=== PATIENT | male | born 1930 | race Caucasian/White ===

== ENCOUNTER 2017-03-31 10:26 | Inpatient (IN) | payer MEDICARE, BC ==
[2017-03-31] MEDS ORDERED: IPRATROPIUM-ALBUTEROL 3 ML NEB INHALATION STA (10:56)
--- NOTE | 2017-03-31 11:02 | ED ---
General Adult HPI - General Chief complaint: Shortness of Breath Stated complaint: SOB Time Seen by Provider: 03/31/17 10:30 Source: patient, EMS, RN notes reviewed Mode of arrival: EMS - History of Present Illness Initial comments: This is an 87-year-old male who presents emergency Department stating that for over 3 weeks he has cold symptoms. Patient states that over the last week he's become more more short of breath. Patient states today he felt dizzy so he took his blood pressure was 89 systolic and he believes his heart rate was between 180 and 190. Patient states he was very dizzy at that time. Patient states currently he does not feel that dizzy. Patient denies any chest pain. Patient states he is more short of breath especially with exertion over the last week. Patient denies any fever or chills. Patient denies any abdominal pain patient denies nausea vomiting diarrhea. Patient denies any swelling to the legs. Patient denies any calf tenderness. - Related Data Home Medications Medication Instructions Recorded Confirmed Allopurinol [Zyloprim] 100 mg PO DAILY 11/04/13 03/31/17 Aspirin 81 mg PO MOWEFR 11/04/13 03/31/17 Folic Acid 1 mg PO DAILY 11/04/13 03/31/17 Furosemide [Lasix] 40 mg PO QAM 11/04/13 03/31/17 Omeprazole [PriLOSEC] 20 mg PO DAILY 11/04/13 03/31/17 Pravastatin Sodium [Pravachol] 40 mg PO HS 11/04/13 03/31/17 Terazosin [Hytrin] 2 mg PO HS 11/04/13 03/31/17 predniSONE 20 mg PO DAILY 11/04/13 03/31/17 Losartan [Cozaar] 50 mg PO BID 02/27/14 03/31/17 amLODIPine [Norvasc] 10 mg PO DAILY@1200 02/27/14 03/31/17 Amiodarone [Cordarone] 100 mg PO DAILY 03/31/17 03/31/17 Hydrochlorothiazide [Hydrodiuril] 12.5 mg PO DAILY 03/31/17 03/31/17 Warfarin [Coumadin] 5 mg PO HS 03/31/17 03/31/17 Allergies Allergy/AdvReac Type Severity Reaction Status Date / Time codeine Allergy Mild Confusion Verified 03/31/17 11:01 Review of Systems ROS Statement: Those systems with pertinent positive or pertinent negative responses have been documented in the HPI. ROS Other: All systems not noted in ROS Statement are negative. Past Medical History Past Medical History: Blood Disorder, Cancer, Heart Failure, COPD, Hyperlipidemia, Hypertension, Myocardial Infarction (CO), Prostate Disorder, Sleep Apnea/CPAP/BIPAP Additional Past Medical History / Comment(s): CLL, home 02 AT 2 Liters with cpap , Guillan-Dodson syndrome, autoimmune hemolytic anemia, BPH, gout,irregular heart rate Last Myocardial Infarction Date:: 04/29 History of Any Multi-Drug Resistant Organisms: None Reported Past Surgical History: Heart Catheterization, Tonsillectomy Additional Past Surgical History / Comment(s): heavenly carotid endarct, lt knee replacement, prostate biopsy Past Anesthesia/Blood Transfusion Reactions: No Reported Reaction Additional Past Anesthesia/Blood Transfusion Reaction / Comment(s): pt states "has rare antibodies to blood has trouble finding matches" Past Psychological History: No Psychological Hx Reported Smoking Status: Former smoker - Past Family History Brother(s) Family Medical History: Cancer Additional Family Medical History / Comment(s): kidney General Exam - General Exam Comments Initial Comments: GENERAL: Patient is well-developed and well-nourished. Patient is nontoxic and well- hydrated and is in mild distress. ENT: Neck is soft and supple. No significant lymphadenopathy is noted. Oropharynx is clear. Moist mucous membranes. Neck has full range of motion without eliciting any pain. EYES: The sclera were anicteric and conjunctiva were pink and moist. Extraocular movements were intact and pupils were equal round and reactive to light. Eyelids were unremarkable. PULMONARY: Unlabored respirations. Good breath sounds bilaterally. No audible rales rhonchi or wheezing was noted. CARDIOVASCULAR: There is a regular rate and rhythm without any murmurs gallops or rubs. ABDOMEN: Soft and nontender with normal bowel sounds. No palpable organomegaly was noted. There is no palpable pulsatile mass. SKIN: Skin is clear with no lesions or rashes and otherwise unremarkable. NEUROLOGIC: Patient is alert and oriented x3. Cranial nerves II through XII are grossly intact. Motor and sensory are also intact. Normal speech, volume and content. Symmetrical smile. MUSCULOSKELETAL: Normal extremities with adequate strength and full range of motion. No lower extremity swelling or edema. No calf tenderness. LYMPHATICS: No significant lymphadenopathy is noted PSYCHIATRIC: Normal psychiatric evaluation. Normal interpersonal interactions appears functionally intact in deals appropriately with others. Course Vital Signs 03/31/17 03/31/17 03/31/17 10:29 11:23 11:24 Temperature 99.0 F Pulse Rate 102 H 91 Respiratory 20 20 Rate Blood Pressure 134/62 O2 Sat by Pulse 84 L Oximetry 03/31/17 03/31/17 11:33 12:18 Temperature Pulse Rate 91 86 Respiratory 18 Rate Blood Pressure 127/58 O2 Sat by Pulse 98 Oximetry Medical Decision Making - Medical Decision Making EKG showed atrial fibrillation at a rate of 92 bpm QRS 154 QT interval is 400 QTC is 494. Patient's EKG shows no ST segment elevation or depression or T wave abnormalities are noted. Chest x-ray shows no acute abnormality. Patient was asymptomatic while in the emergency department. - Lab Data Result diagrams: 03/31/17 10:50 03/31/17 10:50 Lab Results 03/31/17 03/31/17 03/31/17 Range/Units 10:50 10:50 10:50 WBC 8.6 (3.8-10.6) k/uL RBC 3.41 L (4.30-5.90) m/uL Hgb 10.0 L (13.0-17.5) gm/dL Hct 33.5 L (39.0-53.0) % MCV 98.3 (80.0-100.0) fL MCH 29.4 (25.0-35.0) pg MCHC 29.9 L (31.0-37.0) g/dL RDW 15.5 (11.5-15.5) % Plt Count 146 L (150-450) k/uL Neutrophils % 88 % Lymphocytes % 6 % Monocytes % 5 % Eosinophils % 0 % Basophils % 0 % Neutrophils # 7.5 (1.3-7.7) k/uL Lymphocytes # 0.5 L (1.0-4.8) k/uL Monocytes # 0.4 (0-1.0) k/uL Eosinophils # 0.0 (0-0.7) k/uL Basophils # 0.0 (0-0.2) k/uL Hypochromasia Marked Macrocytosis Slight PT (9.0-12.0) sec INR (<1.2) APTT (22.0-30.0) sec Sodium 141 (137-145) mmol/L Potassium 4.1 (3.5-5.1) mmol/L Chloride 101 (98-107) mmol/L Carbon Dioxide 30 (22-30) mmol/L Anion Gap 10 mmol/L BUN 48 H (9-20) mg/dL Creatinine 2.17 H (0.66-1.25) mg/dL Est GFR (MDRD) Af Amer 35 (>60 ml/min/1.73 sqM) Est GFR (MDRD) Non-Af 29 (>60 ml/min/1.73 sqM) Glucose 220 H (74-99) mg/dL Calcium 8.4 (8.4-10.2) mg/dL Magnesium 1.6 (1.6-2.3) mg/dL Total Bilirubin 0.4 (0.2-1.3) mg/dL AST 13 L (17-59) U/L ALT 26 (21-72) U/L Alkaline Phosphatase 52 (38-126) U/L Total Creatine Kinase 38 L (55-170) U/L CK-MB (CK-2) 1.4 (0.0-2.4) ng/mL CK-MB (CK-2) Rel Index 3.7 Troponin I 0.034 (0.000-0.034) ng/mL NT-Pro-B Natriuret Pep pg/mL Total Protein 5.1 L (6.3-8.2) g/dL Albumin 2.8 L (3.5-5.0) g/dL 03/31/17 03/31/17 Range/Units 10:50 10:50 WBC (3.8-10.6) k/uL RBC (4.30-5.90) m/uL Hgb (13.0-17.5) gm/dL Hct (39.0-53.0) % MCV (80.0-100.0) fL MCH (25.0-35.0) pg MCHC (31.0-37.0) g/dL RDW (11.5-15.5) % Plt Count (150-450) k/uL Neutrophils % % Lymphocytes % % Monocytes % % Eosinophils % % Basophils % % Neutrophils # (1.3-7.7) k/uL Lymphocytes # (1.0-4.8) k/uL Monocytes # (0-1.0) k/uL Eosinophils # (0-0.7) k/uL Basophils # (0-0.2) k/uL Hypochromasia Macrocytosis PT 31.3 H (9.0-12.0) sec INR 3.5 H (<1.2) APTT 43.1 H (22.0-30.0) sec Sodium (137-145) mmol/L Potassium (3.5-5.1) mmol/L Chloride (98-107) mmol/L Carbon Dioxide (22-30) mmol/L Anion Gap mmol/L BUN (9-20) mg/dL Creatinine (0.66-1.25) mg/dL Est GFR (MDRD) Af Amer (>60 ml/min/1.73 sqM) Est GFR (MDRD) Non-Af (>60 ml/min/1.73 sqM) Glucose (74-99) mg/dL Calcium (8.4-10.2) mg/dL Magnesium (1.6-2.3) mg/dL Total Bilirubin (0.2-1.3) mg/dL AST (17-59) U/L ALT (21-72) U/L Alkaline Phosphatase (38-126) U/L Total Creatine Kinase (55-170) U/L CK-MB (CK-2) (0.0-2.4) ng/mL CK-MB (CK-2) Rel Index Troponin I (0.000-0.034) ng/mL NT-Pro-B Natriuret Pep 1690 pg/mL Total Protein (6.3-8.2) g/dL Albumin (3.5-5.0) g/dL Disposition Clinical Impression: Near syncope, Tachycardia, Dyspnea Disposition: ADMITTED IP TO THIS HOSP Referrals: Rudolph Ceja MD [Primary Care Provider] - 1-2 days Time of Disposition: 12:53
[2017-03-31 11:07] LABS: Basophils % (A) 0 %; Eosinophils % (A) 0 %; HCT 33.5 % (39.0-53.0); Hypochromasia Marked; Lymphocytes # (A) 0.5 k/uL (1.0-4.8); Lymphocytes % (A) 6 %; MCH 29.4 pg (25.0-35.0); MCHC 29.9 g/dL (31.0-37.0); MCV 98.3 fL (80.0-100.0); Macrocytosis Slight; Monocytes # (A) 0.4 k/uL (0-1.0); Monocytes % (A) 5 %; Neutrophils # (A) 7.5 k/uL (1.3-7.7); Neutrophils % (A) 88 %; Platelet Count 146 k/uL (150-450); RBC 3.41 m/uL (4.30-5.90); RDW 15.5 % (11.5-15.5); WBC 8.6 k/uL (3.8-10.6)
[2017-03-31 11:25] LABS: Albumin 2.8 g/dL (3.5-5.0); Calcium 8.4 mg/dL (8.4-10.2); Magnesium 1.6 mg/dL (1.6-2.3); Potassium 4.1 mmol/L (3.5-5.1); Total Bilirubin 0.4 mg/dL (0.2-1.3); Total Protein 5.1 g/dL (6.3-8.2)
[2017-03-31 11:44] LABS: Creatine Kinase MB 1.4 ng/mL (0.0-2.4); Troponin I 0.034 ng/mL (0.000-0.034)
[2017-03-31 11:48] LABS: INR 3.5 (<1.2); Partial Thromboplastin Time 43.1 sec (22.0-30.0); Prothrombin Time 31.3 sec (9.0-12.0)
--- NOTE | 2017-03-31 11:50 | XR ---
EXAMINATION TYPE: XR chest 2V DATE OF EXAM: 03/31/2017 COMPARISON: November 04, 2013 HISTORY: Shortness of breath TECHNIQUE: Frontal and lateral views of the chest are obtained. FINDINGS: Scattered senescent parenchymal changes noted. Hyperinflation compatible with COPD. No evidence for infiltrate. No evidence for atelectasis. Heart size is stable. Mediastinal structures are stable and grossly unremarkable. No evidence for hilar prominence. Degenerative changes dorsal spine. IMPRESSION: 1. No evidence for acute pulmonary disease.
[2017-03-31] MEDS ORDERED: SODIUM CHLORIDE 0.9% 1,000 ML IV ONE (12:54)
[2017-03-31] MEDS: BUDESONIDE 0.5 MG/2 ML NEBU INHALATION SCH (19:17)
[2017-03-31] MEDS: IPRATROPIUM-ALBUTEROL 3 ML NEB INHALATION SCH (19:17)
[2017-03-31] MEDS: AMIODARONE 100 MG TAB PO SCH (20:11)
[2017-03-31] MEDS: PRAVASTATIN SODIUM 40 MG TAB PO SCH (20:15)
[2017-03-31] MEDS: LOSARTAN 50 MG TAB PO SCH (20:15)
[2017-03-31] MEDS: DOXAZOSIN 2 MG TAB PO SCH (20:15)
[2017-04-01] MEDS: PANTOPRAZOLE 40 MG TABLET PO SCH (06:40)
[2017-04-01] MEDS: AMIODARONE 100 MG TAB PO SCH (08:31)
[2017-04-01] MEDS: FOLIC ACID 1 MG TAB PO SCH (08:31)
[2017-04-01] MEDS: predniSONE 20 MG TAB PO SCH (08:31)
[2017-04-01] MEDS: LOSARTAN 50 MG TAB PO SCH ×2 (08:31→21:06)
[2017-04-01] MEDS: ALLOPURINOL 100 MG TAB PO SCH (08:31)
[2017-04-01] MEDS: BUDESONIDE 0.5 MG/2 ML NEBU INHALATION SCH ×2 (08:53→19:58)
[2017-04-01] MEDS: IPRATROPIUM-ALBUTEROL 3 ML NEB INHALATION SCH ×4 (08:53→19:58)
[2017-04-01] MEDS ORDERED: FUROSEMIDE 40 MG TAB PO SCH (09:00)
[2017-04-01] MEDS ORDERED: HYDROCHLOROTHIAZIDE 12.5 MG CAP PO SCH (09:00)
[2017-04-01] MEDS ORDERED: ASPIRIN 81 MG PO SCH (09:00)
--- NOTE | 2017-04-01 10:24 | P.HPIM ---
History of Present Illness H&P Date: 04/01/17 Chief Complaint: Dizzy, short of breath This is an 87-year-old gentleman who presented to the emergency department complaining of dizziness and shortness of breath. The patient states that he checked his heart rate at home and it was 180 290. The patient states he was dizzy and didn't feel well at the time. He was seen in the pulmonary office on 03/20/2017 with shortness of breath and cough. He was started on azithromycin, prednisone, Qvar. He states that his cough and breathing did get better however he is still not back to baseline. He denies fevers and chills. He states he doesn't like the Qvar because it makes him shaky. On admission his EKG showed atrial fibrillation, rate 92 bpm, right bundle branch block. He states he does follow with Dr. Lau in the cardiology office. Review of Systems All systems: negative Past Medical History Past Medical History: Atrial Fibrillation, Blood Disorder, Coronary Artery Disease (CAD), Cancer, Heart Failure, COPD, Diabetes Mellitus, Hyperlipidemia, Hypertension, Myocardial Infarction (SD), Prostate Disorder, Sleep Apnea/CPAP/ BIPAP Additional Past Medical History / Comment(s): CLL diagnosed in 2007, years later had chemo one time and it was discontinued because pt had a SD while receiving, autoimmune hemolytic anemia, rare antibiodies in his blood, AFib with RVR, NIDDM no longer on medications, LOUIE with CPAP occasionally uses O2 2L/ NC with it, 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 Last Myocardial Infarction Date:: 2013 History of Any Multi-Drug Resistant Organisms: None Reported Past Surgical History: Heart Catheterization, Joint Replacement, Tonsillectomy Additional Past Surgical History / Comment(s): heavenly carotid endarct, total lt knee replacement, prostate biopsy, bilateral cataract removals with lens implants, colonoscopies. Past Anesthesia/Blood Transfusion Reactions: No Reported Reaction Additional Past Anesthesia/Blood Transfusion Reaction / Comment(s): pt states "has rare antibodies to blood has trouble finding matches" Smoking Status: Former smoker - Past Family History Brother(s) Family Medical History: Cancer Additional Family Medical History / Comment(s): kidney Mother Family Medical History: Myocardial Infarction (SD) Additional Family Medical History / Comment(s): Mother of a SD at the age of 85yrs. Father Family Medical History: No Reported History Additional Family Medical History / Comment(s): Father was healthy and lived to be 93 yrs old. Medications and Allergies Home Medications Medication Instructions Recorded Confirmed Type Allopurinol [Zyloprim] 100 mg PO DAILY 11/04/13 03/31/17 History Aspirin 81 mg PO MOWEFR 11/04/13 03/31/17 History Folic Acid 1 mg PO DAILY 11/04/13 03/31/17 History Furosemide [Lasix] 40 mg PO QAM 11/04/13 03/31/17 History Omeprazole [PriLOSEC] 20 mg PO DAILY 11/04/13 03/31/17 History Pravastatin Sodium [Pravachol] 40 mg PO HS 11/04/13 03/31/17 History Terazosin [Hytrin] 2 mg PO HS 11/04/13 03/31/17 History predniSONE 20 mg PO DAILY 11/04/13 03/31/17 History Losartan [Cozaar] 50 mg PO BID 02/27/14 03/31/17 History amLODIPine [Norvasc] 10 mg PO DAILY@1200 02/27/14 03/31/17 History Amiodarone [Cordarone] 100 mg PO DAILY 03/31/17 03/31/17 History Hydrochlorothiazide [Hydrodiuril] 12.5 mg PO DAILY 03/31/17 03/31/17 History Warfarin [Coumadin] 5 mg PO HS 03/31/17 03/31/17 History Allergies Allergy/AdvReac Type Severity Reaction Status Date / Time codeine Allergy Mild Confusion Verified 03/31/17 11:01 Physical Exam Osteopathic Statement: *. No significant issues noted on an osteopathic structural exam other than those noted in the History and Physical/Consult. Vitals: Vital Signs Temp Pulse Pulse Resp BP BP Pulse Ox 04/01/17 08:00 98.3 F 88 18 143/64 95 04/01/17 04:00 98.9 F 89 16 133/58 95 03/31/17 23:40 93 18 03/31/17 23:39 100.3 F H 93 18 168/65 93 L 03/31/17 20:00 98.5 F 122 H 20 159/70 94 L 03/31/17 19:30 72 03/31/17 19:17 66 96 03/31/17 16:00 100.4 F H 109 H 18 149/66 96 03/31/17 14:31 98.9 F 109 H 18 167/69 95 03/31/17 13:45 109 H 18 03/31/17 13:33 99.2 F 99 19 142/59 98 03/31/17 13:13 99.2 F 99 19 142/59 98 03/31/17 12:18 86 18 127/58 98 03/31/17 11:33 91 03/31/17 11:24 20 03/31/17 11:23 91 03/31/17 10:29 99.0 F 102 H 20 134/62 84 L Intake and Output 03/31/17 04/01/17 04/01/17 22:59 06:59 14:59 Intake Total 360 375 240 Output Total 400 Balance 360 -25 240 Intake: Intake, IV Titration 375 Amount Sodium Chloride 0.9% 1, 375 000 ml @ 75 mls/hr IV . [id number] ONE Rx#:[id number] Oral 360 240 Output: Urine 400 Other: # Voids 1 Weight 93.5 kg General: Alert and oriented x3, obese, NAD CV: IRR, s1/s2 Lungs: Diffuse bilateral wheezing Abd: soft, NT/ND, +BS Ext: trace edema Results CBC & Chem 7: 03/31/17 10:50 03/31/17 10:50 Labs: Abnormal Lab Results - Last 24 Hours (Table) 03/31/17 03/31/17 03/31/17 Range/Units 10:50 10:50 10:50 RBC 3.41 L (4.30-5.90) m/uL Hgb 10.0 L (13.0-17.5) gm/dL Hct 33.5 L (39.0-53.0) % MCHC 29.9 L (31.0-37.0) g/dL Plt Count 146 L (150-450) k/uL Lymphocytes # 0.5 L (1.0-4.8) k/uL PT (9.0-12.0) sec INR (<1.2) APTT (22.0-30.0) sec BUN 48 H (9-20) mg/dL Creatinine 2.17 H (0.66-1.25) mg/dL Glucose 220 H (74-99) mg/dL AST 13 L (17-59) U/L Total Creatine Kinase 38 L (55-170) U/L Total Protein 5.1 L (6.3-8.2) g/dL Albumin 2.8 L (3.5-5.0) g/dL 03/31/17 Range/Units 10:50 RBC (4.30-5.90) m/uL Hgb (13.0-17.5) gm/dL Hct (39.0-53.0) % MCHC (31.0-37.0) g/dL Plt Count (150-450) k/uL Lymphocytes # (1.0-4.8) k/uL PT 31.3 H (9.0-12.0) sec INR 3.5 H (<1.2) APTT 43.1 H (22.0-30.0) sec BUN (9-20) mg/dL Creatinine (0.66-1.25) mg/dL Glucose (74-99) mg/dL AST (17-59) U/L Total Creatine Kinase (55-170) U/L Total Protein (6.3-8.2) g/dL Albumin (3.5-5.0) g/dL Chest x-ray: report reviewed, image reviewed Thrombosis Risk Factor Assmnt - Choose All That Apply Any of the Below Risk Factors Present?: Yes Each Factor Represents 1 point: Abnormal pulmonary function (COPD), Obesity ( BMI >25) Other Risk Factors: Yes Each Risk Factor Represents 2 Points: Malignancy Each Risk Factor Represents 3 Points: Age 75 years or older Other congenital or acquired thrombophilia - If yes, enter type in comment: No Thrombosis Risk Factor Assessment Total Risk Factor Score: 7 Thrombosis Risk Factor Assessment Level: High Risk Assessment and Plan Assessment: Acute hypoxemia Tracheobronchitis Acute exacerbation of COPD 2/4 SIRS Atrial fibrillation Right bundle branch block Hyperglycemia Anemia, normocytic AN, unknown baseline Mild thrombocytopenia Coumadin coagulopathy - supratherapeutic Moderate PCM History of CLL, chronically on Prednisone Immunocompromised state Hypertension History of SD/ASCAD O2 to maintain saturation greater than or equal to 90% IV Solu-Medrol Blood sugar control Bronchodilators next line Pulmicort Antibiotics: doxycycline Consult cardiology Check iron, B12, folate, A1C Check lactic acid Check BNP Hold Coumadin today, INR in AM Blood, sputum cultures Urine analysis with urine culture Hold Lasix, gentle IV fluid hydration GI and DVT prophylaxis: Coumadin, Protonix Incentive spirometry and pulmonary hygiene Check lipid panel in the morning
[2017-04-01] MEDS: DOXYCYCLINE 50 MG CAP PO SCH ×2 (11:23→21:06)
[2017-04-01] MEDS: methylPREDNISolone SOD SUCCI 40 MG/ML 1 ML VIAL IV SCH (11:23)
[2017-04-01] MEDS: SODIUM CHLORIDE 0.9% 1,000 ML IV SCH (11:24)
--- NOTE | 2017-04-01 11:32 | P.CRDCN ---
History of Present Illness Consult date: 04/01/17 Requesting physician: Rudolph Ceja Consult reason: atrial fibrillation Chief complaint: Dizziness and shortness of breath History of present illness: This is a pleasant 87-year-old gentleman history of paroxysmal atrial fibrillation, CLL, diabetes, hyperlipidemia, hypertension, COPD, sleep apnea, chronic renal failure who follows with Dr. Lau in the office. He has recently been being treated for an upper respiratory infection as an outpatient , he was started on Zithromax, prednisone, and Qvar. Dates that he did notice some improvement in his breathing, although not back to his normal. He continues to have a cough of clear sputum. He states that he became dizzy and felt his heart racing fast, he checked his heart rate at the time which was documented to be up in the 180's so the patient came to the emergency room for further evaluation shortly thereafter he noticed his heart rate to be up in the 180s, it came back down to the 90 range and his symptoms of dizziness resolved. Patient does take Coumadin for anticoagulation for which he has monitored in the cardiology office. EKG on admission here showed a normal sinus rhythm with PACs, rhythm strips also reflect normal sinus rhythm with frequent PACs. Urology consult was requested for atrial fibrillation. Chest x-ray does not reveal any evidence for acute pulmonary disease. At pressure 142/60 with a heart rate in the 80s, afebrile. 95% on 2 L Ventimask. White blood cell count is normal, hemoglobin 10, platelet count 146. Sodium 141, potassium 4.1, BUN 48 , creatinine 2.1. BNP level 2320. Mag level I.6, troponin 0.034. Time of my examination, patient is sitting up, appears quite comfortable in bed, continues to have mild cough. 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 Last Myocardial Infarction Date:: 2013 History of Any Multi-Drug Resistant Organisms: None Reported Past Surgical History: Heart Catheterization, Joint Replacement, Tonsillectomy Additional Past Surgical History / Comment(s): heavenly carotid endarct, total lt knee replacement, prostate biopsy, bilateral cataract removals with lens implants, colonoscopies. Past Anesthesia/Blood Transfusion Reactions: No Reported Reaction Additional Past Anesthesia/Blood Transfusion Reaction / Comment(s): pt states "has rare antibodies to blood has trouble finding matches" Smoking Status: Former smoker - Past Family History Brother(s) Family Medical History: Cancer Additional Family Medical History / Comment(s): kidney Mother Family Medical History: Myocardial Infarction ([place]) Additional Family Medical History / Comment(s): Mother of a FL at the age of 85yrs. Father Family Medical History: No Reported History Additional Family Medical History / Comment(s): Father was healthy and lived to be 93 yrs old. Medications and Allergies Home Medications Medication Instructions Recorded Confirmed Type Allopurinol [Zyloprim] 100 mg PO DAILY 11/04/13 03/31/17 History Aspirin 81 mg PO MOWEFR 11/04/13 03/31/17 History Folic Acid 1 mg PO DAILY 11/04/13 03/31/17 History Furosemide [Lasix] 40 mg PO QA 11/04/13 03/31/17 History Omeprazole [PriLOSEC] 20 mg PO DAILY 11/04/13 03/31/17 History Pravastatin Sodium [Pravachol] 40 mg PO 11/04/13 03/31/17 History Terazosin [Hytrin] 2 mg PO 11/04/13 03/31/17 History predniSONE 20 mg PO DAILY 11/04/13 03/31/17 History Losartan [Cozaar] 50 mg PO BID 02/27/14 03/31/17 History amLODIPine [Norvasc] 10 mg PO DAILY@1200 02/27/14 03/31/17 History Amiodarone [Cordarone] 100 mg PO DAILY 03/31/17 03/31/17 History Hydrochlorothiazide [Hydrodiuril] 12.5 mg PO DAILY 03/31/17 03/31/17 History Warfarin [Coumadin] 5 mg PO 03/31/17 03/31/17 History Allergies Allergy/AdvReac Type Severity Reaction Status Date / Time codeine Allergy Mild Confusion Verified 03/31/17 11:01 Physical Exam Vitals: Vital Signs Temp Pulse Pulse Resp BP BP Pulse Ox 04/01/17 08:00 98.3 F 88 18 143/64 95 04/01/17 04:00 98.9 F 89 16 133/58 95 03/31/17 23:40 93 18 03/31/17 23:39 100.3 F H 93 18 168/65 93 L 03/31/17 20:00 98.5 F 122 H 20 159/70 94 L 03/31/17 19:30 72 03/31/17 19:17 66 96 03/31/17 16:00 100.4 F H 109 H 18 149/66 96 03/31/17 14:31 98.9 F 109 H 18 167/69 95 03/31/17 13:45 109 H 18 03/31/17 13:33 99.2 F 99 19 142/59 98 03/31/17 13:13 99.2 F 99 19 142/59 98 03/31/17 12:18 86 18 127/58 98 03/31/17 11:33 91 03/31/17 11:24 20 03/31/17 11:23 91 Intake and Output 03/31/17 04/01/17 04/01/17 22:59 06:59 14:59 Intake Total 360 375 240 Output Total 400 Balance 360 -25 240 Intake: Intake, IV Titration 375 Amount Sodium Chloride 0.9% 1, 375 000 ml @ 75 mls/hr IV . [id number] ONE Rx#:[id number] Oral 360 240 Output: Urine 400 Other: # Voids 1 1 # Bowel Movements 0 Weight 93.5 kg PHYSICAL EXAMINATION: HEENT: Head is atraumatic, normocephalic. Pupils equal, round. Neck is supple. There is no elevated jugular venous pressure. HEART EXAMINATION: Heart S1, S2 normal. No murmur or gallop heard. CHEST EXAMINATION: Lungs reveal scattered wheezing throughout ABDOMEN: Soft, obese, nontender. Bowel sounds are heard. No organomegaly noted. EXTREMITIES: 2+ peripheral pulses with no evidence of peripheral edema and no calf tenderness noted. NEUROLOGIC patient is awake, alert and oriented -3. . Results 03/31/17 10:50 03/31/17 10:50 Cardiac Enzymes 03/31/17 03/31/17 Range/Units 10:50 10:50 AST 13 L (17-59) U/L CK-MB (CK-2) 1.4 (0.0-2.4) ng/mL Troponin I 0.034 (0.000-0.034) ng/mL Coagulation 03/31/17 Range/Units 10:50 PT 31.3 H (9.0-12.0) sec APTT 43.1 H (22.0-30.0) sec Comprehensive Metabolic Panel 03/31/17 Range/Units 10:50 Sodium 141 (137-145) mmol/L Potassium 4.1 (3.5-5.1) mmol/L Chloride 101 (98-107) mmol/L Carbon Dioxide 30 (22-30) mmol/L BUN 48 H (9-20) mg/dL Creatinine 2.17 H (0.66-1.25) mg/dL Glucose 220 H (74-99) mg/dL Calcium 8.4 (8.4-10.2) mg/dL AST 13 L (17-59) U/L ALT 26 (21-72) U/L Alkaline Phosphatase 52 (38-126) U/L Total Protein 5.1 L (6.3-8.2) g/dL Albumin 2.8 L (3.5-5.0) g/dL Current Medications Generic Name Dose Route Start Last Admin Trade Name Freq PRN Reason Stop Dose Admin Albuterol/Ipratropium 3 ml 03/31/17 20:00 04/01/17 08:53 Duoneb 0.5 Mg-3 Mg/3 Ml Soln INHALATION Not Given RT-QID [facility] Allopurinol 100 mg 04/01/17 09:00 04/01/17 08:31 Zyloprim PO 100 mg DAILY CHRIS Administration Amiodarone HCl 100 mg 03/31/17 18:30 04/01/17 08:31 Cordarone PO 100 mg DAILY CHRIS Administration Amlodipine Besylate 10 mg 04/01/17 12:00 Norvasc PO DAILY@1200 [facility] Aspirin 81 mg 04/01/17 09:00 04/01/17 08:31 Aspirin PO 81 mg MoWeFr@0900 [facility] Administration Budesonide 0.5 mg 03/31/17 20:00 04/01/17 08:53 Pulmicort INHALATION Not Given RT-BID [facility] Doxazosin Mesylate 2 mg 03/31/17 21:00 03/31/17 20:15 Cardura PO 2 mg HS CHRIS Administration Doxycycline Monohydrate 100 mg 04/01/17 10:30 Vibramycin PO BID CHRIS Folic Acid 1 mg 04/01/17 09:00 04/01/17 08:31 Folic Acid PO 1 mg DAILY CHRIS Administration Sodium Chloride 1,000 mls @ 50 mls/hr 04/01/17 10:30 Saline 0.9% IV .Q20H [facility] Insulin Aspart 0 unit 04/01/17 12:30 Novolog SQ ACHS [facility] Protocol Losartan Potassium 50 mg 03/31/17 21:00 04/01/17 08:31 Cozaar PO 50 mg BID CHRIS Administration Methylprednisolone Sodium Succinate 40 mg 04/01/17 10:30 Solu-Medrol IV DAILY CHRIS Pantoprazole Sodium 40 mg 04/01/17 07:30 04/01/17 06:40 Protonix PO 40 mg AC-[id number] CHRIS Administration Pravastatin Sodium 40 mg 03/31/17 21:00 03/31/17 20:15 Pravachol PO 40 mg HS CHRIS Administration Prednisone 20 mg 04/01/17 09:00 04/01/17 08:31 PO 20 mg DAILY CHRIS Administration Intake and Output 03/31/17 04/01/17 04/01/17 22:59 06:59 14:59 Intake Total 360 375 240 Output Total 400 Balance 360 -25 240 Intake: Intake, IV Titration 375 Amount Sodium Chloride 0.9% 1, 375 000 ml @ 75 mls/hr IV . [id number] ONE Rx#:[id number] Oral 360 240 Output: Urine 400 Other: # Voids 1 1 # Bowel Movements 0 Weight 93.5 kg 03/31/17 10:50 03/31/17 10:50 EKG Interpretations (text) EKG shows sinus rhythm with PACs Assessment and Plan Plan: Assessment and Plan #1 acute tracheobronchitis with exacerbation of COPD #2 history of paroxysmal atrial fibrillation, EKG shows normal sinus rhythm with PACs, patient continues to be in a normal sinus rhythm. #3 hypertension #4 hyperlipidemia #5 CLL #6 peripheral vascular disease #7 autoimmune hemolytic anemia #8 chronic renal failure Plan Will repeat an echocardiogram with Doppler study. Continue current medications. Monitor INR closely as this now on antibiotics. Further recommendations to follow. DNP note has been reviewed, I agree with a documented findings and plan of care. Patient was seen and examined.
[2017-04-01] MEDS ORDERED: amLODIPine 10 MG TAB PO SCH (12:00)
[2017-04-01 12:04] LABS: Glucose,Whole Blood 115 mg/dL (75-99)
[2017-04-01] MEDS: INSULIN ASPART 100 UNIT/ML 1 ML 10 ML VIAL SQ SCH ×3 (12:06→21:06)
--- NOTE | 2017-04-01 12:07 | ECHOF ---
Referral Reason:afib, pulmonary hypertension MEASUREMENTS -------- HEIGHT: 157.5 cm WEIGHT: 93.4 kg BP: 143/64 RVIDd: 3.5 cm (< 3.3) IVSd: 1.5 cm (0.6 - 1.1) LVIDd: 5.6 cm (3.9 - 5.3) LVPWd: 1.3 cm (0.6 - 1.1) IVSs: 1.6 cm LVIDs: 5.0 cm LVPWs: 1.2 cm LA Diam: 4.5 cm (2.7 - 3.8) LAESV Index (A-L): 33.11 ml/m Ao Diam: 3.9 cm (2.0 - 3.7) AV Cusp: 1.8 cm (1.5 - 2.6) LA Diam: 4.4 cm (2.7 - 3.8) MV EXCURSION: 16.898 mm (> 18.000) MV EF SLOPE: 56 mm/s (70 - 150) EPSS: 0.9 cm MV E Matty: 0.90 m/s MV DecT: 268 ms MV A Matty: 1.09 m/s MV E/A Ratio: 0.83 RAP: 5.00 mmHg RVSP: 38.65 mmHg FINDINGS -------- Atrial fibrillation. This was a technically good study. The left ventricular size is normal. There is moderate concentric left ventricular hypertrophy. O verall left ventricular systolic function is low-normal with, an EF between 50 - 55 %. The right ventricle is normal in size. LA is moderately dilated 34-39 ml/m2 The right atrial size is normal. There is mild aortic valve sclerosis. There is no evidence of aortic regurgitation. Mild mitral annular calcification present. Mild mitral regurgitation is present. Mild tricuspid regurgitation present. There is mild pulmonary hypertension. The right ventricular systolic pressure, as measured by Doppler, is 38.65mmHg. Trace/mild (physiologic) pulmonic regurgitation. The aortic root size is normal. Echo free space represents a pericardial fat pad. CONCLUSIONS -------- 1. The left ventricular size is normal. 2. There is moderate concentric left ventricular hypertrophy. 3. Overall left ventricular systolic function is low-normal with, an EF between 50 - 55 %. 4. LA is moderately dilated 34-39 ml/m2 5. There is mild aortic valve sclerosis. 6. Mild mitral annular calcification present. 7. Mild mitral regurgitation is present. 8. Mild tricuspid regurgitation present. 9. There is mild pulmonary hypertension. 10. The right ventricular systolic pressure, as measured by Doppler, is 38.65mmHg. 11. Trace/mild (physiologic) pulmonic regurgitation. 12. The aortic root size is normal. 13. Echo free space represents a pericardial fat pad. RECTIFYING OPERATOR: Sherri Purcell RDCS
[2017-04-01 14:35] LABS: Appearance,Urine Clear (Clear); Bilirubin,Urine Negative (Negative); Blood,Urine Trace (Negative); Color,Urine Light Yellow; Glucose,Urine (UA) Negative (Negative); Ketones,Urine Negative (Negative); Leukocyte Esterase,Urine Negative (Negative); Nitrite,Urine Negative (Negative); Protein,Urine 1+ (Negative); RBC,Urine <1 /hpf (0-5); Specific Gravity,Urine 1.011 (1.001-1.035); Urobilinogen,Urine <2.0 mg/dL (<2.0); WBC,Urine <1 /hpf (0-5)
[2017-04-01 15:53] LABS: Iron Saturation 4.68 (15.00-50.00)
[2017-04-01 17:12] LABS: Glucose,Whole Blood 166 mg/dL (75-99)
[2017-04-01 17:28] LABS: Folate, Serum >24.0 ng/mL
[2017-04-01 17:31] LABS: Hemoglobin A1C 5.5 % (4.0-6.0)
[2017-04-01 20:44] LABS: Glucose,Whole Blood 139 mg/dL (75-99)
[2017-04-01] MEDS: DOXAZOSIN 2 MG TAB PO SCH (21:06)
[2017-04-01] MEDS: PRAVASTATIN SODIUM 40 MG TAB PO SCH (21:06)
[2017-04-02] MEDS ORDERED: ADENOSINE 3 MG/ML 2 ML VIAL IVP STA ×2 (03:07→03:12)
[2017-04-02] MEDS ORDERED: AMIODARONE 200 MG TAB PO STA (05:09)
[2017-04-02] MEDS ORDERED: SODIUM CHLORIDE 0.9% 500 ML IV ONE (05:11)
[2017-04-02] MEDS ORDERED: DILTIAZEM 125 MG in SODIUM CHLORIDE 0.9% 100 ML IV SCH (05:15)
[2017-04-02 05:42] LABS: Basophils % (A) 0 %; Eosinophils # (A) 0.1 k/uL (0-0.7); Eosinophils % (A) 1 %; HCT 29.1 % (39.0-53.0); HGB 8.7 gm/dL (13.0-17.5); Hypochromasia Marked; Lymphocytes # (A) 0.9 k/uL (1.0-4.8); Lymphocytes % (A) 11 %; MCH 29.1 pg (25.0-35.0); MCHC 29.9 g/dL (31.0-37.0); MCV 97.2 fL (80.0-100.0); Mean Platelet Volume 10.1; Monocytes # (A) 0.4 k/uL (0-1.0); Monocytes % (A) 5 %; Neutrophils # (A) 6.5 k/uL (1.3-7.7); Neutrophils % (A) 82 %; Platelet Count 129 k/uL (150-450); RBC 2.99 m/uL (4.30-5.90); RDW 15.1 % (11.5-15.5); WBC 7.9 k/uL (3.8-10.6)
[2017-04-02] MEDS: SODIUM CHLORIDE 0.9% 1,000 ML IV SCH (05:45)
[2017-04-02 05:47] LABS: INR 2.2 (<1.2); Prothrombin Time 20.1 sec (9.0-12.0)
[2017-04-02 05:58] LABS: Calcium 8.6 mg/dL (8.4-10.2); Potassium 4.3 mmol/L (3.5-5.1)
[2017-04-02] MEDS: INSULIN ASPART 100 UNIT/ML 1 ML 10 ML VIAL SQ SCH ×4 (06:03→21:48)
[2017-04-02 06:12] LABS: Glucose,Whole Blood 115 mg/dL (75-99)
[2017-04-02] MEDS: PANTOPRAZOLE 40 MG TABLET PO SCH (06:28)
--- NOTE | 2017-04-02 08:11 | PN ---
PROGRESS NOTE Mr. Segura is an 87-year-old male with known history of supraventricular tachycardia who was admitted with symptoms of upper respiratory infection and tracheobronchitis. During the night, he had recurrent episode of supraventricular tachycardia, appears to be AV el reentry tachycardia. The first one was broken with the IV adenosine. Subsequently, he was started on IV Cardizem. He is in sinus mechanism at this time. He felt fatigued and short of breath with a drop in the blood pressure with the episodes. He denies any dizziness. His cough is better. He denies any nausea. He continued be on amiodarone that was increased to 200 mg twice a day. He is on IV Cardizem, losartan 50 mg twice a day, pravastatin 40 mg daily, and prednisone. PHYSICAL EXAMINATION: Blood pressure 116/70 with the heart rate in the 70s. LUNGS: With scattered end-expiratory wheezes. HEART: Regular rate and rhythm, S1, S2. No S3 with systolic murmur. No diastolic murmur. ABDOMEN: Soft, nontender. EXTREMITIES: No edema. LAB DATA: Lab data revealed hemoglobin of 8.7, BUN and creatinine 49 and 2.0. EKG is consistent with a supraventricular tachyarrhythmia. IMPRESSION: 1. Recurrent AV el reentry tachycardia. 2. Bronchitis. 3. History of hypertension. 4. Anemia. 5. Chronic kidney disease. RECOMMENDATION: I will switch him to oral Cardizem. I will continue on the amiodarone orally with a higher dose. We will follow his rhythm and his rate and depending on that, further recommendation will be made. MMODL / IJN: [id number] /
[2017-04-02] MEDS: DILTIAZEM ORAL 60 MG TAB PO SCH ×3 (08:17→21:48)
[2017-04-02] MEDS: DOXYCYCLINE 50 MG CAP PO SCH ×2 (08:17→20:25)
[2017-04-02] MEDS: FOLIC ACID 1 MG TAB PO SCH (08:17)
[2017-04-02] MEDS: LOSARTAN 50 MG TAB PO SCH ×2 (08:17→20:25)
[2017-04-02] MEDS: methylPREDNISolone SOD SUCCI 40 MG/ML 1 ML VIAL IV SCH (08:17)
[2017-04-02] MEDS: ALLOPURINOL 100 MG TAB PO SCH (08:17)
[2017-04-02] MEDS: AMIODARONE 200 MG TAB PO SCH ×2 (08:18→20:25)
[2017-04-02] MEDS: predniSONE 20 MG TAB PO SCH (08:18)
[2017-04-02] MEDS: IPRATROPIUM-ALBUTEROL 3 ML NEB INHALATION SCH ×4 (10:07→21:11)
[2017-04-02] MEDS: BUDESONIDE 0.5 MG/2 ML NEBU INHALATION SCH ×2 (10:07→21:11)
[2017-04-02 12:12] LABS: Glucose,Whole Blood 107 mg/dL (75-99)
--- NOTE | 2017-04-02 13:57 | CDI ---
Last Revision, February 2017 Documentation Clarification Form Date: 04/02/2017 1:47:00 PM From: Eri Yao RN, CCDS Admit Date: 03/31/2017 12:54:00 PM Patient Name: Presley Segura Visit Number: [id number] ATTENTION: The Clinical Documentation Specialists (CDI) and [facility] Coding Staff appreciate your assistance in clarifying documentation. Please respond to the clarification below the line at the bottom and electronically sign. The CDI & [facility] Coding staff will review the response and follow-up if needed. Please note: Queries are made part of the Legal Health Record. If you have any questions, please contact the author of this message via ITS. Dr. Kemi Daniels History/Risk Factors: AN, COPD, AF, CLL, COPD Clinical Indicators: CKD is documented by Cardiology Current BUN: 48/49 CR:2.17/2 GFR:29/32 11/04/13 Patients Baseline: BUN/CR/GFR: 42/2.14 Treatment: Patients medications include: IVF: 500 cc fluid bolus followed by 75 cc/hr In order to capture the severity of condition, please clarify if the condition signifies: CKD Stage 1 (GFR > 90) CKD Stage 2 (GFR 60-89) x CKD Stage 3 (GFR 30-59) CKD Stage 4 (GFR 15-29) CKD Stage 5 (GFR <15) ESRD Other, please specify Unable to determine Please continue to document in your progress notes and discharge summary in order to capture severity of illness and risk of mortality. Include clinical findings that support your diagnosis. MTDD
--- NOTE | 2017-04-02 14:11 | CDI ---
Last Revision, February 2017 Documentation Clarification Form Date: 04/02/2017 1:57:00 PM From: Eri Yao RN, CCDS Admit Date: 03/31/2017 12:54:00 PM Patient Name: Presley Segura Visit Number: [id number] ATTENTION: The Clinical Documentation Specialists (CDI) and [facility] Coding Staff appreciate your assistance in clarifying documentation. Please respond to the clarification below the line at the bottom and electronically sign. The CDI & [facility] Coding staff will review the response and follow-up if needed. Please note: Queries are made part of the Legal Health Record. If you have any questions, please contact the author of this message via ITS. Dr. Carlos Martino/ Yvette Elizondo DNP CHF is documented in the patient's past medical history and requires further specificity. History/Risk Factors: CHF, AF, Anemia, AN, CKD, CLL Clinical Indicators: VS/Pulse OX: temp 99, hr 102, B/P 134/62, spo2 84% ra BNP: 2320 04/01 Echocardiogram Results: 50-55% Chest X Ray:- Treatment: Lasix 40 mg PO QAM In your professional opinion, can you please clarify the acuity and type of CHF if known? Systolic Heart Failure: Chronic Acute on Chronic Diastolic Heart Failure: Chronic Acute on Chronic Systolic & Diastolic Heart Failure: Chronic Acute on Chronic Heart Failure Unable to Determine Other, please specify Please continue to document in your progress notes and discharge summary in order to capture severity of illness and risk of mortality. Include clinical findings that support your diagnosis. MTDD
--- NOTE | 2017-04-02 16:23 | P.PN ---
Subjective Progress Note Date: 04/02/17 Principal diagnosis: Shortness of breath Patient seen and examined. Patient states he "had a rough night." He apparently went into atrial tachycardia and was given adenosine overnight. He was started on Cardizem drip. The patient was hypotensive during this episode. He also complained of shortness of breath. He states he is feeling a little bit better now. He is still on Cardizem drip. Objective - Vital Signs Vital signs: Vital Signs Temp 98.0 F 04/02/17 12:00 Pulse 64 04/02/17 13:05 Resp 20 04/02/17 12:00 BP 137/48 04/02/17 12:00 Pulse Ox 95 04/02/17 12:00 Intake & Output 04/01/17 04/02/17 04/02/17 18:59 06:59 18:59 Intake Total 720 7.667 240 Output Total 1 Balance 720 7.667 239 Weight 93.4 kg Intake: Intake, IV Titration 7.667 Amount Diltiazem 125 mg In 7.667 Sodium Chloride 0.9% 100 ml @ 10 MG/HR 10 mls/hr IV .[id number] [facility] Rx#: [id number] Oral 720 240 Output: Urine 0 Stool 1 Other: # Voids 2 2 # Bowel Movements 0 - Exam General: Alert and oriented x3, obese, NAD CV: IRR, s1/s2 Lungs: Diffuse bilateral wheezing Abd: soft, NT/ND, +BS Ext: trace edema - Labs CBC & Chem 7: 04/02/17 05:33 04/02/17 05:33 Labs: Abnormal Lab Results - Last 24 Hours (Table) 04/01/17 04/01/17 04/02/17 Range/Units 16:47 20:32 05:33 RBC 2.99 L (4.30-5.90) m/uL Hgb 8.7 L (13.0-17.5) gm/dL Hct 29.1 L (39.0-53.0) % MCHC 29.9 L (31.0-37.0) g/dL Plt Count 129 L (150-450) k/uL Lymphocytes # 0.9 L (1.0-4.8) k/uL PT (9.0-12.0) sec INR (<1.2) BUN (9-20) mg/dL Creatinine (0.66-1.25) mg/dL Glucose (74-99) mg/dL POC Glucose (mg/dL) 166 H 139 H (75-99) mg/dL HDL Cholesterol (40-60) mg/dL 04/02/17 04/02/17 04/02/17 Range/Units 05:33 05:33 06:02 RBC (4.30-5.90) m/uL Hgb (13.0-17.5) gm/dL Hct (39.0-53.0) % MCHC (31.0-37.0) g/dL Plt Count (150-450) k/uL Lymphocytes # (1.0-4.8) k/uL PT 20.1 H (9.0-12.0) sec INR 2.2 H (<1.2) BUN 49 H (9-20) mg/dL Creatinine 2.00 H (0.66-1.25) mg/dL Glucose 117 H (74-99) mg/dL POC Glucose (mg/dL) 115 H (75-99) mg/dL HDL Cholesterol 38 L (40-60) mg/dL 04/02/17 Range/Units 11:36 RBC (4.30-5.90) m/uL Hgb (13.0-17.5) gm/dL Hct (39.0-53.0) % MCHC (31.0-37.0) g/dL Plt Count (150-450) k/uL Lymphocytes # (1.0-4.8) k/uL PT (9.0-12.0) sec INR (<1.2) BUN (9-20) mg/dL Creatinine (0.66-1.25) mg/dL Glucose (74-99) mg/dL POC Glucose (mg/dL) 107 H (75-99) mg/dL HDL Cholesterol (40-60) mg/dL Microbiology - Last 24 Hours (Table) 03/31/17 10:50 Blood Culture - Preliminary Blood No Growth after 48 hours 04/01/17 20:03 Gram Stain - Preliminary Sputum 04/01/17 14:00 Urine Culture - Preliminary Urine,Voided Assessment and Plan Assessment: Acute hypoxemia Tracheobronchitis Acute exacerbation of COPD 2/4 SIRS Atrial fibrillation Right bundle branch block Hyperglycemia Anemia, normocytic, iron deficiency AN, unknown baseline Mild thrombocytopenia Coumadin coagulopathy - supratherapeutic Moderate PCM History of CLL, chronically on Prednisone Immunocompromised state Hypertension History of MS/ASCAD O2 to maintain saturation greater than or equal to 90% IV Solu-Medrol Blood sugar control Bronchodilators Pulmicort Antibiotics: doxycycline Cardiology recommendations Coumadin dosing, serial INR Blood, sputum cultures Urine analysis with urine culture Hold Lasix, gentle IV fluid hydration, continue to monitor urine output and renal function GI and DVT prophylaxis: Coumadin, Protonix Incentive spirometry and pulmonary hygiene Iron replacement
[2017-04-02 16:47] LABS: Glucose,Whole Blood 163 mg/dL (75-99)
[2017-04-02] MEDS: FERROUS SULFATE 325 MG TAB PO SCH (17:26)
[2017-04-02] MEDS ORDERED: WARFARIN 2.5 MG TAB PO SCH (18:00)
[2017-04-02] MEDS: DOXAZOSIN 2 MG TAB PO SCH (20:25)
[2017-04-02] MEDS: PRAVASTATIN SODIUM 40 MG TAB PO SCH (20:25)
[2017-04-02 21:04] LABS: Glucose,Whole Blood 150 mg/dL (75-99)
[2017-04-03] MEDS: SODIUM CHLORIDE 0.9% 1,000 ML IV SCH ×2 (04:25→20:28)
[2017-04-03 05:27] LABS: Glucose,Whole Blood 111 mg/dL (75-99)
[2017-04-03] MEDS: INSULIN ASPART 100 UNIT/ML 1 ML 10 ML VIAL SQ SCH ×4 (05:30→20:40)
[2017-04-03 06:31] LABS: HCT 28.3 % (39.0-53.0); HGB 8.3 gm/dL (13.0-17.5); Hypochromasia Marked; MCH 28.8 pg (25.0-35.0); MCHC 29.5 g/dL (31.0-37.0); MCV 97.5 fL (80.0-100.0); Mean Platelet Volume 8.9; Platelet Count 138 k/uL (150-450); RDW 15.4 % (11.5-15.5); WBC 6.6 k/uL (3.8-10.6)
[2017-04-03 06:35] LABS: INR 1.6 (<1.2); Prothrombin Time 15.1 sec (9.0-12.0)
[2017-04-03 06:42] LABS: Calcium 9.1 mg/dL (8.4-10.2); Potassium 4.6 mmol/L (3.5-5.1)
[2017-04-03] MEDS: FERROUS SULFATE 325 MG TAB PO SCH ×2 (06:58→17:26)
[2017-04-03] MEDS: PANTOPRAZOLE 40 MG TABLET PO SCH (06:58)
[2017-04-03] MEDS: BUDESONIDE 0.5 MG/2 ML NEBU INHALATION SCH ×2 (08:02→20:04)
[2017-04-03] MEDS: IPRATROPIUM-ALBUTEROL 3 ML NEB INHALATION SCH ×4 (08:02→20:04)
--- NOTE | 2017-04-03 08:06 | PN ---
PROGRESS NOTE Mr. Segura is an 87-year-old male who presented with symptoms of bronchitis, had episode of recurrent SVT. He is doing well this morning. He had no further episode. He is feeling well. His breathing is stable. He is denying any chest pain. No dizziness. No palpitation. He denies any nausea. His breathing is stable. He continued to be in sinus mechanism. He continues to be at this time on amiodarone 200 mg twice a day, diltiazem 60 mg 3 times a day, losartan 50 mg twice a day, prednisone and Coumadin. PHYSICAL EXAMINATION: Blood pressure 127/60 with the heart rate in 90s. LUNGS: Clear. HEART: Regular rate and rhythm. S1, S2. No S3. No rub. ABDOMEN: Soft, nontender. EXTREMITIES: No edema. LAB DATA: Lab data revealed BUN and creatinine 52 and 2.02. Potassium 4.6. Hemoglobin of 8.3. IMPRESSION: 1. Recurrent episode of supraventricular tachycardia, continues to be in sinus mechanism. 2. Tracheobronchitis. 3. Hypertension. 4. Anemia. 5. Chronic kidney disease. RECOMMENDATION: From the cardiac standpoint, he is stable. We will continue his present medical therapy. Increase his activity. From the cardiac standpoint, he should be able to be discharged home and follow up as an outpatient with Dr. Lau. MMIRENEL / JAE: [id number] /
[2017-04-03] MEDS: ALLOPURINOL 100 MG TAB PO SCH (09:02)
[2017-04-03] MEDS: FOLIC ACID 1 MG TAB PO SCH (09:03)
[2017-04-03] MEDS: DILTIAZEM ORAL 60 MG TAB PO SCH ×3 (09:03→20:28)
[2017-04-03] MEDS: LOSARTAN 50 MG TAB PO SCH ×2 (09:03→20:28)
[2017-04-03] MEDS: predniSONE 20 MG TAB PO SCH (09:03)
[2017-04-03] MEDS: DOXYCYCLINE 50 MG CAP PO SCH ×2 (09:03→20:27)
[2017-04-03] MEDS: AMIODARONE 200 MG TAB PO SCH ×2 (09:03→20:27)
[2017-04-03] MEDS: methylPREDNISolone SOD SUCCI 40 MG/ML 1 ML VIAL IV SCH (09:33)
[2017-04-03] MEDS: methylPREDNISolone SOD SUCCI 125 MG/2 ML VIAL IV SCH ×3 (12:40→22:57)
[2017-04-03 12:42] LABS: Glucose,Whole Blood 125 mg/dL (75-99)
--- NOTE | 2017-04-03 12:48 | PN ---
PROGRESS NOTE DATE OF SERVICE: 04/03/2017 Patient is an 87-year-old male who is seen lying in bed, is awake and alert, feeling much better today, is in normal sinus rhythm. Patient is afebrile, hemodynamically stable, in no acute distress. PHYSICAL EXAM: VITAL SIGNS: Temp is 97.2, heart rate is 68, respiratory rate is 18, blood pressure is 134/64, O2 sats 92% on 2 L O2 via nasal cannula. HEENT: Head is normocephalic, atraumatic. Neck is supple. Trachea is midline. Lungs with scattered diffuse expiratory wheeze. HEART: S1, S2 are heard. Not tachycardic. Regular rhythm. ABDOMEN: Soft. Bowel sounds are heard. Extremities with no edema. NEUROLOGIC: Patient is awake and alert, LABS: White count is 6.6, hemoglobin is 8.3, hematocrit is 28.3 with 138,000 platelets. PT is 15.1, INR 1.6. Sodium is 142, potassium is 4.6, chloride is 104, CO2 is 30, anion gap is 8, BUN is 52, creatinine is 2.02, glucose is 103, calcium is 9.1. IMAGING: No new imaging to review. IMPRESSION: 1. Acute hypoxemia. 2. Tracheobronchitis. 3. Acute exacerbation of chronic obstructive pulmonary disease. 4. 2/4 SIRS. 5. Atrial fibrillation, currently in sinus rhythm. 6. Right bundle branch block. 7. Hyperglycemia. 8. Anemia, normocytic with iron deficiency. 9. AN unknown baseline. 10.Mild thrombocytopenia. 11.Moderate PCM. 12.History of CLL, 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 10 mg daily. 13.Immunocompromised state. 14.Hypertension. 15.History of HI, ASCAD. PLAN: Continue current medications which have been reviewed. Will increase Solu-Medrol to 60 mg IV q.6 hours x3 doses. Continue the bronchodilators and aerosol steroids. Continue oxygen to maintain saturations greater than 90%. Continue GI and DVT prophylaxis. Patient will receive Coumadin 5 mg p.o. today. Continue Cardiology recommendations. Continue incentive spirometry and pulmonary hygiene. Will follow patient closely making further changes as necessary. If patient remains stable, plan is for discharge home in the next 24 hours. MMODL / IJN: [id number] /
[2017-04-03] MEDS ORDERED: WARFARIN 5 MG TAB PO ONE (18:00)
[2017-04-03 18:05] LABS: Glucose,Whole Blood 234 mg/dL (75-99)
[2017-04-03] MEDS: DOXAZOSIN 2 MG TAB PO SCH (20:27)
[2017-04-03] MEDS: PRAVASTATIN SODIUM 40 MG TAB PO SCH (20:28)
[2017-04-03 20:54] LABS: Glucose,Whole Blood 148 mg/dL (75-99)
[2017-04-04 06:14] LABS: Glucose,Whole Blood 166 mg/dL (75-99)
[2017-04-04] MEDS: FERROUS SULFATE 325 MG TAB PO SCH ×2 (06:28→17:06)
[2017-04-04] MEDS: INSULIN ASPART 100 UNIT/ML 1 ML 10 ML VIAL SQ SCH ×4 (06:28→20:44)
[2017-04-04] MEDS: PANTOPRAZOLE 40 MG TABLET PO SCH (06:28)
[2017-04-04 06:33] LABS: INR 1.6 (<1.2); Prothrombin Time 15.2 sec (9.0-12.0)
[2017-04-04] MEDS: AMIODARONE 200 MG TAB PO SCH ×2 (08:36→20:26)
[2017-04-04] MEDS: DILTIAZEM ORAL 60 MG TAB PO SCH ×3 (08:36→20:26)
[2017-04-04] MEDS: DOXYCYCLINE 50 MG CAP PO SCH ×2 (08:37→20:26)
[2017-04-04] MEDS: ALLOPURINOL 100 MG TAB PO SCH (08:37)
[2017-04-04] MEDS: FOLIC ACID 1 MG TAB PO SCH (08:37)
[2017-04-04] MEDS: LOSARTAN 50 MG TAB PO SCH ×2 (08:37→20:26)
[2017-04-04] MEDS: IPRATROPIUM-ALBUTEROL 3 ML NEB INHALATION SCH ×5 (08:59→20:36)
[2017-04-04] MEDS: BUDESONIDE 0.5 MG/2 ML NEBU INHALATION SCH ×2 (08:59→20:36)
--- NOTE | 2017-04-04 08:59 | P.PN ---
Subjective Progress Note Date: 04/04/17 Principal diagnosis: SVT This is a pleasant 87-year-old gentleman history of paroxysmal atrial fibrillation, CLL, diabetes, hyperlipidemia, hypertension, COPD, sleep apnea, chronic renal failure who follows with Dr. Lau in the office. He has recently been being treated for an upper respiratory infection as an outpatient , he was started on Zithromax, prednisone, and Qvar. Dates that he did notice some improvement in his breathing, although not back to his normal. He continues to have a cough of clear sputum. He states that he became dizzy and felt his heart racing fast, he checked his heart rate at the time which was documented to be up in the 180's so the patient came to the emergency room for further evaluation shortly thereafter he noticed his heart rate to be up in the 180s, it came back down to the 90 range and his symptoms of dizziness resolved. Patient does take Coumadin for anticoagulation for which he has monitored in the cardiology office. EKG on admission here showed a normal sinus rhythm with PACs, rhythm strips also reflect normal sinus rhythm with frequent PACs. Urology consult was requested for atrial fibrillation. Chest x-ray does not reveal any evidence for acute pulmonary disease. At pressure 142/60 with a heart rate in the 80s, afebrile. 95% on 2 L Ventimask. White blood cell count is normal, hemoglobin 10, platelet count 146. Sodium 141, potassium 4.1, BUN 48 , creatinine 2.1. BNP level 2320. Mag level I.6, troponin 0.034. Time of my examination, patient is sitting up, appears quite comfortable in bed, continues to have mild cough. 04/04/2017 Should seen and examined this morning, no further episodes of SVT. Overall feels well, denies any chest discomfort, no shortness of breath. No palpitations. Continues to be in a normal sinus rhythm. Objective - Vital Signs Vital signs: Vital Signs Temp 97.1 F L 04/04/17 04:00 Pulse 70 04/04/17 04:00 Resp 16 04/04/17 04:00 BP 154/63 04/04/17 04:00 Pulse Ox 92 L 04/04/17 04:00 Intake & Output 04/03/17 04/04/17 04/04/17 18:59 06:59 18:59 Intake Total 550 800 380 Balance 550 800 380 Weight 83.5 kg Intake: IV 800 Sodium Chloride 0.9% 1, 800 000 ml @ 50 mls/hr IV . [facility] Rx#:[id number] Oral 550 380 Other: Voiding Method Toilet Toilet # Voids 2 - Exam PHYSICAL EXAMINATION: HEENT: [Head is atraumatic, normocephalic. Pupils equal, round. Neck is supple. There is no elevated jugular venous pressure.] HEART EXAMINATION: [Heart S1, S2 normal. No murmur or gallop heard.] CHEST EXAMINATION:[ Lungs are clear to auscultation and precussion. No chest wall tenderness is noted on palpation or with deep breathing.] ABDOMEN: [ Soft, nontender. Bowel sounds are heard. No organomegaly noted]. EXTREMITIES:[ 2+ peripheral pulses with no evidence of peripheral edema and no calf tenderness noted]. NEUROLOGIC [patient is awake, alert and oriented -3.] . - Labs CBC & Chem 7: 04/03/17 05:22 04/03/17 05:22 Labs: Abnormal Lab Results - Last 24 Hours (Table) 04/03/17 04/03/17 04/03/17 Range/Units 11:59 16:59 20:32 PT (9.0-12.0) sec INR (<1.2) POC Glucose (mg/dL) 125 H 234 H 148 H (75-99) mg/dL 04/04/17 04/04/17 Range/Units 05:55 06:10 PT 15.2 H (9.0-12.0) sec INR 1.6 H (<1.2) POC Glucose (mg/dL) 166 H (75-99) mg/dL Microbiology - Last 24 Hours (Table) 03/31/17 10:50 Blood Culture - Preliminary Blood No Growth after 72 hours Assessment and Plan Plan: Assessment and Plan #1 acute tracheobronchitis with exacerbation of COPD #2 history of paroxysmal atrial fibrillation, EKG shows normal sinus rhythm with PACs, patient continues to be in a normal sinus rhythm. #3 hypertension #4 hyperlipidemia #5 CLL #6 peripheral vascular disease #7 autoimmune hemolytic anemia #8 chronic renal failure #9 recurrent SVT #10 diastolic congestive heart failure acute on chronic Plan Cardiology's perspective, patient may be able to be discharged home today. We will make him a follow-up appointment to see Dr. Lau in the office post discharge. Patient will be discharged home on amiodarone 200 mg by mouth twice a day, Cardizem 60 mg 3 times a day, losartan 50 mg twice a day, pravastatin 40 mg at bedtime, Coumadin to maintain an INR in the range of 2-2.5. DNP note has been reviewed, I agree with a documented findings and plan of care. Patient was seen and examined.
[2017-04-04 12:13] LABS: Glucose,Whole Blood 225 mg/dL (75-99)
[2017-04-04 13:23] LABS: HGB 8.5 gm/dL (13.0-17.5); Hypochromasia Marked; MCH 29.3 pg (25.0-35.0); MCHC 28.4 g/dL (31.0-37.0); Macrocytosis Slight; Mean Platelet Volume 9.3; Platelet Count 143 k/uL (150-450); RBC 2.91 m/uL (4.30-5.90); RDW 14.2 % (11.5-15.5); WBC 5.1 k/uL (3.8-10.6)
[2017-04-04 13:25] LABS: MCV 103.2 fL (80.0-100.0)
[2017-04-04 14:50] LABS: HCT 28.6 % (39.0-53.0); HGB 8.4 gm/dL (13.0-17.5); MCH 29.4 pg (25.0-35.0); MCHC 29.4 g/dL (31.0-37.0); MCV 99.9 fL (80.0-100.0); Platelet Count 130 k/uL (150-450); RBC 2.86 m/uL (4.30-5.90); RDW 15.5 % (11.5-15.5); WBC 5.3 k/uL (3.8-10.6)
[2017-04-04 14:51] LABS: Hypochromasia Marked; Macrocytosis Slight; Mean Platelet Volume 9.2
[2017-04-04 17:06] LABS: Glucose,Whole Blood 164 mg/dL (75-99)
[2017-04-04] MEDS: WARFARIN 5 MG TAB PO SCH (17:07)
--- NOTE | 2017-04-04 17:13 | PN ---
PROGRESS NOTE DATE OF SERVICE: 04/04/2017. He has been hemodynamically more stable. However, he has had a drop in his hemoglobin from 10 to 8.3. He has his mild shortness of breath on physical examination, his blood pressure is 148/60, respiratory rate of 14, pulse rate of 68, temperature 98.1, O2 sat on 2 L by nasal cannula is 96%. HEENT is unremarkable. Chest with expiratory wheeze. Cardiovascular system was S1, S2. Abdomen is soft. There is trace pedal edema. White count is 5.3, hemoglobin of 8.4. PT/INR is 1.6, glucose is 225. IMPRESSION: 1. Supraventricular tachycardia secondary to atrial fibrillation with rapid ventricular response, for which the patient has been started on Cordarone by Cardiology. 2. Hemolytic anemia with a drop in his hemoglobin from 10 into the 8 area. 3. Need for anticoagulation for which the patient is subtherapeutic on his PT/INR. 4. Elevated blood sugars in part due to steroids with a history of borderline diabetes. Increases his activity level. Optimize his anticoagulant status. Follows his hemoglobin. Have Hematology further evaluate the patient. MMODL / IJN: [id number] /
[2017-04-04] MEDS: SODIUM CHLORIDE 0.9% 1,000 ML IV SCH (20:25)
[2017-04-04] MEDS: methylPREDNISolone SOD SUCCI 125 MG/2 ML VIAL IV SCH ×2 (20:25→22:16)
[2017-04-04] MEDS: PRAVASTATIN SODIUM 40 MG TAB PO SCH (20:26)
[2017-04-04] MEDS: DOXAZOSIN 2 MG TAB PO SCH (20:26)
[2017-04-04 20:41] LABS: Glucose,Whole Blood 199 mg/dL (75-99)
[2017-04-05 05:55] LABS: HCT 30.1 % (39.0-53.0); HGB 8.9 gm/dL (13.0-17.5); Hypochromasia Marked; MCH 29.4 pg (25.0-35.0); MCHC 29.6 g/dL (31.0-37.0); MCV 99.5 fL (80.0-100.0); Macrocytosis Slight; Mean Platelet Volume 8.9; Platelet Count 149 k/uL (150-450); RBC 3.03 m/uL (4.30-5.90); RDW 15.2 % (11.5-15.5); WBC 6.3 k/uL (3.8-10.6)
[2017-04-05 06:02] LABS: INR 1.9 (<1.2); Prothrombin Time 17.6 sec (9.0-12.0)
[2017-04-05 06:05] LABS: Calcium 9.5 mg/dL (8.4-10.2); Potassium 5.9 mmol/L (3.5-5.1)
[2017-04-05 06:16] LABS: Glucose,Whole Blood 202 mg/dL (75-99)
[2017-04-05] MEDS: methylPREDNISolone SOD SUCCI 125 MG/2 ML VIAL IV SCH (06:29)
[2017-04-05] MEDS: FERROUS SULFATE 325 MG TAB PO SCH ×2 (06:29→17:14)
[2017-04-05] MEDS: PANTOPRAZOLE 40 MG TABLET PO SCH (06:30)
[2017-04-05] MEDS: INSULIN ASPART 100 UNIT/ML 1 ML 10 ML VIAL SQ SCH ×4 (06:30→21:07)
[2017-04-05] MEDS: AMIODARONE 200 MG TAB PO SCH ×2 (08:21→20:55)
[2017-04-05] MEDS: FOLIC ACID 1 MG TAB PO SCH (08:21)
[2017-04-05] MEDS: DOXYCYCLINE 50 MG CAP PO SCH ×2 (08:21→20:55)
[2017-04-05] MEDS: LOSARTAN 50 MG TAB PO SCH ×2 (08:21→20:55)
[2017-04-05] MEDS: DILTIAZEM ORAL 60 MG TAB PO SCH ×3 (08:22→20:55)
[2017-04-05] MEDS: ALLOPURINOL 100 MG TAB PO SCH (08:22)
[2017-04-05] MEDS: BUDESONIDE 0.5 MG/2 ML NEBU INHALATION SCH ×2 (09:18→20:00)
[2017-04-05] MEDS: IPRATROPIUM-ALBUTEROL 3 ML NEB INHALATION SCH ×4 (09:18→20:00)
[2017-04-05 12:33] LABS: Glucose,Whole Blood 186 mg/dL (75-99)
--- NOTE | 2017-04-05 12:54 | P.PN ---
Subjective Patient is doing better. He was lying flat in bed looks comfortable heart rates are better controlled Blood pressure 04/07/2005 57 mmHg heart rate in the 60s afebrile 97.2F Breath sounds are reduced battery but no rhonchi or crackles heart sounds S1 and S2 are normal no murmurs or gallops abdomen soft nontender neck 70 warm no edema Impression atrial fibrillation with a controlled ventricular response now, known CLL, hypertension, diabetes, dyslipidemia, chronic renal failure Suggest continue current medications Objective - Vital Signs Vital signs: Vital Signs Temp 97.2 F L 04/05/17 11:23 Pulse 66 04/05/17 12:53 Resp 16 04/05/17 12:00 BP 123/57 04/05/17 11:23 Pulse Ox 87 L 04/05/17 11:23 Intake & Output 04/04/17 04/05/17 04/05/17 18:59 06:59 18:59 Intake Total 1880 800 Output Total 4 2 Balance 1876 800 -2 Weight 95.5 kg Intake: IV 800 Sodium Chloride 0.9% 1, 800 000 ml @ 50 mls/hr IV . Q20H [facility] Rx#:[id number] Oral 1880 Output: Stool 4 2 Other: Voiding Method Toilet Toilet Toilet # Voids 2 - Labs CBC & Chem 7: 04/05/17 05:39 04/05/17 05:39 Labs: Abnormal Lab Results - Last 24 Hours (Table) 04/04/17 04/04/17 04/04/17 Range/Units 05:55 14:38 16:57 RBC 2.91 L 2.86 L (4.30-5.90) m/uL Hgb 8.5 L 8.4 L (13.0-17.5) gm/dL Hct 30.0 L 28.6 L (39.0-53.0) % MCV 103.2 H D (80.0-100.0) fL MCHC 28.4 L 29.4 L (31.0-37.0) g/dL Plt Count 143 L 130 L (150-450) k/uL PT (9.0-12.0) sec INR (<1.2) Potassium (3.5-5.1) mmol/L BUN (9-20) mg/dL Creatinine (0.66-1.25) mg/dL Glucose (74-99) mg/dL POC Glucose (mg/dL) 164 H (75-99) mg/dL 04/04/17 04/05/17 04/05/17 Range/Units 20:39 05:39 05:39 RBC 3.03 L (4.30-5.90) m/uL Hgb 8.9 L (13.0-17.5) gm/dL Hct 30.1 L (39.0-53.0) % MCV (80.0-100.0) fL MCHC 29.6 L (31.0-37.0) g/dL Plt Count 149 L (150-450) k/uL PT (9.0-12.0) sec INR (<1.2) Potassium 5.9 H (3.5-5.1) mmol/L BUN 67 H (9-20) mg/dL Creatinine 1.80 H (0.66-1.25) mg/dL Glucose 190 H (74-99) mg/dL POC Glucose (mg/dL) 199 H (75-99) mg/dL 04/05/17 04/05/17 04/05/17 Range/Units 05:39 06:13 11:30 RBC (4.30-5.90) m/uL Hgb (13.0-17.5) gm/dL Hct (39.0-53.0) % MCV (80.0-100.0) fL MCHC (31.0-37.0) g/dL Plt Count (150-450) k/uL PT 17.6 H (9.0-12.0) sec INR 1.9 H (<1.2) Potassium (3.5-5.1) mmol/L BUN (9-20) mg/dL Creatinine (0.66-1.25) mg/dL Glucose (74-99) mg/dL POC Glucose (mg/dL) 202 H 186 H (75-99) mg/dL Microbiology - Last 24 Hours (Table) 03/31/17 10:50 Blood Culture - Preliminary Blood No Growth after 96 hours 04/01/17 20:03 Gram Stain - Final Sputum Sputum Culture - Final
[2017-04-05] MEDS: SODIUM CHLORIDE 0.9% 1,000 ML IV SCH (16:26)
[2017-04-05 17:15] LABS: Glucose,Whole Blood 250 mg/dL (75-99)
[2017-04-05] MEDS: WARFARIN 5 MG TAB PO SCH (17:15)
--- NOTE | 2017-04-05 17:47 | PN ---
PROGRESS NOTE DATE OF SERVICE: April 05, 2017. He continues to have shortness of breath and cough, but is feeling slightly better overall. He continues to remain quite weak. PHYSICAL EXAMINATION: His blood pressure is 134/64, respiratory rate is 16, pulse rate is 71, temperature 97.5, O2 saturation on 2 L by nasal cannula is 95%. HEENT: Unremarkable. Chest reveals wheeze only on forced expiration. Cardiovascular system reveals an S1, S2. ABDOMEN: Soft. There is trace edema. White count of 6.3, hemoglobin of 8.9. PT/INR 1.9. Sodium 140, potassium 5.9, chloride 103, bicarb 30, BUN 67, creatinine of 1.8. IMPRESSION: At this time: 1. Atrial fibrillation with a RVR, for which he is on relatively high dose of amiodarone. Would check with Cardiology to see if that dose needs to be decreased. 2. Hemolytic anemia, which his hemoglobin is starting to improve and does not require transfusion. He however had been on high-dose Solu-Medrol. 3. Asthma with chronic obstructive pulmonary disease with acute exacerbation for which he is doing better. 4. Medical debility for which we will consult Dr. Lavelle Riddle. 5. Hyperkalemia for which we will repeat electrolytes and follow his renal function. His prognosis at this time is fair. MMODL / IJN: [id number] /
[2017-04-05] MEDS: PRAVASTATIN SODIUM 40 MG TAB PO SCH (20:55)
[2017-04-05] MEDS: DOXAZOSIN 2 MG TAB PO SCH (20:55)
[2017-04-05 21:10] LABS: Glucose,Whole Blood 211 mg/dL (75-99)
[2017-04-06 04:10] VITALS: TEMP 98.1
--- NOTE | 2017-04-06 05:50 | CONS ---
CONSULTATION DATE OF SERVICE: 04/05/2017 REASON FOR CONSULTATION: CLL and autoimmune hemolytic anemia. CHIEF COMPLAINT: Short of breath. Presley is a very pleasant 87 years old gentleman. He came in to the hospital because he was feeling dizzy and lightheaded and he checked his pulse at home. It was about 180. Prior to his hospital admission, he was treated in the outpatient setting for upper respiratory tract infection with Zithromax, prednisone and Qvar. He stated that he noticed some improvement in his symptoms. However, because he was feeling dizzy and tachycardic, he ended up being admitted to the hospital and he was evaluated by Cardiology and he was found to be in sinus rhythm with multiple PACs. The patient is known to have chronic lymphocytic leukemia. He was initially diagnosed in March of 2008. He was observed by Dr. Kraft and he was observed until 2012 when he developed autoimmune hemolytic anemia secondary to it. He was treated with steroid and IVIG. Then the patient had a NSTEMI back in 2013. He was at [facility]. He received blood transfusion and treated with Solu-Medrol and IV Rituxan and was discharged home on oral steroids. He was seen by Dr. Lora once in March of 2013 after he left [facility]. Subsequently, he was readmitted to [facility] and he was seen by Dr. Aleman over there and he has been following up with him since then and the patient has been maintained on prednisone and with stabilization of his blood count and he has been receiving intermittent blood transfusion on an as-needed basis. When he came into the hospital this time his hemoglobin was 10.0 and it slightly dropped during admission and today is 8.9. The patient feels better already. His breathing is better. He denies any fever or chills. He denies any melena, hematochezia, hematuria, hemoptysis, hematemesis or epistaxis. His appetite is well and there is no recent weight loss. PAST MEDICAL HISTORY: His past medical history in addition to what is stated above in regard to his chronic lymphocytic leukemia and autoimmune hemolytic anemia related to it, he has a history of COPD, hyperlipidemia, hypertension, myocardial infarction, sleep apnea, COPD and he has a history of Guillain-Kimberly. He has a history of heart catheterization and tonsillectomy in the past and bilateral carotid endarterectomy, left knee replacement and prostate biopsy. FAMILY HISTORY: For malignancy, his brother had kidney cancer. SOCIAL HISTORY: He used to smoke. He quit in 1992. He is an occasional alcohol user. No substance abuse. REVIEW OF SYSTEMS: As stated above in the history of present illness, otherwise negative. CURRENT MEDICATIONS: His current medications include albuterol inhaler, Zyloprim 100 mg daily, Cordarone 200 mg b.i.d., Pulmicort inhaler, Cardizem 60 mg t.i.d., Cardura 2 mg at bedtime, Vibramycin 100 mg b.i.d., Feosol 325 mg b.i.d., folic acid 1 mg daily, NovoLog sliding scale, Cozaar 50 mg b.i.d., Protonix 40 mg daily, Pravastatin 40 mg daily, Coumadin 5 mg daily, prednisone 20 mg daily. PHYSICAL EXAMINATION: On physical examination, he is alert, oriented x3. He does not appear to be in distress at this time. Well developed, well nourished. VITAL SIGNS: Temperature 97.5, afebrile, pulse 71, regular at this time, respirations 16, blood pressure 134/64. HEENT: Normocephalic, atraumatic. No obvious icterus. NECK: Supple. CHEST: Coarse breath sounds bilaterally. Lungs are clear to auscultation and percussion. Heart is regular rate and rhythm. ABDOMEN: Soft. No obvious organomegaly or masses. Bowel sounds present. Extremities reveal trace edema. Skin reveals a few bruises. No ecchymosis, petechiae. LYMPHATICS: There is no peripheral cervical, supraclavicular lymph nodes and no axillary or inguinal nodes. MUSCULOSKELETAL: Moving all extremities appropriately. No percussion tenderness detected over spine or sternum. LABORATORY DATA: WBC of 6.3, hemoglobin 8.9, hematocrit 30.1, platelet 149. INR is 1.9. Serum iron was 11, total iron-binding capacity 235, iron saturation is 4.68. Total bilirubin 0.4. IMPRESSION: 1. Chronic lymphocytic leukemia with history of autoimmune hemolytic anemia. At this time, there is no convincing evidence of hemolysis. However, hemolytic workup has not obtained. Also, the patient has iron deficiency anemia based on recent iron studies. This is likely related to the chronic use of anticoagulation for his atrial fibrillation. 2. Multiple other comorbidities as stated above. RECOMMENDATION: 1. I will obtain serum LDH level, haptoglobin, and reticulocyte count. 2. May continue folic acid. 3. Monitor CBC for now. His hemoglobin has been relatively stable and I doubt there is active hemolysis. 4. May resume his previous dose of home prednisone that he was put on by his oncologist at [facility]. 5. He will follow up with Dr. Aleman his oncologist upon discharge. The above was discussed in detail with the patient. I have answered all his questions. Thank you very much for asking me to participate in the care of this nice gentleman. MMODL / IJN: [id number] /
[2017-04-06 06:16] LABS: Glucose,Whole Blood 154 mg/dL (75-99)
[2017-04-06] MEDS: PANTOPRAZOLE 40 MG TABLET PO SCH (06:31)
[2017-04-06] MEDS: INSULIN ASPART 100 UNIT/ML 1 ML 10 ML VIAL SQ SCH (06:31)
[2017-04-06] MEDS: FERROUS SULFATE 325 MG TAB PO SCH (06:31)
[2017-04-06 06:40] LABS: Basophils % (A) 0 %; Eosinophils % (A) 0 %; HCT 30.4 % (39.0-53.0); HGB 8.9 gm/dL (13.0-17.5); Hypochromasia Marked; Lymphocytes # (A) 0.3 k/uL (1.0-4.8); Lymphocytes % (A) 4 %; MCH 29.7 pg (25.0-35.0); MCHC 29.3 g/dL (31.0-37.0); MCV 101.3 fL (80.0-100.0); Macrocytosis Slight; Mean Platelet Volume 8.8; Monocytes # (A) 0.3 k/uL (0-1.0); Monocytes % (A) 4 %; Neutrophils # (A) 5.8 k/uL (1.3-7.7); Neutrophils % (A) 91 %; Platelet Count 150 k/uL (150-450); RDW 15.3 % (11.5-15.5); Reticulocyte % 1.8 % (0.5-2.0); WBC 6.4 k/uL (3.8-10.6)
[2017-04-06 06:47] LABS: INR 2.3 (<1.2); Prothrombin Time 20.6 sec (9.0-12.0)
[2017-04-06] MEDS: BUDESONIDE 0.5 MG/2 ML NEBU INHALATION SCH (06:55)
[2017-04-06] MEDS: IPRATROPIUM-ALBUTEROL 3 ML NEB INHALATION SCH (06:55)
--- NOTE | 2017-04-06 06:55 | P.CONS ---
History of Present Illness - Chief Complaint Medical debility - History of Present Illness I had the opportunity to see patient for inpatient rehab consultation regard to medical debility. He was admitted to [facility] March 31 with shortness of breath. Seen by PMD/obstetrics scrub nurse as well as cardiology. Noted to have atrial fibrillation as well. I have just added PT and OT. Chest x-ray noted a negative. Previous functional history as elicited from patient: 87-year-old right-handed white male who is lives in one floor home alone. Retired. Describes independent with own cooking, laundry, driving, standing shower and gait without device. Dr. SHERYL Ceja is regular doctor. Family history of mother of CT. Review of Systems Review of systems: ENT: Denies sneezes or discharge. Eyes: Denies discharge or photophobia. Cardiac: Denies chest pain or palpitation. Pulmonary: Denies cough or shortness of breath. Gastrointestinal: Denies nausea, emesis, constipation, diarrhea. Genitourinary: Denies discharge or frequency. Musculoskeletal: longstanding intermittent low back pain. Neurologic: Denies motor or sensory change. Endocrine: Denies shakes or sweats. Oncology: Denies cancers. Dermatologic: Denies rash, itching, pruritus. ALLERGY/immunology: Denies sneezes, rashes. 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 Last Myocardial Infarction Date:: 2013 History of Any Multi-Drug Resistant Organisms: None Reported Past Surgical History: Heart Catheterization, Joint Replacement, Tonsillectomy Additional Past Surgical History / Comment(s): heavenly carotid endarct, total lt knee replacement, prostate biopsy, bilateral cataract removals with lens implants, colonoscopies. Past Anesthesia/Blood Transfusion Reactions: No Reported Reaction Additional Past Anesthesia/Blood Transfusion Reaction / Comm: pt states "has rare antibodies to blood has trouble finding matches" Smoking Status: Former smoker - Past Family History Brother(s) Family Medical History: Cancer Additional Family Medical History / Comment(s): kidney Mother Family Medical History: Myocardial Infarction (CT) Additional Family Medical History / Comment(s): Mother of a CT at the age of 85yrs. Father Family Medical History: No Reported History Additional Family Medical History / Comment(s): Father was healthy and lived to be 93 yrs old. Medications and Allergies Home Medications Medication Instructions Recorded Confirmed Type Allopurinol [Zyloprim] 100 mg PO DAILY 11/04/13 03/31/17 History Aspirin 81 mg PO MOWEFR 11/04/13 03/31/17 History Folic Acid 1 mg PO DAILY 11/04/13 03/31/17 History Furosemide [Lasix] 40 mg PO QAM 11/04/13 03/31/17 History Omeprazole [PriLOSEC] 20 mg PO DAILY 11/04/13 03/31/17 History Pravastatin Sodium [Pravachol] 40 mg PO HS 11/04/13 03/31/17 History Terazosin [Hytrin] 2 mg PO HS 11/04/13 03/31/17 History predniSONE 20 mg PO DAILY 11/04/13 03/31/17 History Losartan [Cozaar] 50 mg PO BID 02/27/14 03/31/17 History Hydrochlorothiazide [Hydrodiuril] 12.5 mg PO DAILY 03/31/17 03/31/17 History Warfarin [Coumadin] 5 mg PO HS 03/31/17 03/31/17 History Amiodarone [Cordarone] 200 mg PO BID #60 tab 04/04/17 Rx Diltiazem Oral [Cardizem*] 60 mg PO TID #90 tab 04/04/17 Rx Allergies Allergy/AdvReac Type Severity Reaction Status Date / Time codeine Allergy Mild Confusion Verified 03/31/17 11:01 Physical Exam Vitals: Vital Signs Temp Pulse Pulse Resp BP Pulse Ox 04/06/17 04:00 98.1 F 71 18 152/76 96 04/06/17 00:00 97.4 F L 82 18 115/58 90 L 04/05/17 23:50 16 88 L 04/05/17 20:17 76 04/05/17 20:00 77 96 04/05/17 19:43 97.6 F 68 18 163/70 92 L 04/05/17 16:00 97.5 F L 71 16 134/64 95 04/05/17 13:05 60 04/05/17 12:53 66 04/05/17 12:00 60 16 04/05/17 11:23 97.2 F L 60 16 123/57 87 L 04/05/17 09:33 64 04/05/17 09:20 60 96 04/05/17 08:00 97.7 F 64 16 144/60 96 Intake and Output 04/05/17 04/05/17 04/06/17 14:59 22:59 06:59 Intake Total 1290 10 10 Output Total 2 1 Balance 1288 9 10 Intake: IV 10 10 Sodium Chloride 0.9% 1, 10 10 000 ml @ 50 mls/hr IV . Q20H [facility] Rx#:[id number] Oral 1290 Output: Stool 2 1 Other: Voiding Method Toilet Toilet Weight 96.5 kg Patient Weight 04/06/17 06:59 Weight 96.5 kg Skin: Atrophic, intact.. General: Medium build and comfortable appearance. Head: Normocephalic, atraumatic. Eyes: Symmetric. Pupils equal round. Ears: Symmetric. Hearing within normal limits. Mouth: Clear. Neck: Supple. Carotid without bruit. Cardiac: Regular rate and rhythm. Lungs: Clear anteriorly and posteriorly. Abdomen: Soft active nontender. Extremities: Normal tone. Neurological: Mental status: Alert, cooperative, pleasant. Cranial nerves: Symmetric facial tone and trapezius. Motor: Normal strength and isolation all 4 limbs. Sensation: Intact throughout. DTRs: Symmetric and equal throughout. Mobility: Reports independent in the room including toileting this a.m. Results CBC & Chem 7: 04/06/17 05:58 04/05/17 05:39 Labs: Abnormal Lab Results - Last 24 Hours (Table) 04/05/17 04/05/17 04/05/17 Range/Units 11:30 17:05 21:06 RBC (4.30-5.90) m/uL Hgb (13.0-17.5) gm/dL Hct (39.0-53.0) % MCV (80.0-100.0) fL MCHC (31.0-37.0) g/dL Lymphocytes # (1.0-4.8) k/uL PT (9.0-12.0) sec INR (<1.2) POC Glucose (mg/dL) 186 H 250 H 211 H (75-99) mg/dL 04/06/17 04/06/17 04/06/17 Range/Units 05:58 05:58 06:13 RBC 3.00 L (4.30-5.90) m/uL Hgb 8.9 L (13.0-17.5) gm/dL Hct 30.4 L (39.0-53.0) % MCV 101.3 H (80.0-100.0) fL MCHC 29.3 L (31.0-37.0) g/dL Lymphocytes # 0.3 L (1.0-4.8) k/uL PT 20.6 H (9.0-12.0) sec INR 2.3 H (<1.2) POC Glucose (mg/dL) 154 H (75-99) mg/dL Microbiology - Last 24 Hours (Table) 03/31/17 10:50 Blood Culture - Preliminary Blood No Growth after 120 hours Chest x-ray: report reviewed (Negative.) Assessment and Plan (1) CLL (chronic lymphocytic leukemia) Current Visit: No Status: Chronic Priority: Medium Code(s): C91.10 - CHRONIC LYMPHOCYTIC LEUK OF B-CELL TYPE NOT ACHIEVE REMIS SNOMED Code(s): 87650464 Plan: Pressure and: 1. Medical debility. 2. Shortness of breath. 3. CLL. 4. Coronary disease with history of CT. 5. Hypertension. 6. Dyslipidemia. 7. Diabetes. 8. COPD. 9. Atrial fibrillation. Comments and plan: At this time I will prescribe PT and OT. Anticipate patient will do well and home with support services per your discretion. We will follow closely with you though, while in hospital.
[2017-04-06] MEDS: LOSARTAN 50 MG TAB PO SCH (08:23)
[2017-04-06] MEDS: FOLIC ACID 1 MG TAB PO SCH (08:24)
[2017-04-06] MEDS: DILTIAZEM ORAL 60 MG TAB PO SCH (08:24)
[2017-04-06] MEDS: AMIODARONE 200 MG TAB PO SCH (08:24)
[2017-04-06] MEDS: DOXYCYCLINE 50 MG CAP PO SCH (08:24)
[2017-04-06] MEDS: ALLOPURINOL 100 MG TAB PO SCH (08:24)
[2017-04-06] MEDS ORDERED: predniSONE 20 MG TAB PO SCH (09:45)
--- NOTE | 2017-04-06 09:52 | P.DS ---
Providers Date of admission: 03/31/17 12:54 Expected date of discharge: 04/06/17 Attending physician: Rudolph Ceja Consults: 04/01/17 10:22 Consult Physician Routine Consulting Provider: Barrett Lau Consult Reason/Comments: afib, RBBB, known to you Do you want consulting provider notified?: Yes 04/04/17 16:19 Consult Physician Routine Consulting Provider: Ernesto Hutchins Consult Reason/Comments: hemolytic anemia Do you want consulting provider notified?: Yes 04/05/17 11:32 Consult Physician Routine Consulting Provider: Lavelle Riddle Consult Reason/Comments: rehab consult Do you want consulting provider notified?: Yes Primary care physician: Rudolph Ceja Hospital Course: Patient was admitted through the emergency department on 08/29/2017. The patient had shortness of breath and palpitations. The patient had an EKG which showed bifascicular block. He did have an episode of SVT and was given adenosine. He was seen by cardiology and his medications were adjusted. The patient was given bronchodilators, Pulmicort, Solu-Medrol for bronchospasm. He was also given doxycycline for tracheobronchitis. The patient's heart rate has been well controlled. 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 He was evaluated by hematology secondary to anemia. The patient has a history of hemolytic anemia. His hemoglobin has been stable. He is on iron replacement for iron deficiency anemia. His INR today is 2.3. Continue same dose of Coumadin. The patient has been cleared for discharge by cardiology, hematology, PM&R. PM&R states that the patient will do well with home care. Case management has been consult it to set this up prior to discharge. Pertinent Studies: Echocardiogram EKG's CXR Procedures: Cardioversion, Adenosine given Patient Condition at Discharge: Fair Plan - Discharge Summary Discharge Rx Participant: No New Discharge Prescriptions: New Amiodarone [Cordarone] 200 mg PO BID #60 tab Diltiazem Oral [Cardizem*] 60 mg PO TID #90 tab Budesonide [Pulmicort] 0.5 mg INHALATION RT-BID #60 nebu Doxazosin [Cardura] 2 mg PO HS tab Doxycycline [Vibramycin] 100 mg PO BID 4 Days #8 cap Ferrous Sulfate [Iron (65 MG Elemental)] 325 mg PO BID-W/MEALS #60 tab Ipratropium-Albuterol Nebulize [Duoneb 0.5 mg-3 mg/3 ml Soln] 3 ml INHALATION RT-QID #120 ampul.neb predniSONE 20 mg PO DAILY tab Warfarin [Coumadin] 5 mg PO DAILY@1800 tab Continue Terazosin [Hytrin] 2 mg PO HS Pravastatin Sodium [Pravachol] 40 mg PO HS Omeprazole [PriLOSEC] 20 mg PO DAILY Furosemide [Lasix] 40 mg PO QAM Folic Acid 1 mg PO DAILY Allopurinol [Zyloprim] 100 mg PO DAILY Aspirin 81 mg PO MOWEFR Losartan [Cozaar] 50 mg PO BID Hydrochlorothiazide [Hydrodiuril] 12.5 mg PO DAILY Warfarin [Coumadin] 5 mg PO HS Discontinued predniSONE 20 mg PO DAILY amLODIPine [Norvasc] 10 mg PO DAILY@1200 Amiodarone [Cordarone] 100 mg PO DAILY Discharge Medication List Allopurinol [Zyloprim] 100 mg PO DAILY 11/04/13 [History] Aspirin 81 mg PO MOWEFR 11/04/13 [History] Folic Acid 1 mg PO DAILY 11/04/13 [History] Furosemide [Lasix] 40 mg PO QAM 11/04/13 [History] Omeprazole [PriLOSEC] 20 mg PO DAILY 11/04/13 [History] Pravastatin Sodium [Pravachol] 40 mg PO HS 11/04/13 [History] Terazosin [Hytrin] 2 mg PO HS 11/04/13 [History] Losartan [Cozaar] 50 mg PO BID 02/27/14 [History] Hydrochlorothiazide [Hydrodiuril] 12.5 mg PO DAILY 03/31/17 [History] Warfarin [Coumadin] 5 mg PO HS 03/31/17 [History] Amiodarone [Cordarone] 200 mg PO BID #60 tab 04/04/17 [Rx] Diltiazem Oral [Cardizem*] 60 mg PO TID #90 tab 04/04/17 [Rx] Budesonide [Pulmicort] 0.5 mg INHALATION RT-BID #60 nebu 04/06/17 [Rx] Doxazosin [Cardura] 2 mg PO HS tab 04/06/17 [Rx] Doxycycline [Vibramycin] 100 mg PO BID 4 Days #8 cap 04/06/17 [Rx] Ferrous Sulfate [Iron (65 MG Elemental)] 325 mg PO BID-W/MEALS #60 tab 04/06/17 [Rx] Ipratropium-Albuterol Nebulize [Duoneb 0.5 mg-3 mg/3 ml Soln] 3 ml INHALATION RT -QID #120 ampul.neb 04/06/17 [Rx] Warfarin [Coumadin] 5 mg PO DAILY@1800 tab 04/06/17 [Rx] predniSONE 20 mg PO DAILY tab 04/06/17 [Rx] Follow up Appointment(s)/Referral(s): Barrett Lau MD [STAFF PHYSICIAN] - [address] [facility], [NON-STAFF] - Rudolph Ceja MD [Primary Care Provider] - 1-2 days Patient Instructions/Handouts: Supraventricular Tachycardia (DC) Discharge Disposition: HOME WITH HOME HEALTH SERVICES
[2017-04-06 10:16] VITALS: BP 138/63; PULSE 76; RESP 16
--- NOTE | 2017-04-06 22:19 | P.PN ---
Subjective Progress Note Date: 04/06/17 The pt is still SOB, and weak, but feels better Objective - Vital Signs Vital signs: Vital Signs Temp 98.1 F 04/06/17 08:00 Pulse 76 04/06/17 08:00 Resp 16 04/06/17 08:00 BP 138/63 04/06/17 08:00 Pulse Ox 94 L 04/06/17 08:00 Intake & Output 04/06/17 04/06/17 04/07/17 06:59 18:59 06:59 Intake Total 20 416 Output Total 1 Balance 20 415 Weight 96.5 kg Intake: IV 20 Sodium Chloride 0.9% 1, 20 000 ml @ 50 mls/hr IV . Q20H [facility] Rx#:[id number] Oral 416 Output: Stool 1 Other: Voiding Method Toilet Toilet - Constitutional General appearance: Present: no acute distress - EENT Eyes: Present: EOMI, PERRLA ENT: Present: hearing grossly normal, normal oropharynx - Respiratory Respiratory: bilateral: diminished - Cardiovascular Rhythm: irregularly irregular Heart sounds: normal: S1, S2 - Gastrointestinal General gastrointestinal: Present: normal bowel sounds, soft - Integumentary Integumentary: Present: normal - Neurologic Neurologic: Present: CNII-XII intact - Musculoskeletal Musculoskeletal: Present: generalized weakness, strength equal bilaterally - Psychiatric Psychiatric: Present: A&O x's 3, appropriate affect - Labs CBC & Chem 7: 04/06/17 05:58 04/05/17 05:39 Labs: Abnormal Lab Results - Last 24 Hours (Table) 04/06/17 04/06/17 04/06/17 Range/Units 05:58 05:58 05:58 RBC 3.00 L (4.30-5.90) m/uL Hgb 8.9 L (13.0-17.5) gm/dL Hct 30.4 L (39.0-53.0) % MCV 101.3 H (80.0-100.0) fL MCHC 29.3 L (31.0-37.0) g/dL Lymphocytes # 0.3 L (1.0-4.8) k/uL Haptoglobin 281.0 H (31.2-198.0) mg/dL PT 20.6 H (9.0-12.0) sec INR 2.3 H (<1.2) POC Glucose (mg/dL) (75-99) mg/dL 04/06/17 Range/Units 06:13 RBC (4.30-5.90) m/uL Hgb (13.0-17.5) gm/dL Hct (39.0-53.0) % MCV (80.0-100.0) fL MCHC (31.0-37.0) g/dL Lymphocytes # (1.0-4.8) k/uL Haptoglobin (31.2-198.0) mg/dL PT (9.0-12.0) sec INR (<1.2) POC Glucose (mg/dL) 154 H (75-99) mg/dL Microbiology - Last 24 Hours (Table) 03/31/17 10:50 Blood Culture - Final Blood No Growth after 144 hours Assessment and Plan (1) Hemolytic anemia Narrative/Plan: labs show no evidence of hemolysis. Hgb is stable. The drop in Hgb from baseline is likely due to acute illness/blood draws/dilution. There is no evidence of bleed, and Hgb is stable - Continue home dose of Prednisone, and f/u with his primary [employer] at [facility] ( has appt in early 05/03) Status: Acute Code(s): D58.9 - HEREDITARY HEMOLYTIC ANEMIA, UNSPECIFIED SNOMED Code(s): 72625148 (2) CLL (chronic lymphocytic leukemia) Narrative/Plan: No evidence of progression. F/U with Dr Aleman at [facility] Status: Chronic Priority: Medium Code(s): C91.10 - CHRONIC LYMPHOCYTIC LEUK OF B-CELL TYPE NOT ACHIEVE REMIS SNOMED Code(s): 95087652
== END 2017-04-06 11:18 | disposition home health service (06) | DRG 190 ==
LOC: EC 10:26 → 6SEL 12:54
PROVIDERS: ADMIT Internal Medicine Pulmonary Disease; ATTEND Internal Medicine Pulmonary Disease
PROC: 5A2204Z Restoration of Cardiac Rhythm, Single (ICD-10-PCS; principal; 2017-04-02)
DX: J44.0 Chronic obstructive pulmonary disease with (acute) lower respiratory infection (principal); I50.33 Acute on chronic diastolic (congestive) heart failure; N17.9 Acute kidney failure, unspecified; E44.0 Moderate protein-calorie malnutrition; C91.10 Chronic lymphocytic leukemia of B-cell type not having achieved remission; D59.1 Other autoimmune hemolytic anemias; I47.1 Supraventricular tachycardia; D69.6 Thrombocytopenia, unspecified; I48.0 Paroxysmal atrial fibrillation; J45.901 Unspecified asthma with (acute) exacerbation; R65.10 Systemic inflammatory response syndrome (SIRS) of non-infectious origin without acute organ dysfunction; I13.0 Hypertensive heart and chronic kidney disease with heart failure and stage 1 through stage 4 chronic kidney disease, or unspecified chronic kidney disease; I45.2 Bifascicular block; E11.22 Type 2 diabetes mellitus with diabetic chronic kidney disease; N18.3 Chronic kidney disease, stage 3 (moderate); I45.10 Unspecified right bundle-branch block; J20.9 Acute bronchitis, unspecified; J44.1 Chronic obstructive pulmonary disease with (acute) exacerbation; D89.9 Disorder involving the immune mechanism, unspecified; E11.51 Type 2 diabetes mellitus with diabetic peripheral angiopathy without gangrene; E11.65 Type 2 diabetes mellitus with hyperglycemia; E87.5 Hyperkalemia; R09.02 Hypoxemia; I25.10 Atherosclerotic heart disease of native coronary artery without angina pectoris; E78.5 Hyperlipidemia, unspecified; D50.9 Iron deficiency anemia, unspecified; G47.30 Sleep apnea, unspecified; N40.0 Benign prostatic hyperplasia without lower urinary tract symptoms; T38.0X5A Adverse effect of glucocorticoids and synthetic analogues, initial encounter; R79.1 Abnormal coagulation profile; T45.515A Adverse effect of anticoagulants, initial encounter; I25.2 Old myocardial infarction; M10.9 Gout, unspecified; Z79.51 Long term (current) use of inhaled steroids; Z79.82 Long term (current) use of aspirin; Z79.01 Long term (current) use of anticoagulants; Z79.52 Long term (current) use of systemic steroids; Z79.899 Other long term (current) drug therapy; Z96.652 Presence of left artificial knee joint; Z98.42 Cataract extraction status, left eye; Z98.41 Cataract extraction status, right eye; Z96.1 Presence of intraocular lens; Z87.891 Personal history of nicotine dependence; Z86.69 Personal history of other diseases of the nervous system and sense organs; Z88.5 Allergy status to narcotic agent
CPT/HCPCS: 36415; 71046; 80048; 80053; 80061; 81001; 82550; 82553; 82607; 82746; 83010; 83036; 83540; 83550; 83605; 83615; 83735; 83880; 84484; 85025; 85027; 85045; 85610; 85730; 87040; 87070; 87086; 87205; 93005; 93306; 94640; 94760; 99285

== ENCOUNTER 2017-05-13 17:52 | Emergency (ER) | payer MEDICARE, BC ==
[2017-05-13 17:59] VITALS: RESP 18
--- NOTE | 2017-05-13 18:10 | ED ---
General Adult HPI - General Chief complaint: Weakness Stated complaint: Weakness Time Seen by Provider: 05/13/17 17:56 Source: patient, EMS, RN notes reviewed, old records reviewed Mode of arrival: EMS Limitations: no limitations - History of Present Illness Initial comments: This is an 87-year-old male the ER for evaluation of not feeling well. Patient states he just does not feel right. He has history of H of fibrillation with multiple medical issues. No recent change in medications patient states he feels similar to when he had be admitted to the hospital for atrial fibrillation. This is a lot over month ago, then he did have a hospital admission for pneumonia between. Patient denies any pain or shortness of breath , patient states now here in the ER he does feel improved - Related Data Home Medications Medication Instructions Recorded Confirmed Allopurinol [Zyloprim] 100 mg PO DAILY 11/04/13 05/13/17 Aspirin 81 mg PO MOWEFR 11/04/13 05/13/17 Folic Acid 1 mg PO DAILY 11/04/13 05/13/17 Omeprazole [PriLOSEC] 20 mg PO DAILY 11/04/13 05/13/17 Pravastatin Sodium [Pravachol] 40 mg PO HS 11/04/13 05/13/17 Terazosin [Hytrin] 2 mg PO HS 11/04/13 05/13/17 Losartan [Cozaar] 50 mg PO BID 02/27/14 05/13/17 Warfarin [Coumadin] 5 mg PO Q48H 03/31/17 05/13/17 Budesonide [Pulmicort] 0.5 mg INHALATION RT-DAILY 05/13/17 05/13/17 Diltiazem HCl [Diltiazem 24Hr ER] 120 mg PO DAILY 05/13/17 05/13/17 Ergocalciferol (Vitamin D2) 50,000 unit PO WE 05/13/17 05/13/17 [Vitamin D2] Ferrous Sulfate [Iron (65 MG 325 mg PO BID 05/13/17 05/13/17 Elemental)] Metoprolol Succinate (ER) [Toprol 25 mg PO DAILY 05/13/17 05/13/17 Xl] Montelukast [Singulair] 10 mg PO HS 05/13/17 05/13/17 Triamterene-Hctz 37.5-25Mg 1 cap PO DAILY 05/13/17 05/13/17 [Dyazide 37.5-25 Capsule] Warfarin [Coumadin] 2.5 mg PO Q48H 05/13/17 05/13/17 hydrALAZINE HCL [Apresoline] 50 mg PO TID@0700,1400,2100 05/13/17 05/13/17 predniSONE 10 mg PO DAILY 05/13/17 05/13/17 Previous Rx's Medication Instructions Recorded Ipratropium-Albuterol Nebulize 3 ml INHALATION RT-QID #120 04/06/17 [Duoneb 0.5 mg-3 mg/3 ml Soln] ampul.neb Allergies Allergy/AdvReac Type Severity Reaction Status Date / Time codeine Allergy Mild Confusion Verified 05/13/17 18:30 Review of Systems ROS Statement: Those systems with pertinent positive or pertinent negative responses have been documented in the HPI. ROS Other: All systems not noted in ROS Statement are negative. Past Medical History Past Medical History: Atrial Fibrillation, Blood Disorder, Coronary Artery Disease (CAD), Cancer, Heart Failure, COPD, Diabetes Mellitus, Hyperlipidemia, Hypertension, Myocardial Infarction ([place]), Prostate Disorder, Sleep Apnea/CPAP/ BIPAP Additional Past Medical History / Comment(s): CLL diagnosed in 2007, years later had chemo one time and it was discontinued because pt had a [place] while receiving, autoimmune hemolytic anemia, rare antibiodies in his blood, AFib with RVR, NIDDM no longer on medications, LOUIE with CPAP occasionally uses O2 2L/ NC with it, [place] 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 Last Myocardial Infarction Date:: 2013 History of Any Multi-Drug Resistant Organisms: None Reported Past Surgical History: Heart Catheterization, Joint Replacement, Tonsillectomy Additional Past Surgical History / Comment(s): heavenly carotid endarct, total lt knee replacement, prostate biopsy, bilateral cataract removals with lens implants, colonoscopies. Past Anesthesia/Blood Transfusion Reactions: No Reported Reaction Additional Past Anesthesia/Blood Transfusion Reaction / Comment(s): pt states "has rare antibodies to blood has trouble finding matches" Past Psychological History: No Psychological Hx Reported Smoking Status: Former smoker Past Alcohol Use History: None Reported Past Drug Use History: None Reported - Past Family History Brother(s) Family Medical History: Cancer Additional Family Medical History / Comment(s): kidney Mother Family Medical History: Myocardial Infarction ([place]) Additional Family Medical History / Comment(s): Mother of a [place] at the age of 85yrs. Father Family Medical History: No Reported History Additional Family Medical History / Comment(s): Father was healthy and lived to be 93 yrs old. General Exam Limitations: no limitations General appearance: alert, in no apparent distress Head exam: Present: atraumatic, normocephalic, normal inspection Eye exam: Present: normal appearance, PERRL, EOMI. Absent: scleral icterus, conjunctival injection, periorbital swelling ENT exam: Present: normal exam, mucous membranes moist Neck exam: Present: normal inspection. Absent: tenderness, meningismus, lymphadenopathy Respiratory exam: Present: normal lung sounds bilaterally. Absent: respiratory distress, wheezes, rales, rhonchi, stridor Cardiovascular Exam: Present: regular rate, normal rhythm, normal heart sounds. Absent: systolic murmur, diastolic murmur, rubs, gallop, clicks GI/Abdominal exam: Present: soft, normal bowel sounds. Absent: distended, tenderness, guarding, rebound, rigid Extremities exam: Present: normal inspection, full ROM, normal capillary refill. Absent: tenderness, pedal edema, joint swelling, calf tenderness Back exam: Present: normal inspection Neurological exam: Present: alert, oriented X3, CN II-XII intact Psychiatric exam: Present: normal affect, normal mood Skin exam: Present: warm, dry, intact, normal color. Absent: rash Course Vital Signs 05/13/17 17:55 Temperature 97.6 F Pulse Rate 70 Respiratory 18 Rate Blood Pressure 133/77 O2 Sat by Pulse 100 Oximetry - Reevaluation(s) Reevaluation #1: 05/13/17 20:16 Patient is reevaluated, heart rate is remain normal, patient feels well, he had no complaints upon initial ER evaluation and throughout ER stay is remained okay EKG Findings - EKG Comments: EKG Findings:: EKG shows sinus rhythm rate of 70, ID 200, QRS 150, QTc 455 Medical Decision Making - Medical Decision Making 87 male the ER for evaluation of weakness. Not feeling well, concern for being in atrial fibrillation with RVR, patient's heart rate remained normal, patient feels well patient can be discharged home - Lab Data Result diagrams: 05/13/17 18:20 05/13/17 18:20 Lab Results 05/13/17 05/13/17 05/13/17 Range/Units 18:20 18:20 18:20 WBC 4.7 (3.8-10.6) k/uL RBC 3.11 L (4.30-5.90) m/uL Hgb 9.0 L (13.0-17.5) gm/dL Hct 30.1 L (39.0-53.0) % MCV 97.0 (80.0-100.0) fL MCH 28.8 (25.0-35.0) pg MCHC 29.7 L (31.0-37.0) g/dL RDW 15.5 (11.5-15.5) % Plt Count 104 L (150-450) k/uL Neutrophils % 81 % Lymphocytes % 8 % Monocytes % 8 % Eosinophils % 1 % Basophils % 0 % Neutrophils # 3.8 (1.3-7.7) k/uL Lymphocytes # 0.4 L (1.0-4.8) k/uL Monocytes # 0.4 (0-1.0) k/uL Eosinophils # 0.0 (0-0.7) k/uL Basophils # 0.0 (0-0.2) k/uL Hypochromasia Marked PT (9.0-12.0) sec INR (<1.2) APTT (22.0-30.0) sec Sodium 140 (137-145) mmol/L Potassium 5.1 (3.5-5.1) mmol/L Chloride 105 (98-107) mmol/L Carbon Dioxide 28 (22-30) mmol/L Anion Gap 7 mmol/L BUN 42 H (9-20) mg/dL Creatinine 1.48 H (0.66-1.25) mg/dL Est GFR (MDRD) Af Amer 55 (>60 ml/min/1.73 sqM) Est GFR (MDRD) Non-Af 45 (>60 ml/min/1.73 sqM) Glucose 91 (74-99) mg/dL Calcium 8.1 L (8.4-10.2) mg/dL Magnesium 1.5 L (1.6-2.3) mg/dL Total Bilirubin 0.3 (0.2-1.3) mg/dL AST 14 L (17-59) U/L ALT 29 (21-72) U/L Alkaline Phosphatase 52 (38-126) U/L Total Creatine Kinase 37 L (55-170) U/L CK-MB (CK-2) 2.0 (0.0-2.4) ng/mL CK-MB (CK-2) Rel Index 5.4 Troponin I 0.015 (0.000-0.034) ng/mL Total Protein 5.1 L (6.3-8.2) g/dL Albumin 3.1 L (3.5-5.0) g/dL Blood Type Blood Type Recheck Antibody Screen Spec Expiration Date 05/13/17 05/13/17 Range/Units 18:20 18:20 WBC (3.8-10.6) k/uL RBC (4.30-5.90) m/uL Hgb (13.0-17.5) gm/dL Hct (39.0-53.0) % MCV (80.0-100.0) fL MCH (25.0-35.0) pg MCHC (31.0-37.0) g/dL RDW (11.5-15.5) % Plt Count (150-450) k/uL Neutrophils % % Lymphocytes % % Monocytes % % Eosinophils % % Basophils % % Neutrophils # (1.3-7.7) k/uL Lymphocytes # (1.0-4.8) k/uL Monocytes # (0-1.0) k/uL Eosinophils # (0-0.7) k/uL Basophils # (0-0.2) k/uL Hypochromasia PT 17.3 H (9.0-12.0) sec INR 1.9 H (<1.2) APTT 29.4 (22.0-30.0) sec Sodium (137-145) mmol/L Potassium (3.5-5.1) mmol/L Chloride (98-107) mmol/L Carbon Dioxide (22-30) mmol/L Anion Gap mmol/L BUN (9-20) mg/dL Creatinine (0.66-1.25) mg/dL Est GFR (MDRD) Af Amer (>60 ml/min/1.73 sqM) Est GFR (MDRD) Non-Af (>60 ml/min/1.73 sqM) Glucose (74-99) mg/dL Calcium (8.4-10.2) mg/dL Magnesium (1.6-2.3) mg/dL Total Bilirubin (0.2-1.3) mg/dL AST (17-59) U/L ALT (21-72) U/L Alkaline Phosphatase (38-126) U/L Total Creatine Kinase (55-170) U/L CK-MB (CK-2) (0.0-2.4) ng/mL CK-MB (CK-2) Rel Index Troponin I (0.000-0.034) ng/mL Total Protein (6.3-8.2) g/dL Albumin (3.5-5.0) g/dL Blood Type A Positive Blood Type Recheck CABO Indicated Antibody Screen NEGATIVE Spec Expiration Date 05/16/2017 - 2320 Disposition Clinical Impression: Weakness Disposition: HOME SELF-CARE Condition: Good Instructions: Weakness (ED) Referrals: Rudolph Ceja MD [Primary Care Provider] - 1-2 days
[2017-05-13] MEDS ORDERED: SODIUM CHLORIDE 0.9% 500 ML IV STA (18:12)
[2017-05-13] MEDS ORDERED: SODIUM CHLORIDE 0.9% 1,000 ML IV STA (18:12)
[2017-05-13 18:47] LABS: Basophils % (A) 0 %; Eosinophils % (A) 1 %; HCT 30.1 % (39.0-53.0); Hypochromasia Marked; Lymphocytes # (A) 0.4 k/uL (1.0-4.8); Lymphocytes % (A) 8 %; MCH 28.8 pg (25.0-35.0); MCHC 29.7 g/dL (31.0-37.0); Monocytes # (A) 0.4 k/uL (0-1.0); Monocytes % (A) 8 %; Neutrophils # (A) 3.8 k/uL (1.3-7.7); Neutrophils % (A) 81 %; Platelet Count 104 k/uL (150-450); RBC 3.11 m/uL (4.30-5.90); RDW 15.5 % (11.5-15.5); WBC 4.7 k/uL (3.8-10.6)
[2017-05-13 18:48] LABS: Albumin 3.1 g/dL (3.5-5.0); Calcium 8.1 mg/dL (8.4-10.2); Potassium 5.1 mmol/L (3.5-5.1); Total Bilirubin 0.3 mg/dL (0.2-1.3); Total Protein 5.1 g/dL (6.3-8.2)
[2017-05-13 18:59] LABS: INR 1.9 (<1.2); Partial Thromboplastin Time 29.4 sec (22.0-30.0); Prothrombin Time 17.3 sec (9.0-12.0)
[2017-05-13 19:13] LABS: Troponin I 0.015 ng/mL (0.000-0.034)
[2017-05-13] MEDS ORDERED: MAGNESIUM OXIDE 400 MG TAB PO STA (20:16)
[2017-05-13 20:36] VITALS: PULSE 64
[2017-05-13 20:38] VITALS: BP 185/88; TEMP 97.3
== END 2017-05-13 20:48 | disposition home or self-care (01) ==
LOC: EC 17:52
DX: R53.1 Weakness (principal); E78.5 Hyperlipidemia, unspecified; I11.0 Hypertensive heart disease with heart failure; I50.9 Heart failure, unspecified; I25.10 Atherosclerotic heart disease of native coronary artery without angina pectoris; I48.91 Unspecified atrial fibrillation; J44.9 Chronic obstructive pulmonary disease, unspecified; D59.1 Other autoimmune hemolytic anemias; G61.0 Guillain-Barre syndrome; G47.33 Obstructive sleep apnea (adult) (pediatric); M10.9 Gout, unspecified; I73.9 Peripheral vascular disease, unspecified; N40.0 Benign prostatic hyperplasia without lower urinary tract symptoms; I25.2 Old myocardial infarction; Z87.891 Personal history of nicotine dependence; Z79.01 Long term (current) use of anticoagulants; Z79.51 Long term (current) use of inhaled steroids; Z79.52 Long term (current) use of systemic steroids; Z79.82 Long term (current) use of aspirin; Z79.899 Other long term (current) drug therapy; Z88.5 Allergy status to narcotic agent; Z85.6 Personal history of leukemia; Z92.21 Personal history of antineoplastic chemotherapy; Z87.01 Personal history of pneumonia (recurrent); Z99.81 Dependence on supplemental oxygen; Z99.89 Dependence on other enabling machines and devices
CPT/HCPCS: 36415; 80053; 82550; 82553; 83735; 84484; 85025; 85610; 85730; 86850; 86900; 86901; 93005; 96360; 96361; 99285

== ENCOUNTER 2017-05-28 07:57 | Inpatient (IN) | payer MEDICARE, BC ==
[2017-05-28] MEDS ORDERED: SODIUM CHLORIDE 0.9% 1,000 ML IV STA ×2 (08:06)
[2017-05-28] MEDS ORDERED: METOPROLOL TARTRATE 5 MG/5 ML VIAL IVP STA ×2 (08:06→09:30)
--- NOTE | 2017-05-28 08:17 | ED ---
General Adult HPI - General Chief complaint: Chest Pain Stated complaint: Cardiac issues Time Seen by Provider: 05/28/17 08:05 Source: patient, EMS, RN notes reviewed, old records reviewed Mode of arrival: EMS Limitations: no limitations - History of Present Illness Initial comments: This is a 87-year-old male to the ER for evaluation of chest pain. Severe chest pain that happened after he woke from sleep today. Patient does have history of heart disease, A. fib with RVR, on Coumadin. Patient states he felt fine last night no recent fevers cough or congestion. Patient woke with severe symptoms like he was in a passed out he states he felt like he or his time was not was near the end was near. Patient thought and highly remembers the ambulance ride and but upon arrival to emergency room is symptoms are much improved. Per EMS days of a remote maneuvers jules connected IV to try and help with his A. fib with RVR. Patient currently is without chest pain - Related Data Home Medications Medication Instructions Recorded Confirmed Allopurinol [Zyloprim] 100 mg PO DAILY 11/04/13 05/28/17 Aspirin 81 mg PO MOWEFR 11/04/13 05/28/17 Folic Acid 1 mg PO DAILY 11/04/13 05/28/17 Omeprazole [PriLOSEC] 20 mg PO DAILY 11/04/13 05/28/17 Pravastatin Sodium [Pravachol] 40 mg PO HS 11/04/13 05/28/17 Terazosin [Hytrin] 2 mg PO HS 11/04/13 05/28/17 Losartan [Cozaar] 50 mg PO BID 02/27/14 05/28/17 Warfarin [Coumadin] 5 mg PO Q48H 03/31/17 05/28/17 Budesonide [Pulmicort] 0.5 mg INHALATION RT-DAILY 05/13/17 05/28/17 Diltiazem HCl [Diltiazem 24Hr ER] 120 mg PO DAILY 05/13/17 05/28/17 Ergocalciferol (Vitamin D2) 50,000 unit PO WE 05/13/17 05/28/17 [Vitamin D2] Ferrous Sulfate [Iron (65 MG 325 mg PO BID 05/13/17 05/28/17 Elemental)] Metoprolol Succinate (ER) [Toprol 25 mg PO DAILY 05/13/17 05/28/17 Xl] Montelukast [Singulair] 10 mg PO HS 05/13/17 05/28/17 Warfarin [Coumadin] 2.5 mg PO Q48H 05/13/17 05/28/17 hydrALAZINE HCL [Apresoline] 50 mg PO TID@0700,1400,2100 05/13/17 05/28/17 predniSONE 10 mg PO DAILY 05/13/17 05/28/17 Ipratropium-Albuterol Nebulize 3 ml INHALATION RT-QID PRN 05/28/17 05/28/17 [Duoneb 0.5 mg-3 mg/3 ml Soln] Triamterene-Hctz 37.5-25Mg 1 tab PO DAILY 05/28/17 05/28/17 [Maxzide 37.5-25] Allergies Allergy/AdvReac Type Severity Reaction Status Date / Time codeine Allergy Mild Confusion Verified 05/28/17 08:24 Review of Systems ROS Statement: Those systems with pertinent positive or pertinent negative responses have been documented in the HPI. ROS Other: All systems not noted in ROS Statement are negative. 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 Last Myocardial Infarction Date:: 2013 History of Any Multi-Drug Resistant Organisms: None Reported Past Surgical History: Heart Catheterization, Joint Replacement, Tonsillectomy Additional Past Surgical History / Comment(s): heavenly carotid endarct, total lt knee replacement, prostate biopsy, bilateral cataract removals with lens implants, colonoscopies. Past Anesthesia/Blood Transfusion Reactions: No Reported Reaction Additional Past Anesthesia/Blood Transfusion Reaction / Comment(s): pt states "has rare antibodies to blood has trouble finding matches" Past Psychological History: No Psychological Hx Reported Smoking Status: Former smoker Past Alcohol Use History: None Reported Past Drug Use History: None Reported - Past Family History Brother(s) Family Medical History: Cancer Additional Family Medical History / Comment(s): kidney Mother Family Medical History: Myocardial Infarction ([place]) Additional Family Medical History / Comment(s): Mother of a [place] at the age of 85yrs. Father Family Medical History: No Reported History Additional Family Medical History / Comment(s): Father was healthy and lived to be 93 yrs old. General Exam Limitations: no limitations General appearance: alert, in no apparent distress Head exam: Present: atraumatic, normocephalic, normal inspection Eye exam: Present: normal appearance, PERRL, EOMI. Absent: scleral icterus, conjunctival injection, periorbital swelling ENT exam: Present: normal exam, mucous membranes moist Neck exam: Present: normal inspection. Absent: tenderness, meningismus, lymphadenopathy Respiratory exam: Present: normal lung sounds bilaterally. Absent: respiratory distress, wheezes, rales, rhonchi, stridor Cardiovascular Exam: Present: tachycardia, irregular rhythm, normal heart sounds. Absent: systolic murmur, diastolic murmur, rubs, gallop, clicks GI/Abdominal exam: Present: soft, normal bowel sounds. Absent: distended, tenderness, guarding, rebound, rigid Extremities exam: Present: normal inspection, full ROM, normal capillary refill. Absent: tenderness, pedal edema, joint swelling, calf tenderness Back exam: Present: normal inspection Neurological exam: Present: alert, oriented X3, CN II-XII intact Psychiatric exam: Present: normal affect, normal mood Skin exam: Present: warm, dry, intact, normal color. Absent: rash Course Vital Signs 05/28/17 05/28/17 05/28/17 08:02 08:30 09:06 Temperature 97.8 F Pulse Rate 128 H 114 H 115 H Respiratory 16 16 16 Rate Blood Pressure 100/54 125/60 119/59 O2 Sat by Pulse 93 L 94 L 97 Oximetry 05/28/17 09:34 Temperature Pulse Rate 120 H Respiratory 16 Rate Blood Pressure 105/75 O2 Sat by Pulse 99 Oximetry - Reevaluation(s) Reevaluation #1: 05/28/17 09:36 Patient initially mild improvement in heart rate with multiple doses of medication. Chest pain remains resolved EKG Findings - EKG Comments: EKG Findings:: EKG shows A. fib with RVR rate 128, QRS 140, QTC 543 Medical Decision Making - Medical Decision Making 87 male the ER for evaluation shortness of breath chest pain. Severe symptoms. Patient comes in A. fib with RVR, mild improvement at this time. Patient chest pain is resolved troponin mildly elevated and significantly anemic. Patient will admit for continued cardiopulmonary support - Lab Data Result diagrams: 05/28/17 08:20 05/28/17 08:20 Lab Results 05/28/17 05/28/17 05/28/17 Range/Units 08:20 08:20 08:20 WBC 5.5 (3.8-10.6) k/uL RBC 2.73 L (4.30-5.90) m/uL Hgb 7.9 L (13.0-17.5) gm/dL Hct 24.8 L (39.0-53.0) % MCV 90.9 D (80.0-100.0) fL MCH 28.9 (25.0-35.0) pg MCHC 31.7 (31.0-37.0) g/dL RDW 15.8 H (11.5-15.5) % Plt Count 162 D (150-450) k/uL Neutrophils % 79 % Lymphocytes % 12 % Monocytes % 7 % Eosinophils % 1 % Basophils % 0 % Neutrophils # 4.4 (1.3-7.7) k/uL Lymphocytes # 0.7 L (1.0-4.8) k/uL Monocytes # 0.4 (0-1.0) k/uL Eosinophils # 0.1 (0-0.7) k/uL Basophils # 0.0 (0-0.2) k/uL Hypochromasia Slight Poikilocytosis Slight PT (9.0-12.0) sec INR (<1.2) APTT (22.0-30.0) sec Sodium 142 (137-145) mmol/L Potassium 3.5 (3.5-5.1) mmol/L Chloride 104 (98-107) mmol/L Carbon Dioxide 28 (22-30) mmol/L Anion Gap 10 mmol/L BUN 49 H (9-20) mg/dL Creatinine 1.71 H (0.66-1.25) mg/dL Est GFR (CKD-EPI)AfAm 41 (>60 ml/min/1.73 sqM) Est GFR (CKD-EPI)NonAf 36 (>60 ml/min/1.73 sqM) Glucose 171 H (74-99) mg/dL Calcium 7.9 L (8.4-10.2) mg/dL Magnesium 1.0 L* (1.6-2.3) mg/dL Total Bilirubin 0.3 (0.2-1.3) mg/dL AST 13 L (17-59) U/L ALT 21 (21-72) U/L Alkaline Phosphatase 46 (38-126) U/L Total Creatine Kinase 41 L (55-170) U/L CK-MB (CK-2) 1.7 (0.0-2.4) ng/mL CK-MB (CK-2) Rel Index 4.1 Troponin I 0.023 (0.000-0.034) ng/mL Total Protein 5.0 L (6.3-8.2) g/dL Albumin 2.9 L (3.5-5.0) g/dL Lipase 85 (23-300) U/L 05/28/17 Range/Units 08:20 WBC (3.8-10.6) k/uL RBC (4.30-5.90) m/uL Hgb (13.0-17.5) gm/dL Hct (39.0-53.0) % MCV (80.0-100.0) fL MCH (25.0-35.0) pg MCHC (31.0-37.0) g/dL RDW (11.5-15.5) % Plt Count (150-450) k/uL Neutrophils % % Lymphocytes % % Monocytes % % Eosinophils % % Basophils % % Neutrophils # (1.3-7.7) k/uL Lymphocytes # (1.0-4.8) k/uL Monocytes # (0-1.0) k/uL Eosinophils # (0-0.7) k/uL Basophils # (0-0.2) k/uL Hypochromasia Poikilocytosis PT 15.9 H (9.0-12.0) sec INR 1.7 H (<1.2) APTT 30.0 (22.0-30.0) sec Sodium (137-145) mmol/L Potassium (3.5-5.1) mmol/L Chloride (98-107) mmol/L Carbon Dioxide (22-30) mmol/L Anion Gap mmol/L BUN (9-20) mg/dL Creatinine (0.66-1.25) mg/dL Est GFR (CKD-EPI)AfAm (>60 ml/min/1.73 sqM) Est GFR (CKD-EPI)NonAf (>60 ml/min/1.73 sqM) Glucose (74-99) mg/dL Calcium (8.4-10.2) mg/dL Magnesium (1.6-2.3) mg/dL Total Bilirubin (0.2-1.3) mg/dL AST (17-59) U/L ALT (21-72) U/L Alkaline Phosphatase (38-126) U/L Total Creatine Kinase (55-170) U/L CK-MB (CK-2) (0.0-2.4) ng/mL CK-MB (CK-2) Rel Index Troponin I (0.000-0.034) ng/mL Total Protein (6.3-8.2) g/dL Albumin (3.5-5.0) g/dL Lipase (23-300) U/L - Radiology Data Radiology results: report reviewed (Chest x-rays negative for acute disease), image reviewed Critical Care Time Critical Care Time: Yes Total Critical Care Time: 31 Disposition Clinical Impression: Unstable angina pectoris, Chest pain, Hemolytic anemia, Atrial fibrillation with RVR Disposition: ADMITTED IP TO THIS [facility] Condition: Serious Referrals: Rudolph Ceja MD [Primary Care Provider] - 1-2 days
[2017-05-28 08:42] LABS: INR 1.7 (<1.2); Prothrombin Time 15.9 sec (9.0-12.0)
[2017-05-28 08:47] LABS: Albumin 2.9 g/dL (3.5-5.0); Calcium 7.9 mg/dL (8.4-10.2); Potassium 3.5 mmol/L (3.5-5.1); Total Bilirubin 0.3 mg/dL (0.2-1.3)
--- NOTE | 2017-05-28 08:51 | XR ---
EXAMINATION TYPE: XR chest 2V DATE OF EXAM: 05/28/2017 COMPARISON: 03/31/2017 INDICATION: Chest pain TECHNIQUE: Frontal and lateral views of the chest are obtained. FINDINGS: The heart size is normal. The pulmonary vasculature is normal. The lungs are clear. There is hyperinflation flattening the diaphragms compatible COPD. IMPRESSION: 1. COPD. 2. No acute pulmonary process.
[2017-05-28] MEDS ORDERED: MAGNESIUM OXIDE 400 MG TAB PO STA (08:56)
[2017-05-28] MEDS ORDERED: POTASSIUM BICARBONATE/CIT AC 20 MEQ TABLET.EFF PO ONE (08:59)
[2017-05-28 09:00] LABS: Basophils % (A) 0 %; Eosinophils # (A) 0.1 k/uL (0-0.7); Eosinophils % (A) 1 %; HCT 24.8 % (39.0-53.0); HGB 7.9 gm/dL (13.0-17.5); Hypochromasia Slight; Lymphocytes # (A) 0.7 k/uL (1.0-4.8); Lymphocytes % (A) 12 %; MCH 28.9 pg (25.0-35.0); MCHC 31.7 g/dL (31.0-37.0); Monocytes # (A) 0.4 k/uL (0-1.0); Monocytes % (A) 7 %; Neutrophils # (A) 4.4 k/uL (1.3-7.7); Neutrophils % (A) 79 %; Poikilocytosis Slight; RBC 2.73 m/uL (4.30-5.90); RDW 15.8 % (11.5-15.5); WBC 5.5 k/uL (3.8-10.6)
[2017-05-28 09:06] LABS: MCV 90.9 fL (80.0-100.0); Platelet Count 162 k/uL (150-450)
[2017-05-28 09:09] LABS: Creatine Kinase MB 1.7 ng/mL (0.0-2.4); Troponin I 0.023 ng/mL (0.000-0.034)
[2017-05-28] MEDS: MAGNESIUM SULFATE-D5W PMX 1 GM in DEXTROSE/WATER 1 100ML.BAG IVPB SCH ×4 (09:15→15:29)
[2017-05-28] MEDS ORDERED: NITROGLYCERIN SL TABS 0.4 MG TAB SUBLINGUAL PRN (09:34)
[2017-05-28] MEDS ORDERED: MORPHINE SULFATE 4 MG/ML SYRINGE IV PRN (09:34)
[2017-05-28] MEDS ORDERED: ASPIRIN 81 MG PO STA (09:34)
--- NOTE | 2017-05-28 12:34 | P.CRDCN ---
History of Present Illness History of present illness: Impression Atrial fibrillation with RVR symptomatic Underlying right bundle branch block Amiodarone-induced lung disease Amiodarone discontinued Hemoglobin 7.9 Magnesium 1.0 Troponin 0.0 to Low calcium BUN 49 and creatinine 1.7 potassium 3.5 Plan Recheck magnesium and if it is low then replace Increase diltiazem 120 mg CD to be taken twice a day Continue metoprolol 50 g twice daily No amiodarone Past Medical History Past Medical History: Atrial Fibrillation, Blood Disorder, Coronary Artery Disease (CAD), Cancer, Heart Failure, COPD, Diabetes Mellitus, Hyperlipidemia, Hypertension, Myocardial Infarction ([place]), Prostate Disorder, Sleep Apnea/CPAP/ BIPAP Additional Past Medical History / Comment(s): CLL diagnosed in 2007, years later had chemo one time and it was discontinued because pt had a [place] while receiving, autoimmune hemolytic anemia, rare antibiodies in his blood, AFib with RVR, NIDDM no longer on medications, LOUIE with CPAP occasionally uses O2 2L/ NC with it, 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 Last Myocardial Infarction Date:: 2013 History of Any Multi-Drug Resistant Organisms: None Reported Past Surgical History: Heart Catheterization, Joint Replacement, Tonsillectomy Additional Past Surgical History / Comment(s): heavenly carotid endarct, total lt knee replacement, prostate biopsy, bilateral cataract removals with lens implants, colonoscopies. Past Anesthesia/Blood Transfusion Reactions: No Reported Reaction Additional Past Anesthesia/Blood Transfusion Reaction / Comment(s): pt states "has rare antibodies to blood has trouble finding matches" Past Psychological History: No Psychological Hx Reported Smoking Status: Former smoker Past Alcohol Use History: None Reported Past Drug Use History: None Reported - Past Family History Brother(s) Family Medical History: Cancer Additional Family Medical History / Comment(s): kidney Mother Family Medical History: Myocardial Infarction ([place]) Additional Family Medical History / Comment(s): Mother of a [place] at the age of 85yrs. Father Family Medical History: No Reported History Additional Family Medical History / Comment(s): Father was healthy and lived to be 93 yrs old. Medications and Allergies Home Medications Medication Instructions Recorded Confirmed Type Allopurinol [Zyloprim] 100 mg PO DAILY 11/04/13 05/28/17 History Aspirin 81 mg PO MOWEFR 11/04/13 05/28/17 History Folic Acid 1 mg PO DAILY 11/04/13 05/28/17 History Omeprazole [PriLOSEC] 20 mg PO DAILY 11/04/13 05/28/17 History Pravastatin Sodium [Pravachol] 40 mg PO HS 11/04/13 05/28/17 History Terazosin [Hytrin] 2 mg PO HS 11/04/13 05/28/17 History Losartan [Cozaar] 50 mg PO BID 02/27/14 05/28/17 History Warfarin [Coumadin] 5 mg PO Q48H 03/31/17 05/28/17 History Budesonide [Pulmicort] 0.5 mg INHALATION RT-DAILY 05/13/17 05/28/17 History Diltiazem HCl [Diltiazem 24Hr ER] 120 mg PO DAILY 05/13/17 05/28/17 History Ergocalciferol (Vitamin D2) 50,000 unit PO WE 05/13/17 05/28/17 History [Vitamin D2] Ferrous Sulfate [Iron (65 MG 325 mg PO BID 05/13/17 05/28/17 History Elemental)] Metoprolol Succinate (ER) [Toprol 25 mg PO DAILY 05/13/17 05/28/17 History Xl] Montelukast [Singulair] 10 mg PO HS 05/13/17 05/28/17 History Warfarin [Coumadin] 2.5 mg PO Q48H 05/13/17 05/28/17 History hydrALAZINE HCL [Apresoline] 50 mg PO TID@0700,1400,2100 05/13/17 05/28/17 History predniSONE 10 mg PO DAILY 05/13/17 05/28/17 History Ipratropium-Albuterol Nebulize 3 ml INHALATION RT-QID PRN 05/28/17 05/28/17 History [Duoneb 0.5 mg-3 mg/3 ml Soln] Triamterene-Hctz 37.5-25Mg 1 tab PO DAILY 05/28/17 05/28/17 History [Maxzide 37.5-25] Allergies Allergy/AdvReac Type Severity Reaction Status Date / Time codeine Allergy Mild Confusion Verified 05/28/17 08:24 Physical Exam Vitals: Vital Signs Temp Pulse Pulse Resp BP BP Pulse Ox 05/28/17 12:00 97 F L 124 H 18 93/57 95 05/28/17 11:00 106 H 16 105/81 100 05/28/17 10:00 95 16 120/62 97 05/28/17 09:49 109 H 18 93/62 100 05/28/17 09:34 120 H 16 105/75 99 05/28/17 09:06 115 H 16 119/59 97 05/28/17 08:30 114 H 16 125/60 94 L 05/28/17 08:02 97.8 F 128 H 16 100/54 93 L Intake and Output 05/27/17 05/28/17 05/28/17 22:59 06:59 14:59 Other: Weight 95.7 kg Results 05/28/17 08:20 05/28/17 08:20 Cardiac Enzymes 05/28/17 05/28/17 Range/Units 08:20 08:20 AST 13 L (17-59) U/L CK-MB (CK-2) 1.7 (0.0-2.4) ng/mL Troponin I 0.023 (0.000-0.034) ng/mL Coagulation 05/28/17 Range/Units 08:20 PT 15.9 H (9.0-12.0) sec APTT 30.0 (22.0-30.0) sec CBC 05/28/17 Range/Units 08:20 WBC 5.5 (3.8-10.6) k/uL RBC 2.73 L (4.30-5.90) m/uL Hgb 7.9 L (13.0-17.5) gm/dL Hct 24.8 L (39.0-53.0) % Plt Count 162 D (150-450) k/uL Comprehensive Metabolic Panel 05/28/17 Range/Units 08:20 Sodium 142 (137-145) mmol/L Potassium 3.5 (3.5-5.1) mmol/L Chloride 104 (98-107) mmol/L Carbon Dioxide 28 (22-30) mmol/L BUN 49 H (9-20) mg/dL Creatinine 1.71 H (0.66-1.25) mg/dL Glucose 171 H (74-99) mg/dL Calcium 7.9 L (8.4-10.2) mg/dL AST 13 L (17-59) U/L ALT 21 (21-72) U/L Alkaline Phosphatase 46 (38-126) U/L Total Protein 5.0 L (6.3-8.2) g/dL Albumin 2.9 L (3.5-5.0) g/dL Current Medications Generic Name Dose Route Start Last Admin Trade Name Freq PRN Reason Stop Dose Admin Aspirin 81 mg 05/29/17 09:00 Aspirin PO DAILY [facility] Diltiazem HCl 120 mg 05/28/17 12:45 Cardizem Cd PO BID CHRIS Magnesium Sulfate/Dextrose 1 100 mls @ 100 mls/hr 05/28/17 09:00 05/28/17 09: 15 gm/ IV Solution IVPB 05/28/17 12:59 100 mls/hr Q1H CHRIS Administration Metoprolol Tartrate 50 mg 05/28/17 21:00 Lopressor PO BID CHRIS Morphine Sulfate 4 mg 05/28/17 09:34 Morphine Sulfate (Inj) IV Q5M PRN Chest Pain Nitroglycerin 0.4 mg 05/28/17 09:34 Nitrostat SUBLINGUAL Q5M PRN Chest Pain Intake and Output 05/27/17 05/28/17 05/28/17 22:59 06:59 14:59 Other: Weight 95.7 kg Patient Weight 05/29/17 06:59 Weight 95.7 kg 05/28/17 08:20 05/28/17 08:20
[2017-05-28] MEDS ORDERED: IPRATROPIUM-ALBUTEROL 3 ML NEB INHALATION PRN (12:56)
[2017-05-28] MEDS: DILTIAZEM CD 120 MG CAP.ER.24H PO SCH ×2 (13:14→20:46)
[2017-05-28 13:50] LABS: T4, Free (Free Thyroxine) 1.5 ng/dL (0.78-2.19)
[2017-05-28] MEDS ORDERED: MORPHINE ORAL SOLN 10 MG/5 ML CUP PO PRN (14:35)
--- NOTE | 2017-05-28 14:54 | P.CNPUL ---
History of Present Illness Consult date: 05/28/17 Reason for consult: chest pain Chief complaint: Shortness of breath and palpitations History of present illness: This is an 87-year-old gentleman who is well-known to [facility]. The patient presented emergency department complaining of shortness of breath and palpitations. He states that his heart rate was elevated and he became very short of breath. He denies cough, fevers, chills. He states his breathing is never good and that he is always short of breath. He does follow with Dr. BEBA Ceja in the office. He was seen in the pulmonary office on 05/26/2017. He department the patient was found to be in atrial fibrillation with rapid ventricular response. He does follow with Dr. Lau for cardiology. He was also found to be anemic which is chronic. And his magnesium was 1.0. Patient takes 10 mg daily of prednisone. He is also taking Pulmicort once a day and was instructed to increase it to twice a day. He was also no longer taking his Lasix and states one of his doctors stopped it. Patient is currently on Coumadin and his INR is 1.7. The patient wears 2 L of oxygen around the clock. Review of Systems All systems: negative Past Medical History Past Medical History: Atrial Fibrillation, Blood Disorder, Coronary Artery Disease (CAD), Cancer, Heart Failure, COPD, Diabetes Mellitus, Hyperlipidemia, Hypertension, Myocardial Infarction ([place]), Prostate Disorder, Sleep Apnea/CPAP/ BIPAP Additional Past Medical History / Comment(s): Pt states he was recently admitted to [facility] for pneumonia and Afib. Other hx: CLL diagnosed in 2007, years later had chemo one time and it was discontinued because pt had a [place] while receiving, autoimmune hemolytic anemia, rare antibiodies in his blood, AFib with RVR, recent SVT with bronchitis, NIDDM no longer on medications, LOUIE with CPAP occasionally uses O2 2L/NC with it, Guillan -[place] syndrome-no residual, BPH, gout bilateral ankles mostly, PAD. Last Myocardial Infarction Date:: 2013 History of Any Multi-Drug Resistant Organisms: None Reported Past Surgical History: Heart Catheterization, Joint Replacement, Tonsillectomy Additional Past Surgical History / Comment(s): heavenly carotid endarct, total lt knee replacement, prostate biopsy, bilateral cataract removals with lens implants, colonoscopies. Past Anesthesia/Blood Transfusion Reactions: No Reported Reaction Additional Past Anesthesia/Blood Transfusion Reaction / Comment(s): pt states "has rare antibodies to blood has trouble finding matches" Smoking Status: Former smoker - Past Family History Brother(s) Family Medical History: Cancer Additional Family Medical History / Comment(s): kidney Mother Family Medical History: Myocardial Infarction ([place]) Additional Family Medical History / Comment(s): Mother of a [place] at the age of 85yrs. Father Family Medical History: No Reported History Additional Family Medical History / Comment(s): Father was healthy and lived to be 93 yrs old. Medications and Allergies Home Medications Medication Instructions Recorded Confirmed Type Allopurinol [Zyloprim] 100 mg PO DAILY 11/04/13 05/28/17 History Aspirin 81 mg PO MOWEFR 11/04/13 05/28/17 History Folic Acid 1 mg PO DAILY 11/04/13 05/28/17 History Omeprazole [PriLOSEC] 20 mg PO DAILY 11/04/13 05/28/17 History Pravastatin Sodium [Pravachol] 40 mg PO HS 11/04/13 05/28/17 History Terazosin [Hytrin] 2 mg PO HS 11/04/13 05/28/17 History Losartan [Cozaar] 50 mg PO BID 02/27/14 05/28/17 History Warfarin [Coumadin] 5 mg PO Q48H 03/31/17 05/28/17 History Budesonide [Pulmicort] 0.5 mg INHALATION RT-DAILY 05/13/17 05/28/17 History Diltiazem HCl [Diltiazem 24Hr ER] 120 mg PO DAILY 05/13/17 05/28/17 History Ergocalciferol (Vitamin D2) 50,000 unit PO WE 05/13/17 05/28/17 History [Vitamin D2] Ferrous Sulfate [Iron (65 MG 325 mg PO BID 05/13/17 05/28/17 History Elemental)] Metoprolol Succinate (ER) [Toprol 25 mg PO DAILY 05/13/17 05/28/17 History Xl] Montelukast [Singulair] 10 mg PO HS 05/13/17 05/28/17 History Warfarin [Coumadin] 2.5 mg PO Q48H 05/13/17 05/28/17 History hydrALAZINE HCL [Apresoline] 50 mg PO TID@0700,1400,2100 05/13/17 05/28/17 History predniSONE 10 mg PO DAILY 05/13/17 05/28/17 History Ipratropium-Albuterol Nebulize 3 ml INHALATION RT-QID PRN 05/28/17 05/28/17 History [Duoneb 0.5 mg-3 mg/3 ml Soln] Triamterene-Hctz 37.5-25Mg 1 tab PO DAILY 05/28/17 05/28/17 History [Maxzide 37.5-25] Allergies Allergy/AdvReac Type Severity Reaction Status Date / Time codeine Allergy Mild Confusion Verified 05/28/17 08:24 Physical Exam Osteopathic Statement: *. No significant issues noted on an osteopathic structural exam other than those noted in the History and Physical/Consult. Vitals: Vital Signs Temp Pulse Pulse Resp BP BP Pulse Ox 05/28/17 12:00 97 F L 124 H 18 93/57 95 05/28/17 11:00 106 H 16 105/81 100 05/28/17 10:00 95 16 120/62 97 05/28/17 09:49 109 H 18 93/62 100 05/28/17 09:34 120 H 16 105/75 99 05/28/17 09:06 115 H 16 119/59 97 05/28/17 08:30 114 H 16 125/60 94 L 05/28/17 08:02 97.8 F 128 H 16 100/54 93 L Intake and Output 05/27/17 05/28/17 05/28/17 22:59 06:59 14:59 Other: Weight 95.7 kg Gen.: Patient is alert and oriented 3, no acute distress Cardiovascular: Irregular rate and rhythm, tachycardia, S1/S2 Lungs: Diminished breath sounds bilaterally with bibasilar crackles Abdomen: Soft nontender nondistended positive bowel sounds Extremities: No edema Results - Laboratory Findings CBC and BMP: 05/28/17 08:20 05/28/17 08:20 PT/INR, D-dimer PT 15.9 sec (9.0-12.0) H 05/28/17 08:20 INR 1.7 (<1.2) H 05/28/17 08:20 Abnormal lab findings: Abnormal Labs 05/28/17 05/28/17 05/28/17 08:20 08:20 08:20 RBC 2.73 L Hgb 7.9 L Hct 24.8 L RDW 15.8 H Lymphocytes # 0.7 L PT INR BUN 49 H Creatinine 1.71 H Glucose 171 H Calcium 7.9 L Magnesium 1.0 L* AST 13 L Total Creatine Kinase 41 L Total Protein 5.0 L Albumin 2.9 L TSH 05/28/17 05/28/17 08:20 08:20 RBC Hgb Hct RDW Lymphocytes # PT 15.9 H INR 1.7 H BUN Creatinine Glucose Calcium Magnesium AST Total Creatine Kinase Total Protein Albumin TSH 4.700 H - Diagnostic Findings Chest x-ray: report reviewed, image reviewed Assessment and Plan Assessment: Acute on chronic hypoxic respiratory failure No evidence of pneumonia on chest x-ray, no clinical signs of pneumonia Atrial fibrillation with rapid ventricular response COPD not acutely exacerbated Idiopathic pulmonary fibrosis Anemia, normocytic, chronic Coumadin coagulopathy subtherapeutic History of CLL, 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 Immunocompromise state Hypertension CK D3 Hypomagnesemia Moderate protein calorie malnutrition Atherosclerotic coronary artery disease Diabetes mellitus type 2 Dyslipidemia Obstructive sleep apnea on CPAP History of Chiari syndrome Autoimmune hemolytic anemia BPH Obesity O2 to maintain saturation greater than or equal to 90% Pulmicort twice a day Duo nebs 3 times a day and as needed Singulair Steroid taper Rate control per cardiology Blood sugar control No need for antibiotics from pulmonary standpoint Coumadin dosing per pharmacy for goal INR 2-3 GI and DVT prophylaxis Incentive spirometry and pulmonary hygiene Thank you for this consultation we'll continue to follow along
--- NOTE | 2017-05-28 15:17 | P.CRDCN ---
History of Present Illness Consult date: 05/28/17 Requesting physician: Kemi Daniels Consult reason: atrial fibrillation Chief complaint: Chest palpitations History of present illness: 87-year-old gentleman history of paroxysmal atrial fibrillation, CLL, diabetes, hyperlipidemia, hypertension, COPD, sleep apnea, chronic renal failure , follows with Dr. Simon in the office. 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 He presented to the hospital with symptoms of chest discomfort, he states that he had a reasonably good night, woke up with severe symptoms in the morning. EKG on arrival here showed atrial fibrillation with a rapid ventricular response, right bundle branch block pattern and left anterior fascicular block. Chest x-ray showed COPD. No acute pulmonary process. Blood pressure 105/70, heart rate fluctuating from the 1 teens up into the 130s. White blood cell count 5.5, hemoglobin 7.9, platelet count 162. Sodium 142, potassium 3.5, chloride 104, CO2 28, BUN 49, creatinine 1.7. Knees and 1.0. Troponin 0.023, BNP level 2090. TSH 4.7 and free T4 1 0.5. Patient's home medications include prednisone, Apresoline 50 3 times a day, Coumadin, Maxzide, Hytrin, Pravachol, Prilosec, Singulair, Toprol-XL 25 mg daily, Cozaar 50 mg twice a day, folate acid 1 mg daily, iron supplementation, Cardizem 120 daily, aspirin 81 mg daily, and Zyloprim. Past Medical History Past Medical History: Atrial Fibrillation, Blood Disorder, Coronary Artery Disease (CAD), Cancer, Heart Failure, COPD, Diabetes Mellitus, Hyperlipidemia, Hypertension, Myocardial Infarction (GA), Prostate Disorder, Sleep Apnea/CPAP/ BIPAP Additional Past Medical History / Comment(s): Pt states he was recently admitted to [facility] for pneumonia and Afib. 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 Last Myocardial Infarction Date:: 2013 History of Any Multi-Drug Resistant Organisms: None Reported Past Surgical History: Heart Catheterization, Joint Replacement, Tonsillectomy Additional Past Surgical History / Comment(s): heavenly carotid endarct, total lt knee replacement, prostate biopsy, bilateral cataract removals with lens implants, colonoscopies. Past Anesthesia/Blood Transfusion Reactions: No Reported Reaction Additional Past Anesthesia/Blood Transfusion Reaction / Comment(s): pt states "has rare antibodies to blood has trouble finding matches" Smoking Status: Former smoker - Past Family History Brother(s) Family Medical History: Cancer Additional Family Medical History / Comment(s): kidney Mother Family Medical History: Myocardial Infarction (GA) Additional Family Medical History / Comment(s): Mother of a GA at the age of 85yrs. Father Family Medical History: No Reported History Additional Family Medical History / Comment(s): Father was healthy and lived to be 93 yrs old. Medications and Allergies Home Medications Medication Instructions Recorded Confirmed Type Allopurinol [Zyloprim] 100 mg PO DAILY 11/04/13 05/28/17 History Aspirin 81 mg PO MOWEFR 11/04/13 05/28/17 History Folic Acid 1 mg PO DAILY 11/04/13 05/28/17 History Omeprazole [PriLOSEC] 20 mg PO DAILY 11/04/13 05/28/17 History Pravastatin Sodium [Pravachol] 40 mg PO HS 11/04/13 05/28/17 History Terazosin [Hytrin] 2 mg PO HS 11/04/13 05/28/17 History Losartan [Cozaar] 50 mg PO BID 02/27/14 05/28/17 History Warfarin [Coumadin] 5 mg PO Q48H 03/31/17 05/28/17 History Budesonide [Pulmicort] 0.5 mg INHALATION RT-DAILY 05/13/17 05/28/17 History Diltiazem HCl [Diltiazem 24Hr ER] 120 mg PO DAILY 05/13/17 05/28/17 History Ergocalciferol (Vitamin D2) 50,000 unit PO WE 05/13/17 05/28/17 History [Vitamin D2] Ferrous Sulfate [Iron (65 MG 325 mg PO BID 05/13/17 05/28/17 History Elemental)] Metoprolol Succinate (ER) [Toprol 25 mg PO DAILY 05/13/17 05/28/17 History Xl] Montelukast [Singulair] 10 mg PO HS 05/13/17 05/28/17 History Warfarin [Coumadin] 2.5 mg PO Q48H 05/13/17 05/28/17 History hydrALAZINE HCL [Apresoline] 50 mg PO TID@0700,1400,2100 05/13/17 05/28/17 History predniSONE 10 mg PO DAILY 05/13/17 05/28/17 History Ipratropium-Albuterol Nebulize 3 ml INHALATION RT-QID PRN 05/28/17 05/28/17 History [Duoneb 0.5 mg-3 mg/3 ml Soln] Triamterene-Hctz 37.5-25Mg 1 tab PO DAILY 05/28/17 05/28/17 History [Maxzide 37.5-25] Allergies Allergy/AdvReac Type Severity Reaction Status Date / Time codeine Allergy Mild Confusion Verified 05/28/17 08:24 Physical Exam Vitals: Vital Signs Temp Pulse Pulse Resp BP BP Pulse Ox 05/28/17 12:00 97 F L 124 H 18 93/57 95 05/28/17 11:00 106 H 16 105/81 100 05/28/17 10:00 95 16 120/62 97 05/28/17 09:49 109 H 18 93/62 100 05/28/17 09:34 120 H 16 105/75 99 05/28/17 09:06 115 H 16 119/59 97 05/28/17 08:30 114 H 16 125/60 94 L 05/28/17 08:02 97.8 F 128 H 16 100/54 93 L Intake and Output 05/27/17 05/28/17 05/28/17 22:59 06:59 14:59 Other: Weight 95.7 kg PHYSICAL EXAMINATION: HEENT: Head is atraumatic, normocephalic. Pupils equal, round. Neck is supple. There is no elevated jugular venous pressure. HEART EXAMINATION: Heart S1 and S2 irregularly irregular CHEST EXAMINATION: Lungs reveal crackles to the bases ABDOMEN: Soft, nontender. Bowel sounds are heard. No organomegaly noted. EXTREMITIES: 2+ peripheral pulses with no evidence of peripheral edema and no calf tenderness noted. NEUROLOGIC patient is awake, alert and oriented -3. . Results 05/28/17 08:20 05/28/17 08:20 Cardiac Enzymes 05/28/17 05/28/17 Range/Units 08:20 08:20 AST 13 L (17-59) U/L CK-MB (CK-2) 1.7 (0.0-2.4) ng/mL Troponin I 0.023 (0.000-0.034) ng/mL Coagulation 05/28/17 Range/Units 08:20 PT 15.9 H (9.0-12.0) sec APTT 30.0 (22.0-30.0) sec CBC 05/28/17 Range/Units 08:20 WBC 5.5 (3.8-10.6) k/uL RBC 2.73 L (4.30-5.90) m/uL Hgb 7.9 L (13.0-17.5) gm/dL Hct 24.8 L (39.0-53.0) % Plt Count 162 D (150-450) k/uL Comprehensive Metabolic Panel 05/28/17 Range/Units 08:20 Sodium 142 (137-145) mmol/L Potassium 3.5 (3.5-5.1) mmol/L Chloride 104 (98-107) mmol/L Carbon Dioxide 28 (22-30) mmol/L BUN 49 H (9-20) mg/dL Creatinine 1.71 H (0.66-1.25) mg/dL Glucose 171 H (74-99) mg/dL Calcium 7.9 L (8.4-10.2) mg/dL AST 13 L (17-59) U/L ALT 21 (21-72) U/L Alkaline Phosphatase 46 (38-126) U/L Total Protein 5.0 L (6.3-8.2) g/dL Albumin 2.9 L (3.5-5.0) g/dL Current Medications Generic Name Dose Route Start Last Admin Trade Name Freq PRN Reason Stop Dose Admin Albuterol/Ipratropium 3 ml 05/28/17 12:56 Duoneb 0.5 Mg-3 Mg/3 Ml Soln INHALATION RT-QID PRN Shortness Of Breath Allopurinol 100 mg 05/29/17 09:00 Zyloprim PO DAILY CHRIS Aspirin 81 mg 03/16/18 09:00 Aspirin PO DAILY [facility] Budesonide 0.5 mg 05/29/17 08:00 Pulmicort INHALATION RT-DAILY [facility] Diltiazem HCl 120 mg 05/28/17 12:45 05/28/17 13:14 Cardizem Cd PO 120 mg BID [facility] Administration Doxazosin Mesylate 2 mg 05/28/17 21:00 Cardura PO HS [facility] Hydralazine HCl 50 mg 05/28/17 14:00 Apresoline PO TID@0700,1400,2100 [facility] Losartan Potassium 50 mg 05/28/17 21:00 Cozaar PO BID [facility] Metoprolol Tartrate 50 mg 05/28/17 21:00 Lopressor PO BID [facility] Montelukast Sodium 10 mg 05/28/17 21:00 Singulair PO HS [facility] Morphine Sulfate 12 mg 05/28/17 14:35 Morphine Oral Alma 2mg/Ml PO Q5M PRN Chest Pain Nitroglycerin 0.4 mg 05/28/17 09:34 Nitrostat SUBLINGUAL Q5M PRN Chest Pain Pantoprazole Sodium 40 mg 05/29/17 07:30 Protonix PO AC-BRKFST [facility] Pravastatin Sodium 40 mg 05/28/17 21:00 Pravachol PO HS [facility] Triamterene/HCTZ 1 each 05/29/17 09:00 Maxzide-25 PO DAILY [facility] Warfarin Sodium 2.5 mg 05/29/17 18:00 Coumadin PO Q48H [facility] Warfarin Sodium 5 mg 05/28/17 18:00 Coumadin PO Q48H [facility] Intake and Output 05/27/17 05/28/17 05/28/17 22:59 06:59 14:59 Other: Weight 95.7 kg Patient Weight 05/29/17 06:59 Weight 95.7 kg 05/28/17 08:20 05/28/17 08:20 EKG Interpretations (text) EKG shows atrial fibrillation with right bundle branch block pattern left anterior fascicular block Assessment and Plan Plan: Assessment and plan #1 atrial fibrillation with rapid ventricular response, paroxysmal. We will increase the Cardizem CD to 120 mg daily. Continue beta giacomo 50 mg twice a day. No amiodarone. #2 COPD #3 hypertension #4 hyperlipidemia #5 CLL #6 peripheral vascular disease #7 autoimmune hemolytic anemia #8 chronic renal failure #9 sleep apnea, uses CPAP at home #10 history of paroxysmal atrial fibrillation, on Coumadin for anticoagulation. INR 1.7. #11 hypomagnesemia, 1.0 #11 hypokalemia Plan Patient had a recent echocardiogram with Doppler study performed in March of this year which revealed an ejection fraction of 50-55%. We'll not repeat an echo on this admission. We will check a free T4 and TSH level. Cardizem has been increased to 120 daily, and the additional dose has been given. In spite of this heart rate remaining in the 1 teens to 120 range. We will repeat the magnesium level, if remains low we will replace magnesium, we will also replace potassium. We'll give one additional dose of beta giacomo, continue to monitor heart rate along with blood pressure. Further recommendations to follow. DNP note has been reviewed, I agree with a documented findings and plan of care. Patient was seen and examined.
[2017-05-28] MEDS ORDERED: METOPROLOL SUCCINATE (ER) 50 MG TAB.ER.24H PO STA (15:20)
[2017-05-28 15:30] LABS: Creatine Kinase MB 3.5 ng/mL (0.0-2.4); Troponin I 0.788 ng/mL (0.000-0.034)
[2017-05-28] MEDS: hydrALAZINE HCL 50 MG TAB PO SCH ×2 (17:17→20:46)
[2017-05-28] MEDS: predniSONE 10 MG TAB PO SCH (17:19)
--- NOTE | 2017-05-28 17:22 | P.HPIM ---
History of Present Illness H&P Date: 05/28/17 Chief Complaint: Chest pain, palpitation shortness of breath This is an 87 year old male patient of Dr BEBA millard, patient has underlying history of CLLdiagnosed in 2008, follows with Dr. Sweet oncology COPd with O2 dependence, Atrial fibrillatio on Coumadin anticoagulation, PAD, CAD and recurrent anemia requring specialized blood for transfusion. 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 Patient has had shortness of breath off and on for several years, worse with exertion, worse with a pending as the patient coughs whenever she eats, family is not concerned about this, and declined any imaging studies for aspiration pneumonia , patient had no fever no chills, no sick contacts, he drinks about 4 cups of coffee per day, nonsmoker no alcohol intake in the emergency room, patient had severe chest pain that occurred after breakfast, patient's pain lasted for approximately 45 minutes, there is no nausea no vomiting, there is no dysphagia to solid foods or liquid foods, however he coughs every time he eats, especially when he has a hard time breathing. Patient denies any edema, and he passed out apparently secondary to this. Per EMS, he had A. fib with RVR, troponins were mildly elevated, and patient was significantly anemic hemoglobin 7.9 creatinine is 1.7 on admission low at 1 albumin low at 2.9 patient has CPAP, and 2 L of O2 with CPAP. Patient denies any assistive device for ambulation, for long distances he requires a walker Review of Systems Constitutional: Reports as per HPI, Denies anorexia, Denies chills, Denies chronic headaches, Denies chronic pain, Denies daytime sleepiness, Denies fatigue, Denies fever, Denies lethargy, Denies malaise, Denies night sweats, Denies poor appetite, Denies sweats, Denies weakness, Denies weight gain, Denies weight loss Ears, nose, mouth and throat: Reports as per HPI, Denies ant. neck pain, Denies bleeding gums, Denies dental pain, Denies dysphagia, Denies epistaxis, Denies headache, Denies hoarseness, Denies mouth pain, Denies nasal congestion, Denies nasal discharge, Denies neck fullness/pressure, Denies neck lump, Denies nose pain, Denies odynophagia, Denies post-nasal drip, Denies sinus pain, Denies sinus pressure, Denies swelling in mouth, Denies swelling in throat, Denies sore throat, Denies vertigo, Denies voice changes Cardiovascular: Reports as per HPI, Reports chest pain, Reports irregular heart beat, Reports paroxysmal nocturnal dyspnea, Reports rapid heart beat, Reports shortness of breath, Denies claudication, Denies decreased exercise tolerance, Denies dyspnea on exertion, Denies edema, Denies high blood pressure, Denies leg edema, Denies lightheadedness, Denies orthopnea, Denies palpitations, Denies phlebitis, Denies syncope Respiratory: Reports as per HPI, Reports cough, Reports cough with sputum, Reports wheezing, Denies congestion, Denies dyspnea, Denies excessive sputum, Denies hemoptysis, Denies home oxygen, Denies pain, Denies pain on inspiration, Denies pleurisy, Denies respiratory infections, Denies sleep apnea, Denies snoring Gastrointestinal: Reports as per HPI, Denies abdominal pain, Denies belching, Denies bloating, Denies BRBPR, Denies change in bowel habits, Denies coffee ground emesis, Denies constipation, Denies diarrhea, Denies dyspepsia, Denies early satiety, Denies excessive gas, Denies heartburn, Denies hematemesis, Denies hematochezia, Denies indigestion, Denies jaundice, Denies lactose intolerance, Denies loss of appetite, Denies melena, Denies nausea, Denies vomiting Genitourinary: Reports as per HPI, Denies decreased libido, Denies difficulties fathering child, Denies discharge, Denies dysuria, Denies erectile dysfunction, Denies flank pain, Denies genital pain, Denies genital sores, Denies hematuria, Denies impotence, Denies incontinence, Denies kidney stones, Denies nocturia, Denies polyuria, Denies testicular lump, Denies testicular pain, Denies urinary frequency, Denies urinary hesitancy, Denies urinary retention Musculoskeletal: Reports as per HPI, Denies arm numbness/tingling, Denies atrophy, Denies fractures, Denies frequent falls, Denies gait dysfunction, Denies hot joints, Denies leg numbness/tingling, Denies limitation of motion, Denies loss of height, Denies low back pain, Denies morning stiffness, Denies muscle cramps, Denies muscle weakness, Denies myalgias, Denies neck pain, Denies neck stiffness, Denies prior amputations, Denies redness of joints, Denies shooting arm pain, Denies shooting leg pain Integumentary: Reports as per HPI, Denies acne, Denies boils, Denies brittle nails, Denies change in hair/nails, Denies color changes, Denies darkening of skin, Denies depigmentation, Denies dryness, Denies foot/leg ulcers, Denies growths, Denies hirsutism, Denies lesions, Denies onychomycosis, Denies pruritus , Denies rash, Denies sores, Denies striae, Denies unusual bruising, Denies wounds Neurological: Reports as per HPI, Denies aphasia, Denies ataxia, Denies balance difficulties, Denies burning pain, Denies change in mentation, Denies change in smell/taste, Denies change in speech, Denies confusion, Denies convulsions, Denies double vision, Denies gait dysfunction, Denies head injury, Denies headaches, Denies hearing difficulties, Denies lack of coordination, Denies loss of vision, Denies memory loss, Denies migraines, Denies motor disturbance, Denies numbness, Denies paralysis, Denies paresthesias, Denies seizures, Denies sensory deficit, Denies spasticity, Denies syncope, Denies tic, Denies tingling , Denies transient paralysis, Denies tremors, Denies vertigo, Denies weakness, Denies visual changes Psychiatric: Reports as per HPI Endocrine: Reports as per HPI, Denies cold intolerance, Denies deepening of the voice, Denies excessive sweating, Denies excessive thirst, Denies fatigue, Denies flushing, Denies heat intolerance, Denies high blood sugars, Denies increase in ring/shoe/hat size, Denies low blood sugars, Denies nocturia, Denies palpitations, Denies polydipsia, Denies polyphagia, Denies polyuria, Denies proptosis, Denies recent glucocorticoid use, Denies thyroid mass, Denies weight change Hematologic/Lymphatic: Reports as per HPI, Denies easy bleeding, Denies easy bruising, Denies lymphadenopathy, Denies lymphedema, Denies thrombophilia Allergic/Immunologic: Reports as per HPI, Denies allergic rhinitis, Denies anaphylaxis, Denies angioedema, Denies gluten intolerance, Denies persistent infections, Denies seasonal allergies, Denies urticaria, Denies wheezing Past Medical History Past Medical History: Atrial Fibrillation, Blood Disorder, Coronary Artery Disease (CAD), Cancer, Heart Failure, COPD, Diabetes Mellitus, Hyperlipidemia, Hypertension, Myocardial Infarction (MT), Prostate Disorder, Sleep Apnea/CPAP/ BIPAP Additional Past Medical History / Comment(s): CLL diagnosed in 2007, years later had chemo one time and it was discontinued because pt had a MT while receiving, autoimmune hemolytic anemia, rare antibiodies in his blood, AFib with RVR, NIDDM no longer on medications, LOUIE with CPAP occasionally uses O2 2L/ NC with it, 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 Last Myocardial Infarction Date:: 2013 History of Any Multi-Drug Resistant Organisms: None Reported Past Surgical History: Heart Catheterization, Joint Replacement, Tonsillectomy Additional Past Surgical History / Comment(s): heavenly carotid endarct, total lt knee replacement, prostate biopsy, bilateral cataract removals with lens implants, colonoscopies. Past Anesthesia/Blood Transfusion Reactions: No Reported Reaction Additional Past Anesthesia/Blood Transfusion Reaction / Comment(s): pt states "has rare antibodies to blood has trouble finding matches" Past Psychological History: No Psychological Hx Reported Smoking Status: Former smoker Past Alcohol Use History: None Reported Past Drug Use History: None Reported - Past Family History Brother(s) Family Medical History: Cancer Additional Family Medical History / Comment(s): kidney Mother Family Medical History: Myocardial Infarction (MT) Additional Family Medical History / Comment(s): Mother of a MT at the age of 85yrs. Father Family Medical History: No Reported History Additional Family Medical History / Comment(s): Father was healthy and lived to be 93 yrs old. Medications and Allergies Home Medications Medication Instructions Recorded Confirmed Type Allopurinol [Zyloprim] 100 mg PO DAILY 11/04/13 05/28/17 History Aspirin 81 mg PO MOWEFR 11/04/13 05/28/17 History Folic Acid 1 mg PO DAILY 11/04/13 05/28/17 History Omeprazole [PriLOSEC] 20 mg PO DAILY 11/04/13 05/28/17 History Pravastatin Sodium [Pravachol] 40 mg PO HS 11/04/13 05/28/17 History Terazosin [Hytrin] 2 mg PO HS 11/04/13 05/28/17 History Losartan [Cozaar] 50 mg PO BID 02/27/14 05/28/17 History Warfarin [Coumadin] 5 mg PO Q48H 03/31/17 05/28/17 History Budesonide [Pulmicort] 0.5 mg INHALATION RT-DAILY 05/13/17 05/28/17 History Diltiazem HCl [Diltiazem 24Hr ER] 120 mg PO DAILY 05/13/17 05/28/17 History Ergocalciferol (Vitamin D2) 50,000 unit PO WE 05/13/17 05/28/17 History [Vitamin D2] Ferrous Sulfate [Iron (65 MG 325 mg PO BID 05/13/17 05/28/17 History Elemental)] Metoprolol Succinate (ER) [Toprol 25 mg PO DAILY 05/13/17 05/28/17 History Xl] Montelukast [Singulair] 10 mg PO HS 05/13/17 05/28/17 History Warfarin [Coumadin] 2.5 mg PO Q48H 05/13/17 05/28/17 History hydrALAZINE HCL [Apresoline] 50 mg PO TID@0700,1400,2100 05/13/17 05/28/17 History predniSONE 10 mg PO DAILY 05/13/17 05/28/17 History Ipratropium-Albuterol Nebulize 3 ml INHALATION RT-QID PRN 05/28/17 05/28/17 History [Duoneb 0.5 mg-3 mg/3 ml Soln] Triamterene-Hctz 37.5-25Mg 1 tab PO DAILY 05/28/17 05/28/17 History [Maxzide 37.5-25] Allergies Allergy/AdvReac Type Severity Reaction Status Date / Time codeine Allergy Mild Confusion Verified 05/28/17 08:24 Physical Exam Vitals: Vital Signs Temp Pulse Pulse Resp BP BP Pulse Ox 05/28/17 12:00 97 F L 124 H 18 93/57 95 05/28/17 11:00 106 H 16 105/81 100 05/28/17 10:00 95 16 120/62 97 05/28/17 09:49 109 H 18 93/62 100 05/28/17 09:34 120 H 16 105/75 99 05/28/17 09:06 115 H 16 119/59 97 05/28/17 08:30 114 H 16 125/60 94 L 05/28/17 08:02 97.8 F 128 H 16 100/54 93 L Intake and Output 05/27/17 05/28/17 05/28/17 22:59 06:59 14:59 Other: Weight 95.7 kg - Constitutional General appearance: cooperative, mild distress, obese, thin - EENT Eyes: EOMI, PERRLA, dentition normal, normal appearance ENT: NA/AT, normal oropharynx - Neck Neck: no lymphadenopathy, normal ROM, no other, no rigidity, no stridor, no thyromegaly - Respiratory Respiratory: bilateral: CTA, diminished, negative: rales, rhonchi, wheezing, prolonged expiration, prolonged inspiration - Cardiovascular Rhythm: irregularly irregular Heart sounds: normal: S1, S2 Abnormal Heart Sounds: systolic murmur, no diastolic murmur, no rub, no S3 Gallop, no S4 Gallop, no click, no other - Gastrointestinal General gastrointestinal: normal bowel sounds, soft - Integumentary Integumentary: decreased turgor, normal - Neurologic Neurologic: CNII-XII intact - Musculoskeletal Musculoskeletal: generalized weakness, strength equal bilaterally - Psychiatric Psychiatric: A&O x's 3, appropriate affect, intact judgment & insight Results CBC & Chem 7: 05/28/17 08:20 05/28/17 08:20 Labs: Abnormal Lab Results - Last 24 Hours (Table) 05/28/17 05/28/17 05/28/17 Range/Units 08:20 08:20 08:20 RBC 2.73 L (4.30-5.90) m/uL Hgb 7.9 L (13.0-17.5) gm/dL Hct 24.8 L (39.0-53.0) % RDW 15.8 H (11.5-15.5) % Lymphocytes # 0.7 L (1.0-4.8) k/uL PT (9.0-12.0) sec INR (<1.2) BUN 49 H (9-20) mg/dL Creatinine 1.71 H (0.66-1.25) mg/dL Glucose 171 H (74-99) mg/dL Calcium 7.9 L (8.4-10.2) mg/dL Magnesium 1.0 L* (1.6-2.3) mg/dL AST 13 L (17-59) U/L Total Creatine Kinase 41 L (55-170) U/L Total Protein 5.0 L (6.3-8.2) g/dL Albumin 2.9 L (3.5-5.0) g/dL 05/28/17 Range/Units 08:20 RBC (4.30-5.90) m/uL Hgb (13.0-17.5) gm/dL Hct (39.0-53.0) % RDW (11.5-15.5) % Lymphocytes # (1.0-4.8) k/uL PT 15.9 H (9.0-12.0) sec INR 1.7 H (<1.2) BUN (9-20) mg/dL Creatinine (0.66-1.25) mg/dL Glucose (74-99) mg/dL Calcium (8.4-10.2) mg/dL Magnesium (1.6-2.3) mg/dL AST (17-59) U/L Total Creatine Kinase (55-170) U/L Total Protein (6.3-8.2) g/dL Albumin (3.5-5.0) g/dL Laboratory Results WBC 5.5 k/uL (3.8-10.6) 05/28/17 08:20 RBC 2.73 m/uL (4.30-5.90) L 05/28/17 08:20 Hgb 7.9 gm/dL (13.0-17.5) L 05/28/17 08:20 Hct 24.8 % (39.0-53.0) L 05/28/17 08:20 MCV 90.9 fL (80.0-100.0) D 05/28/17 08:20 MCH 28.9 pg (25.0-35.0) 05/28/17 08:20 MCHC 31.7 g/dL (31.0-37.0) 05/28/17 08:20 RDW 15.8 % (11.5-15.5) H 05/28/17 08:20 Plt Count 162 k/uL (150-450) D 05/28/17 08:20 Neutrophils % 79 % 05/28/17 08:20 Lymphocytes % 12 % 05/28/17 08:20 Monocytes % 7 % 05/28/17 08:20 Eosinophils % 1 % 05/28/17 08:20 Basophils % 0 % 05/28/17 08:20 Neutrophils # 4.4 k/uL (1.3-7.7) 05/28/17 08:20 Lymphocytes # 0.7 k/uL (1.0-4.8) L 05/28/17 08:20 Monocytes # 0.4 k/uL (0-1.0) 05/28/17 08:20 Eosinophils # 0.1 k/uL (0-0.7) 05/28/17 08:20 Basophils # 0.0 k/uL (0-0.2) 05/28/17 08:20 Hypochromasia Slight 05/28/17 08:20 Poikilocytosis Slight 05/28/17 08:20 PT 15.9 sec (9.0-12.0) H 05/28/17 08:20 INR 1.7 (<1.2) H 05/28/17 08:20 APTT 30.0 sec (22.0-30.0) 05/28/17 08:20 Sodium 142 mmol/L (137-145) 05/28/17 08:20 Potassium 3.5 mmol/L (3.5-5.1) 05/28/17 08:20 Chloride 104 mmol/L (98-107) 05/28/17 08:20 Carbon Dioxide 28 mmol/L (22-30) 05/28/17 08:20 Anion Gap 10 mmol/L 05/28/17 08:20 BUN 49 mg/dL (9-20) H 05/28/17 08:20 Creatinine 1.71 mg/dL (0.66-1.25) H 05/28/17 08:20 Est GFR (CKD-EPI)AfAm 41 (>60 ml/min/1.73 sqM) 05/28/17 08:20 Est GFR (CKD-EPI)NonAf 36 (>60 ml/min/1.73 sqM) 05/28/17 08:20 Glucose 171 mg/dL (74-99) H 05/28/17 08:20 Calcium 7.9 mg/dL (8.4-10.2) L 05/28/17 08:20 Magnesium 1.0 mg/dL (1.6-2.3) L* 05/28/17 08:20 Total Bilirubin 0.3 mg/dL (0.2-1.3) 05/28/17 08:20 AST 13 U/L (17-59) L 05/28/17 08:20 ALT 21 U/L (21-72) 05/28/17 08:20 Alkaline Phosphatase 46 U/L (38-126) 05/28/17 08:20 Total Creatine Kinase 56 U/L (55-170) 05/28/17 14:27 CK-MB (CK-2) 3.5 ng/mL (0.0-2.4) H* 05/28/17 14:27 CK-MB (CK-2) Rel Index 6.3 05/28/17 14:27 Troponin I 0.788 ng/mL (0.000-0.034) H* 05/28/17 14:27 NT-Pro-B Natriuret Pep 2090 pg/mL 05/28/17 08:20 Total Protein 5.0 g/dL (6.3-8.2) L 05/28/17 08:20 Albumin 2.9 g/dL (3.5-5.0) L 05/28/17 08:20 Lipase 85 U/L (23-300) 05/28/17 08:20 TSH 4.700 mIU/L (0.465-4.680) H 05/28/17 08:20 Free T4 1.50 ng/dL (0.78-2.19) 05/28/17 08:20 Thrombosis Risk Factor Assmnt - DVT/VTE Prophylaxis DVT/VTE Prophylaxis: Pharmacologic Prophylaxis ordered Assessment and Plan Plan: 1 Unstable Angina suspected an nonSTEMI demand ischemia ,episode of syncope highly suspicious for cardiac arrhythmia, atrial fibrillation with rapid ventricular rate currently in selective unit. Oral cardizem and is being followed by cardiology in consultation. echocardiogram is obtained, thyroid function test and cardiac enzymes to be monitored. he is to recieve iv heparin and cardizem, along with metoprolol and sublingual nitroglycerin chemo imduced cardiomyopathy induced to be entertained, oncology is consulted. 2 chronic atrial fibrillation with rapid ventricular rate, intermittent, on anticoagulation with Coumadin, has been discontinued off the amiodarone secondary to amiodarone induced pulmonary disease, Cardizem 120 twice a day, caffeine is counseled to be decreased, 3. severe anemia in past requiring recurrent blood transfusion. no episodes of cross gi bleeding noted. Ma hemoglobin A1c, iron studies haptoglobin 4. Hypoxemia with COPD. currentLy on O2 chronically with prn albuterol and atrovent. no current exacerbation of bronchospasm noted. he follows with dr BEBA mcdonald and is consulted Singulair 10 mg daily, 5. Elevated troponin, acute onset most likely secondary to an NSTEMI, ischemic cardiomyopathy, from the demand ischemia, patient is on metoprolol 50 mg twice a day, losartan,, when necessary sublingual nitroglycerin and Nitropaste 1/2 inch every 8 hours 6 Anemia of chronic disease, and underlying iron deficiency, blood loss is noted to be evaluated, Hemoccult stools patient's on anticoagulation, iron studies to be obtained, we we will further evaluate for need of blood transfusion symptomatic anemia once with controlled cardiopulmonary status 7 . CLL history follows with Dr. Hutchins outpatient 8 hypertension, with the addition of the Cardizem 120 twice a day, we'll going to decrease losartan 100 g daily to 25 mg daily with parameters, continue metoprolol secondary to uncontrolled heart rate 9Slightly elevated TSH at 4.7, continue to monitor, no supplementation at this time, repeat TSH free T4 T3 in 4 weeks 10 . CK D stage III, baseline creatinine 1.4-2.0 for toxins and hypotension would be avoided, and T8 to monitor 11 . hyperlipidemia and pravastatin 40 daily 12. guillaine barre syndrome, inactive 13. BPH without lower urinary tract symtoms 14. Moderate protein calorie nutrition Prednisone use currently at 10 mg daily, unknown whether this long-term or not this would be clarified gi prophylaxis and dvt prophlaxis is provide. Tonics 40 mg daily Code Status: full.
[2017-05-28] MEDS ORDERED: WARFARIN 5 MG TAB PO SCH (18:00)
[2017-05-28] MEDS: IPRATROPIUM-ALBUTEROL 3 ML NEB INHALATION SCH (20:13)
[2017-05-28] MEDS: BUDESONIDE 0.5 MG/2 ML NEBU INHALATION SCH (20:13)
[2017-05-28] MEDS: NITROGLYCERIN OINT 1 INCH/GM PACKET TOPICAL SCH ×2 (20:41→20:48)
[2017-05-28] MEDS: METOPROLOL TARTRATE 50 MG TAB PO SCH (20:46)
[2017-05-28] MEDS: MONTELUKAST 10 MG TAB PO SCH (20:46)
[2017-05-28] MEDS: DOXAZOSIN 4 MG TAB PO SCH (20:47)
[2017-05-28] MEDS: PRAVASTATIN SODIUM 40 MG TAB PO SCH (20:47)
[2017-05-28] MEDS ORDERED: LOSARTAN 50 MG TAB PO SCH (21:00)
[2017-05-28 21:10] LABS: Creatine Kinase MB 3.9 ng/mL (0.0-2.4); Troponin I 0.87 ng/mL (0.000-0.034)
[2017-05-29 06:30] LABS: Basophils % (A) 0 %; Eosinophils % (A) 0 %; HGB 7.3 gm/dL (13.0-17.5); Hypochromasia Marked; Lymphocytes # (A) 0.6 k/uL (1.0-4.8); Lymphocytes % (A) 8 %; MCH 28.4 pg (25.0-35.0); MCHC 30.4 g/dL (31.0-37.0); MCV 93.5 fL (80.0-100.0); Mean Platelet Volume 8.1; Monocytes # (A) 0.4 k/uL (0-1.0); Monocytes % (A) 5 %; Neutrophils # (A) 6.2 k/uL (1.3-7.7); Neutrophils % (A) 84 %; Platelet Count 171 k/uL (150-450); RBC 2.57 m/uL (4.30-5.90); RDW 15.6 % (11.5-15.5); WBC 7.3 k/uL (3.8-10.6)
[2017-05-29 06:40] LABS: INR 1.8 (<1.2); Prothrombin Time 16.1 sec (9.0-12.0)
[2017-05-29 06:43] LABS: Albumin 2.7 g/dL (3.5-5.0); Bilirubin, Delta 0.2 mg/dL (0.0-0.2); Calcium 7.8 mg/dL (8.4-10.2); Magnesium 2.2 mg/dL (1.6-2.3); Potassium 4.9 mmol/L (3.5-5.1); Total Bilirubin 0.2 mg/dL (0.2-1.3); Total Protein 4.8 g/dL (6.3-8.2)
[2017-05-29] MEDS ORDERED: BUDESONIDE 0.5 MG/2 ML NEBU INHALATION SCH (08:00)
[2017-05-29] MEDS: BUDESONIDE 0.5 MG/2 ML NEBU INHALATION SCH ×2 (08:31→20:15)
[2017-05-29] MEDS: IPRATROPIUM-ALBUTEROL 3 ML NEB INHALATION SCH ×3 (08:31→20:15)
[2017-05-29] MEDS ORDERED: DILTIAZEM CD 120 MG CAP.ER.24H PO SCH (09:00)
[2017-05-29] MEDS ORDERED: TRIAMTERENE-HCTZ 37.5-25MG 1 EACH TAB PO SCH (09:00)
[2017-05-29] MEDS ORDERED: ASPIRIN 325 MG TAB PO SCH (09:00)
[2017-05-29] MEDS: hydrALAZINE HCL 50 MG TAB PO SCH (09:07)
[2017-05-29] MEDS: predniSONE 10 MG TAB PO SCH (09:10)
[2017-05-29] MEDS: ASPIRIN 81 MG PO SCH (09:10)
[2017-05-29] MEDS: LOSARTAN 25 MG TAB PO SCH (09:10)
[2017-05-29] MEDS: ALLOPURINOL 100 MG TAB PO SCH (09:10)
[2017-05-29] MEDS: DILTIAZEM CD 120 MG CAP.ER.24H PO SCH ×2 (09:10→20:49)
[2017-05-29] MEDS: METOPROLOL TARTRATE 50 MG TAB PO SCH ×2 (09:10→20:49)
[2017-05-29] MEDS: NITROGLYCERIN OINT 1 INCH/GM PACKET TOPICAL SCH ×3 (09:12→23:06)
[2017-05-29] MEDS: PANTOPRAZOLE 40 MG TABLET PO SCH (09:15)
--- NOTE | 2017-05-29 10:52 | P.PN ---
Progress Note - Text Patient interviewed and examined. Please see full dictation by nurse practitioner. The plan is rate controlled with diltiazem and metoprolol Avoid amiodarone. Amiodarone toxicity in the past Patient is not a candidate for anticoagulation with history of bleeding and anemia
--- NOTE | 2017-05-29 11:25 | P.PN ---
Subjective Progress Note Date: 05/29/17 This is an 87-year-old gentleman history of paroxysmal atrial fibrillation, CLL, diabetes, hyperlipidemia, hypertension, COPD, sleep apnea, chronic renal failure, follows with Dr. Simon in the office. 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 He presented to the hospital with symptoms of chest discomfort, he states that he had a reasonably good night, woke up with severe symptoms in the morning. EKG on arrival here showed atrial fibrillation with a rapid ventricular response, right bundle branch block pattern and left anterior fascicular block. Chest x-ray showed COPD. No acute pulmonary process. Blood pressure 105/70, heart rate fluctuating from the 1 teens up into the 130s. White blood cell count 5.5, hemoglobin 7.9, platelet count 162. Sodium 142, potassium 3.5, chloride 104, CO2 28, BUN 49, creatinine 1.7. Knees and 1.0. Troponin 0.023, BNP level 2090. TSH 4.7 and free T4 1 0.5. Patient's home medications include prednisone, Apresoline 50 3 times a day, Coumadin, Maxzide, Hytrin, Pravachol, Prilosec, Singulair, Toprol-XL 25 mg daily , Cozaar 50 mg twice a day, folate acid 1 mg daily, iron supplementation, Cardizem 120 daily, aspirin 81 mg daily, and Zyloprim. 05/29/2017 Patient continues to be in atrial fibrillation this morning. Blood pressure 103 /60, heart rate in the 90s. White blood cell count 7.3, hemoglobin 7.3, INR 1.8. Potassium 4.9, BUN 55, creatinine 2.1. Magnesium 2.2. Troponins 0.0-3, 0.788, 0.870. BNP 2090. TSH level I.8. Stool for occult blood has been requested. Objective - Vital Signs Vital signs: Vital Signs Temp 97 F L 05/29/17 08:00 Pulse 66 05/29/17 08:34 Resp 18 05/29/17 08:00 BP 103/67 05/29/17 08:00 Pulse Ox 99 05/29/17 08:34 Intake & Output 05/28/17 05/29/17 05/29/17 18:59 06:59 18:59 Intake Total 980 240 240 Balance 980 240 240 Weight 95.7 kg 96.5 kg Intake: Intake, IV Titration 500 Amount Magnesium Sulfate-D5w Pmx 300 1 gm In Dextrose/Water 1 100ml.bag @ 100 mls/hr IVPB Q1H CHRIS Rx#: [id number] Sodium Chloride 0.9% 1, 200 000 ml @ 100 mls/hr IV . Q10H STA Rx#:[id number] Oral 480 240 240 Other: Voiding Method Urinal # Voids 1 - Exam PHYSICAL EXAMINATION: HEENT: Head is atraumatic, normocephalic. Pupils equal, round. Neck is supple. There is no elevated jugular venous pressure. HEART EXAMINATION: Heart S1 and S2 irregularly irregular CHEST EXAMINATION: Lungs reveal crackles to the bases ABDOMEN: Soft, nontender. Bowel sounds are heard. No organomegaly noted. EXTREMITIES: 2+ peripheral pulses with no evidence of peripheral edema and no calf tenderness noted. NEUROLOGIC patient is awake, alert and oriented -3. - Labs CBC & Chem 7: 05/29/17 05:57 05/29/17 05:57 Labs: Abnormal Lab Results - Last 24 Hours (Table) 05/28/17 05/28/17 05/28/17 Range/Units 08:20 14:27 20:27 RBC (4.30-5.90) m/uL Hgb (13.0-17.5) gm/dL Hct (39.0-53.0) % MCHC (31.0-37.0) g/dL RDW (11.5-15.5) % Lymphocytes # (1.0-4.8) k/uL PT (9.0-12.0) sec INR (<1.2) BUN (9-20) mg/dL Creatinine (0.66-1.25) mg/dL Glucose (74-99) mg/dL Calcium (8.4-10.2) mg/dL Ferritin (22.0-322.0) ng/mL AST (17-59) U/L ALT (21-72) U/L CK-MB (CK-2) 3.5 H* 3.9 H* (0.0-2.4) ng/mL Troponin I 0.788 H* 0.870 H* (0.000-0.034) ng/mL Total Protein (6.3-8.2) g/dL Albumin (3.5-5.0) g/dL Triglycerides (<150) mg/dL HDL Cholesterol (40-60) mg/dL TSH 4.700 H (0.465-4.680) mIU/L 05/28/17 05/29/17 05/29/17 Range/Units 20:27 05:57 05:57 RBC 2.57 L (4.30-5.90) m/uL Hgb 7.3 L (13.0-17.5) gm/dL Hct 24.0 L (39.0-53.0) % MCHC 30.4 L (31.0-37.0) g/dL RDW 15.6 H (11.5-15.5) % Lymphocytes # 0.6 L (1.0-4.8) k/uL PT (9.0-12.0) sec INR (<1.2) BUN 55 H (9-20) mg/dL Creatinine 2.11 H (0.66-1.25) mg/dL Glucose 114 H (74-99) mg/dL Calcium 7.8 L (8.4-10.2) mg/dL Ferritin 574.8 H (22.0-322.0) ng/mL AST 12 L (17-59) U/L ALT 20 L (21-72) U/L CK-MB (CK-2) (0.0-2.4) ng/mL Troponin I (0.000-0.034) ng/mL Total Protein 4.8 L (6.3-8.2) g/dL Albumin 2.7 L (3.5-5.0) g/dL Triglycerides 175 H (<150) mg/dL HDL Cholesterol 36 L (40-60) mg/dL TSH (0.465-4.680) mIU/L 05/29/17 Range/Units 05:57 RBC (4.30-5.90) m/uL Hgb (13.0-17.5) gm/dL Hct (39.0-53.0) % MCHC (31.0-37.0) g/dL RDW (11.5-15.5) % Lymphocytes # (1.0-4.8) k/uL PT 16.1 H (9.0-12.0) sec INR 1.8 H (<1.2) BUN (9-20) mg/dL Creatinine (0.66-1.25) mg/dL Glucose (74-99) mg/dL Calcium (8.4-10.2) mg/dL Ferritin (22.0-322.0) ng/mL AST (17-59) U/L ALT (21-72) U/L CK-MB (CK-2) (0.0-2.4) ng/mL Troponin I (0.000-0.034) ng/mL Total Protein (6.3-8.2) g/dL Albumin (3.5-5.0) g/dL Triglycerides (<150) mg/dL HDL Cholesterol (40-60) mg/dL TSH (0.465-4.680) mIU/L Assessment and Plan Plan: Assessment and plan #1 atrial fibrillation with rapid ventricular response, paroxysmal. We will increase the Cardizem CD to 120 mg daily. Continue beta giacomo 50 mg twice a day. No amiodarone. #2 COPD #3 hypertension #4 hyperlipidemia #5 CLL #6 peripheral vascular disease #7 autoimmune hemolytic anemia #8 chronic renal failure #9 sleep apnea, uses CPAP at home #10 history of paroxysmal atrial fibrillation, on Coumadin for anticoagulation. INR 1.8. #11 hypomagnesemia, #11 hypokalemia #12 abnormal troponins, could be secondary to abnormal renal function and atrial fibrillation with rapid ventricular response, supply and demand mismatch. Plan Patient had a recent echocardiogram with Doppler study performed in March of this year which revealed an ejection fraction of 50-55%. Heart rate under much better control today. We will continue current medications, continue Coumadin to maintain an INR in the range of 2-2.5. DNP note has been reviewed, I agree with a documented findings and plan of care. Patient was seen and examined.
--- NOTE | 2017-05-29 12:00 | P.PN ---
Subjective Progress Note Date: 05/29/17 HPI: This is an 87-year-old gentleman who is well-known to [facility]. The patient presented emergency department complaining of shortness of breath and palpitations. He states that his heart rate was elevated and he became very short of breath. He denies cough, fevers, chills. He states his breathing is never good and that he is always short of breath. He does follow with Dr. BEBA Ceja in the office. He was seen in the pulmonary office on 05/26/2017. He department the patient was found to be in atrial fibrillation with rapid ventricular response. He does follow with Dr. Lau for cardiology. He was also found to be anemic which is chronic. And his magnesium was 1.0. Patient takes 10 mg daily of prednisone. He is also taking Pulmicort once a day and was instructed to increase it to twice a day. He was also no longer taking his Lasix and states one of his doctors stopped it. Patient is currently on Coumadin and his INR is 1.7. The patient wears 2 L of oxygen around the clock. 05/29/17- patient is being seen examined and evaluated today on rounds. He is resting up in bed on 2 L of supplemental oxygen, is what he wears at home as well. He is being followed closely by cardiology. He did have trending troponins that are being followed as well. Patient continues in atrial fibrillation with heart rate in the 90s. Hemoglobin is 7.3 today. Stool for occult is being obtained. He is afebrile no further complaints. All labs and reports have been reviewed. Son is at bedside and updated on plan of care all questions have been answered. Objective - Vital Signs Vital signs: Vital Signs Temp 97 F L 05/29/17 08:00 Pulse 66 05/29/17 08:34 Resp 18 05/29/17 08:00 BP 103/67 05/29/17 08:00 Pulse Ox 99 05/29/17 08:34 Intake & Output 05/28/17 05/29/17 05/29/17 18:59 06:59 18:59 Intake Total 980 240 240 Balance 980 240 240 Weight 95.7 kg 96.5 kg Intake: Intake, IV Titration 500 Amount Magnesium Sulfate-D5w Pmx 300 1 gm In Dextrose/Water 1 100ml.bag @ 100 mls/hr IVPB Q1H [facility] Rx#: [id number] Sodium Chloride 0.9% 1, 200 000 ml @ 100 mls/hr IV . Q10H STA Rx#:[id number] Oral 480 240 240 Other: Voiding Method Urinal # Voids 1 - Exam Gen.: Patient is alert and oriented 3, no acute distress Cardiovascular: Irregular rate and rhythm, tachycardia, S1/S2 Lungs: Diminished breath sounds bilaterally with bibasilar crackles Abdomen: Soft nontender nondistended positive bowel sounds Extremities: No edema - Labs CBC & Chem 7: 05/29/17 05:57 05/29/17 05:57 Labs: Abnormal Lab Results - Last 24 Hours (Table) 05/28/17 05/28/17 05/28/17 Range/Units 08:20 14:27 20:27 RBC (4.30-5.90) m/uL Hgb (13.0-17.5) gm/dL Hct (39.0-53.0) % MCHC (31.0-37.0) g/dL RDW (11.5-15.5) % Lymphocytes # (1.0-4.8) k/uL PT (9.0-12.0) sec INR (<1.2) BUN (9-20) mg/dL Creatinine (0.66-1.25) mg/dL Glucose (74-99) mg/dL Calcium (8.4-10.2) mg/dL Ferritin (22.0-322.0) ng/mL AST (17-59) U/L ALT (21-72) U/L CK-MB (CK-2) 3.5 H* 3.9 H* (0.0-2.4) ng/mL Troponin I 0.788 H* 0.870 H* (0.000-0.034) ng/mL Total Protein (6.3-8.2) g/dL Albumin (3.5-5.0) g/dL Triglycerides (<150) mg/dL HDL Cholesterol (40-60) mg/dL TSH 4.700 H (0.465-4.680) mIU/L 05/28/17 05/29/17 05/29/17 Range/Units 20:27 05:57 05:57 RBC 2.57 L (4.30-5.90) m/uL Hgb 7.3 L (13.0-17.5) gm/dL Hct 24.0 L (39.0-53.0) % MCHC 30.4 L (31.0-37.0) g/dL RDW 15.6 H (11.5-15.5) % Lymphocytes # 0.6 L (1.0-4.8) k/uL PT (9.0-12.0) sec INR (<1.2) BUN 55 H (9-20) mg/dL Creatinine 2.11 H (0.66-1.25) mg/dL Glucose 114 H (74-99) mg/dL Calcium 7.8 L (8.4-10.2) mg/dL Ferritin 574.8 H (22.0-322.0) ng/mL AST 12 L (17-59) U/L ALT 20 L (21-72) U/L CK-MB (CK-2) (0.0-2.4) ng/mL Troponin I (0.000-0.034) ng/mL Total Protein 4.8 L (6.3-8.2) g/dL Albumin 2.7 L (3.5-5.0) g/dL Triglycerides 175 H (<150) mg/dL HDL Cholesterol 36 L (40-60) mg/dL TSH (0.465-4.680) mIU/L 05/29/17 Range/Units 05:57 RBC (4.30-5.90) m/uL Hgb (13.0-17.5) gm/dL Hct (39.0-53.0) % MCHC (31.0-37.0) g/dL RDW (11.5-15.5) % Lymphocytes # (1.0-4.8) k/uL PT 16.1 H (9.0-12.0) sec INR 1.8 H (<1.2) BUN (9-20) mg/dL Creatinine (0.66-1.25) mg/dL Glucose (74-99) mg/dL Calcium (8.4-10.2) mg/dL Ferritin (22.0-322.0) ng/mL AST (17-59) U/L ALT (21-72) U/L CK-MB (CK-2) (0.0-2.4) ng/mL Troponin I (0.000-0.034) ng/mL Total Protein (6.3-8.2) g/dL Albumin (3.5-5.0) g/dL Triglycerides (<150) mg/dL HDL Cholesterol (40-60) mg/dL TSH (0.465-4.680) mIU/L Assessment and Plan Assessment: Assessment Acute on chronic hypoxic respiratory failure No evidence of pneumonia on chest x-ray, no clinical signs of pneumonia Atrial fibrillation with rapid ventricular response COPD not acutely exacerbated Idiopathic pulmonary fibrosis Anemia, normocytic, chronic Coumadin coagulopathy subtherapeutic History of CLL, 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 Immunocompromise state Hypertension CK D3 Hypomagnesemia Moderate protein calorie malnutrition Atherosclerotic coronary artery disease Diabetes mellitus type 2 Dyslipidemia Obstructive sleep apnea on CPAP History of Chiari syndrome Autoimmune hemolytic anemia BPH Obesity Plan O2 to maintain saturation greater than or equal to 90% Pulmicort twice a day Duo nebs 3 times a day and as needed Singulair Steroid taper Rate control per cardiology Blood sugar control No need for antibiotics from pulmonary standpoint Coumadin dosing per pharmacy for goal INR 2-3 GI and DVT prophylaxis Incentive spirometry and pulmonary hygiene Thank you for this consultation we'll continue to follow along I performed an examination of the patient and discussed their management with the nurse practitioner. I have reviewed the nurse practitioner's note and agree with the documented findings and plan of care.
[2017-05-29] MEDS: TRIAMTERENE-HCTZ 37.5-25MG 1 EACH TAB PO SCH (12:26)
[2017-05-29] MEDS ORDERED: ASPIRIN 81 MG PO SCH (12:56)
--- NOTE | 2017-05-29 14:09 | P.PN ---
Subjective Progress Note Date: 05/29/17 This is an 87 year old male patient of Dr BEBA millard, patient has underlying history of CLLdiagnosed in 2008, follows with Dr. Sweet oncology COPd with O2 dependence, Atrial fibrillatio on Coumadin anticoagulation, PAD, CAD and recurrent anemia requring specialized blood for transfusion. 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 Patient has had shortness of breath off and on for several years, worse with exertion, worse with a pending as the patient coughs whenever she eats, family is not concerned about this, and declined any imaging studies for aspiration pneumonia , patient had no fever no chills, no sick contacts, he drinks about 4 cups of coffee per day, nonsmoker no alcohol intake in the emergency room, patient had severe chest pain that occurred after breakfast, patient's pain lasted for approximately 45 minutes, there is no nausea no vomiting, there is no dysphagia to solid foods or liquid foods, however he coughs every time he eats, especially when he has a hard time breathing. Patient denies any edema, and he passed out apparently secondary to this. Per EMS, he had A. fib with RVR, troponins were mildly elevated, and patient was significantly anemic hemoglobin 7.9 creatinine is 1.7 on admission low at 1 albumin low at 2.9 patient has CPAP, and 2 L of O2 with CPAP. Patient denies any assistive device for ambulation, for long distances he requires a walker 05/29: Patient has been seen by cardiology and was given extra dose of Toprol XL 50 mg. cardiology has recommended no anticoagulation due to GI bleed. Patient has been started on Coumadin and we will check Hemoccult stool. Patient has not had any signs of GI bleeding in his stools have not been dark. If Hemoccult is negative, Coumadin will be discontinued. Repeat troponins were 0.788 and 0.870. Nitropaste was ordered last evening. Heart rate ran in the 120s during the night and is currently down to 66. Triglycerides 175, cholesterol 133, LDL 62 and HDL 36. TSH has been done twice initially 4.7 and repeat 1.870. Vitamin B12 3 and 65 and ferritin 574. Hemoglobin of 7.3, INR 1.8, creatinine 2.11 and BUN 55. Patient will be transfused 1 unit of packed RBCs for hemoglobin of 7.3. Patient's blood pressure has been on the low side and he did not receive hydralazine or Nitropaste. We will decrease Maxzide to half a pill at noon time. PT is evaluated the patient and recommended home with homecare. Objective - Vital Signs Vital signs: Vital Signs Temp 97 F L 05/29/17 08:00 Pulse 66 05/29/17 08:34 Resp 18 05/29/17 08:00 BP 103/67 05/29/17 08:00 Pulse Ox 99 05/29/17 08:34 Intake & Output 05/28/17 05/29/17 05/29/17 18:59 06:59 18:59 Intake Total 980 240 Balance 980 240 Weight 95.7 kg 96.5 kg Intake: Intake, IV Titration 500 Amount Magnesium Sulfate-D5w Pmx 300 1 gm In Dextrose/Water 1 100ml.bag @ 100 mls/hr IVPB Q1H [facility] Rx#: [id number] Sodium Chloride 0.9% 1, 200 000 ml @ 100 mls/hr IV . Q10H STA Rx#:[id number] Oral 480 240 Other: Voiding Method Urinal # Voids 1 - Exam General appearance: cooperative, mild distress, obese, thin - EENT Eyes: EOMI, PERRLA, dentition normal, normal appearance ENT: NA/AT, normal oropharynx - Neck Neck: no lymphadenopathy, normal ROM, no other, no rigidity, no stridor, no thyromegaly - Respiratory Respiratory: bilateral: CTA, diminished, negative: rales, rhonchi, wheezing, prolonged expiration, prolonged inspiration - Cardiovascular Rhythm: irregularly irregular Heart sounds: normal: S1, S2 Abnormal Heart Sounds: systolic murmur, no diastolic murmur, no rub, no S3 Gallop, no S4 Gallop, no click, no other - Gastrointestinal General gastrointestinal: normal bowel sounds, soft - Integumentary Integumentary: decreased turgor, normal - Neurologic Neurologic: CNII-XII intact - Musculoskeletal Musculoskeletal: generalized weakness, strength equal bilaterally - Psychiatric Psychiatric: A&O x's 3, appropriate affect, intact judgment & insight - Labs CBC & Chem 7: 05/29/17 05:57 05/29/17 05:57 Labs: Abnormal Lab Results - Last 24 Hours (Table) 05/28/17 05/28/17 05/28/17 Range/Units 08:20 14:27 20:27 RBC (4.30-5.90) m/uL Hgb (13.0-17.5) gm/dL Hct (39.0-53.0) % MCHC (31.0-37.0) g/dL RDW (11.5-15.5) % Lymphocytes # (1.0-4.8) k/uL PT (9.0-12.0) sec INR (<1.2) BUN (9-20) mg/dL Creatinine (0.66-1.25) mg/dL Glucose (74-99) mg/dL Calcium (8.4-10.2) mg/dL Ferritin (22.0-322.0) ng/mL AST (17-59) U/L ALT (21-72) U/L CK-MB (CK-2) 3.5 H* 3.9 H* (0.0-2.4) ng/mL Troponin I 0.788 H* 0.870 H* (0.000-0.034) ng/mL Total Protein (6.3-8.2) g/dL Albumin (3.5-5.0) g/dL Triglycerides (<150) mg/dL HDL Cholesterol (40-60) mg/dL TSH 4.700 H (0.465-4.680) mIU/L 05/28/17 05/29/17 05/29/17 Range/Units 20:27 05:57 05:57 RBC 2.57 L (4.30-5.90) m/uL Hgb 7.3 L (13.0-17.5) gm/dL Hct 24.0 L (39.0-53.0) % MCHC 30.4 L (31.0-37.0) g/dL RDW 15.6 H (11.5-15.5) % Lymphocytes # 0.6 L (1.0-4.8) k/uL PT (9.0-12.0) sec INR (<1.2) BUN 55 H (9-20) mg/dL Creatinine 2.11 H (0.66-1.25) mg/dL Glucose 114 H (74-99) mg/dL Calcium 7.8 L (8.4-10.2) mg/dL Ferritin 574.8 H (22.0-322.0) ng/mL AST 12 L (17-59) U/L ALT 20 L (21-72) U/L CK-MB (CK-2) (0.0-2.4) ng/mL Troponin I (0.000-0.034) ng/mL Total Protein 4.8 L (6.3-8.2) g/dL Albumin 2.7 L (3.5-5.0) g/dL Triglycerides 175 H (<150) mg/dL HDL Cholesterol 36 L (40-60) mg/dL TSH (0.465-4.680) mIU/L 05/29/17 Range/Units 05:57 RBC (4.30-5.90) m/uL Hgb (13.0-17.5) gm/dL Hct (39.0-53.0) % MCHC (31.0-37.0) g/dL RDW (11.5-15.5) % Lymphocytes # (1.0-4.8) k/uL PT 16.1 H (9.0-12.0) sec INR 1.8 H (<1.2) BUN (9-20) mg/dL Creatinine (0.66-1.25) mg/dL Glucose (74-99) mg/dL Calcium (8.4-10.2) mg/dL Ferritin (22.0-322.0) ng/mL AST (17-59) U/L ALT (21-72) U/L CK-MB (CK-2) (0.0-2.4) ng/mL Troponin I (0.000-0.034) ng/mL Total Protein (6.3-8.2) g/dL Albumin (3.5-5.0) g/dL Triglycerides (<150) mg/dL HDL Cholesterol (40-60) mg/dL TSH (0.465-4.680) mIU/L Assessment and Plan Plan: 1 Unstable Angina suspected nonSTEMI demand ischemia ,episode of syncope highly suspicious for cardiac arrhythmia, atrial fibrillation with rapid ventricular rate currently in selective unit. Followed by cardiology in consultation. echocardiogram is obtained, Pulmonology is consulted. 2 chronic atrial fibrillation with rapid ventricular rate, intermittent, on anticoagulation with Coumadin, has been discontinued off the amiodarone secondary to amiodarone induced pulmonary disease, Cardizem 120 twice a day, caffeine is counseled to be decreased, 3. severe anemia in past requiring recurrent blood transfusion. no episodes of gi bleeding noted. Iron studies haptoglobin. Check stool for Hemoccult. 4. Chronic hypoxic respiratory failure with COPD. currentLy on O2 chronically with prn albuterol and atrovent. no current exacerbation of bronchospasm noted. he follows with dr BEBA mcdonald and is consulted Singulair 10 mg daily, 5. Elevated troponin, acute onset most likely secondary to an NSTEMI, ischemic cardiomyopathy, from the demand ischemia, patient is on metoprolol 50 mg twice a day, losartan,, when necessary sublingual nitroglycerin and Nitropaste 1/2 inch every 8 hours 6. Anemia of chronic disease, and underlying iron deficiency, blood loss is noted to be evaluated, Hemoccult stools patient's on anticoagulation, iron studies to be obtained, we we will further evaluate for need of blood transfusion symptomatic anemia once with controlled cardiopulmonary status 7. CLL history follows with Dr. Hutchins outpatient 8. Hypertension, with the addition of the Cardizem 120 twice a day, we'll going to decrease losartan 100 g daily to 25 mg daily with parameters, continue metoprolol secondary to uncontrolled heart rate 9. Slightly elevated TSH at 4.7, continue to monitor, no supplementation at this time, repeat TSH free T4 T3 in 4 weeks 10. CKD stage III, baseline creatinine 1.4-2.0. Avoid toxins and hypotension would be avoided 11. 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 BPH without lower urinary tract symtoms 14. Moderate protein calorie nutrition 15. Idiopathic pulmonary fibrosis. Continue prednisone 10 mg daily. Patient is followed by pulmonary medicine. 16. gi prophylaxis and dvt prophlaxis is provide. Code Status: full. Discharge plan: Most likely return home. Impression and plan of care have been directed as dictated by the signing physician. Silvia Mathew nurse practitioner acting as scribe for signing physician.
[2017-05-29 16:38] LABS: Iron Saturation 11.25 (15.00-50.00)
[2017-05-29] MEDS ORDERED: WARFARIN 2.5 MG TAB PO SCH (18:00)
[2017-05-29] MEDS ORDERED: WARFARIN 5 MG TAB PO ONE (18:00)
[2017-05-29] MEDS: DOXAZOSIN 4 MG TAB PO SCH (20:49)
[2017-05-29] MEDS: MONTELUKAST 10 MG TAB PO SCH (20:49)
[2017-05-29] MEDS: PRAVASTATIN SODIUM 40 MG TAB PO SCH (20:50)
[2017-05-30] MEDS: PANTOPRAZOLE 40 MG TABLET PO SCH (06:14)
[2017-05-30 06:36] LABS: Anisocytosis Slight; HCT 26.4 % (39.0-53.0); HGB 8.3 gm/dL (13.0-17.5); Hypochromasia Marked; MCH 29.7 pg (25.0-35.0); MCHC 31.4 g/dL (31.0-37.0); MCV 94.6 fL (80.0-100.0); Mean Platelet Volume 9.1; Platelet Count 177 k/uL (150-450); Poikilocytosis Slight; RBC 2.79 m/uL (4.30-5.90); RDW 16.1 % (11.5-15.5); WBC 8.9 k/uL (3.8-10.6)
[2017-05-30 06:39] LABS: Prothrombin Time 17.9 sec (9.0-12.0)
[2017-05-30 06:50] LABS: Calcium 8.1 mg/dL (8.4-10.2); Potassium 4.7 mmol/L (3.5-5.1)
[2017-05-30] MEDS: BUDESONIDE 0.5 MG/2 ML NEBU INHALATION SCH ×2 (08:24→19:02)
[2017-05-30] MEDS: IPRATROPIUM-ALBUTEROL 3 ML NEB INHALATION SCH ×3 (08:24→19:02)
[2017-05-30] MEDS: ASPIRIN 81 MG PO SCH (08:42)
[2017-05-30] MEDS: ALLOPURINOL 100 MG TAB PO SCH (08:42)
[2017-05-30] MEDS: predniSONE 10 MG TAB PO SCH (08:43)
[2017-05-30] MEDS: NITROGLYCERIN OINT 1 INCH/GM PACKET TOPICAL SCH ×3 (08:43→22:50)
[2017-05-30] MEDS: METOPROLOL TARTRATE 50 MG TAB PO SCH ×2 (08:43→19:28)
[2017-05-30] MEDS: DILTIAZEM CD 120 MG CAP.ER.24H PO SCH ×2 (08:43→19:28)
[2017-05-30] MEDS: LOSARTAN 25 MG TAB PO SCH (08:43)
--- NOTE | 2017-05-30 10:49 | P.PN ---
Subjective Progress Note Date: 05/30/17 Principal diagnosis: NSTEMI HPI: This is an 87-year-old gentleman who is well-known to [facility]. The patient presented emergency department complaining of shortness of breath and palpitations. He states that his heart rate was elevated and he became very short of breath. He denies cough, fevers, chills. He states his breathing is never good and that he is always short of breath. He does follow with Dr. BEBA Ceja in the office. He was seen in the pulmonary office on 05/26/2017. He department the patient was found to be in atrial fibrillation with rapid ventricular response. He does follow with Dr. Lau for cardiology. He was also found to be anemic which is chronic. And his magnesium was 1.0. Patient takes 10 mg daily of prednisone. He is also taking Pulmicort once a day and was instructed to increase it to twice a day. He was also no longer taking his Lasix and states one of his doctors stopped it. Patient is currently on Coumadin and his INR is 1.7. The patient wears 2 L of oxygen around the clock. 05/29/17- patient is being seen examined and evaluated today on rounds. He is resting up in bed on 2 L of supplemental oxygen, is what he wears at home as well. He is being followed closely by cardiology. He did have trending troponins that are being followed as well. Patient continues in atrial fibrillation with heart rate in the 90s. Hemoglobin is 7.3 today. Stool for occult is being obtained. He is afebrile no further complaints. All labs and reports have been reviewed. Son is at bedside and updated on plan of care all questions have been answered. 05/30/2017: Patient seen and examined. His son is at bedside. The patient did receive a blood transfusion overnight. He is currently on 2 L nasal cannula. He states he is feeling very weak and he gets very short of breath with exertion. The patient states that he would like to maybe go to rehab. He has also been working with physical therapy. He states he is very frustrated. He states he was supposed to give a stool sample but someone flushed the toilet. Objective - Vital Signs Vital signs: Vital Signs Temp 96.1 F L 05/30/17 04:00 Pulse 66 05/30/17 08:40 Resp 16 05/30/17 04:00 BP 127/60 05/30/17 04:00 Pulse Ox 93 L 05/30/17 04:00 Intake & Output 05/29/17 05/30/17 05/30/17 18:59 06:59 18:59 Intake Total 1132 20 Output Total 1 Balance 1132 19 Weight 97.5 kg Intake: IV 20 0.9 20 Oral 822 Blood Product 310 Rc As-3 Unit 310 [id number] Output: Urine 1 Other: # Voids 3 - Exam Gen.: Patient is alert and oriented 3, no acute distress Cardiovascular: Irregular rate and rhythm, tachycardia, S1/S2 Lungs: Diminished breath sounds bilaterally with bibasilar crackles Abdomen: Soft nontender nondistended positive bowel sounds Extremities: No edema - Labs CBC & Chem 7: 05/30/17 06:06 05/30/17 06:06 Labs: Abnormal Lab Results - Last 24 Hours (Table) 05/28/17 05/29/17 05/29/17 Range/Units 20:27 05:57 11:49 RBC (4.30-5.90) m/uL Hgb (13.0-17.5) gm/dL Hct (39.0-53.0) % RDW (11.5-15.5) % Haptoglobin 263.0 H (31.2-198.0) mg/dL PT (9.0-12.0) sec INR (<1.2) BUN (9-20) mg/dL Creatinine (0.66-1.25) mg/dL Calcium (8.4-10.2) mg/dL Iron 27 L (65-175) ug/dL Iron Saturation 11.25 L (15.00-50.00) Crossmatch See Detail 05/30/17 05/30/17 05/30/17 Range/Units 06:06 06:06 06:06 RBC 2.79 L (4.30-5.90) m/uL Hgb 8.3 L (13.0-17.5) gm/dL Hct 26.4 L (39.0-53.0) % RDW 16.1 H (11.5-15.5) % Haptoglobin (31.2-198.0) mg/dL PT 17.9 H (9.0-12.0) sec INR 2.0 H (<1.2) BUN 59 H (9-20) mg/dL Creatinine 1.80 H (0.66-1.25) mg/dL Calcium 8.1 L (8.4-10.2) mg/dL Iron (65-175) ug/dL Iron Saturation (15.00-50.00) Crossmatch Assessment and Plan Assessment: Chronic hypoxic respiratory failure No evidence of pneumonia on chest x-ray, no clinical signs of pneumonia Atrial fibrillation with rapid ventricular response COPD not acutely exacerbated, respiratory status is at baseline Idiopathic pulmonary fibrosis Anemia, normocytic, chronic, s/p 1 unit PRBC NSTEMI Coumadin coagulopathy History of CLL, 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 Immunocompromised state Hypertension CK D3 Hypomagnesemia Moderate protein calorie malnutrition Atherosclerotic coronary artery disease Diabetes mellitus type 2 Dyslipidemia Obstructive sleep apnea on CPAP History of Chiari syndrome Autoimmune hemolytic anemia BPH Obesity Plan O2 to maintain saturation greater than or equal to 90% Pulmicort twice a day Duo nebs 3 times a day and as needed Singulair Steroid dose at baseline Rate control per cardiology Blood sugar control No need for antibiotics from pulmonary standpoint Coumadin dosing per pharmacy for goal INR 2-3 GI and DVT prophylaxis Incentive spirometry and pulmonary hygiene Consult case management for possible rehab placement PT and OT
--- NOTE | 2017-05-30 11:15 | P.PN ---
Subjective Progress Note Date: 05/30/17 Principal diagnosis: Atrial fibrillation with rapid ventricular response Patient continued to be hemodynamically stable his heart rate jumps very high when he moves out of bed patient was able to get up to the bathroom with little assistance patient is denying chest pain, shortness breath, nausea, vomiting, abdominal pain, dizziness or lightheadedness. No major events reported by nursing staff. Objective - Vital Signs Vital signs: Vital Signs Temp 96.1 F L 05/30/17 04:00 Pulse 66 05/30/17 08:40 Resp 16 05/30/17 04:00 BP 127/60 05/30/17 04:00 Pulse Ox 93 L 05/30/17 04:00 Intake & Output 05/29/17 05/30/17 05/30/17 18:59 06:59 18:59 Intake Total 1132 20 Output Total 1 Balance 1132 19 Weight 97.5 kg Intake: IV 20 0.9 20 Oral 822 Blood Product 310 Rc As-3 Unit 310 [id number] Output: Urine 1 Other: # Voids 3 - Exam Gen.: in stated age, no acute distress Heart: Normal S1-S2 Lungs: Diminished bilaterally Abdomen: Soft, no tenderness, positive bowel sounds in all 4 quadrant no guarding or rebound Skin: No new rash Psych: Alert and oriented 3 Neuro: No focal deficit - Labs CBC & Chem 7: 05/30/17 06:06 05/30/17 06:06 Labs: Abnormal Lab Results - Last 24 Hours (Table) 05/28/17 05/29/17 05/29/17 Range/Units 20:27 05:57 11:49 RBC (4.30-5.90) m/uL Hgb (13.0-17.5) gm/dL Hct (39.0-53.0) % RDW (11.5-15.5) % Haptoglobin 263.0 H (31.2-198.0) mg/dL PT (9.0-12.0) sec INR (<1.2) BUN (9-20) mg/dL Creatinine (0.66-1.25) mg/dL Calcium (8.4-10.2) mg/dL Iron 27 L (65-175) ug/dL Iron Saturation 11.25 L (15.00-50.00) Crossmatch See Detail 05/30/17 05/30/17 05/30/17 Range/Units 06:06 06:06 06:06 RBC 2.79 L (4.30-5.90) m/uL Hgb 8.3 L (13.0-17.5) gm/dL Hct 26.4 L (39.0-53.0) % RDW 16.1 H (11.5-15.5) % Haptoglobin (31.2-198.0) mg/dL PT 17.9 H (9.0-12.0) sec INR 2.0 H (<1.2) BUN 59 H (9-20) mg/dL Creatinine 1.80 H (0.66-1.25) mg/dL Calcium 8.1 L (8.4-10.2) mg/dL Iron (65-175) ug/dL Iron Saturation (15.00-50.00) Crossmatch Assessment and Plan Assessment: 1. Atrial fibrillation with rapid ventricular response. 2. Chronic respiratory failure with hypoxia. 3. COPD. 4. Hypertension. 5. CLL. 6. Anemia with history of recurrent infusion. 7. Slight elevation in troponin likely representing demand ischemia 8. Chronic kidney disease stage III. 9. Benign prostatic hypertrophy. We will continue with heart rate controlling agents, and thick regulation per cardiology recommendation, have PT OT evaluated the patient's and consider discharging patient's based on the recommendation. Patient requested another day in the hospital as he is not sure that he can make it if he leaves today and we will continue supportive care continue oxygen for moderate hygiene and breathing treatment with monitor his kidney function closely avoid nephrotoxic medication and continue his cardioprotective medication.
--- NOTE | 2017-05-30 11:45 | P.PN ---
Subjective Progress Note Date: 05/30/17 This is an 87-year-old gentleman history of paroxysmal atrial fibrillation, CLL, diabetes, hyperlipidemia, hypertension, COPD, sleep apnea, chronic renal failure, follows with Dr. Simon in the office. 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 He presented to the hospital with symptoms of chest discomfort, he states that he had a reasonably good night, woke up with severe symptoms in the morning. EKG on arrival here showed atrial fibrillation with a rapid ventricular response, right bundle branch block pattern and left anterior fascicular block. Chest x-ray showed COPD. No acute pulmonary process. Blood pressure 105/70, heart rate fluctuating from the 1 teens up into the 130s. White blood cell count 5.5, hemoglobin 7.9, platelet count 162. Sodium 142, potassium 3.5, chloride 104, CO2 28, BUN 49, creatinine 1.7. Knees and 1.0. Troponin 0.023, BNP level 2090. TSH 4.7 and free T4 1 0.5. Patient's home medications include prednisone, Apresoline 50 3 times a day, Coumadin, Maxzide, Hytrin, Pravachol, Prilosec, Singulair, Toprol-XL 25 mg daily , Cozaar 50 mg twice a day, folate acid 1 mg daily, iron supplementation, Cardizem 120 daily, aspirin 81 mg daily, and Zyloprim. 05/29/2017 Patient continues to be in atrial fibrillation this morning. Blood pressure 103 /60, heart rate in the 90s. White blood cell count 7.3, hemoglobin 7.3, INR 1.8. Potassium 4.9, BUN 55, creatinine 2.1. Magnesium 2.2. Troponins 0.0-3, 0.788, 0.870. BNP 2090. TSH level I.8. Stool for occult blood has been requested. 05/30/2017 Patient was seen and examined this morning, currently in normal sinus rhythm. Was started on anticoagulation by pulmonary. INR today 2.0. Creatinine down to 1.8. Overall he feels well he just states he feeling tired today. Objective - Vital Signs Vital signs: Vital Signs Temp 96.1 F L 05/30/17 04:00 Pulse 66 05/30/17 08:40 Resp 20 05/30/17 08:00 BP 152/66 05/30/17 08:00 Pulse Ox 99 05/30/17 08:00 Intake & Output 05/29/17 05/30/17 05/30/17 18:59 06:59 18:59 Intake Total 1132 20 Output Total 1 Balance 1132 19 Weight 97.5 kg Intake: IV 20 0.9 20 Oral 822 Blood Product 310 Rc As-3 Unit 310 [id number] Output: Urine 1 Other: Voiding Method Urinal # Voids 3 - Exam PHYSICAL EXAMINATION: HEENT: Head is atraumatic, normocephalic. Pupils equal, round. Neck is supple. There is no elevated jugular venous pressure. HEART EXAMINATION: Heart S1 and S2 irregularly irregular CHEST EXAMINATION: Lungs reveal crackles to the bases ABDOMEN: Soft, nontender. Bowel sounds are heard. No organomegaly noted. EXTREMITIES: 2+ peripheral pulses with no evidence of peripheral edema and no calf tenderness noted. NEUROLOGIC patient is awake, alert and oriented -3. - Labs CBC & Chem 7: 05/30/17 06:06 05/30/17 06:06 Labs: Abnormal Lab Results - Last 24 Hours (Table) 05/28/17 05/29/17 05/29/17 Range/Units 20:27 05:57 11:49 RBC (4.30-5.90) m/uL Hgb (13.0-17.5) gm/dL Hct (39.0-53.0) % RDW (11.5-15.5) % Haptoglobin 263.0 H (31.2-198.0) mg/dL PT (9.0-12.0) sec INR (<1.2) BUN (9-20) mg/dL Creatinine (0.66-1.25) mg/dL Calcium (8.4-10.2) mg/dL Iron 27 L (65-175) ug/dL Iron Saturation 11.25 L (15.00-50.00) Crossmatch See Detail 05/30/17 05/30/17 05/30/17 Range/Units 06:06 06:06 06:06 RBC 2.79 L (4.30-5.90) m/uL Hgb 8.3 L (13.0-17.5) gm/dL Hct 26.4 L (39.0-53.0) % RDW 16.1 H (11.5-15.5) % Haptoglobin (31.2-198.0) mg/dL PT 17.9 H (9.0-12.0) sec INR 2.0 H (<1.2) BUN 59 H (9-20) mg/dL Creatinine 1.80 H (0.66-1.25) mg/dL Calcium 8.1 L (8.4-10.2) mg/dL Iron (65-175) ug/dL Iron Saturation (15.00-50.00) Crossmatch Assessment and Plan Plan: Assessment and plan #1 atrial fibrillation with rapid ventricular response, paroxysmal. We will increase the Cardizem CD to 120 mg daily. Continue beta giacomo 50 mg twice a day. No amiodarone. #2 COPD #3 hypertension #4 hyperlipidemia #5 CLL #6 peripheral vascular disease #7 autoimmune hemolytic anemia #8 chronic renal failure #9 sleep apnea, uses CPAP at home #10 history of paroxysmal atrial fibrillation, on Coumadin for anticoagulation. INR 1.8. #11 hypomagnesemia, #11 hypokalemia #12 abnormal troponins, could be secondary to abnormal renal function and atrial fibrillation with rapid ventricular response, supply and demand mismatch. Plan Patient had a recent echocardiogram with Doppler study performed in March of this year which revealed an ejection fraction of 50-55%. Currently in normal sinus rhythm. We'll continue current medications. He may be able to be discharged once cleared by the primary. Follow-up appointment will be made in the office post discharge. DNP note has been reviewed, I agree with a documented findings and plan of care. Patient was seen and examined.
[2017-05-30] MEDS: TRIAMTERENE-HCTZ 37.5-25MG 1 EACH TAB PO SCH (13:02)
[2017-05-30] MEDS ORDERED: WARFARIN 5 MG TAB PO ONE (18:00)
[2017-05-30] MEDS: DOXAZOSIN 4 MG TAB PO SCH (19:28)
[2017-05-30] MEDS: MONTELUKAST 10 MG TAB PO SCH (19:28)
[2017-05-30] MEDS: PRAVASTATIN SODIUM 40 MG TAB PO SCH (19:29)
[2017-05-30 20:40] LABS: Glucose,Whole Blood 124 mg/dL (75-99)
[2017-05-31] MEDS: PANTOPRAZOLE 40 MG TABLET PO SCH (06:13)
[2017-05-31 06:24] LABS: Glucose,Whole Blood 113 mg/dL (75-99)
[2017-05-31 06:26] LABS: Anisocytosis Slight; Basophils % (A) 0 %; Eosinophils # (A) 0.1 k/uL (0-0.7); Eosinophils % (A) 1 %; HCT 24.7 % (39.0-53.0); HGB 7.2 gm/dL (13.0-17.5); Hypochromasia Marked; Lymphocytes # (A) 0.5 k/uL (1.0-4.8); Lymphocytes % (A) 7 %; MCH 27.6 pg (25.0-35.0); MCHC 29.2 g/dL (31.0-37.0); MCV 94.8 fL (80.0-100.0); Mean Platelet Volume 8.3; Monocytes # (A) 0.5 k/uL (0-1.0); Monocytes % (A) 7 %; Neutrophils # (A) 6.6 k/uL (1.3-7.7); Neutrophils % (A) 84 %; Platelet Count 132 k/uL (150-450); RBC 2.61 m/uL (4.30-5.90); WBC 7.8 k/uL (3.8-10.6)
[2017-05-31 06:40] LABS: Calcium 8.4 mg/dL (8.4-10.2); Potassium 5.1 mmol/L (3.5-5.1)
[2017-05-31 06:42] LABS: INR 2.3 (<1.2); Prothrombin Time 20.4 sec (9.0-12.0)
[2017-05-31] MEDS: BUDESONIDE 0.5 MG/2 ML NEBU INHALATION SCH ×2 (08:51→20:38)
[2017-05-31] MEDS: IPRATROPIUM-ALBUTEROL 3 ML NEB INHALATION SCH ×3 (08:51→20:38)
--- NOTE | 2017-05-31 11:47 | P.PN ---
Subjective Progress Note Date: 05/31/17 Principal diagnosis: Atrial fibrillation with rapid ventricular response Patient continued to be hemodynamically stable his heart rate jumps very high when he moves out of bed patient was able to get up to the bathroom with little assistance patient is denying chest pain, shortness breath, nausea, vomiting, abdominal pain, dizziness or lightheadedness. No major events reported by nursing staff. Objective - Vital Signs Vital signs: Vital Signs Temp 97.5 F L 05/31/17 08:33 Pulse 64 05/31/17 08:33 Resp 18 05/31/17 08:33 BP 142/67 05/31/17 08:33 Pulse Ox 98 05/31/17 08:33 Intake & Output 05/30/17 05/31/17 05/31/17 18:59 06:59 18:59 Intake Total 1080 30 360 Balance 1080 30 360 Weight 97.5 kg 88.5 kg Intake: IV 30 0.9 20 Invasive Line 2 10 Oral 1080 360 Other: Voiding Method Urinal Urinal Urinal # Bowel Movements 1 - Exam Gen.: in stated age, no acute distress Heart: Normal S1-S2 Lungs: Diminished bilaterally Abdomen: Soft, no tenderness, positive bowel sounds in all 4 quadrant no guarding or rebound Skin: No new rash Psych: Alert and oriented 3 Neuro: No focal deficit - Labs CBC & Chem 7: 05/31/17 05:59 05/31/17 05:59 Labs: Abnormal Lab Results - Last 24 Hours (Table) 05/30/17 05/31/17 05/31/17 Range/Units 20:39 05:59 05:59 RBC 2.61 L (4.30-5.90) m/uL Hgb 7.2 L (13.0-17.5) gm/dL Hct 24.7 L (39.0-53.0) % MCHC 29.2 L (31.0-37.0) g/dL RDW 16.0 H (11.5-15.5) % Plt Count 132 L (150-450) k/uL Lymphocytes # 0.5 L (1.0-4.8) k/uL PT 20.4 H (9.0-12.0) sec INR 2.3 H (<1.2) Sodium (137-145) mmol/L BUN (9-20) mg/dL Creatinine (0.66-1.25) mg/dL Glucose (74-99) mg/dL POC Glucose (mg/dL) 124 H (75-99) mg/dL 05/31/17 05/31/17 Range/Units 05:59 06:12 RBC (4.30-5.90) m/uL Hgb (13.0-17.5) gm/dL Hct (39.0-53.0) % MCHC (31.0-37.0) g/dL RDW (11.5-15.5) % Plt Count (150-450) k/uL Lymphocytes # (1.0-4.8) k/uL PT (9.0-12.0) sec INR (<1.2) Sodium 136 L (137-145) mmol/L BUN 55 H (9-20) mg/dL Creatinine 1.70 H (0.66-1.25) mg/dL Glucose 105 H (74-99) mg/dL POC Glucose (mg/dL) 113 H (75-99) mg/dL Assessment and Plan Assessment: 1. Atrial fibrillation with rapid ventricular response. 2. Chronic respiratory failure with hypoxia. 3. COPD. 4. Hypertension. 5. CLL. 6. Anemia with history of recurrent infusion. 7. Slight elevation in troponin likely representing demand ischemia 8. Chronic kidney disease stage III. 9. Benign prostatic hypertrophy. Heart rate under better control I would like to continue anticoagulation as better collected by cardiology patient seems to be more energetic today and I would like to evaluate in the morning prior to discharge with physical therapy and consider the [facility]ler the recommendation. We'll continue cardioprotective medication and evaluated for home oxygen prior to discharge
--- NOTE | 2017-05-31 11:49 | P.PN ---
Subjective Progress Note Date: 05/31/17 NSTEMI HPI: This is an 87-year-old gentleman who is well-known to [facility]. The patient presented emergency department complaining of shortness of breath and palpitations. He states that his heart rate was elevated and he became very short of breath. He denies cough, fevers, chills. He states his breathing is never good and that he is always short of breath. He does follow with Dr. BEBA Ceja in the office. He was seen in the pulmonary office on 05/26/2017. He department the patient was found to be in atrial fibrillation with rapid ventricular response. He does follow with Dr. Lau for cardiology. He was also found to be anemic which is chronic. And his magnesium was 1.0. Patient takes 10 mg daily of prednisone. He is also taking Pulmicort once a day and was instructed to increase it to twice a day. He was also no longer taking his Lasix and states one of his doctors stopped it. Patient is currently on Coumadin and his INR is 1.7. The patient wears 2 L of oxygen around the clock. 05/29/17- patient is being seen examined and evaluated today on rounds. He is resting up in bed on 2 L of supplemental oxygen, is what he wears at home as well. He is being followed closely by cardiology. He did have trending troponins that are being followed as well. Patient continues in atrial fibrillation with heart rate in the 90s. Hemoglobin is 7.3 today. Stool for occult is being obtained. He is afebrile no further complaints. All labs and reports have been reviewed. Son is at bedside and updated on plan of care all questions have been answered. 05/30/2017: Patient seen and examined. His son is at bedside. The patient did receive a blood transfusion overnight. He is currently on 2 L nasal cannula. He states he is feeling very weak and he gets very short of breath with exertion. The patient states that he would like to maybe go to rehab. He has also been working with physical therapy. He states he is very frustrated. He states he was supposed to give a stool sample but someone flushed the toilet. 05/31/2017: Patient seen and examined with his daughter at bedside. The patient did have a drop in his hemoglobin to 7.3 today. The patient states he is still feeling tired and weak. He is on 2 L nasal cannula. He has been unable to give another stool sample but states he will try today. Objective - Vital Signs Vital signs: Vital Signs Temp 97.5 F L 05/31/17 08:33 Pulse 64 05/31/17 08:33 Resp 18 05/31/17 08:33 BP 142/67 05/31/17 08:33 Pulse Ox 98 05/31/17 08:33 Intake & Output 05/30/17 05/31/17 05/31/17 18:59 06:59 18:59 Intake Total 1080 30 360 Balance 1080 30 360 Weight 97.5 kg 88.5 kg Intake: IV 30 0.9 20 Invasive Line 2 10 Oral 1080 360 Other: Voiding Method Urinal Urinal Urinal # Bowel Movements 1 - Exam Gen.: Patient is alert and oriented 3, no acute distress Cardiovascular: Irregular rate and rhythm, tachycardia, S1/S2 Lungs: Diminished breath sounds bilaterally with bibasilar crackles Abdomen: Soft nontender nondistended positive bowel sounds Extremities: No edema - Labs CBC & Chem 7: 05/31/17 05:59 05/31/17 05:59 Labs: Abnormal Lab Results - Last 24 Hours (Table) 05/30/17 05/31/17 05/31/17 Range/Units 20:39 05:59 05:59 RBC 2.61 L (4.30-5.90) m/uL Hgb 7.2 L (13.0-17.5) gm/dL Hct 24.7 L (39.0-53.0) % MCHC 29.2 L (31.0-37.0) g/dL RDW 16.0 H (11.5-15.5) % Plt Count 132 L (150-450) k/uL Lymphocytes # 0.5 L (1.0-4.8) k/uL PT 20.4 H (9.0-12.0) sec INR 2.3 H (<1.2) Sodium (137-145) mmol/L BUN (9-20) mg/dL Creatinine (0.66-1.25) mg/dL Glucose (74-99) mg/dL POC Glucose (mg/dL) 124 H (75-99) mg/dL 03/18/18 03/18/18 Range/Units 05:59 06:12 RBC (4.30-5.90) m/uL Hgb (13.0-17.5) gm/dL Hct (39.0-53.0) % MCHC (31.0-37.0) g/dL RDW (11.5-15.5) % Plt Count (150-450) k/uL Lymphocytes # (1.0-4.8) k/uL PT (9.0-12.0) sec INR (<1.2) Sodium 136 L (137-145) mmol/L BUN 55 H (9-20) mg/dL Creatinine 1.70 H (0.66-1.25) mg/dL Glucose 105 H (74-99) mg/dL POC Glucose (mg/dL) 113 H (75-99) mg/dL Assessment and Plan Assessment: Chronic hypoxic respiratory failure and respiratory status is at baseline No evidence of pneumonia on chest x-ray, no clinical signs of pneumonia Atrial fibrillation with rapid ventricular response COPD not acutely exacerbated, respiratory status is at baseline Idiopathic pulmonary fibrosis Anemia, normocytic, chronic, s/p 1 unit PRBC NSTEMI Coumadin coagulopathy History of CLL, 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 Immunocompromised state Hypertension CK D3 Hypomagnesemia Moderate protein calorie malnutrition Atherosclerotic coronary artery disease Diabetes mellitus type 2 Dyslipidemia Obstructive sleep apnea on CPAP History of Chiari syndrome Autoimmune hemolytic anemia BPH Obesity Plan O2 to maintain saturation greater than or equal to 90% Pulmicort twice a day Duo nebs 3 times a day and as needed Singulair Steroid dose at baseline Rate control per cardiology Blood sugar control No need for antibiotics from pulmonary standpoint Coumadin dosing per pharmacy for goal INR 2-3 GI and DVT prophylaxis Incentive spirometry and pulmonary hygiene Consult case management for possible rehab placement PT and OT Check LDH, haptoglobin, bilis, peripheral smear Monitor H/H Stool for FOB
[2017-05-31 12:29] LABS: Bilirubin, Delta 0.3 mg/dL (0.0-0.2); Total Bilirubin 0.3 mg/dL (0.2-1.3)
[2017-05-31 12:37] LABS: Poikilocytosis (M) Present
[2017-05-31] MEDS: NITROGLYCERIN OINT 1 INCH/GM PACKET TOPICAL SCH ×3 (13:07→23:16)
[2017-05-31] MEDS: ALLOPURINOL 100 MG TAB PO SCH (13:08)
[2017-05-31] MEDS: DILTIAZEM CD 120 MG CAP.ER.24H PO SCH ×2 (13:09→20:25)
[2017-05-31] MEDS: METOPROLOL TARTRATE 50 MG TAB PO SCH ×2 (13:09→20:24)
[2017-05-31] MEDS: ASPIRIN 81 MG PO SCH (13:10)
[2017-05-31] MEDS: predniSONE 10 MG TAB PO SCH (13:10)
[2017-05-31] MEDS: LOSARTAN 25 MG TAB PO SCH (13:12)
[2017-05-31] MEDS: TRIAMTERENE-HCTZ 37.5-25MG 1 EACH TAB PO SCH (13:13)
--- NOTE | 2017-05-31 13:56 | P.PN ---
Subjective Progress Note Date: 05/31/17 Mr. Segura is seen and examined with family at the bedside. He complains this morning of feeling increasingly tired and weak. He received a blood transfusion 05/29 and was possibly going to be discharged last night. However, his is now 7.2. He denie symptoms of chest pain, shortness of breath, dizziness, palpitations, diaphoresis, nausea or vomiting. Stool sample still pending. He has been maintaining sinus mechanism. Blood pressure 127/67 heart rate 71 afebrile maintaining oxygen saturation on nasal cannula. Objective - Vital Signs Vital signs: Vital Signs Temp 97.5 F L 05/31/17 08:33 Pulse 64 05/31/17 12:18 Resp 17 05/31/17 12:00 BP 127/67 05/31/17 12:00 Pulse Ox 95 05/31/17 12:00 Intake & Output 05/30/17 05/31/17 05/31/17 18:59 06:59 18:59 Intake Total 1080 30 360 Balance 1080 30 360 Weight 97.5 kg 88.5 kg Intake: IV 30 0.9 20 Invasive Line 2 10 Oral 1080 360 Other: Voiding Method Urinal Urinal Urinal # Bowel Movements 1 - Exam GENERAL: Well-appearing, well-nourished and in no acute distress. Multiple bruises noted on his arms and different stages of healing. NECK: Supple without JVD or thyromegaly. LUNGS: Breath sounds clear to auscultation bilaterally. Respiration equal and unlabored. No wheezes, rales or rhonchi. Diminished bilaterally. HEART: Regular rate and rhythm without murmurs, rubs or gallops. S1 and S2 heard. EXTREMITIES: Normal range of motion, no edema. No clubbing or cyanosis. Peripheral pulses intact. - Labs CBC & Chem 7: 05/31/17 05:59 05/31/17 05:59 Labs: Abnormal Lab Results - Last 24 Hours (Table) 05/30/17 05/31/17 05/31/17 Range/Units 20:39 05:59 05:59 RBC 2.61 L (4.30-5.90) m/uL Hgb 7.2 L (13.0-17.5) gm/dL Hct 24.7 L (39.0-53.0) % MCHC 29.2 L (31.0-37.0) g/dL RDW 16.0 H (11.5-15.5) % Plt Count 132 L (150-450) k/uL Lymphocytes # 0.5 L (1.0-4.8) k/uL PT 20.4 H (9.0-12.0) sec INR 2.3 H (<1.2) Sodium (137-145) mmol/L BUN (9-20) mg/dL Creatinine (0.66-1.25) mg/dL Glucose (74-99) mg/dL POC Glucose (mg/dL) 124 H (75-99) mg/dL Delta Bilirubin (0.0-0.2) mg/dL AST (17-59) U/L 05/31/17 05/31/17 05/31/17 Range/Units 05:59 05:59 06:12 RBC (4.30-5.90) m/uL Hgb (13.0-17.5) gm/dL Hct (39.0-53.0) % MCHC (31.0-37.0) g/dL RDW (11.5-15.5) % Plt Count (150-450) k/uL Lymphocytes # (1.0-4.8) k/uL PT (9.0-12.0) sec INR (<1.2) Sodium 136 L (137-145) mmol/L BUN 55 H (9-20) mg/dL Creatinine 1.70 H (0.66-1.25) mg/dL Glucose 105 H (74-99) mg/dL POC Glucose (mg/dL) 113 H (75-99) mg/dL Delta Bilirubin 0.3 H (0.0-0.2) mg/dL AST 15 L (17-59) U/L Assessment and Plan Assessment: ASSESSMENT 1. Atrial fibrillation with rapid ventricular response, paroxysmal. Currently maintaining sinus mechanism. 2. COPD 3. Hypertension 4. Dyslipidemia 5. CLL 6. Peripheral vascular disease 7. Autoimmune hemolytic anemia 8. Chronic renal failure 9. Sleep apnea, uses CPAP at home. 10. Hypomagnesemia, replaced 11. Hypokalemia, replaced 12. Abnormal troponins, could be secondary to abnormal renal function initially fibrillation with rapid ventricular response, supply demand mismatch. PLAN Continue with anticoagulation for prevention of stroke secondary to atrial fibrillation. If it is determined that his anemia is secondary to an acute GI bleeding situation the Coumadin may be stopped however it is of note that his risk of stroke will greatly increase. Nurse Practitioner note has been reviewed, I agree with a documented findings and plan of care. Patient was seen and examined.
[2017-05-31 16:29] LABS: Anisocytosis Slight; Basophils % (A) 0 %; Eosinophils # (A) 0.1 k/uL (0-0.7); Eosinophils % (A) 1 %; HCT 25.5 % (39.0-53.0); HGB 7.8 gm/dL (13.0-17.5); Hypochromasia Marked; Lymphocytes # (A) 0.3 k/uL (1.0-4.8); Lymphocytes % (A) 4 %; MCH 28.5 pg (25.0-35.0); MCHC 30.6 g/dL (31.0-37.0); Mean Platelet Volume 8.3; Monocytes # (A) 0.6 k/uL (0-1.0); Monocytes % (A) 7 %; Neutrophils # (A) 7.3 k/uL (1.3-7.7); Neutrophils % (A) 88 %; Platelet Count 146 k/uL (150-450); RBC 2.74 m/uL (4.30-5.90); RDW 16.1 % (11.5-15.5); WBC 8.4 k/uL (3.8-10.6)
[2017-05-31] MEDS ORDERED: WARFARIN 5 MG TAB PO ONE (18:00)
[2017-05-31] MEDS: MONTELUKAST 10 MG TAB PO SCH (20:24)
[2017-05-31] MEDS: DOXAZOSIN 4 MG TAB PO SCH (20:24)
[2017-05-31] MEDS: PRAVASTATIN SODIUM 40 MG TAB PO SCH (20:25)
--- NOTE | 2017-05-31 20:40 | P.PN ---
Subjective Progress Note Date: 05/31/17 Principal diagnosis: Atrial fibrillation with rapid ventricular response Patient continued to be hemodynamically stable his heart rate jumps very high when he moves out of bed patient was able to get up to the bathroom with little assistance patient is denying chest pain, shortness breath, nausea, vomiting, abdominal pain, dizziness or lightheadedness. No major events reported by nursing staff. Objective - Vital Signs Vital signs: Vital Signs Temp 97.5 F L 05/31/17 08:33 Pulse 80 05/31/17 16:30 Resp 17 05/31/17 16:30 BP 140/63 05/31/17 16:00 Pulse Ox 94 L 05/31/17 16:00 Intake & Output 05/31/17 05/31/17 06/01/17 06:59 18:59 06:59 Intake Total 30 720 Balance 30 720 Weight 88.5 kg Intake: IV 30 0.9 20 Invasive Line 2 10 Oral 720 Other: Voiding Method Urinal Toilet Urinal # Voids 2 # Bowel Movements 1 - Exam Gen.: in stated age, no acute distress Heart: Normal S1-S2 Lungs: Diminished bilaterally Abdomen: Soft, no tenderness, positive bowel sounds in all 4 quadrant no guarding or rebound Skin: No new rash Psych: Alert and oriented 3 Neuro: No focal deficit - Labs CBC & Chem 7: 05/31/17 16:14 05/31/17 05:59 Labs: Abnormal Lab Results - Last 24 Hours (Table) 05/30/17 05/31/17 05/31/17 Range/Units 20:39 05:59 05:59 RBC 2.61 L (4.30-5.90) m/uL Hgb 7.2 L (13.0-17.5) gm/dL Hct 24.7 L (39.0-53.0) % MCHC 29.2 L (31.0-37.0) g/dL RDW 16.0 H (11.5-15.5) % Plt Count 132 L (150-450) k/uL Lymphocytes # 0.5 L (1.0-4.8) k/uL PT 20.4 H (9.0-12.0) sec INR 2.3 H (<1.2) Sodium (137-145) mmol/L BUN (9-20) mg/dL Creatinine (0.66-1.25) mg/dL Glucose (74-99) mg/dL POC Glucose (mg/dL) 124 H (75-99) mg/dL Delta Bilirubin (0.0-0.2) mg/dL AST (17-59) U/L 18 05/31/17 05/31/17 Range/Units 05:59 05:59 06:12 RBC (4.30-5.90) m/uL Hgb (13.0-17.5) gm/dL Hct (39.0-53.0) % MCHC (31.0-37.0) g/dL RDW (11.5-15.5) % Plt Count (150-450) k/uL Lymphocytes # (1.0-4.8) k/uL PT (9.0-12.0) sec INR (<1.2) Sodium 136 L (137-145) mmol/L BUN 55 H (9-20) mg/dL Creatinine 1.70 H (0.66-1.25) mg/dL Glucose 105 H (74-99) mg/dL POC Glucose (mg/dL) 113 H (75-99) mg/dL Delta Bilirubin 0.3 H (0.0-0.2) mg/dL AST 15 L (17-59) U/L 05/31/17 Range/Units 16:14 RBC 2.74 L (4.30-5.90) m/uL Hgb 7.8 L (13.0-17.5) gm/dL Hct 25.5 L (39.0-53.0) % MCHC 30.6 L (31.0-37.0) g/dL RDW 16.1 H (11.5-15.5) % Plt Count 146 L (150-450) k/uL Lymphocytes # 0.3 L (1.0-4.8) k/uL PT (9.0-12.0) sec INR (<1.2) Sodium (137-145) mmol/L BUN (9-20) mg/dL Creatinine (0.66-1.25) mg/dL Glucose (74-99) mg/dL POC Glucose (mg/dL) (75-99) mg/dL Delta Bilirubin (0.0-0.2) mg/dL AST (17-59) U/L Assessment and Plan Assessment: 1. Atrial fibrillation with rapid ventricular response. 2. Chronic respiratory failure with hypoxia. 3. COPD. 4. Hypertension. 5. CLL. 6. Anemia with history of recurrent infusion. 7. Slight elevation in troponin likely representing demand ischemia 8. Chronic kidney disease stage III. 9. Benign prostatic hypertrophy. Heart rate under better control I would like to continue anticoagulation. patient seems to be conerned regarding his Hg. We'll continue cardioprotective medication and evaluated for home oxygen prior to discharge. will re check his Hg later this evening and consider repeat in am prior to discharge. Cr has improved.
[2017-06-01] MEDS: PANTOPRAZOLE 40 MG TABLET PO SCH (06:02)
[2017-06-01 06:12] LABS: HCT 23.4 % (39.0-53.0); HGB 7.2 gm/dL (13.0-17.5); Hypochromasia Moderate; INR 1.6 (<1.2); MCH 28.4 pg (25.0-35.0); MCHC 30.7 g/dL (31.0-37.0); MCV 92.4 fL (80.0-100.0); Mean Platelet Volume 8.2; Platelet Count 142 k/uL (150-450); RBC 2.53 m/uL (4.30-5.90); RDW 15.7 % (11.5-15.5); WBC 6.8 k/uL (3.8-10.6)
[2017-06-01 06:17] LABS: Calcium 8.3 mg/dL (8.4-10.2); Potassium 5.3 mmol/L (3.5-5.1)
[2017-06-01] MEDS: BUDESONIDE 0.5 MG/2 ML NEBU INHALATION SCH ×2 (08:34→20:45)
[2017-06-01] MEDS: IPRATROPIUM-ALBUTEROL 3 ML NEB INHALATION SCH ×3 (08:34→20:46)
[2017-06-01 08:47] LABS: Eosinophils # (M) 0.14 k/uL (0-0.7); Lymphocytes # (M) 0.54 k/uL (1.0-4.8); Metamyelocytes # (M) 0.07 k/uL (0); Metamyelocytes % 1 %; Monocytes # (M) 0.61 k/uL (0-1.0); Neutrophils # (M) 5.58 k/uL (1.3-7.7); Neutrophils % (M) 82 %; Nucleated Red Blood Cells 0 /100 WBC (0-0); Total Cells Counted 200
[2017-06-01 08:49] LABS: Toxic Granulation Present
[2017-06-01] MEDS: NITROGLYCERIN OINT 1 INCH/GM PACKET TOPICAL SCH ×3 (08:53→23:03)
[2017-06-01] MEDS: ALLOPURINOL 100 MG TAB PO SCH (08:54)
[2017-06-01] MEDS: METOPROLOL TARTRATE 50 MG TAB PO SCH ×2 (08:54→21:04)
[2017-06-01] MEDS: predniSONE 10 MG TAB PO SCH (08:54)
[2017-06-01] MEDS: DILTIAZEM CD 120 MG CAP.ER.24H PO SCH ×2 (08:54→22:29)
[2017-06-01] MEDS: LOSARTAN 25 MG TAB PO SCH (08:54)
[2017-06-01] MEDS: ASPIRIN 81 MG PO SCH (08:54)
--- NOTE | 2017-06-01 09:53 | P.PN ---
Subjective Progress Note Date: 06/01/17 HPI: This is an 87-year-old gentleman who is well-known to [facility]. The patient presented emergency department complaining of shortness of breath and palpitations. He states that his heart rate was elevated and he became very short of breath. He denies cough, fevers, chills. He states his breathing is never good and that he is always short of breath. He does follow with Dr. BEBA Ceja in the office. He was seen in the pulmonary office on 05/26/2017. He department the patient was found to be in atrial fibrillation with rapid ventricular response. He does follow with Dr. Lau for cardiology. He was also found to be anemic which is chronic. And his magnesium was 1.0. Patient takes 10 mg daily of prednisone. He is also taking Pulmicort once a day and was instructed to increase it to twice a day. He was also no longer taking his Lasix and states one of his doctors stopped it. Patient is currently on Coumadin and his INR is 1.7. The patient wears 2 L of oxygen around the clock. 05/29/17- patient is being seen examined and evaluated today on rounds. He is resting up in bed on 2 L of supplemental oxygen, is what he wears at home as well. He is being followed closely by cardiology. He did have trending troponins that are being followed as well. Patient continues in atrial fibrillation with heart rate in the 90s. Hemoglobin is 7.3 today. Stool for occult is being obtained. He is afebrile no further complaints. All labs and reports have been reviewed. Son is at bedside and updated on plan of care all questions have been answered. 05/30/2017: Patient seen and examined. His son is at bedside. The patient did receive a blood transfusion overnight. He is currently on 2 L nasal cannula. He states he is feeling very weak and he gets very short of breath with exertion. The patient states that he would like to maybe go to rehab. He has also been working with physical therapy. He states he is very frustrated. He states he was supposed to give a stool sample but someone flushed the toilet. 05/31/2017: Patient seen and examined with his daughter at bedside. The patient did have a drop in his hemoglobin to 7.3 today. The patient states he is still feeling tired and weak. He is on 2 L nasal cannula. He has been unable to give another stool sample but states he will try today. 06/01/17- patient being seen examined and evaluated on rounds. The patient's hemoglobin is 7.2 today. His stool for occult blood was negative. Patient is known to be a chronic anemic. He is resting up in bed on 2-3 L of supplemental oxygen via nasal cannula. Patient continues to feel weak. Objective - Vital Signs Vital signs: Vital Signs Temp 96.9 F L 06/01/17 04:00 Pulse 68 06/01/17 09:05 Resp 18 06/01/17 04:00 BP 129/60 06/01/17 04:00 Pulse Ox 96 06/01/17 04:00 Intake & Output 05/31/17 06/01/17 06/01/17 18:59 06:59 18:59 Intake Total 720 240 Output Total 300 0 Balance 720 -300 240 Weight 96 kg Intake: Oral 720 240 Output: Urine 300 0 Other: Voiding Method Toilet Toilet Urinal Urinal # Voids 2 # Bowel Movements 1 - Exam Gen.: Patient is alert and oriented 3, no acute distress Cardiovascular: Irregular rate and rhythm, tachycardia, S1/S2 Lungs: Diminished breath sounds bilaterally with bibasilar crackles Abdomen: Soft nontender nondistended positive bowel sounds Extremities: No edema - Labs CBC & Chem 7: 06/01/17 05:38 06/01/17 05:38 Labs: Abnormal Lab Results - Last 24 Hours (Table) 05/31/17 05/31/17 05/31/17 Range/Units 05:59 05:59 16:14 RBC 2.61 L 2.74 L (4.30-5.90) m/uL Hgb 7.2 L 7.8 L (13.0-17.5) gm/dL Hct 24.7 L 25.5 L (39.0-53.0) % MCHC 29.2 L 30.6 L (31.0-37.0) g/dL RDW 16.0 H 16.1 H (11.5-15.5) % Plt Count 132 L 146 L (150-450) k/uL Lymphocytes # 0.5 L 0.3 L (1.0-4.8) k/uL Lymphocytes # (Manual) (1.0-4.8) k/uL Metamyelocytes # (Man) (0) k/uL PT (9.0-12.0) sec INR (<1.2) Potassium (3.5-5.1) mmol/L Carbon Dioxide (22-30) mmol/L BUN (9-20) mg/dL Creatinine (0.66-1.25) mg/dL Calcium (8.4-10.2) mg/dL Delta Bilirubin 0.3 H (0.0-0.2) mg/dL AST 15 L (17-59) U/L 06/01/17 06/01/17 06/01/17 Range/Units 05:38 05:38 05:38 RBC 2.53 L (4.30-5.90) m/uL Hgb 7.2 L (13.0-17.5) gm/dL Hct 23.4 L (39.0-53.0) % MCHC 30.7 L (31.0-37.0) g/dL RDW 15.7 H (11.5-15.5) % Plt Count 142 L (150-450) k/uL Lymphocytes # (1.0-4.8) k/uL Lymphocytes # (Manual) 0.54 L (1.0-4.8) k/uL Metamyelocytes # (Man) 0.07 H (0) k/uL PT 15.0 H (9.0-12.0) sec INR 1.6 H (<1.2) Potassium 5.3 H (3.5-5.1) mmol/L Carbon Dioxide 31 H (22-30) mmol/L BUN 51 H (9-20) mg/dL Creatinine 1.76 H (0.66-1.25) mg/dL Calcium 8.3 L (8.4-10.2) mg/dL Delta Bilirubin (0.0-0.2) mg/dL AST (17-59) U/L Assessment and Plan Assessment: Assessment Chronic hypoxic respiratory failure and respiratory status is at baseline No evidence of pneumonia on chest x-ray, no clinical signs of pneumonia Atrial fibrillation with rapid ventricular response COPD not acutely exacerbated, respiratory status is at baseline Idiopathic pulmonary fibrosis Anemia, normocytic, chronic, s/p 1 unit PRBC NSTEMI Coumadin coagulopathy History of CLL, 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 Immunocompromised state Hypertension CK D3 Hypomagnesemia Moderate protein calorie malnutrition Atherosclerotic coronary artery disease Diabetes mellitus type 2 Dyslipidemia Obstructive sleep apnea on CPAP History of Chiari syndrome Autoimmune hemolytic anemia BPH Obesity Plan O2 to maintain saturation greater than or equal to 90% Pulmicort twice a day Duo nebs 3 times a day and as needed Singulair Steroid dose at baseline Rate control per cardiology Blood sugar control No need for antibiotics from pulmonary standpoint Coumadin dosing per pharmacy for goal INR 2-3 GI and DVT prophylaxis Incentive spirometry and pulmonary hygiene Consult case management for possible rehab placement PT and OT Check LDH, haptoglobin, bilis, peripheral smear Monitor H/H Stool for FOB, negative I performed an examination of the patient and discussed their management with the nurse practitioner. I have reviewed the nurse practitioner's note and agree with the documented findings and plan of care.
[2017-06-01] MEDS ORDERED: WARFARIN 7.5 MG TAB PO ONE (11:30)
--- NOTE | 2017-06-01 11:41 | P.PN ---
Subjective Progress Note Date: 06/01/17 This is an 87-year-old gentleman history of paroxysmal atrial fibrillation, CLL, diabetes, hyperlipidemia, hypertension, COPD, sleep apnea, chronic renal failure, follows with Dr. Simon in the office. 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 He presented to the hospital with symptoms of chest discomfort, he states that he had a reasonably good night, woke up with severe symptoms in the morning. EKG on arrival here showed atrial fibrillation with a rapid ventricular response, right bundle branch block pattern and left anterior fascicular block. Chest x-ray showed COPD. No acute pulmonary process. Blood pressure 105/70, heart rate fluctuating from the 1 teens up into the 130s. White blood cell count 5.5, hemoglobin 7.9, platelet count 162. Sodium 142, potassium 3.5, chloride 104, CO2 28, BUN 49, creatinine 1.7. Knees and 1.0. Troponin 0.023, BNP level 2090. TSH 4.7 and free T4 1 0.5. Patient's home medications include prednisone, Apresoline 50 3 times a day, Coumadin, Maxzide, Hytrin, Pravachol, Prilosec, Singulair, Toprol-XL 25 mg daily , Cozaar 50 mg twice a day, folate acid 1 mg daily, iron supplementation, Cardizem 120 daily, aspirin 81 mg daily, and Zyloprim. 05/29/2017 Patient continues to be in atrial fibrillation this morning. Blood pressure 103 /60, heart rate in the 90s. White blood cell count 7.3, hemoglobin 7.3, INR 1.8. Potassium 4.9, BUN 55, creatinine 2.1. Magnesium 2.2. Troponins 0.0-3, 0.788, 0.870. BNP 2090. TSH level I.8. Stool for occult blood has been requested. 05/30/2017 Patient was seen and examined this morning, currently in normal sinus rhythm. Was started on anticoagulation by pulmonary. INR today 2.0. Creatinine down to 1.8. Overall he feels well he just states he feeling tired today. 06/01/2017 Patient seen and examined this morning, complaints of feeling weak and tired. Continues to be in a normal sinus rhythm, heart rate in the 50s. Hemoglobin today 7.2. Patient's son was quite concerned about the low hemoglobin, upon review of the patient's hemoglobin, there has not been a significant change overall. At this time we will continue anticoagulation with Coumadin, the INR is 2.0. Blood pressure 130/68. Objective - Vital Signs Vital signs: Vital Signs Temp 97.2 F L 06/01/17 08:00 Pulse 68 06/01/17 09:05 Resp 18 06/01/17 08:00 BP 130/68 06/01/17 08:00 Pulse Ox 95 06/01/17 08:00 Intake & Output 05/31/17 06/01/17 06/01/17 18:59 06:59 18:59 Intake Total 720 240 Output Total 300 0 Balance 720 -300 240 Weight 96 kg Intake: Oral 720 240 Output: Urine 300 0 Other: Voiding Method Toilet Toilet Urinal Urinal # Voids 2 # Bowel Movements 1 - Exam PHYSICAL EXAMINATION: HEENT: Head is atraumatic, normocephalic. Pupils equal, round. Neck is supple. There is no elevated jugular venous pressure. HEART EXAMINATION: Heart S1 and S2 normal CHEST EXAMINATION: Lungs reveal crackles to the bases ABDOMEN: Soft, nontender. Bowel sounds are heard. No organomegaly noted. EXTREMITIES: 2+ peripheral pulses with no evidence of peripheral edema and no calf tenderness noted. NEUROLOGIC patient is awake, alert and oriented -3. - Labs CBC & Chem 7: 06/01/17 05:38 06/01/17 05:38 Labs: Abnormal Lab Results - Last 24 Hours (Table) 05/31/17 05/31/17 05/31/17 Range/Units 05:59 05:59 05:59 RBC 2.61 L (4.30-5.90) m/uL Hgb 7.2 L (13.0-17.5) gm/dL Hct 24.7 L (39.0-53.0) % MCHC 29.2 L (31.0-37.0) g/dL RDW 16.0 H (11.5-15.5) % Plt Count 132 L (150-450) k/uL Lymphocytes # 0.5 L (1.0-4.8) k/uL Lymphocytes # (Manual) (1.0-4.8) k/uL Metamyelocytes # (Man) (0) k/uL Haptoglobin 299.0 H (31.2-198.0) mg/dL PT (9.0-12.0) sec INR (<1.2) Potassium (3.5-5.1) mmol/L Carbon Dioxide (22-30) mmol/L BUN (9-20) mg/dL Creatinine (0.66-1.25) mg/dL Calcium (8.4-10.2) mg/dL Delta Bilirubin 0.3 H (0.0-0.2) mg/dL AST 15 L (17-59) U/L 05/31/17 06/01/17 06/01/17 Range/Units 16:14 05:38 05:38 RBC 2.74 L 2.53 L (4.30-5.90) m/uL Hgb 7.8 L 7.2 L (13.0-17.5) gm/dL Hct 25.5 L 23.4 L (39.0-53.0) % MCHC 30.6 L 30.7 L (31.0-37.0) g/dL RDW 16.1 H 15.7 H (11.5-15.5) % Plt Count 146 L 142 L (150-450) k/uL Lymphocytes # 0.3 L (1.0-4.8) k/uL Lymphocytes # (Manual) 0.54 L (1.0-4.8) k/uL Metamyelocytes # (Man) 0.07 H (0) k/uL Haptoglobin (31.2-198.0) mg/dL PT 15.0 H (9.0-12.0) sec INR 1.6 H (<1.2) Potassium (3.5-5.1) mmol/L Carbon Dioxide (22-30) mmol/L BUN (9-20) mg/dL Creatinine (0.66-1.25) mg/dL Calcium (8.4-10.2) mg/dL Delta Bilirubin (0.0-0.2) mg/dL AST (17-59) U/L 06/01/17 Range/Units 05:38 RBC (4.30-5.90) m/uL Hgb (13.0-17.5) gm/dL Hct (39.0-53.0) % MCHC (31.0-37.0) g/dL RDW (11.5-15.5) % Plt Count (150-450) k/uL Lymphocytes # (1.0-4.8) k/uL Lymphocytes # (Manual) (1.0-4.8) k/uL Metamyelocytes # (Man) (0) k/uL Haptoglobin (31.2-198.0) mg/dL PT (9.0-12.0) sec INR (<1.2) Potassium 5.3 H (3.5-5.1) mmol/L Carbon Dioxide 31 H (22-30) mmol/L BUN 51 H (9-20) mg/dL Creatinine 1.76 H (0.66-1.25) mg/dL Calcium 8.3 L (8.4-10.2) mg/dL Delta Bilirubin (0.0-0.2) mg/dL AST (17-59) U/L Assessment and Plan Plan: Assessment and plan #1 atrial fibrillation with rapid ventricular response, paroxysmal. Currently in normal sinus rhythm. #2 COPD #3 hypertension #4 hyperlipidemia #5 CLL #6 peripheral vascular disease #7 autoimmune hemolytic anemia #8 chronic renal failure #9 sleep apnea, uses CPAP at home #10 history of paroxysmal atrial fibrillation, on Coumadin for anticoagulation. INR 2.0. #11 hypomagnesemia, #11 hypokalemia #12 abnormal troponins, could be secondary to abnormal renal function and atrial fibrillation with rapid ventricular response, supply and demand mismatch. Plan Patient had a recent echocardiogram with Doppler study performed in March of this year which revealed an ejection fraction of 50-55%. Currently in normal sinus rhythm. We'll continue current medications. He may be able to be discharged once cleared by the primary. Follow-up appointment will be made in the office post discharge. DNP note has been reviewed, I agree with a documented findings and plan of care. Patient was seen and examined.
[2017-06-01] MEDS: TRIAMTERENE-HCTZ 37.5-25MG 1 EACH TAB PO SCH (12:13)
--- NOTE | 2017-06-01 14:35 | XR ---
EXAMINATION TYPE: XR chest 2V DATE OF EXAM: 06/01/2017 COMPARISON: 05/28/2017 HISTORY: Myocardial infarct. Chest pain. Pleural effusion. TECHNIQUE: Frontal and lateral views of the chest are obtained. FINDINGS: There is marked cardiomegaly is seen on the prior exam of 05/28/2017. New left midlung subs egmental platelike atelectasis is noted. Trace right pleural effusion is seen with haziness in the co stophrenic angle. Right apical calcific pleural plaquing is incidentally identified. Compression defo rmity of a lower thoracic vertebrae is unchanged from the prior. IMPRESSION: New platelike subsegmental left midlung atelectasis and trace right pleural effusion.
--- NOTE | 2017-06-01 17:05 | P.PN ---
Subjective Progress Note Date: 06/01/17 This is an 87 year old male patient of Dr BEBA millard, patient has underlying history of CLLdiagnosed in 2008, follows with Dr. Sweet oncology COPd with O2 dependence, Atrial fibrillatio on Coumadin anticoagulation, PAD, CAD and recurrent anemia requring specialized blood for transfusion. 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 Patient has had shortness of breath off and on for several years, worse with exertion, worse with a pending as the patient coughs whenever she eats, family is not concerned about this, and declined any imaging studies for aspiration pneumonia , patient had no fever no chills, no sick contacts, he drinks about 4 cups of coffee per day, nonsmoker no alcohol intake in the emergency room, patient had severe chest pain that occurred after breakfast, patient's pain lasted for approximately 45 minutes, there is no nausea no vomiting, there is no dysphagia to solid foods or liquid foods, however he coughs every time he eats, especially when he has a hard time breathing. Patient denies any edema, and he passed out apparently secondary to this. Per EMS, he had A. fib with RVR, troponins were mildly elevated, and patient was significantly anemic hemoglobin 7.9 creatinine is 1.7 on admission low at 1 albumin low at 2.9 patient has CPAP, and 2 L of O2 with CPAP. Patient denies any assistive device for ambulation, for long distances he requires a walker 05/29: Patient has been seen by cardiology and was given extra dose of Toprol XL 50 mg. cardiology has recommended no anticoagulation due to GI bleed. Patient has been started on Coumadin and we will check Hemoccult stool. Patient has not had any signs of GI bleeding in his stools have not been dark. If Hemoccult is negative, Coumadin will be discontinued. Repeat troponins were 0.788 and 0.870. Nitropaste was ordered last evening. Heart rate ran in the 120s during the night and is currently down to 66. Triglycerides 175, cholesterol 133, LDL 62 and HDL 36. TSH has been done twice initially 4.7 and repeat 1.870. Vitamin B12 3 and 65 and ferritin 574. Hemoglobin of 7.3, INR 1.8, creatinine 2.11 and BUN 55. Patient will be transfused 1 unit of packed RBCs for hemoglobin of 7.3. Patient's blood pressure has been on the low side and he did not receive hydralazine or Nitropaste. We will decrease Maxzide to half a pill at noon time. PT is evaluated the patient and recommended home with homecare. Patient remains in the selective care unit. He states he feels tired. He is using CPAP at bedtime. Currently he is on 5 L nasal cannula and to be weaned down to 2 L today. Stool for occult blood was negative. Patient did receive Coumadin last night and INR is at 1.6. Patient states that his best hemoglobin is 10. Consult with Dr. Cuong rapp as well as Dr. Kaur for possible scope to rule out GI bleed. The patient states that his stool yesterday was dark and loose. Patient did receive 1 unit packed RBCs on the . Cardiology has cleared the patient for discharge. Objective - Vital Signs Vital signs: Vital Signs Temp 96.9 F L 06/01/17 04:00 Pulse 68 06/01/17 08:34 Resp 18 06/01/17 04:00 BP 129/60 06/01/17 04:00 Pulse Ox 96 06/01/17 04:00 Intake & Output 05/31/17 06/01/17 06/01/17 18:59 06:59 18:59 Intake Total 720 240 Output Total 300 0 Balance 720 -300 240 Weight 96 kg Intake: Oral 720 240 Output: Urine 300 0 Other: Voiding Method Toilet Toilet Urinal Urinal # Voids 2 # Bowel Movements 1 - Exam General appearance: cooperative, mild distress, obese, thin - EENT Eyes: EOMI, PERRLA, dentition normal, normal appearance ENT: NA/AT, normal oropharynx - Neck Neck: no lymphadenopathy, normal ROM, no other, no rigidity, no stridor, no thyromegaly - Respiratory Respiratory: bilateral: CTA, diminished, negative: rales, rhonchi, wheezing, prolonged expiration, prolonged inspiration - Cardiovascular Rhythm: irregularly irregular Heart sounds: normal: S1, S2 Abnormal Heart Sounds: systolic murmur, no diastolic murmur, no rub, no S3 Gallop, no S4 Gallop, no click, no other - Gastrointestinal General gastrointestinal: normal bowel sounds, soft - Integumentary Integumentary: decreased turgor, normal - Neurologic Neurologic: CNII-XII intact - Musculoskeletal Musculoskeletal: generalized weakness, strength equal bilaterally - Psychiatric Psychiatric: A&O x's 3, appropriate affect, intact judgment & insight - Labs CBC & Chem 7: 06/01/17 05:38 06/01/17 05:38 Labs: Abnormal Lab Results - Last 24 Hours (Table) 05/31/17 05/31/17 05/31/17 Range/Units 05:59 05:59 16:14 RBC 2.61 L 2.74 L (4.30-5.90) m/uL Hgb 7.2 L 7.8 L (13.0-17.5) gm/dL Hct 24.7 L 25.5 L (39.0-53.0) % MCHC 29.2 L 30.6 L (31.0-37.0) g/dL RDW 16.0 H 16.1 H (11.5-15.5) % Plt Count 132 L 146 L (150-450) k/uL Lymphocytes # 0.5 L 0.3 L (1.0-4.8) k/uL Lymphocytes # (Manual) (1.0-4.8) k/uL Metamyelocytes # (Man) (0) k/uL PT (9.0-12.0) sec INR (<1.2) Potassium (3.5-5.1) mmol/L Carbon Dioxide (22-30) mmol/L BUN (9-20) mg/dL Creatinine (0.66-1.25) mg/dL Calcium (8.4-10.2) mg/dL Delta Bilirubin 0.3 H (0.0-0.2) mg/dL AST 15 L (17-59) U/L 06/01/17 06/01/17 06/01/17 Range/Units 05:38 05:38 05:38 RBC 2.53 L (4.30-5.90) m/uL Hgb 7.2 L (13.0-17.5) gm/dL Hct 23.4 L (39.0-53.0) % MCHC 30.7 L (31.0-37.0) g/dL RDW 15.7 H (11.5-15.5) % Plt Count 142 L (150-450) k/uL Lymphocytes # (1.0-4.8) k/uL Lymphocytes # (Manual) 0.54 L (1.0-4.8) k/uL Metamyelocytes # (Man) 0.07 H (0) k/uL PT 15.0 H (9.0-12.0) sec INR 1.6 H (<1.2) Potassium 5.3 H (3.5-5.1) mmol/L Carbon Dioxide 31 H (22-30) mmol/L BUN 51 H (9-20) mg/dL Creatinine 1.76 H (0.66-1.25) mg/dL Calcium 8.3 L (8.4-10.2) mg/dL Delta Bilirubin (0.0-0.2) mg/dL AST (17-59) U/L Assessment and Plan Plan: 1 Unstable Angina suspected nonSTEMI ruled out by cardiology Followed by cardiology in consultation. Pulmonology is consulted. 2 paroxysmal atrial fibrillation with rapid ventricular rate, intermittent, on anticoagulation with Coumadin, has been discontinued off the amiodarone secondary to amiodarone induced pulmonary disease, continue Cardizem 120 twice a day 3. Anemia of chronic disease with severe anemia in past requiring recurrent blood transfusion. Consult with GI for possible upper and lower scopes. Consult with Dr. Hutchins. 4. Chronic hypoxic respiratory failure with COPD. currentLy on O2 chronically with prn albuterol and atrovent. no current exacerbation of bronchospasm noted. he follows with dr BEBA mcdonald and is consulted Singulair 10 mg daily, 5. CLL history follows with Dr. Hutchins outpatient 8. Hypertension, continue Cardizem 120 twice a day, decrease losartan to 50mg daily, continue metoprolol 50mg bid 9. Slightly elevated TSH at 4.7, continue to monitor, no supplementation at this time, repeat TSH free T4 T3 in 4 weeks 10. CKD stage III, baseline creatinine 1.4-2.0. Avoid toxins and hypotension would be avoided 11. 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 BPH without lower urinary tract symtoms 14. Moderate protein calorie nutrition 15. Idiopathic pulmonary fibrosis. Continue prednisone 10 mg daily. Patient is followed by pulmonary medicine. Continue DuoNeb treatments, Pulmicort, Singulair 16. gi prophylaxis and dvt prophlaxis is provide. Code Status: full. Discharge plan: Most likely return home. Impression and plan of care have been directed as dictated by the signing physician. Silvia Mathew nurse practitioner acting as scribe for signing physician.
[2017-06-01] MEDS: DOXAZOSIN 4 MG TAB PO SCH (21:00)
[2017-06-01] MEDS: MONTELUKAST 10 MG TAB PO SCH (21:01)
[2017-06-01] MEDS: PRAVASTATIN SODIUM 40 MG TAB PO SCH (21:01)
[2017-06-02 06:24] LABS: Basophils % (A) 0 %; Eosinophils # (A) 0.1 k/uL (0-0.7); Eosinophils % (A) 1 %; HCT 23.7 % (39.0-53.0); HGB 7.3 gm/dL (13.0-17.5); Hypochromasia Moderate; Lymphocytes # (A) 0.7 k/uL (1.0-4.8); Lymphocytes % (A) 9 %; MCH 28.4 pg (25.0-35.0); MCHC 30.9 g/dL (31.0-37.0); MCV 91.7 fL (80.0-100.0); Monocytes # (A) 0.4 k/uL (0-1.0); Monocytes % (A) 5 %; Neutrophils # (A) 6.2 k/uL (1.3-7.7); Neutrophils % (A) 84 %; Platelet Count 158 k/uL (150-450); RBC 2.59 m/uL (4.30-5.90); RDW 15.5 % (11.5-15.5); WBC 7.4 k/uL (3.8-10.6)
[2017-06-02] MEDS: PANTOPRAZOLE 40 MG TABLET PO SCH (06:27)
[2017-06-02 06:30] LABS: INR 1.7 (<1.2)
[2017-06-02] MEDS: NITROGLYCERIN OINT 1 INCH/GM PACKET TOPICAL SCH ×2 (08:09→15:39)
[2017-06-02] MEDS: IPRATROPIUM-ALBUTEROL 3 ML NEB INHALATION SCH ×3 (09:12→20:48)
[2017-06-02] MEDS: BUDESONIDE 0.5 MG/2 ML NEBU INHALATION SCH ×2 (09:20→20:48)
--- NOTE | 2017-06-02 09:44 | P.PN ---
Subjective Progress Note Date: 06/02/17 HPI: This is an 87-year-old gentleman who is well-known to [facility]. The patient presented emergency department complaining of shortness of breath and palpitations. He states that his heart rate was elevated and he became very short of breath. He denies cough, fevers, chills. He states his breathing is never good and that he is always short of breath. He does follow with Dr. BEBA Ceja in the office. He was seen in the pulmonary office on 05/26/2017. He department the patient was found to be in atrial fibrillation with rapid ventricular response. He does follow with Dr. Lau for cardiology. He was also found to be anemic which is chronic. And his magnesium was 1.0. Patient takes 10 mg daily of prednisone. He is also taking Pulmicort once a day and was instructed to increase it to twice a day. He was also no longer taking his Lasix and states one of his doctors stopped it. Patient is currently on Coumadin and his INR is 1.7. The patient wears 2 L of oxygen around the clock. 05/29/17- patient is being seen examined and evaluated today on rounds. He is resting up in bed on 2 L of supplemental oxygen, is what he wears at home as well. He is being followed closely by cardiology. He did have trending troponins that are being followed as well. Patient continues in atrial fibrillation with heart rate in the 90s. Hemoglobin is 7.3 today. Stool for occult is being obtained. He is afebrile no further complaints. All labs and reports have been reviewed. Son is at bedside and updated on plan of care all questions have been answered. 05/30/2017: Patient seen and examined. His son is at bedside. The patient did receive a blood transfusion overnight. He is currently on 2 L nasal cannula. He states he is feeling very weak and he gets very short of breath with exertion. The patient states that he would like to maybe go to rehab. He has also been working with physical therapy. He states he is very frustrated. He states he was supposed to give a stool sample but someone flushed the toilet. 05/31/2017: Patient seen and examined with his daughter at bedside. The patient did have a drop in his hemoglobin to 7.3 today. The patient states he is still feeling tired and weak. He is on 2 L nasal cannula. He has been unable to give another stool sample but states he will try today. 06/01/17- patient being seen examined and evaluated on rounds. The patient's hemoglobin is 7.2 today. His stool for occult blood was negative. Patient is known to be a chronic anemic. He is resting up in bed on 2-3 L of supplemental oxygen via nasal cannula. Patient continues to feel weak. 06/02/17-patient is being seen examined and evaluated today on rounds. Patient' s hemoglobin today is 7.3. INR is 1.7. He is being followed by hematology. He is resting up in bed on 2 L of supplemental oxygen via nasal cannula. Continues to have his chronic cough, nonproductive. He is afebrile denies any further complaints. Objective - Vital Signs Vital signs: Vital Signs Temp 98.0 F 06/02/17 07:55 Pulse 64 06/02/17 09:28 Resp 18 06/02/17 07:55 BP 150/69 06/02/17 07:55 Pulse Ox 95 06/02/17 07:55 Intake & Output 06/01/17 06/02/17 06/02/17 18:59 06:59 18:59 Intake Total 660 120 Output Total 0 1325 Balance 660 -1325 120 Weight 95.4 kg Intake: Oral 660 120 Output: Urine 0 1325 Other: Voiding Method Urinal # Voids 2 - Exam Gen.: Patient is alert and oriented 3, no acute distress Cardiovascular: Irregular rate and rhythm, intermittent tachycardia, S1/S2 Lungs: Diminished breath sounds bilaterally Abdomen: Soft nontender nondistended positive bowel sounds Extremities: No edema - Labs CBC & Chem 7: 06/02/17 05:56 06/01/17 05:38 Labs: Abnormal Lab Results - Last 24 Hours (Table) 05/31/17 05/31/17 06/02/17 Range/Units 05:59 11:49 05:56 RBC (4.30-5.90) m/uL Hgb (13.0-17.5) gm/dL Hct (39.0-53.0) % MCHC (31.0-37.0) g/dL Lymphocytes # (1.0-4.8) k/uL Pathologist Review See comment A Haptoglobin 299.0 H (31.2-198.0) mg/dL PT 16.0 H (9.0-12.0) sec INR 1.7 H (<1.2) 06/02/17 Range/Units 05:56 RBC 2.59 L (4.30-5.90) m/uL Hgb 7.3 L (13.0-17.5) gm/dL Hct 23.7 L (39.0-53.0) % MCHC 30.9 L (31.0-37.0) g/dL Lymphocytes # 0.7 L (1.0-4.8) k/uL Pathologist Review Haptoglobin (31.2-198.0) mg/dL PT (9.0-12.0) sec INR (<1.2) Assessment and Plan Assessment: Assessment Chronic hypoxic respiratory failure and respiratory status is at baseline No evidence of pneumonia on chest x-ray, no clinical signs of pneumonia Atrial fibrillation with rapid ventricular response COPD not acutely exacerbated, respiratory status is at baseline Idiopathic pulmonary fibrosis Anemia, normocytic, chronic, s/p 1 unit PRBC NSTEMI Coumadin coagulopathy History of CLL, 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 Immunocompromised state Hypertension CK D3 Hypomagnesemia Moderate protein calorie malnutrition Atherosclerotic coronary artery disease Diabetes mellitus type 2 Dyslipidemia Obstructive sleep apnea on CPAP History of Chiari syndrome Autoimmune hemolytic anemia BPH Obesity Plan O2 to maintain saturation greater than or equal to 90% Pulmicort twice a day Duo nebs 3 times a day and as needed Singulair Steroid dose at baseline Rate control per cardiology Blood sugar control No need for antibiotics from pulmonary standpoint Coumadin dosing per pharmacy for goal INR 2-3 GI and DVT prophylaxis Incentive spirometry and pulmonary hygiene Consult case management for possible rehab placement PT and OT LDH, haptoglobin, bilis, peripheral smear, reviewed Monitor H/H Stool for FOB, negative I performed an examination of the patient and discussed their management with the nurse practitioner. I have reviewed the nurse practitioner's note and agree with the documented findings and plan of care.
[2017-06-02 09:52] LABS: Reticulocyte % 2.1 % (0.5-2.0)
[2017-06-02] MEDS: METOPROLOL TARTRATE 50 MG TAB PO SCH ×2 (10:15→20:12)
[2017-06-02] MEDS: ALLOPURINOL 100 MG TAB PO SCH (10:15)
[2017-06-02] MEDS: DILTIAZEM CD 120 MG CAP.ER.24H PO SCH ×2 (10:16→20:13)
[2017-06-02] MEDS: LOSARTAN 25 MG TAB PO SCH (10:17)
[2017-06-02] MEDS: ASPIRIN 81 MG PO SCH (10:17)
--- NOTE | 2017-06-02 11:06 | P.CONS ---
History of Present Illness - Reason for Consult Consult date: 06/02/17 Anemia Requesting physician: Laura Caro - History of Present Illness 87-year-old gentleman with a history of chronic lymphocytic leukemia 2008, autoimmune hemolytic anemia 2012 secondary to CLL received steroids, Rituxan, and IVIG in the past, CAD, atrial fibrillation maintained on warfarin, NC, CK D , and chronic anemia. Admitted with shortness of breath and palpitations. Consultation requested for anemia. Hemoccult stool negative. Patient denies overt bleeding such as hematemesis hematochezia melena. Last colonoscopy about 12 years ago to his memory was normal. No recent EGD. Hemoglobin since admission ranging between 7.2-8.3. Average hemoglobin between 8-10 over the last year. MCV 91. Platelet 158. INR 1.7. Iron indices; March iron was 11 presently 27. Iron saturation 4.6-11.2%. TIBC 235-to 40. Ferritin 574. Denies weight loss or abdominal pain. No recent blood or iron transfusions prior to admission. Received 1 unit of blood on 05/29/2017. Review of Systems Constitutional: Denies fever, chills, sweats, weight gain, or loss. HEENT: Negative for migraines, blurred vision or loss, earaches, drainage, tinnitus, oral mucosal lesions, dysphagia, or odynophagia. Cardiac: Atrial fibrillation. PAD. NC. CAD. Negative for chest pain, arrhythmias, or palpitation. Respiratory: Negative for shortness of breath, hemoptysis, cough, or sputum production. Gastrointestinal: See HPI for pertinent findings. Genitourinary: Negative for hematuria, urgency, frequency, polyuria, dysuria, or penile discharge. Musculoskeletal: Negative for muscle aches, swelling, arthritis, and arthralgias. Neurologic: Negative for stroke or TIA. Nephrology: Chronic kidney disease. Hematologic: Chronic lymphocytic leukemia. Autoimmune hemolytic anemia. Endocrine: Negative for thyroid problems. Skin: Negative for rash or itching. Psychiatric: Negative history for depression and anxiety Past Medical History Past Medical History: Atrial Fibrillation, Blood Disorder, Coronary Artery Disease (CAD), Cancer, Heart Failure, COPD, Diabetes Mellitus, Hyperlipidemia, Hypertension, Myocardial Infarction (NC), Prostate Disorder, Sleep Apnea/CPAP/ BIPAP Additional Past Medical History / Comment(s): CLL diagnosed in 2007, years later had chemo one time and it was discontinued because pt had a NC while receiving, autoimmune hemolytic anemia, rare antibiodies in his blood, AFib with RVR, NIDDM no longer on medications, LOUIE with CPAP occasionally uses O2 2L/ NC with it, 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 Last Myocardial Infarction Date:: 2013 History of Any Multi-Drug Resistant Organisms: None Reported Past Surgical History: Heart Catheterization, Joint Replacement, Tonsillectomy Additional Past Surgical History / Comment(s): heavenly carotid endarct, total lt knee replacement, prostate biopsy, bilateral cataract removals with lens implants, colonoscopies. Past Anesthesia/Blood Transfusion Reactions: No Reported Reaction Additional Past Anesthesia/Blood Transfusion Reaction / Comm: pt states "has rare antibodies to blood has trouble finding matches" Past Psychological History: No Psychological Hx Reported Smoking Status: Former smoker Past Alcohol Use History: None Reported Past Drug Use History: None Reported - Past Family History Brother(s) Family Medical History: Cancer Additional Family Medical History / Comment(s): kidney Mother Family Medical History: Myocardial Infarction (NC) Additional Family Medical History / Comment(s): Mother of a NC at the age of 85yrs. Father Family Medical History: No Reported History Additional Family Medical History / Comment(s): Father was healthy and lived to be 93 yrs old. Medications and Allergies Home Medications Medication Instructions Recorded Confirmed Type Allopurinol [Zyloprim] 100 mg PO DAILY 11/04/13 05/28/17 History Aspirin 81 mg PO MOWEFR 11/04/13 05/28/17 History Folic Acid 1 mg PO DAILY 11/04/13 05/28/17 History Omeprazole [PriLOSEC] 20 mg PO DAILY 11/04/13 05/28/17 History Pravastatin Sodium [Pravachol] 40 mg PO HS 11/04/13 05/28/17 History Terazosin [Hytrin] 2 mg PO HS 11/04/13 05/28/17 History Losartan [Cozaar] 50 mg PO BID 02/27/14 05/28/17 History Warfarin [Coumadin] 5 mg PO Q48H 03/31/17 05/28/17 History Budesonide [Pulmicort] 0.5 mg INHALATION RT-DAILY 05/13/17 05/28/17 History Diltiazem HCl [Diltiazem 24Hr ER] 120 mg PO DAILY 05/13/17 05/28/17 History Ergocalciferol (Vitamin D2) 50,000 unit PO WE 05/13/17 05/28/17 History [Vitamin D2] Ferrous Sulfate [Iron (65 MG 325 mg PO BID 05/13/17 05/28/17 History Elemental)] Metoprolol Succinate (ER) [Toprol 25 mg PO DAILY 05/13/17 05/28/17 History Xl] Montelukast [Singulair] 10 mg PO HS 05/13/17 05/28/17 History Warfarin [Coumadin] 2.5 mg PO Q48H 05/13/17 05/28/17 History hydrALAZINE HCL [Apresoline] 50 mg PO TID@0700,1400,2100 05/13/17 05/28/17 History predniSONE 10 mg PO DAILY 05/13/17 05/28/17 History Ipratropium-Albuterol Nebulize 3 ml INHALATION RT-QID PRN 05/28/17 05/28/17 History [Duoneb 0.5 mg-3 mg/3 ml Soln] Triamterene-Hctz 37.5-25Mg 1 tab PO DAILY 05/28/17 05/28/17 History [Maxzide 37.5-25] Allergies Allergy/AdvReac Type Severity Reaction Status Date / Time codeine Allergy Mild Confusion Verified 05/28/17 08:24 Physical Exam Vitals: Vital Signs Temp Pulse Pulse Resp BP BP Pulse Ox 06/02/17 09:28 64 06/02/17 09:12 64 06/02/17 07:55 98.0 F 66 18 150/69 95 06/02/17 04:00 97.3 F L 58 L 18 123/62 95 06/02/17 00:00 97.5 F L 63 18 135/63 96 06/01/17 20:59 60 06/01/17 20:48 55 L 97 06/01/17 20:00 98.8 F 67 18 142/70 96 06/01/17 16:00 97.0 F L 62 18 158/67 95 06/01/17 12:32 66 06/01/17 12:25 64 06/01/17 12:00 97.3 F L 57 L 18 134/66 96 Intake and Output 06/01/17 06/02/17 06/02/17 22:59 06:59 14:59 Intake Total 420 120 Output Total 500 825 Balance -80 -825 120 Intake: Oral 420 120 Output: Urine 500 825 Other: Voiding Method Urinal Urinal # Voids 2 Weight 95.4 kg General appearance: The patient is alert, oriented, in no acute distress. HET: Head is normocephalic and atraumatic. Pupils are equal and reactive. Oropharynx is clear without lesions. Neck: Supple without lymphadenopathy. Trachea midline. Heart: S1 S2. Lungs: No crackles or wheezes are heard. Abdomen: Soft, nontender, nondistended with bowel sounds. No peritoneal signs. No palpable organomegaly or masses. Extremities: Normal skin color and turgor. No cyanosis, rash, ulceration, clubbing, or edema. Radial and pedal pulses are 2/4 bilaterally. Neurological: No focal deficits. Strength and sensation are grossly intact. Results CBC & Chem 7: 06/02/17 05:56 06/01/17 05:38 Labs: Abnormal Lab Results - Last 24 Hours (Table) 05/31/17 06/02/17 06/02/17 Range/Units 11:49 05:56 05:56 RBC 2.59 L (4.30-5.90) m/uL Hgb 7.3 L (13.0-17.5) gm/dL Hct 23.7 L (39.0-53.0) % MCHC 30.9 L (31.0-37.0) g/dL Lymphocytes # 0.7 L (1.0-4.8) k/uL Pathologist Review See comment A Retic Count (0.5-2.0) % PT 16.0 H (9.0-12.0) sec INR 1.7 H (<1.2) 06/02/17 Range/Units 05:56 RBC (4.30-5.90) m/uL Hgb (13.0-17.5) gm/dL Hct (39.0-53.0) % MCHC (31.0-37.0) g/dL Lymphocytes # (1.0-4.8) k/uL Pathologist Review Retic Count 2.1 H (0.5-2.0) % PT (9.0-12.0) sec INR (<1.2) Assessment and Plan (1) Anemia Narrative/Plan: 87-year-old male admitted with unstable angina suspected non-STEMI with an underlying history of multiple medical comorbidities including chronic lymphocytic leukemia, hemolytic anemia, anemia of chronic disease, chronic kidney disease without overt gastrointestinal bleeding with recent iron indices showing stability some improvement consistent with a chronic iron deficiency anemia. Current Visit: Yes Status: Acute Priority: High Code(s): D64.9 - ANEMIA, UNSPECIFIED SNOMED Code(s): 888067061 (2) CLL (chronic lymphocytic leukemia) Current Visit: No Status: Chronic Priority: Medium Code(s): C91.10 - CHRONIC LYMPHOCYTIC LEUK OF B-CELL TYPE NOT ACHIEVE REMIS SNOMED Code(s): 47392452 (3) Warfarin-induced coagulopathy Current Visit: Yes Status: Acute Code(s): D68.32 - HEMORRHAGIC DISORD D/T EXTRINSIC CIRCULATING ANTICOAGULANTS; T45.515A - ADVERSE EFFECT OF ANTICOAGULANTS, INITIAL ENCOUNTER SNOMED Code(s): 91372319 Plan: 1. Recommend to continue with supportive measures and medical management of anemia. EGD colonoscopy is not planned at this time considering iron indices are stable and patient is without overt GI bleeding. Case was discussed with hematology and medicine. Continue with warfarin management. Will follow with you. Thank you for this kind referral and the opportunity to participate in the care of your patient. This consultation was discussed with Dr. Bliss. The impression and plan of care have been directed as dictated.
[2017-06-02] MEDS: predniSONE 10 MG TAB PO SCH (11:24)
[2017-06-02] MEDS: TRIAMTERENE-HCTZ 37.5-25MG 1 EACH TAB PO SCH (11:24)
--- NOTE | 2017-06-02 12:32 | P.PN ---
Subjective Progress Note Date: 06/02/17 This is an 87-year-old gentleman history of paroxysmal atrial fibrillation, CLL, diabetes, hyperlipidemia, hypertension, COPD, sleep apnea, chronic renal failure, follows with Dr. Simon in the office. 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 He presented to the hospital with symptoms of chest discomfort, he states that he had a reasonably good night, woke up with severe symptoms in the morning. EKG on arrival here showed atrial fibrillation with a rapid ventricular response, right bundle branch block pattern and left anterior fascicular block. Chest x-ray showed COPD. No acute pulmonary process. Blood pressure 105/70, heart rate fluctuating from the 1 teens up into the 130s. White blood cell count 5.5, hemoglobin 7.9, platelet count 162. Sodium 142, potassium 3.5, chloride 104, CO2 28, BUN 49, creatinine 1.7. Knees and 1.0. Troponin 0.023, BNP level 2090. TSH 4.7 and free T4 1 0.5. Patient's home medications include prednisone, Apresoline 50 3 times a day, Coumadin, Maxzide, Hytrin, Pravachol, Prilosec, Singulair, Toprol-XL 25 mg daily , Cozaar 50 mg twice a day, folate acid 1 mg daily, iron supplementation, Cardizem 120 daily, aspirin 81 mg daily, and Zyloprim. 05/29/2017 Patient continues to be in atrial fibrillation this morning. Blood pressure 103 /60, heart rate in the 90s. White blood cell count 7.3, hemoglobin 7.3, INR 1.8. Potassium 4.9, BUN 55, creatinine 2.1. Magnesium 2.2. Troponins 0.0-3, 0.788, 0.870. BNP 2090. TSH level I.8. Stool for occult blood has been requested. 05/30/2017 Patient was seen and examined this morning, currently in normal sinus rhythm. Was started on anticoagulation by pulmonary. INR today 2.0. Creatinine down to 1.8. Overall he feels well he just states he feeling tired today. 06/01/2017 Patient seen and examined this morning, complaints of feeling weak and tired. Continues to be in a normal sinus rhythm, heart rate in the 50s. Hemoglobin today 7.2. Patient's son was quite concerned about the low hemoglobin, upon review of the patient's hemoglobin, there has not been a significant change overall. At this time we will continue anticoagulation with Coumadin, the INR is 2.0. Blood pressure 130/68. 06/02/2017 Patient seen and examined this morning, hemoglobin today 7.3. Patient has been seen in consultation by hematology. He was also seen by GI service. Continue current therapy. Blood pressure this morning 150/68, heart rate in the 60s, 95 % on 2 L of oxygen. INR today 1.7. Decision was made to continue the patient' s Coumadin therapy, continue to monitor daily. Objective - Vital Signs Vital signs: Vital Signs Temp 98.0 F 06/02/17 07:55 Pulse 64 06/02/17 09:28 Resp 18 06/02/17 07:55 BP 150/69 06/02/17 07:55 Pulse Ox 95 06/02/17 07:55 Intake & Output 06/01/17 06/02/17 06/02/17 18:59 06:59 18:59 Intake Total 660 120 Output Total 0 1325 Balance 660 -1325 120 Weight 95.4 kg Intake: Oral 660 120 Output: Urine 0 1325 Other: Voiding Method Urinal # Voids 2 300 - Exam PHYSICAL EXAMINATION: HEENT: Head is atraumatic, normocephalic. Pupils equal, round. Neck is supple. There is no elevated jugular venous pressure. HEART EXAMINATION: Heart S1 and S2 normal CHEST EXAMINATION: Lungs reveal crackles to the bases ABDOMEN: Soft, nontender. Bowel sounds are heard. No organomegaly noted. EXTREMITIES: 2+ peripheral pulses with no evidence of peripheral edema and no calf tenderness noted. NEUROLOGIC patient is awake, alert and oriented -3. - Labs CBC & Chem 7: 06/02/17 05:56 06/01/17 05:38 Labs: Abnormal Lab Results - Last 24 Hours (Table) 05/31/17 06/02/17 06/02/17 Range/Units 11:49 05:56 05:56 RBC 2.59 L (4.30-5.90) m/uL Hgb 7.3 L (13.0-17.5) gm/dL Hct 23.7 L (39.0-53.0) % MCHC 30.9 L (31.0-37.0) g/dL Lymphocytes # 0.7 L (1.0-4.8) k/uL Pathologist Review See comment A Retic Count (0.5-2.0) % PT 16.0 H (9.0-12.0) sec INR 1.7 H (<1.2) 06/02/17 Range/Units 05:56 RBC (4.30-5.90) m/uL Hgb (13.0-17.5) gm/dL Hct (39.0-53.0) % MCHC (31.0-37.0) g/dL Lymphocytes # (1.0-4.8) k/uL Pathologist Review Retic Count 2.1 H (0.5-2.0) % PT (9.0-12.0) sec INR (<1.2) Assessment and Plan Plan: Assessment and plan #1 atrial fibrillation with rapid ventricular response, paroxysmal. Currently in normal sinus rhythm. #2 COPD #3 hypertension #4 hyperlipidemia #5 CLL #6 peripheral vascular disease #7 autoimmune hemolytic anemia #8 chronic renal failure #9 sleep apnea, uses CPAP at home #10 history of paroxysmal atrial fibrillation, on Coumadin for anticoagulation. INR 1.7. #11 hypomagnesemia, #11 hypokalemia #12 abnormal troponins, could be secondary to abnormal renal function and atrial fibrillation with rapid ventricular response, supply and demand mismatch. Plan Patient had a recent echocardiogram with Doppler study performed in March of this year which revealed an ejection fraction of 50-55%. Currently in normal sinus rhythm. We'll continue current medications. He may be able to be discharged once cleared by the primary. Follow-up appointment will be made in the office post discharge. DNP note has been reviewed, I agree with a documented findings and plan of care. Patient was seen and examined.
--- NOTE | 2017-06-02 13:34 | P.PN ---
Subjective Progress Note Date: 06/02/17 This is an 87 year old male patient of Dr BEBA millard, patient has underlying history of CLLdiagnosed in 2008, follows with Dr. Sweet oncology COPd with O2 dependence, Atrial fibrillatio on Coumadin anticoagulation, PAD, CAD and recurrent anemia requring specialized blood for transfusion. 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 Patient has had shortness of breath off and on for several years, worse with exertion, worse with a pending as the patient coughs whenever she eats, family is not concerned about this, and declined any imaging studies for aspiration pneumonia , patient had no fever no chills, no sick contacts, he drinks about 4 cups of coffee per day, nonsmoker no alcohol intake in the emergency room, patient had severe chest pain that occurred after breakfast, patient's pain lasted for approximately 45 minutes, there is no nausea no vomiting, there is no dysphagia to solid foods or liquid foods, however he coughs every time he eats, especially when he has a hard time breathing. Patient denies any edema, and he passed out apparently secondary to this. Per EMS, he had A. fib with RVR, troponins were mildly elevated, and patient was significantly anemic hemoglobin 7.9 creatinine is 1.7 on admission low at 1 albumin low at 2.9 patient has CPAP, and 2 L of O2 with CPAP. Patient denies any assistive device for ambulation, for long distances he requires a walker 05/29: Patient has been seen by cardiology and was given extra dose of Toprol XL 50 mg. cardiology has recommended no anticoagulation due to GI bleed. Patient has been started on Coumadin and we will check Hemoccult stool. Patient has not had any signs of GI bleeding in his stools have not been dark. If Hemoccult is negative, Coumadin will be discontinued. Repeat troponins were 0.788 and 0.870. Nitropaste was ordered last evening. Heart rate ran in the 120s during the night and is currently down to 66. Triglycerides 175, cholesterol 133, LDL 62 and HDL 36. TSH has been done twice initially 4.7 and repeat 1.870. Vitamin B12 3 and 65 and ferritin 574. Hemoglobin of 7.3, INR 1.8, creatinine 2.11 and BUN 55. Patient will be transfused 1 unit of packed RBCs for hemoglobin of 7.3. Patient's blood pressure has been on the low side and he did not receive hydralazine or Nitropaste. We will decrease Maxzide to half a pill at noon time. PT is evaluated the patient and recommended home with homecare. Patient remains in the selective care unit. He states he feels tired. He is using CPAP at bedtime. Currently he is on 5 L nasal cannula and to be weaned down to 2 L today. Stool for occult blood was negative. Patient did receive Coumadin last night and INR is at 1.6. Patient states that his best hemoglobin is 10. Consult with Dr. Hutchins added as well as Dr. Kaur for possible scope to rule out GI bleed. The patient states that his stool yesterday was dark and loose. Patient did receive 1 unit packed RBCs on the . Cardiology has cleared the patient for discharge. 06/02: Patient denies any new complaints. Per his nurse, he has not had any blood in the stools. 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 GI has evaluated the patient with no plan for EGD or colonoscopy. Patient will be continued on Coumadin which is scheduled 7.5 mg tonight. INR today is 1.7 and hemoglobin 7.3. O2 is down to 2 L which is his home dose. Patient is to be started on Procrit or equivalent. Anticipate possible discharge in the next 24 hours. Objective - Vital Signs Vital signs: Vital Signs Temp 98.0 F 06/02/17 07:55 Pulse 64 06/02/17 09:12 Resp 18 06/02/17 07:55 BP 150/69 06/02/17 07:55 Pulse Ox 95 06/02/17 07:55 Intake & Output 06/01/17 06/02/17 06/02/17 18:59 06:59 18:59 Intake Total 660 120 Output Total 0 1325 Balance 660 -1325 120 Weight 95.4 kg Intake: Oral 660 120 Output: Urine 0 1325 Other: Voiding Method Urinal # Voids 2 - Exam General appearance: cooperative, mild distress, obese, thin - EENT Eyes: EOMI, PERRLA, dentition normal, normal appearance ENT: NA/AT, normal oropharynx - Neck Neck: no lymphadenopathy, normal ROM, no other, no rigidity, no stridor, no thyromegaly - Respiratory Respiratory: bilateral: CTA, diminished, negative: rales, rhonchi, wheezing, prolonged expiration, prolonged inspiration - Cardiovascular Rhythm: irregularly irregular Heart sounds: normal: S1, S2 Abnormal Heart Sounds: systolic murmur, no diastolic murmur, no rub, no S3 Gallop, no S4 Gallop, no click, no other - Gastrointestinal General gastrointestinal: normal bowel sounds, soft - Integumentary Integumentary: decreased turgor, normal - Neurologic Neurologic: CNII-XII intact - Musculoskeletal Musculoskeletal: generalized weakness, strength equal bilaterally - Psychiatric Psychiatric: A&O x's 3, appropriate affect, intact judgment & insight - Labs CBC & Chem 7: 06/02/17 05:56 06/01/17 05:38 Labs: Abnormal Lab Results - Last 24 Hours (Table) 05/31/17 05/31/17 06/02/17 Range/Units 05:59 11:49 05:56 RBC (4.30-5.90) m/uL Hgb (13.0-17.5) gm/dL Hct (39.0-53.0) % MCHC (31.0-37.0) g/dL Lymphocytes # (1.0-4.8) k/uL Pathologist Review See comment A Haptoglobin 299.0 H (31.2-198.0) mg/dL PT 16.0 H (9.0-12.0) sec INR 1.7 H (<1.2) 06/02/17 Range/Units 05:56 RBC 2.59 L (4.30-5.90) m/uL Hgb 7.3 L (13.0-17.5) gm/dL Hct 23.7 L (39.0-53.0) % MCHC 30.9 L (31.0-37.0) g/dL Lymphocytes # 0.7 L (1.0-4.8) k/uL Pathologist Review Haptoglobin (31.2-198.0) mg/dL PT (9.0-12.0) sec INR (<1.2) Assessment and Plan Plan: 1 Unstable Angina suspected nonSTEMI ruled out by cardiology Followed by cardiology in consultation. Pulmonology is consulted. 2 paroxysmal atrial fibrillation with rapid ventricular rate, intermittent, on anticoagulation with Coumadin, has been discontinued off the amiodarone secondary to amiodarone induced pulmonary disease, continue Cardizem 120 twice a day 3. Anemia of chronic disease with severe anemia in past requiring recurrent blood transfusion. Consult with GI for possible upper and lower scopes. Consult with Dr. Hutchins. 4. Chronic hypoxic respiratory failure with COPD. currentLy on O2 chronically with prn albuterol and atrovent. no current exacerbation of bronchospasm noted. he follows with dr BEBA mcdonald and is consulted Singulair 10 mg daily, 5. CLL history follows with Dr. Hutchins outpatient 8. Hypertension, continue Cardizem 120 twice a day, decrease losartan to 50mg daily, continue metoprolol 50mg bid 9. Slightly elevated TSH at 4.7, continue to monitor, no supplementation at this time, repeat TSH free T4 T3 in 4 weeks 10. CKD stage III, baseline creatinine 1.4-2.0. Avoid toxins and hypotension would be avoided 11. 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 BPH without lower urinary tract symtoms 14. Moderate protein calorie nutrition 15. Idiopathic pulmonary fibrosis. Continue prednisone 10 mg daily. Patient is followed by pulmonary medicine. Continue DuoNeb treatments, Pulmicort, Singulair 16. gi prophylaxis and dvt prophlaxis is provide. Code Status: full. Discharge plan: Subacute rehab at [facility] Impression and plan of care have been directed as dictated by the signing physician. Silvia Mathew nurse practitioner acting as scribe for signing physician.
[2017-06-02 16:33] LABS: Iron Saturation 10.9 (15.00-50.00)
--- NOTE | 2017-06-02 16:56 | P.CONS ---
History of Present Illness - Reason for Consult Consult date: 06/02/17 acute on chronic anemia Requesting physician: Laura Caro - Chief Complaint chest pain - History of Present Illness Mr. Segura is a very pleasant male pt of [employer] Dr. Aleman out of [facility]. He has a history of hemolytic anemia requiring IVIG, steroids and has has monoclonal ab therapy with Rituxan. He also has a history of CLL diagnosed in 2008 with no treatment. Pt states he was having progressive SOB and chest pains so he came to the hospital on 05/28 for evaluation. Since admission his Hgb has been about 1 gram below his baseline, 1 unit of PRBCs was given and within 48 hours his Hgb was in the 7 range again. Pt is currently on prednisone and he states his Junior Brand Manager adjusts it based on his Hgb. Pt has significant bruising but, denies uncontrolled bleeding, no blood in the urine or stool. Pt presenting c/ o have resolved. 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 Last Myocardial Infarction Date:: 2013 History of Any Multi-Drug Resistant Organisms: None Reported Past Surgical History: Heart Catheterization, Joint Replacement, Tonsillectomy Additional Past Surgical History / Comment(s): heavenly carotid endarct, total lt knee replacement, prostate biopsy, bilateral cataract removals with lens implants, colonoscopies. Past Anesthesia/Blood Transfusion Reactions: No Reported Reaction Additional Past Anesthesia/Blood Transfusion Reaction / Comm: pt states "has rare antibodies to blood has trouble finding matches" Past Psychological History: No Psychological Hx Reported Smoking Status: Former smoker Past Alcohol Use History: None Reported Past Drug Use History: None Reported - Past Family History Brother(s) Family Medical History: Cancer Additional Family Medical History / Comment(s): kidney Mother Family Medical History: Myocardial Infarction (ND) Additional Family Medical History / Comment(s): Mother of a ND at the age of 85yrs. Father Family Medical History: No Reported History Additional Family Medical History / Comment(s): Father was healthy and lived to be 93 yrs old. Medications and Allergies Home Medications Medication Instructions Recorded Confirmed Type Allopurinol [Zyloprim] 100 mg PO DAILY 11/04/13 05/28/17 History Aspirin 81 mg PO MOWEFR 11/04/13 05/28/17 History Folic Acid 1 mg PO DAILY 11/04/13 05/28/17 History Omeprazole [PriLOSEC] 20 mg PO DAILY 11/04/13 05/28/17 History Pravastatin Sodium [Pravachol] 40 mg PO HS 11/04/13 05/28/17 History Terazosin [Hytrin] 2 mg PO HS 11/04/13 05/28/17 History Losartan [Cozaar] 50 mg PO BID 02/27/14 05/28/17 History Warfarin [Coumadin] 5 mg PO Q48H 03/31/17 05/28/17 History Budesonide [Pulmicort] 0.5 mg INHALATION RT-DAILY 05/13/17 05/28/17 History Diltiazem HCl [Diltiazem 24Hr ER] 120 mg PO DAILY 05/13/17 05/28/17 History Ergocalciferol (Vitamin D2) 50,000 unit PO WE 05/13/17 05/28/17 History [Vitamin D2] Ferrous Sulfate [Iron (65 MG 325 mg PO BID 05/13/17 05/28/17 History Elemental)] Metoprolol Succinate (ER) [Toprol 25 mg PO DAILY 05/13/17 05/28/17 History Xl] Montelukast [Singulair] 10 mg PO HS 05/13/17 05/28/17 History Warfarin [Coumadin] 2.5 mg PO Q48H 05/13/17 05/28/17 History hydrALAZINE HCL [Apresoline] 50 mg PO TID@0700,1400,2100 05/13/17 05/28/17 History predniSONE 10 mg PO DAILY 05/13/17 05/28/17 History Ipratropium-Albuterol Nebulize 3 ml INHALATION RT-QID PRN 05/28/17 05/28/17 History [Duoneb 0.5 mg-3 mg/3 ml Soln] Triamterene-Hctz 37.5-25Mg 1 tab PO DAILY 05/28/17 05/28/17 History [Maxzide 37.5-25] Allergies Allergy/AdvReac Type Severity Reaction Status Date / Time codeine Allergy Mild Confusion Verified 05/28/17 08:24 Physical Exam Vitals: Vital Signs Temp Pulse Pulse Resp BP BP Pulse Ox 06/02/17 12:00 98.4 F 59 L 18 145/63 95 06/02/17 09:28 64 06/02/17 09:12 64 06/02/17 07:55 98.0 F 66 18 150/69 95 06/02/17 04:00 97.3 F L 58 L 18 123/62 95 06/02/17 00:00 97.5 F L 63 18 135/63 96 06/01/17 20:59 60 06/01/17 20:48 55 L 97 06/01/17 20:00 98.8 F 67 18 142/70 96 06/01/17 16:00 97.0 F L 62 18 158/67 95 Intake and Output 06/02/17 06/02/17 06/02/17 06:59 14:59 22:59 Intake Total 560 Output Total 825 200 Balance -825 360 Intake: Oral 560 Output: Urine 825 200 Other: Voiding Method Urinal # Voids 300 1 # Bowel Movements 1 Weight 95.4 kg - Constitutional General appearance: average body habitus, cooperative, no acute distress - EENT Eyes: anicteric sclerae, normal appearance ENT: hearing grossly normal - Neck Neck: no lymphadenopathy - Respiratory Respiratory: bilateral: CTA - Cardiovascular Heart sounds: normal: S1, S2 leg Peripheral Edema: bilateral: None - Gastrointestinal General gastrointestinal: no absent bowel sounds, no decreased bowel sounds, no distended, no hepatomegaly, no hyperactive bowel sounds, normal bowel sounds, no organomegaly, no rigid, no scaphoid, soft, no splenomegaly, no tenderness, no umbilical hernia, no ventral hernia - Integumentary severe bruising of upper extremities, LUE skin tear - Neurologic Neurologic: CNII-XII intact - Musculoskeletal Musculoskeletal: generalized weakness, strength equal bilaterally - Psychiatric Psychiatric: A&O x's 3, appropriate affect, intact judgment & insight Results CBC & Chem 7: 06/02/17 05:56 06/01/17 05:38 Labs: Abnormal Lab Results - Last 24 Hours (Table) 06/02/17 06/02/17 06/02/17 Range/Units 05:56 05:56 05:56 RBC 2.59 L (4.30-5.90) m/uL Hgb 7.3 L (13.0-17.5) gm/dL Hct 23.7 L (39.0-53.0) % MCHC 30.9 L (31.0-37.0) g/dL Lymphocytes # 0.7 L (1.0-4.8) k/uL Retic Count 2.1 H (0.5-2.0) % PT 16.0 H (9.0-12.0) sec INR 1.7 H (<1.2) Assessment and Plan (1) Anemia Narrative/Plan: Acute on chronic. Pt has chronic renal disease, CLL as well as being on anticoagluation for cardiac arrhythmia that are contributing to chronic anemia with acute cardiac conditions likely exacerbating his anemia, baseline Hgb 9- 10. Hemolysis work up ordered stat, no evidence at this time to suggest hemolysis. Recommend pt follow up with his Junior Brand Manager soon after discharge Anemia work up ordered, ferritin was drawn day before his transfusion on the and was elevated which is suggestive of anemia of inflammation vs acute bleeding. Do not suspect acute bleeding at this time, cont daily CBC while inpatient. No acute transfusion needed Current Visit: Yes Status: Acute Priority: High Code(s): D64.9 - ANEMIA, UNSPECIFIED SNOMED Code(s): 572976233 (2) Hemolytic anemia Narrative/Plan: History of, Hemolysis labs ordered. Current Visit: Yes Status: Suspected Priority: High Code(s): D58.9 - HEREDITARY HEMOLYTIC ANEMIA, UNSPECIFIED SNOMED Code(s): 93347381 (3) CLL (chronic lymphocytic leukemia) Narrative/Plan: Currently no evidence of disease. Pt will continue to follow with his primary Oncologist at [facility] Current Visit: No Status: Chronic Priority: Medium Code(s): C91.10 - CHRONIC LYMPHOCYTIC LEUK OF B-CELL TYPE NOT ACHIEVE REMIS SNOMED Code(s): 02845513 Plan: Doctor attests:I have performed a history and physical exam of this pt, discussed with dictator. I agree with dictated note, documented as a scribe.
[2017-06-02] MEDS ORDERED: WARFARIN 7.5 MG TAB PO ONE (18:00)
[2017-06-02] MEDS: DOXAZOSIN 4 MG TAB PO SCH (20:13)
[2017-06-02] MEDS: MONTELUKAST 10 MG TAB PO SCH (20:13)
[2017-06-02] MEDS: PRAVASTATIN SODIUM 40 MG TAB PO SCH (20:13)
[2017-06-03] MEDS: NITROGLYCERIN OINT 1 INCH/GM PACKET TOPICAL SCH ×2 (00:10→08:17)
[2017-06-03 04:58] VITALS: RESP 16
[2017-06-03] MEDS: PANTOPRAZOLE 40 MG TABLET PO SCH (07:08)
[2017-06-03] MEDS: METOPROLOL TARTRATE 50 MG TAB PO SCH (08:18)
[2017-06-03] MEDS: LOSARTAN 25 MG TAB PO SCH (08:18)
[2017-06-03] MEDS: predniSONE 10 MG TAB PO SCH (08:18)
[2017-06-03] MEDS: DILTIAZEM CD 120 MG CAP.ER.24H PO SCH (08:18)
[2017-06-03] MEDS: ALLOPURINOL 100 MG TAB PO SCH (08:18)
[2017-06-03] MEDS: ASPIRIN 81 MG PO SCH (08:18)
[2017-06-03] MEDS: IPRATROPIUM-ALBUTEROL 3 ML NEB INHALATION SCH ×2 (08:18→13:25)
[2017-06-03] MEDS: BUDESONIDE 0.5 MG/2 ML NEBU INHALATION SCH (08:18)
--- NOTE | 2017-06-03 08:52 | P.PN ---
Subjective Progress Note Date: 06/03/17 Principal diagnosis: Anemia No bleeding. Feels well. No CBC to review this morning. Denies abdominal pain. Afebrile. Objective - Vital Signs Vital signs: Vital Signs Temp 97.7 F 06/03/17 04:00 Pulse 57 L 06/03/17 08:40 Resp 16 06/03/17 04:00 BP 145/80 06/03/17 04:00 Pulse Ox 97 06/03/17 00:00 Intake & Output 06/02/17 06/03/17 06/03/17 18:59 06:59 18:59 Intake Total 800 300 240 Output Total 200 Balance 600 300 240 Weight 95.8 kg Intake: Oral 800 300 240 Output: Urine 200 Other: Voiding Method Urinal # Voids 1 2 # Bowel Movements 1 - Exam General appearance: The patient is alert, oriented, in no acute distress. HET: Head is normocephalic and atraumatic. Pupils are equal and reactive. Oropharynx is clear without lesions. Neck: Supple without lymphadenopathy. Trachea midline. Heart: S1 S2. Lungs: No crackles or wheezes are heard. Abdomen: Soft, nontender, nondistended with bowel sounds. No peritoneal signs. No palpable organomegaly or masses. Extremities: Normal skin color and turgor. No cyanosis, rash, ulceration, clubbing, or edema. Radial and pedal pulses are 2/4 bilaterally. Neurological: No focal deficits. Strength and sensation are grossly intact. - Labs CBC & Chem 7: 06/02/17 05:56 06/01/17 05:38 Labs: Abnormal Lab Results - Last 24 Hours (Table) 06/02/17 06/02/17 Range/Units 05:56 05:56 Retic Count 2.1 H (0.5-2.0) % Iron 23 L (65-175) ug/dL TIBC 211 L (228-460) ug/dL Iron Saturation 10.90 L (15.00-50.00) Ferritin 840.6 H (22.0-322.0) ng/mL Assessment and Plan (1) Anemia Narrative/Plan: 87-year-old male admitted with unstable angina suspected non-STEMI with an underlying history of multiple medical comorbidities including chronic lymphocytic leukemia, hemolytic anemia, anemia of chronic disease, chronic kidney disease without overt gastrointestinal bleeding with recent iron indices showing stability some improvement consistent with a chronic iron deficiency anemia. Current Visit: Yes Status: Acute Priority: High Code(s): D64.9 - ANEMIA, UNSPECIFIED SNOMED Code(s): 510623693 (2) CLL (chronic lymphocytic leukemia) Current Visit: No Status: Chronic Priority: Medium Code(s): C91.10 - CHRONIC LYMPHOCYTIC LEUK OF B-CELL TYPE NOT ACHIEVE REMIS SNOMED Code(s): 63757862 (3) Warfarin-induced coagulopathy Current Visit: Yes Status: Acute Code(s): D68.32 - HEMORRHAGIC DISORD D/T EXTRINSIC CIRCULATING ANTICOAGULANTS; T45.515A - ADVERSE EFFECT OF ANTICOAGULANTS, INITIAL ENCOUNTER SNOMED Code(s): 65064929 Plan: 1. Inpatient endoscopic exams not planned at this time; hemoglobin stable no evidence of active GI bleeding Hemoccult stool negative. Continue supportive measures. Discharge per medicine. Follow-up with hematology as directed. Return to GI office in 3-4 weeks for reevaluation. Assessment and plan a care discussed with Dr. Reyes
[2017-06-03 09:28] LABS: Basophils % (A) 0 %; Eosinophils # (A) 0.1 k/uL (0-0.7); Eosinophils % (A) 2 %; HGB 7.4 gm/dL (13.0-17.5); Hypochromasia Moderate; Lymphocytes # (A) 0.7 k/uL (1.0-4.8); Lymphocytes % (A) 10 %; MCH 28.8 pg (25.0-35.0); MCV 93.2 fL (80.0-100.0); Mean Platelet Volume 8.4; Monocytes # (A) 0.4 k/uL (0-1.0); Monocytes % (A) 5 %; Neutrophils # (A) 5.6 k/uL (1.3-7.7); Neutrophils % (A) 82 %; Platelet Count 165 k/uL (150-450); RBC 2.57 m/uL (4.30-5.90); RDW 15.5 % (11.5-15.5); WBC 6.8 k/uL (3.8-10.6)
--- NOTE | 2017-06-03 10:16 | P.PN ---
Subjective Progress Note Date: 06/03/17 HPI: This is an 87-year-old gentleman who is well-known to [facility]. The patient presented emergency department complaining of shortness of breath and palpitations. He states that his heart rate was elevated and he became very short of breath. He denies cough, fevers, chills. He states his breathing is never good and that he is always short of breath. He does follow with Dr. BEBA Ceja in the office. He was seen in the pulmonary office on 05/26/2017. He department the patient was found to be in atrial fibrillation with rapid ventricular response. He does follow with Dr. Lau for cardiology. He was also found to be anemic which is chronic. And his magnesium was 1.0. Patient takes 10 mg daily of prednisone. He is also taking Pulmicort once a day and was instructed to increase it to twice a day. He was also no longer taking his Lasix and states one of his doctors stopped it. Patient is currently on Coumadin and his INR is 1.7. The patient wears 2 L of oxygen around the clock. 05/29/17- patient is being seen examined and evaluated today on rounds. He is resting up in bed on 2 L of supplemental oxygen, is what he wears at home as well. He is being followed closely by cardiology. He did have trending troponins that are being followed as well. Patient continues in atrial fibrillation with heart rate in the 90s. Hemoglobin is 7.3 today. Stool for occult is being obtained. He is afebrile no further complaints. All labs and reports have been reviewed. Son is at bedside and updated on plan of care all questions have been answered. 05/30/2017: Patient seen and examined. His son is at bedside. The patient did receive a blood transfusion overnight. He is currently on 2 L nasal cannula. He states he is feeling very weak and he gets very short of breath with exertion. The patient states that he would like to maybe go to rehab. He has also been working with physical therapy. He states he is very frustrated. He states he was supposed to give a stool sample but someone flushed the toilet. 05/31/2017: Patient seen and examined with his daughter at bedside. The patient did have a drop in his hemoglobin to 7.3 today. The patient states he is still feeling tired and weak. He is on 2 L nasal cannula. He has been unable to give another stool sample but states he will try today. 06/01/17- patient being seen examined and evaluated on rounds. The patient's hemoglobin is 7.2 today. His stool for occult blood was negative. Patient is known to be a chronic anemic. He is resting up in bed on 2-3 L of supplemental oxygen via nasal cannula. Patient continues to feel weak. 06/02/17-patient is being seen examined and evaluated today on rounds. Patient' s hemoglobin today is 7.3. INR is 1.7. He is being followed by hematology. He is resting up in bed on 2 L of supplemental oxygen via nasal cannula. Continues to have his chronic cough, nonproductive. He is afebrile denies any further complaints. 06/03/17- patient is being seen examined and evaluated today on rounds. The patient's hemoglobin today is 7.4 yesterday and no further overt signs of bleeding. Hemoglobin has remained relatively with same throughout stay. Spoke with GI nurse practitioner and there is no plans for a scope at this time. He continues using his CPAP every night. Resting up in bedside chair on 2 L of supplemental oxygen via nasal cannula. Discharge planning taking place for medical [place]. Objective - Vital Signs Vital signs: Vital Signs Temp 97.7 F 06/03/17 04:00 Pulse 57 L 06/03/17 08:40 Resp 16 06/03/17 04:00 BP 145/80 06/03/17 04:00 Pulse Ox 97 06/03/17 00:00 Intake & Output 06/02/17 06/03/17 06/03/17 18:59 06:59 18:59 Intake Total 800 300 240 Output Total 200 Balance 600 300 240 Weight 95.8 kg Intake: Oral 800 300 240 Output: Urine 200 Other: Voiding Method Urinal # Voids 1 2 # Bowel Movements 1 - Exam Gen.: Patient is alert and oriented 3, no acute distress Cardiovascular: Irregular rate and rhythm, intermittent tachycardia, S1/S2 Lungs: Diminished breath sounds bilaterally Abdomen: Soft nontender nondistended positive bowel sounds Extremities: No edema - Labs CBC & Chem 7: 06/03/17 08:51 06/01/17 05:38 Labs: Abnormal Lab Results - Last 24 Hours (Table) 06/02/17 06/03/17 Range/Units 05:56 08:51 RBC 2.57 L (4.30-5.90) m/uL Hgb 7.4 L (13.0-17.5) gm/dL Hct 24.0 L (39.0-53.0) % Lymphocytes # 0.7 L (1.0-4.8) k/uL Iron 23 L (65-175) ug/dL TIBC 211 L (228-460) ug/dL Iron Saturation 10.90 L (15.00-50.00) Ferritin 840.6 H (22.0-322.0) ng/mL Assessment and Plan Assessment: Assessment Chronic hypoxic respiratory failure and respiratory status is at baseline No evidence of pneumonia on chest x-ray, no clinical signs of pneumonia Atrial fibrillation with rapid ventricular response COPD not acutely exacerbated, respiratory status is at baseline Idiopathic pulmonary fibrosis Anemia, normocytic, chronic, s/p 1 unit PRBC NSTEMI Coumadin coagulopathy History of CLL, 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 Immunocompromised state Hypertension CK D3 Hypomagnesemia Moderate protein calorie malnutrition Atherosclerotic coronary artery disease Diabetes mellitus type 2 Dyslipidemia Obstructive sleep apnea on CPAP History of Chiari syndrome Autoimmune hemolytic anemia BPH Obesity Plan Discharge planning to ECF, cleared from a pulmonary standpoint O2 to maintain saturation greater than or equal to 90% Pulmicort twice a day Duo nebs 3 times a day and as needed Singulair Steroid dose at baseline Rate control per cardiology Blood sugar control No need for antibiotics from pulmonary standpoint Coumadin dosing per pharmacy for goal INR 2-3 GI and DVT prophylaxis Incentive spirometry and pulmonary hygiene Consult case management for possible rehab placement PT and OT LDH, haptoglobin, bilis, peripheral smear, reviewed Monitor H/H Stool for FOB, negative I performed an examination of the patient and discussed their management with the nurse practitioner. I have reviewed the nurse practitioner's note and agree with the documented findings and plan of care.
--- NOTE | 2017-06-03 10:22 | P.PN ---
Subjective Progress Note Date: 06/03/17 This is an 87-year-old gentleman history of paroxysmal atrial fibrillation, CLL, diabetes, hyperlipidemia, hypertension, COPD, sleep apnea, chronic renal failure, follows with Dr. Simon in the office. 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 He presented to the hospital with symptoms of chest discomfort, he states that he had a reasonably good night, woke up with severe symptoms in the morning. EKG on arrival here showed atrial fibrillation with a rapid ventricular response, right bundle branch block pattern and left anterior fascicular block. Chest x-ray showed COPD. No acute pulmonary process. Blood pressure 105/70, heart rate fluctuating from the 1 teens up into the 130s. White blood cell count 5.5, hemoglobin 7.9, platelet count 162. Sodium 142, potassium 3.5, chloride 104, CO2 28, BUN 49, creatinine 1.7. Knees and 1.0. Troponin 0.023, BNP level 2090. TSH 4.7 and free T4 1 0.5. Patient's home medications include prednisone, Apresoline 50 3 times a day, Coumadin, Maxzide, Hytrin, Pravachol, Prilosec, Singulair, Toprol-XL 25 mg daily , Cozaar 50 mg twice a day, folate acid 1 mg daily, iron supplementation, Cardizem 120 daily, aspirin 81 mg daily, and Zyloprim. 05/29/2017 Patient continues to be in atrial fibrillation this morning. Blood pressure 103 /60, heart rate in the 90s. White blood cell count 7.3, hemoglobin 7.3, INR 1.8. Potassium 4.9, BUN 55, creatinine 2.1. Magnesium 2.2. Troponins 0.0-3, 0.788, 0.870. BNP 2090. TSH level I.8. Stool for occult blood has been requested. 05/30/2017 Patient was seen and examined this morning, currently in normal sinus rhythm. Was started on anticoagulation by pulmonary. INR today 2.0. Creatinine down to 1.8. Overall he feels well he just states he feeling tired today. 06/01/2017 Patient seen and examined this morning, complaints of feeling weak and tired. Continues to be in a normal sinus rhythm, heart rate in the 50s. Hemoglobin today 7.2. Patient's son was quite concerned about the low hemoglobin, upon review of the patient's hemoglobin, there has not been a significant change overall. At this time we will continue anticoagulation with Coumadin, the INR is 2.0. Blood pressure 130/68. 06/02/2017 Patient seen and examined this morning, hemoglobin today 7.3. Patient has been seen in consultation by hematology. He was also seen by GI service. Continue current therapy. Blood pressure this morning 150/68, heart rate in the 60s, 95 % on 2 L of oxygen. INR today 1.7. Decision was made to continue the patient' s Coumadin therapy, continue to monitor daily. 06/03/2017 Patient seen and examined this morning, hemoglobin 7.4 today. Arrangements are being made for possible discharge home today. Iron was 23 TIBC to 11 iron saturation 10.9 and ferritin 840. Objective - Vital Signs Vital signs: Vital Signs Temp 97.7 F 06/03/17 04:00 Pulse 57 L 06/03/17 08:40 Resp 16 06/03/17 04:00 BP 145/80 06/03/17 04:00 Pulse Ox 97 06/03/17 00:00 Intake & Output 06/02/17 06/03/17 06/03/17 18:59 06:59 18:59 Intake Total 800 300 240 Output Total 200 Balance 600 300 240 Weight 95.8 kg Intake: Oral 800 300 240 Output: Urine 200 Other: Voiding Method Urinal # Voids 1 2 # Bowel Movements 1 - Exam PHYSICAL EXAMINATION: HEENT: Head is atraumatic, normocephalic. Pupils equal, round. Neck is supple. There is no elevated jugular venous pressure. HEART EXAMINATION: Heart S1 and S2 normal CHEST EXAMINATION: Lungs reveal crackles to the bases ABDOMEN: Soft, nontender. Bowel sounds are heard. No organomegaly noted. EXTREMITIES: 2+ peripheral pulses with no evidence of peripheral edema and no calf tenderness noted. NEUROLOGIC patient is awake, alert and oriented -3. - Labs CBC & Chem 7: 06/03/17 08:51 06/01/17 05:38 Labs: Abnormal Lab Results - Last 24 Hours (Table) 06/02/17 06/03/17 Range/Units 05:56 08:51 RBC 2.57 L (4.30-5.90) m/uL Hgb 7.4 L (13.0-17.5) gm/dL Hct 24.0 L (39.0-53.0) % Lymphocytes # 0.7 L (1.0-4.8) k/uL Iron 23 L (65-175) ug/dL TIBC 211 L (228-460) ug/dL Iron Saturation 10.90 L (15.00-50.00) Ferritin 840.6 H (22.0-322.0) ng/mL Assessment and Plan Plan: Assessment and plan #1 atrial fibrillation with rapid ventricular response, paroxysmal. Currently in normal sinus rhythm. #2 COPD #3 hypertension #4 hyperlipidemia #5 CLL #6 peripheral vascular disease #7 autoimmune hemolytic anemia #8 chronic renal failure #9 sleep apnea, uses CPAP at home #10 history of paroxysmal atrial fibrillation, on Coumadin for anticoagulation. INR 1.7. #11 hypomagnesemia, #11 hypokalemia #12 abnormal troponins, could be secondary to abnormal renal function and atrial fibrillation with rapid ventricular response, supply and demand mismatch. Plan Patient had a recent echocardiogram with Doppler study performed in March of this year which revealed an ejection fraction of 50-55%. Currently in normal sinus rhythm. We'll continue current medications. He may be able to be discharged once cleared by the primary. Follow-up appointment will be made in the office post discharge. We will follow this patient with you on an as- needed basis only now please don't hesitate to call with any questions. DNP note has been reviewed, I agree with a documented findings and plan of care. Patient was seen and examined.
[2017-06-03 11:20] LABS: Prothrombin Time 18.3 sec (9.0-12.0)
[2017-06-03 11:39] VITALS: BMI 30.3
[2017-06-03 12:08] VITALS: BP 150/68; PULSE 68; TEMP 96.9
--- NOTE | 2017-06-03 12:55 | P.DS ---
Providers Date of admission: 05/28/17 09:35 Expected date of discharge: 06/03/17 Attending physician: Alva Mckay Consults: 05/28/17 09:34 Consult Physician Urgent Consulting Provider: Carlos Martino Consult Reason/Comments: cp,afib Do you want consulting provider notified?: Yes 05/28/17 13:01 Consult Physician Urgent Consulting Provider: Rudolph Ceja Consult Reason/Comments: COPD, Recent- Pneumonia Do you want consulting provider notified?: Yes 06/01/17 07:37 Consult Physician Routine Consulting Provider: Suzanna Sawyer Consult Reason/Comments: droppinh hemoglobin, negative fecal occult Do you want consulting provider notified?: Yes 06/01/17 08:45 Consult Physician Routine Consulting Provider: Ernesto Hutchins Consult Reason/Comments: acute on chronic anemia Do you want consulting provider notified?: Yes Primary care physician: Rudolph Ceja [facility] Course: This is an 87 year old male patient of Dr BEBA millard, patient has underlying history of CLLdiagnosed in 2008, follows with Dr. Sweet oncology COPd with O2 dependence, Atrial fibrillatio on Coumadin anticoagulation, PAD, CAD and recurrent anemia requring specialized blood for transfusion. 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 Patient has had shortness of breath off and on for several years, worse with exertion, worse with a pending as the patient coughs whenever she eats, family is not concerned about this, and declined any imaging studies for aspiration pneumonia , patient had no fever no chills, no sick contacts, he drinks about 4 cups of coffee per day, nonsmoker no alcohol intake in the emergency room, patient had severe chest pain that occurred after breakfast, patient's pain lasted for approximately 45 minutes, there is no nausea no vomiting, there is no dysphagia to solid foods or liquid foods, however he coughs every time he eats, especially when he has a hard time breathing. Patient denies any edema, and he passed out apparently secondary to this. Per EMS, he had A. fib with RVR, troponins were mildly elevated, and patient was significantly anemic hemoglobin 7.9 creatinine is 1.7 on admission low at 1 albumin low at 2.9 patient has CPAP, and 2 L of O2 with CPAP. Patient denies any assistive device for ambulation, for long distances he requires a walker 05/29: Patient has been seen by cardiology and was given extra dose of Toprol XL 50 mg. cardiology has recommended no anticoagulation due to GI bleed. Patient has been started on Coumadin and we will check Hemoccult stool. Patient has not had any signs of GI bleeding in his stools have not been dark. If Hemoccult is negative, Coumadin will be discontinued. Repeat troponins were 0.788 and 0.870. Nitropaste was ordered last evening. Heart rate ran in the 120s during the night and is currently down to 66. Triglycerides 175, cholesterol 133, LDL 62 and HDL 36. TSH has been done twice initially 4.7 and repeat 1.870. Vitamin B12 3 and 65 and ferritin 574. Hemoglobin of 7.3, INR 1.8, creatinine 2.11 and BUN 55. Patient will be transfused 1 unit of packed RBCs for hemoglobin of 7.3. Patient's blood pressure has been on the low side and he did not receive hydralazine or Nitropaste. We will decrease Maxzide to half a pill at noon time. PT is evaluated the patient and recommended home with homecare. Patient remains in the selective care unit. He states he feels tired. He is using CPAP at bedtime. Currently he is on 5 L nasal cannula and to be weaned down to 2 L today. Stool for occult blood was negative. Patient did receive Coumadin last night and INR is at 1.6. Patient states that his best hemoglobin is 10. Consult with Dr. Hutchins added as well as Dr. Kaur for possible scope to rule out GI bleed. The patient states that his stool yesterday was dark and loose. Patient did receive 1 unit packed RBCs on the . Cardiology has cleared the patient for discharge. 06/02: Patient denies any new complaints. Per his nurse, he has not had any blood in the stools. 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 GI has evaluated the patient with no plan for EGD or colonoscopy. Patient will be continued on Coumadin which is scheduled 7.5 mg tonight. INR today is 1.7 and hemoglobin 7.3. O2 is down to 2 L which is his home dose. Patient is to be started on Procrit or equivalent. Anticipate possible discharge in the next 24 hours. 06/03: Patient will be discharged to [facility] today. Hemoglobin is 7.4. INR is 2.0. Patient will be resumed on his home dose of Coumadin. Oncology has recommended patient follow-up with his oncologist at [facility] with anemia suggestive of inflammatory and versus acute bleeding. No change in his prednisone dose. Discharge diagnoses: 1 Unstable Angina suspected nonSTEMI ruled out by cardiology. Pain most likely related to Afib w RVR 2 paroxysmal atrial fibrillation with rapid ventricular rate, intermittent 3. Anemia of chronic disease with severe anemia in past requiring recurrent blood transfusion. 4. Chronic hypoxic respiratory failure with COPD. currentLy on O2 chronically 5. CLL history 8. Hypertension 9. Slightly elevated TSH at 4.7, continue to monitor 10. CKD stage III, baseline creatinine 1.4-2.0. 11. 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 BPH without lower urinary tract symtoms 14. Moderate protein calorie nutrition 15. Idiopathic pulmonary fibrosis. Discharge plan: Subacute rehab at [facility] Impression and plan of care have been directed as dictated by the signing physician. Silvia Mathew nurse practitioner acting as scribe for signing physician. Patient Condition at Discharge: Good Plan - Discharge Summary Discharge Rx Participant: Yes New Discharge Prescriptions: New Losartan [Cozaar] 25 mg PO DAILY tab Metoprolol Tartrate [Lopressor] 50 mg PO BID tab Continue Terazosin [Hytrin] 2 mg PO HS Pravastatin Sodium [Pravachol] 40 mg PO HS Omeprazole [PriLOSEC] 20 mg PO DAILY Folic Acid 1 mg PO DAILY Allopurinol [Zyloprim] 100 mg PO DAILY Aspirin 81 mg PO MOWEFR Warfarin [Coumadin] 5 mg PO Q48H Budesonide [Pulmicort] 0.5 mg INHALATION RT-DAILY Diltiazem HCl [Diltiazem 24Hr ER] 120 mg PO DAILY Ergocalciferol (Vitamin D2) [Vitamin D2] 50,000 unit PO WE Ferrous Sulfate [Iron (65 MG Elemental)] 325 mg PO BID hydrALAZINE HCL [Apresoline] 50 mg PO TID@0700,1400,2100 Montelukast [Singulair] 10 mg PO HS predniSONE 10 mg PO DAILY Warfarin [Coumadin] 2.5 mg PO Q48H Ipratropium-Albuterol Nebulize [Duoneb 0.5 mg-3 mg/3 ml Soln] 3 ml INHALATION RT-QID PRN PRN Reason: Shortness Of Breath Triamterene-Hctz 37.5-25Mg [Maxzide 37.5-25] 1 tab PO DAILY Discontinued Losartan [Cozaar] 50 mg PO BID Metoprolol Succinate (ER) [Toprol Xl] 25 mg PO DAILY Discharge Medication List Allopurinol [Zyloprim] 100 mg PO DAILY 11/04/13 [History] Aspirin 81 mg PO MOWEFR 11/04/13 [History] Folic Acid 1 mg PO DAILY 11/04/13 [History] Omeprazole [PriLOSEC] 20 mg PO DAILY 11/04/13 [History] Pravastatin Sodium [Pravachol] 40 mg PO HS 11/04/13 [History] Terazosin [Hytrin] 2 mg PO HS 11/04/13 [History] Warfarin [Coumadin] 5 mg PO Q48H 03/31/17 [History] Budesonide [Pulmicort] 0.5 mg INHALATION RT-DAILY 05/13/17 [History] Diltiazem HCl [Diltiazem 24Hr ER] 120 mg PO DAILY 05/13/17 [History] Ergocalciferol (Vitamin D2) [Vitamin D2] 50,000 unit PO WE 05/13/17 [History] Ferrous Sulfate [Iron (65 MG Elemental)] 325 mg PO BID 05/13/17 [History] Montelukast [Singulair] 10 mg PO HS 05/13/17 [History] Warfarin [Coumadin] 2.5 mg PO Q48H 05/13/17 [History] hydrALAZINE HCL [Apresoline] 50 mg PO TID@0700,1400,2100 05/13/17 [History] predniSONE 10 mg PO DAILY 05/13/17 [History] Ipratropium-Albuterol Nebulize [Duoneb 0.5 mg-3 mg/3 ml Soln] 3 ml INHALATION RT -QID PRN 05/28/17 [History] Triamterene-Hctz 37.5-25Mg [Maxzide 37.5-25] 1 tab PO DAILY 05/28/17 [History] Losartan [Cozaar] 25 mg PO DAILY tab 06/03/17 [Rx] Metoprolol Tartrate [Lopressor] 50 mg PO BID tab 06/03/17 [Rx] Follow up Appointment(s)/Referral(s): Barrett Millard MD [STAFF PHYSICIAN] - 1 Week Rudolph Ceja MD [Primary Care Provider] - 1 Week Activity/Diet/Wound Care/Special Instructions: Oncologist in next few days. Discharge Disposition: TRANSFER TO SNF/ECF
[2017-06-03] MEDS ORDERED: WARFARIN 5 MG TAB PO ONE (18:00)
== END 2017-06-03 15:48 | DRG 308 ==
LOC: EC 07:57 → 6SEL 09:35
PROVIDERS: ADMIT Family Medicine; ATTEND Family Medicine
PROC: 5A09357 Assistance with Respiratory Ventilation, Less than 24 Consecutive Hours, Continuous Positive Airway Pressure (ICD-10-PCS; 2017-05-28)
PROC: 30230N1 Transfusion of Nonautologous Red Blood Cells into Peripheral Vein, Open Approach (ICD-10-PCS; principal; 2017-05-29)
DX: I48.0 Paroxysmal atrial fibrillation (principal); J96.21 Acute and chronic respiratory failure with hypoxia; E44.0 Moderate protein-calorie malnutrition; G61.0 Guillain-Barre syndrome; C91.10 Chronic lymphocytic leukemia of B-cell type not having achieved remission; D59.1 Other autoimmune hemolytic anemias; I13.0 Hypertensive heart and chronic kidney disease with heart failure and stage 1 through stage 4 chronic kidney disease, or unspecified chronic kidney disease; I25.110 Atherosclerotic heart disease of native coronary artery with unstable angina pectoris; I24.8 Other forms of acute ischemic heart disease; D89.9 Disorder involving the immune mechanism, unspecified; E11.22 Type 2 diabetes mellitus with diabetic chronic kidney disease; I48.2 Chronic atrial fibrillation; D63.1 Anemia in chronic kidney disease; E11.51 Type 2 diabetes mellitus with diabetic peripheral angiopathy without gangrene; E66.9 Obesity, unspecified; E78.5 Hyperlipidemia, unspecified; E83.42 Hypomagnesemia; E87.6 Hypokalemia; G47.33 Obstructive sleep apnea (adult) (pediatric); I25.2 Old myocardial infarction; I25.5 Ischemic cardiomyopathy; I45.10 Unspecified right bundle-branch block; I50.9 Heart failure, unspecified; J44.9 Chronic obstructive pulmonary disease, unspecified; J84.112 Idiopathic pulmonary fibrosis; N18.3 Chronic kidney disease, stage 3 (moderate); N40.0 Benign prostatic hyperplasia without lower urinary tract symptoms; T46.2X5A Adverse effect of other antidysrhythmic drugs, initial encounter; M10.9 Gout, unspecified; R74.8 Abnormal levels of other serum enzymes; Z68.30 Body mass index [BMI] 30.0-30.9, adult; Z79.01 Long term (current) use of anticoagulants; Z79.52 Long term (current) use of systemic steroids; Z79.82 Long term (current) use of aspirin; Z79.899 Other long term (current) drug therapy; Z88.5 Allergy status to narcotic agent; Z96.652 Presence of left artificial knee joint; Z99.81 Dependence on supplemental oxygen; Z87.891 Personal history of nicotine dependence; Z96.1 Presence of intraocular lens; Z86.718 Personal history of other venous thrombosis and embolism; Z82.49 Family history of ischemic heart disease and other diseases of the circulatory system
CPT/HCPCS: 36415; 71046; 80048; 80053; 80061; 82248; 82272; 82550; 82553; 82607; 82728; 83010; 83540; 83550; 83615; 83690; 83735; 83880; 84439; 84443; 84450; 84460; 84484; 85025; 85027; 85045; 85610; 85730; 86850; 86900; 86901; 86920; 93005; 94640; 94760; 96361; 96365; 96366; 96375; 96376; 99291

== ENCOUNTER 2017-07-30 06:06 | Day surgery (SDC) | payer MEDICARE, BC ==
[2017-07-28 08:26] VITALS: BMI 28.5
[2017-07-30 06:30] VITALS: TEMP 97.8
[2017-07-30] MEDS ORDERED: SODIUM CHLORIDE 0.9% 500 ML IV ONE (06:35)
[2017-07-30 06:42] LABS: Anisocytosis Slight; Basophils % (A) 0 %; Eosinophils # (A) 0.1 k/uL (0-0.7); Eosinophils % (A) 1 %; HCT 31.1 % (39.0-53.0); Hypochromasia Slight; Lymphocytes # (A) 0.8 k/uL (1.0-4.8); Lymphocytes % (A) 11 %; MCH 28.2 pg (25.0-35.0); MCHC 30.4 g/dL (31.0-37.0); MCV 92.6 fL (80.0-100.0); Mean Platelet Volume 9.3; Monocytes # (A) 0.5 k/uL (0-1.0); Monocytes % (A) 6 %; Neutrophils # (A) 6.1 k/uL (1.3-7.7); Neutrophils % (A) 81 %; Platelet Count 124 k/uL (150-450); RBC 3.36 m/uL (4.30-5.90); RDW 17.1 % (11.5-15.5); WBC 7.6 k/uL (3.8-10.6)
[2017-07-30 06:48] LABS: HGB 9.5 gm/dL (13.0-17.5)
[2017-07-30 06:57] LABS: Prothrombin Time 27.3 sec (9.0-12.0)
[2017-07-30 06:59] LABS: Calcium 8.7 mg/dL (8.4-10.2); Potassium 4.5 mmol/L (3.5-5.1)
[2017-07-30] MEDS ORDERED: LIDOCAINE 2% INJ 20 MG/ML (20 ML MDV) ONE (07:29)
[2017-07-30] MEDS ORDERED: MIDAZOLAM 2 MG/2 ML VIAL ONE (07:35)
[2017-07-30] MEDS ORDERED: MIDAZOLAM 2 MG/2 ML VIAL IV ONE (07:37)
[2017-07-30] MEDS ORDERED: LIDOCAINE 2% INJ 20 MG/ML SQ ONE (07:38)
[2017-07-30 08:10] LABS: O2 Sat Blood Gas 56.3 %
[2017-07-30 08:14] LABS: O2 Sat Blood Gas 76.7 %
[2017-07-30 08:26] LABS: O2 Sat Blood Gas 90.7 %
[2017-07-30 08:28] LABS: O2 Sat Blood Gas 66.4 %
[2017-07-30 08:30] LABS: O2 Sat Blood Gas 60.9 %
--- NOTE | 2017-07-30 08:31 | P.PCN ---
Preoperative Diagnosis: Patient underwent EP procedure under conscious sedation/moderate sedation, monitoring of the level of consciousness and physiologic parameters including but not limited to vital signs and oxygenation. Patient tolerated the procedure well without any acute complications. Right heart cath performed under moderate sedation Start time: 736 Stop time: 816
--- NOTE | 2017-07-30 08:45 | P.PCN ---
Preoperative Diagnosis: Right heart cath performed for evaluation of pulmonary hypertension 8-[place] venous sheath in the right femoral vein Femoral artery access for sampling [place]-Antonino catheter placed in the right heart Pulmonary artery pressures = 39/5/16 Oxygen saturation 76.7 Pulmonary capillary wedge pressure= 7/0/2 Oxygen saturation 56.3% Right ventricular = 45/6/70 Oxygen saturation 57.0 Right atrial= 10/10/6 Oxygen saturation 63.0% SVC= 8/9/6 Oxygen saturation 60.9 IVC Oxygen saturation 66.4% Femoral artery Oxygen saturation 90.7 Cardiac output Average 8.87 L/min, thermodilution, Cardiac index = 4.16, thermodilution Cardiac output by Tex method Cardiac output 5.48 L/m Cardiac index = 2.57 Average hemoglobin 8.8 g/dl Impression Normal wedge pressures Mild to moderate elevation in pulmonary artery pressures Near normal cardiac outputs Increase peripheral extraction Disposition: same day
[2017-07-30 09:07] VITALS: RESP 18
[2017-07-30 11:46] VITALS: BP 172/74; PULSE 56
== END 2017-07-30 13:45 | disposition home or self-care (01) ==
LOC: CATHEP 06:06
PROVIDERS: ATTEND Internal Medicine Clinical Cardiac Electrophysiology
DX: I27.20 Pulmonary hypertension, unspecified (principal); J84.10 Pulmonary fibrosis, unspecified; J44.9 Chronic obstructive pulmonary disease, unspecified; I25.10 Atherosclerotic heart disease of native coronary artery without angina pectoris; I10 Essential (primary) hypertension; E78.5 Hyperlipidemia, unspecified; I73.9 Peripheral vascular disease, unspecified; I51.7 Cardiomegaly; C91.10 Chronic lymphocytic leukemia of B-cell type not having achieved remission; D59.1 Other autoimmune hemolytic anemias; G47.33 Obstructive sleep apnea (adult) (pediatric); M10.9 Gout, unspecified; G61.0 Guillain-Barre syndrome; I48.0 Paroxysmal atrial fibrillation; I25.2 Old myocardial infarction; Z82.49 Family history of ischemic heart disease and other diseases of the circulatory system; Z99.89 Dependence on other enabling machines and devices; Z79.01 Long term (current) use of anticoagulants; Z79.82 Long term (current) use of aspirin; Z79.52 Long term (current) use of systemic steroids; Z79.899 Other long term (current) drug therapy; Z88.5 Allergy status to narcotic agent; Z87.891 Personal history of nicotine dependence
CPT/HCPCS: 93451; 80048; 85018; 82810; 85025; 85610; C1769 ×3; C1894; J2001; J2250

== ENCOUNTER 2017-08-04 09:07 | Inpatient (IN) | payer MEDICARE, BC ==
[2017-08-04] MEDS ORDERED: SODIUM CHLORIDE 0.9% 1,000 ML IV STA (09:28)
--- NOTE | 2017-08-04 09:33 | ED ---
Arrhythmia/Palpitations HPI - General Chief Complaint: Arrhythmia/Palpitations Stated Complaint: Cardiac Issues Time Seen by Provider: 08/04/17 09:22 Source: patient, EMS Mode of arrival: EMS Limitations: no limitations - History of Present Illness Initial Comments: April 89 years old male was in the hospital last week had a cardiac cath done , presents with the tachyarrhythmia with a heart rate of 160-170 and also had a chest pain which started about 7:15 this morning when we were trying to establish the IV in the ER he converted back to sinus rhythm heart rate dropped to 79 he said his chest pain has resolved but he still quite short winded and he does feel some discomfort when he takes a deep breath no abdominal pain no frequency urgency dysuria no symptoms of TIA or CVA at this point - Related Data Home Medications Medication Instructions Recorded Confirmed Allopurinol [Zyloprim] 100 mg PO DAILY 11/04/13 08/04/17 Aspirin 81 mg PO MOWEFR 11/04/13 08/04/17 Folic Acid 1 mg PO DAILY 11/04/13 08/04/17 Omeprazole [PriLOSEC] 20 mg PO DAILY 11/04/13 08/04/17 Pravastatin Sodium [Pravachol] 40 mg PO HS 11/04/13 08/04/17 Terazosin [Hytrin] 2 mg PO HS 11/04/13 08/04/17 Warfarin [Coumadin] 5 mg PO DAILY 03/31/17 08/04/17 Budesonide [Pulmicort] 0.5 mg INHALATION RT-DAILY 05/13/17 08/04/17 Diltiazem HCl [Diltiazem 24Hr ER] 120 mg PO DAILY 05/13/17 08/04/17 Ergocalciferol (Vitamin D2) 50,000 unit PO WE 05/13/17 08/04/17 [Vitamin D2] Ferrous Sulfate [Iron (65 MG 325 mg PO BID 05/13/17 08/04/17 Elemental)] Montelukast [Singulair] 10 mg PO HS 05/13/17 08/04/17 hydrALAZINE HCL [Apresoline] 50 mg PO TID@0700,1400,2100 05/13/17 08/04/17 predniSONE 10 mg PO DAILY 05/13/17 08/04/17 Triamterene-Hctz 37.5-25Mg 1 tab PO DAILY 05/28/17 08/04/17 [Maxzide 37.5-25] Albuterol Nebulized [Ventolin 2.5 mg INHALATION RT-TID PRN 08/04/17 08/04/17 Nebulized] Previous Rx's Medication Instructions Recorded Losartan [Cozaar] 25 mg PO DAILY tab 06/03/17 Metoprolol Tartrate [Lopressor] 50 mg PO BID tab 06/03/17 Allergies Allergy/AdvReac Type Severity Reaction Status Date / Time codeine Allergy Mild Confusion Verified 08/04/17 09:31 amiodarone Allergy Unknown Verified 08/04/17 09:31 Review of Systems ROS Statement: Those systems with pertinent positive or pertinent negative responses have been documented in the HPI. ROS Other: All systems not noted in ROS Statement are negative. Past Medical History Past Medical History: Atrial Fibrillation, Blood Disorder, Cancer, COPD, Diabetes Mellitus, Hyperlipidemia, Myocardial Infarction ([place]), Pneumonia, Prostate Disorder, Sleep Apnea/CPAP/BIPAP Additional Past Medical History / Comment(s): CLL diagnosed in 2007, [place] x 3, autoimmune hemolytic anemia, rare antibiodies in his blood, AFib with RVR, NIDDM no longer on medications, occ. 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 Past Anesthesia/Blood Transfusion Reactions: No Reported Reaction Additional Past Anesthesia/Blood Transfusion Reaction / Comment(s): pt states "has rare antibodies to blood has trouble finding matches" Past Psychological History: Anxiety Smoking Status: Former smoker - Past Family History Brother(s) Family Medical History: Cancer Additional Family Medical History / Comment(s): kidney Mother Family Medical History: Myocardial Infarction (OR) Additional Family Medical History / Comment(s): Mother of a OR at the age of 85yrs. Father Family Medical History: No Reported History Additional Family Medical History / Comment(s): Father was healthy and lived to be 93 yrs old. Son(s) Family Medical History: Cancer General Exam - General Exam Comments Initial Comments: General: The patient is awake and alert, in no distress, and does not appear acutely ill. Skin: Skin is warm and dry and no rashes or lesions are noted. Eye: Pupils are equal, round and reactive to light, extra-ocular movements are intact; there is normal conjunctiva bilaterally. Ears, nose, mouth and throat: There are moist mucous membranes and no oral lesions. Neck: The neck is supple, there is no tenderness or JVD. Cardiovascular: There is a regular rate and rhythm. No murmur, rub or gallop is appreciated. Respiratory: To auscultation bilateral, no wheezing no rhonchi no distress respiratory heath noticed Gastrointestinal: Soft, non-distended, non-tender abdomen without masses or organomegaly noted. There is no rebound or guarding present. Bowel sounds are unremarkable. Back: There is no tenderness to palpation in the midline. There is no obvious deformity. Musculoskeletal: Normal ROM, no tenderness, There is no pedal edema. There is no calf tenderness or swelling. No cords were appreciated. Neurological: CN II-XII intact, Cranial nerves III through XII are intact. There are no obvious motor or sensory deficits. Coordination appears grossly intact. Speech is normal. Psychiatric: Cooperative, appropriate mood & affect, normal judgment. Limitations: no limitations Course Vital Signs 08/04/17 08/04/17 08/04/17 09:16 11:26 13:07 Temperature 98.5 F Pulse Rate 95 57 L 52 L Pulse Rate [ Chief Gauger ] Respiratory 20 16 18 Rate Blood Pressure 155/66 133/57 151/68 O2 Sat by Pulse 100 99 98 Oximetry 08/04/17 13:09 Temperature Pulse Rate Pulse Rate [ 53 L Chief Gauger ] Respiratory Rate Blood Pressure O2 Sat by Pulse Oximetry EKG Findings - EKG Comments: EKG Findings:: Him EKG is sinus rhythm ventricular rate is 79 SD interval is 204 QRS duration is 146 QT/QTc is 4/472 and we have this EKG does not reveal any ST elevation or ST depression noticed IN waves and now V4 V5 and V6 Medical Decision Making - Lab Data Result diagrams: 08/04/17 09:46 08/04/17 09:46 Lab Results 08/04/17 08/04/1718 Range/Units 09:46 09:46 09:46 WBC 5.5 (3.8-10.6) k/uL RBC 3.08 L (4.30-5.90) m/uL Hgb 9.0 L (13.0-17.5) gm/dL Hct 29.3 L (39.0-53.0) % MCV 95.0 (80.0-100.0) fL MCH 29.2 (25.0-35.0) pg MCHC 30.8 L (31.0-37.0) g/dL RDW 16.9 H (11.5-15.5) % Plt Count 108 L (150-450) k/uL Neutrophils % 82 % Lymphocytes % 10 % Monocytes % 6 % Eosinophils % 1 % Basophils % 0 % Neutrophils # 4.5 (1.3-7.7) k/uL Lymphocytes # 0.6 L (1.0-4.8) k/uL Monocytes # 0.3 (0-1.0) k/uL Eosinophils # 0.0 (0-0.7) k/uL Basophils # 0.0 (0-0.2) k/uL Hypochromasia Marked Anisocytosis Slight PT (9.0-12.0) sec INR (<1.2) APTT (22.0-30.0) sec D-Dimer (<0.60) mg/L FEU Sodium 148 H (137-145) mmol/L Potassium 4.4 (3.5-5.1) mmol/L Chloride 108 H (98-107) mmol/L Carbon Dioxide 30 (22-30) mmol/L Anion Gap 10 mmol/L BUN 45 H (9-20) mg/dL Creatinine 1.60 H (0.66-1.25) mg/dL Est GFR (CKD-EPI)AfAm 45 (>60 ml/min/1.73 sqM) Est GFR (CKD-EPI)NonAf 39 (>60 ml/min/1.73 sqM) Glucose 116 H (74-99) mg/dL Calcium 8.5 (8.4-10.2) mg/dL Magnesium 1.4 L (1.6-2.3) mg/dL Total Bilirubin 0.2 (0.2-1.3) mg/dL AST 12 L (17-59) U/L ALT 23 (21-72) U/L Alkaline Phosphatase 40 (38-126) U/L Total Creatine Kinase 22 L (55-170) U/L CK-MB (CK-2) 1.2 (0.0-2.4) ng/mL CK-MB (CK-2) Rel Index 5.5 Troponin I 0.028 (0.000-0.034) ng/mL Total Protein 4.7 L (6.3-8.2) g/dL Albumin 2.8 L (3.5-5.0) g/dL TSH 2.630 (0.465-4.680) mIU/L 08/04/17 Range/Units 09:46 WBC (3.8-10.6) k/uL RBC (4.30-5.90) m/uL Hgb (13.0-17.5) gm/dL Hct (39.0-53.0) % MCV (80.0-100.0) fL MCH (25.0-35.0) pg MCHC (31.0-37.0) g/dL RDW (11.5-15.5) % Plt Count (150-450) k/uL Neutrophils % % Lymphocytes % % Monocytes % % Eosinophils % % Basophils % % Neutrophils # (1.3-7.7) k/uL Lymphocytes # (1.0-4.8) k/uL Monocytes # (0-1.0) k/uL Eosinophils # (0-0.7) k/uL Basophils # (0-0.2) k/uL Hypochromasia Anisocytosis PT 19.9 H (9.0-12.0) sec INR 2.2 H (<1.2) APTT 29.8 (22.0-30.0) sec D-Dimer 0.31 (<0.60) mg/L FEU Sodium (137-145) mmol/L Potassium (3.5-5.1) mmol/L Chloride (98-107) mmol/L Carbon Dioxide (22-30) mmol/L Anion Gap mmol/L BUN (9-20) mg/dL Creatinine (0.66-1.25) mg/dL Est GFR (CKD-EPI)AfAm (>60 ml/min/1.73 sqM) Est GFR (CKD-EPI)NonAf (>60 ml/min/1.73 sqM) Glucose (74-99) mg/dL Calcium (8.4-10.2) mg/dL Magnesium (1.6-2.3) mg/dL Total Bilirubin (0.2-1.3) mg/dL AST (17-59) U/L ALT (21-72) U/L Alkaline Phosphatase (38-126) U/L Total Creatine Kinase (55-170) U/L CK-MB (CK-2) (0.0-2.4) ng/mL CK-MB (CK-2) Rel Index Troponin I (0.000-0.034) ng/mL Total Protein (6.3-8.2) g/dL Albumin (3.5-5.0) g/dL TSH (0.465-4.680) mIU/L Critical Care Time Total Critical Care Time: 30 Critical Care Time: She came in with a superventricular tachycardia heart rate was very high was 1.180 but he has setting up an IV then it converted him then it heart rate dropped down to 80 and gradually it dropped down to mid 50s CBC was unremarkable and d-dimer is unremarkable INR is 2.2 creatinine is 1.6 TSH is normal troponin is normal chest x-ray showed COPD and now mild cardiomegaly and concerned about his heart rate to go from 180s beats per minute 211/50, he is on now to medications in a metoprolol and is in a Cardizem and he had a cardiac cath not too long ago considering this a great deal of heart rate varying from so fast to sotalol 1) the hospital consult cardiology to make sure he is not a candidate for any pacemaker at this point he be admitted to Dr. Maxwell service cardiology be consulted and we need to keep an eye on his creatinine which is 1.6 Disposition Clinical Impression: Tachyarrhythmia, Bradycardia, Renal insufficiency Disposition: ADMITTED IP TO THIS HOSP Condition: Good Referrals: Rudolph Ceja MD [Primary Care Provider] - 1-2 days
[2017-08-04 10:06] LABS: Anisocytosis Slight; Basophils % (A) 0 %; Eosinophils % (A) 1 %; HCT 29.3 % (39.0-53.0); Hypochromasia Marked; Lymphocytes # (A) 0.6 k/uL (1.0-4.8); Lymphocytes % (A) 10 %; MCH 29.2 pg (25.0-35.0); MCHC 30.8 g/dL (31.0-37.0); Mean Platelet Volume 8.7; Monocytes # (A) 0.3 k/uL (0-1.0); Monocytes % (A) 6 %; Neutrophils # (A) 4.5 k/uL (1.3-7.7); Neutrophils % (A) 82 %; Platelet Count 108 k/uL (150-450); RBC 3.08 m/uL (4.30-5.90); RDW 16.9 % (11.5-15.5); WBC 5.5 k/uL (3.8-10.6)
[2017-08-04 10:16] LABS: D-Dimer 0.31 mg/L FEU (<0.60); INR 2.2 (<1.2); Partial Thromboplastin Time 29.8 sec (22.0-30.0); Prothrombin Time 19.9 sec (9.0-12.0)
[2017-08-04 10:18] LABS: Albumin 2.8 g/dL (3.5-5.0); Calcium 8.5 mg/dL (8.4-10.2); Magnesium 1.4 mg/dL (1.6-2.3); Potassium 4.4 mmol/L (3.5-5.1); Total Bilirubin 0.2 mg/dL (0.2-1.3); Total Protein 4.7 g/dL (6.3-8.2)
--- NOTE | 2017-08-04 10:37 | XR ---
EXAMINATION TYPE: XR chest 2V DATE OF EXAM: 08/04/2017 COMPARISON: 06/01/2017 INDICATION: A. Fib, dysrhythmias TECHNIQUE: Frontal and lateral views of the chest are obtained. FINDINGS: The heart size is upper limits of normal. Electronic device overlies the epigastric region. The pulmonary vasculature is normal. The lungs are clear. There is hyperinflation and flattening the diaphragms. Correlate for COPD. IMPRESSION: 1. Borderline cardiomegaly. 2. COPD
[2017-08-04 10:46] LABS: Creatine Kinase MB 1.2 ng/mL (0.0-2.4); Troponin I 0.028 ng/mL (0.000-0.034)
[2017-08-04] MEDS ORDERED: NITROGLYCERIN SL TABS 0.4 MG TAB SUBLINGUAL PRN (13:34)
--- NOTE | 2017-08-04 16:05 | P.HPIM ---
History of Present Illness H&P Date: 08/04/17 Chief Complaint: chest pain with palpitation This is an 87 year old male patient of Dr BEBA millard, patient has underlying history of CLL diagnosed in 2008, follows with Dr. Hilton at [facility] oncology COPD with O2 dependencea sneeded, wears CPAP at night, Atrial fibrillation on Coumadin anticoagulation, PAD, CAD and recurrent anemia requring specialized blood for transfusion. Patient had multiple admissions prior to this fall intermittent SVT and atrial fibrillation with RVR. He was also on amiodarone for atrial fibrillation which was taken off due to concern for amiodarone related lung disease. Patient has been short of breath off and on for several years worse with exertion and stop H was recently admitted from our facility as well as the other facility 2 weeks prior to admission secondary to atrial fibrillation and intermittent SVT, he was taken off amiodarone secondary amiodarone-induced lung disease, . Patient has had shortness of breath off and on for several years, worse with exertion Patient comes to the ER due to increased shortness of breath associated with chest pain and increased palpitation. He was just discharged on 06/03 after treatment for unstable angina, paroxysmal A. fib with RVR, anemia of chronic disease with severe anemia requiring blood transfusions. Hemoccult was checked the last admission which was negative. Gastroenterology was consulted as patient was on Coumadin, no plan for endoscopy or colonoscopy patient's anemia is likely related to CLL, chronic kidney disease and being on anticoagulation. He does have history of hemolytic anemia and is on 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 10 mg daily. In the ER patient heart rate went up to 160-170 on admission with converted back to sinus bradycardia with sinus arrhythmia with a heart rate ranging from 50- 60. Patient was recently initiated on Cardizem drip before converting to sinus rhythm. Blood pressure 155/66 currently requiring 2 L of oxygen. Chest x-ray suggests of COPD and borderline cardiomyopathy. Labs suggest a sodium of 148, chloride 108, creatinine 1.6 which is patient's baseline, INR 2.20 therapeutic, troponin is normal 0.0-8. We'll repeat a set of troponin, BNP, cardiology consult for possible sick sinus syndrome. Recent echo in generally suggest EF 50 to55 %. Patient is sent right heart cardiac cath was suggest mild to moderate pulmonary hypertension. 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 neck pain, Denies dental pain, Denies epistaxis, Denies headache, Denies hoarseness, Denies odynophagia, Denies post- nasal drip Cardiovascular: Reports chest pain, Reports decreased exercise tolerance, Reports dyspnea on exertion, Reports irregular heart beat, Reports palpitations , Reports rapid heart beat, Reports shortness of breath, Denies edema, Denies high blood pressure, Denies lightheadedness, Denies orthopnea, Denies syncope Respiratory: Reports home oxygen, Denies congestion, Denies cough with sputum, Denies excessive sputum, Denies wheezing Gastrointestinal: Denies belching, Denies bloating, Denies BRBPR, Denies change in bowel habits, Denies excessive gas, Denies heartburn, Denies loss of appetite , Denies nausea, Denies vomiting Genitourinary: Denies urinary frequency, Denies urinary hesitancy Musculoskeletal: Reports low back pain, Denies arm numbness/tingling, Denies leg numbness/tingling, Denies limitation of motion, Denies neck stiffness Musculoskeletal: absent: foot stiffness, knee swelling Integumentary: Denies brittle nails, Denies change in hair/nails, Denies lesions , Denies rash, Denies striae Neurological: Denies aphasia, Denies change in mentation, Denies change in smell /taste, Denies headaches, Denies motor disturbance, Denies sensory deficit, Denies transient paralysis Endocrine: Denies cold intolerance, Denies deepening of the voice, Denies high blood sugars, Denies palpitations Allergic/Immunologic: Denies allergic rhinitis Past Medical History Past Medical History: Atrial Fibrillation, Blood Disorder, Cancer, COPD, Diabetes Mellitus, Hyperlipidemia, Myocardial Infarction ([place]), Pneumonia, Prostate Disorder, Sleep Apnea/CPAP/BIPAP Additional Past Medical History / Comment(s): CLL diagnosed in 2007, [place] x 3, autoimmune hemolytic anemia, rare antibiodies in his blood, AFib with RVR, NIDDM no longer on medications, occ. O2 2L/NC PRN, Guillan-[place] syndrome-no residual, autoimmune hemolytic anemia, gout , "too much blood going to his lungs from bad valve"- gets SOB, hx ulcers, Last Myocardial Infarction Date:: 2013 History of Any Multi-Drug Resistant Organisms: None Reported Past Surgical History: Heart Catheterization, Joint Replacement, Prostate Surgery, Tonsillectomy Additional Past Surgical History / Comment(s): heavenly carotid endarterectomy, total lt knee replacement, prostate biopsy, bilateral cataract removals with lens implants, colonoscopies. Past Anesthesia/Blood Transfusion Reactions: No Reported Reaction Additional Past Anesthesia/Blood Transfusion Reaction / Comment(s): pt states "has rare antibodies to blood has trouble finding matches" Past Psychological History: Anxiety Smoking Status: Former smoker - Past Family History Brother(s) Family Medical History: Cancer Additional Family Medical History / Comment(s): kidney Mother Family Medical History: Myocardial Infarction ([place]) Additional Family Medical History / Comment(s): Mother of a CA at the age of 85yrs. Father Family Medical History: No Reported History Additional Family Medical History / Comment(s): Father was healthy and lived to be 93 yrs old. Son(s) Family Medical History: Cancer Medications and Allergies Home Medications Medication Instructions Recorded Confirmed Type Allopurinol [Zyloprim] 100 mg PO DAILY 11/04/13 08/04/17 History Aspirin 81 mg PO MOWEFR 11/04/13 08/04/17 History Folic Acid 1 mg PO DAILY 11/04/13 08/04/17 History Omeprazole [PriLOSEC] 20 mg PO DAILY 11/04/13 08/04/17 History Pravastatin Sodium [Pravachol] 40 mg PO HS 11/04/13 08/04/17 History Terazosin [Hytrin] 2 mg PO HS 11/04/13 08/04/17 History Warfarin [Coumadin] 5 mg PO DAILY 03/31/17 08/04/17 History Budesonide [Pulmicort] 0.5 mg INHALATION RT-DAILY 05/13/17 08/04/17 History Diltiazem HCl [Diltiazem 24Hr ER] 120 mg PO DAILY 05/13/17 08/04/17 History Ergocalciferol (Vitamin D2) 50,000 unit PO WE 05/13/17 08/04/17 History [Vitamin D2] Ferrous Sulfate [Iron (65 MG 325 mg PO BID 05/13/17 08/04/17 History Elemental)] Montelukast [Singulair] 10 mg PO HS 05/13/17 08/04/17 History hydrALAZINE HCL [Apresoline] 50 mg PO TID@0700,1400,2100 05/13/17 08/04/17 History predniSONE 10 mg PO DAILY 05/13/17 08/04/17 History Triamterene-Hctz 37.5-25Mg 1 tab PO DAILY 05/28/17 08/04/17 History [Maxzide 37.5-25] Losartan [Cozaar] 25 mg PO DAILY tab 06/03/17 08/04/17 Rx Metoprolol Tartrate [Lopressor] 50 mg PO BID tab 06/03/17 08/04/17 Rx Albuterol Nebulized [Ventolin 2.5 mg INHALATION RT-TID PRN 08/04/17 08/04/17 History Nebulized] Allergies Allergy/AdvReac Type Severity Reaction Status Date / Time codeine Allergy Mild Confusion Verified 08/04/17 09:31 amiodarone Allergy Unknown Verified 08/04/17 09:31 Physical Exam Vitals: Vital Signs Temp Pulse Pulse Resp BP Pulse Ox 08/04/17 13:09 53 L 08/04/17 13:07 98.5 F 52 L 18 151/68 98 08/04/17 11:26 57 L 16 133/57 99 08/04/17 09:16 95 20 155/66 100 Intake and Output 08/04/17 08/04/17 08/04/17 06:59 14:59 22:59 Other: Weight 96.615 kg - Constitutional General appearance: average body habitus, mild distress - EENT Eyes: no abnormal pupil, anicteric sclerae, no disc margins sharp, EOMI, PERRLA , no ptosis ENT: hearing grossly normal Ears: bilateral: normal - Neck Neck: no lymphadenopathy, normal ROM, no rigidity Carotids: bilateral: upstroke normal Thyroid: bilateral: normal size - Respiratory Respiratory: right: rhonchi, bilateral: diminished, dullness, negative: wheezing , prolonged expiration, prolonged inspiration - Cardiovascular Rhythm: regular Heart sounds: normal: S1, S2 Abnormal Heart Sounds: systolic murmur, no rub, no click diastolic murmur Grade: III/ ankle Peripheral Edema: bilateral: None - Gastrointestinal General gastrointestinal: no distended, normal bowel sounds, soft, no tenderness - Integumentary Integumentary: no calor, no cyanotic, no jaundiced, no rash - Neurologic Neurologic: CNII-XII intact - Musculoskeletal Musculoskeletal: gait normal, generalized weakness - Psychiatric Psychiatric: A&O x's 3, appropriate affect, intact judgment & insight Results CBC & Chem 7: 08/04/17 09:46 08/04/17 09:46 Labs: Abnormal Lab Results - Last 24 Hours (Table) 08/04/17 08/04/17 08/04/17 Range/Units 09:46 09:46 09:46 RBC 3.08 L (4.30-5.90) m/uL Hgb 9.0 L (13.0-17.5) gm/dL Hct 29.3 L (39.0-53.0) % MCHC 30.8 L (31.0-37.0) g/dL RDW 16.9 H (11.5-15.5) % Plt Count 108 L (150-450) k/uL Lymphocytes # 0.6 L (1.0-4.8) k/uL PT (9.0-12.0) sec INR (<1.2) Sodium 148 H (137-145) mmol/L Chloride 108 H (98-107) mmol/L BUN 45 H (9-20) mg/dL Creatinine 1.60 H (0.66-1.25) mg/dL Glucose 116 H (74-99) mg/dL Magnesium 1.4 L (1.6-2.3) mg/dL AST 12 L (17-59) U/L Total Creatine Kinase 22 L (55-170) U/L Total Protein 4.7 L (6.3-8.2) g/dL Albumin 2.8 L (3.5-5.0) g/dL 08/04/17 Range/Units 09:46 RBC (4.30-5.90) m/uL Hgb (13.0-17.5) gm/dL Hct (39.0-53.0) % MCHC (31.0-37.0) g/dL RDW (11.5-15.5) % Plt Count (150-450) k/uL Lymphocytes # (1.0-4.8) k/uL PT 19.9 H (9.0-12.0) sec INR 2.2 H (<1.2) Sodium (137-145) mmol/L Chloride (98-107) mmol/L BUN (9-20) mg/dL Creatinine (0.66-1.25) mg/dL Glucose (74-99) mg/dL Magnesium (1.6-2.3) mg/dL AST (17-59) U/L Total Creatine Kinase (55-170) U/L Total Protein (6.3-8.2) g/dL Albumin (3.5-5.0) g/dL Thrombosis Risk Factor Assmnt - DVT/VTE Prophylaxis DVT/VTE Prophylaxis: Pharmacologic Prophylaxis ordered Assessment and Plan Plan: 1 chest pain likely secondary to tachyarrhythmia ( no EKG that documents the type of rhythm patient came in ) that appears like a CT. Patient does have under branch block with intermittent sinus bradycardia concerning for sick sinus syndrome. Cardiology consult. Troponin 2. BNP ordered. Recent echo from generally suggest EF 50-55% we will hold on repeating echocardiogram until seen by cardiology. We will increase metoprolol to 75 mg twice a day with Cardizem. EKG ordered for tomorrow morning 2 paroxysmal atrial fibrillation with rapid ventricular rate, intermittent, on anticoagulation with Coumadin, has been discontinued off the amiodarone secondary to amiodarone induced pulmonary disease, continue Cardizem 120 twice a day . Metoprolol increased to 75 mg twice a day 3. Anemia of chronic disease with severe anemia in past requiring recurrent blood transfusion. History of hemolytic anemia in the past currently hemoglobin is above patient's baseline. 4. Acute on Chronic hypoxic respiratory failure with COPD. currentLy on 2 L O2 , uses oxygen as needed at home. Continue DuoNeb as needed for shortness of breath. Patient does not appear to be in acute exacerbation but does have significant shortness of breath. Consult pulmonary Dr. Ceja 5. CLL history follows with oncologist at [facility] 8. Hypertension, continue Cardizem 120 twice a day, decrease losartan to 50mg daily, continue metoprolol 50mg bid 9. LOUIE on CPAP at night 10. CKD stage III, baseline creatinine 1.4-2.0. Avoid toxins and hypotension would be avoided 11. 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 BPH without lower urinary tract symtoms 14. Moderate protein calorie nutrition 15. 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 Continue prednisone 10 mg daily. Patient is followed by pulmonary medicine. Continue DuoNeb treatments, Pulmicort, Singulair 16. gi prophylaxis and dvt prophlaxis on pepcid 20 mg po BID and caumadin for atrial fib Code Status: full. Patient needs to be in the hospital for 1-2 inpatient midnight
[2017-08-04] MEDS ORDERED: ONDANSETRON 4 MG/2 ML VIAL IVP PRN (16:07)
[2017-08-04] MEDS ORDERED: ACETAMINOPHEN TAB 325 MG TAB PO PRN (16:07)
[2017-08-04] MEDS ORDERED: MORPHINE SULFATE 4 MG/ML SYRINGE IVP PRN (16:07)
[2017-08-04] MEDS: hydrALAZINE HCL 50 MG TAB PO SCH ×2 (16:23→20:32)
[2017-08-04 16:54] LABS: Creatine Kinase MB 1.6 ng/mL (0.0-2.4)
[2017-08-04 16:57] LABS: Troponin I 0.152 ng/mL (0.000-0.034)
[2017-08-04] MEDS: FERROUS SULFATE 325 MG TAB PO SCH (18:55)
[2017-08-04] MEDS: WARFARIN 5 MG TAB PO SCH (18:56)
[2017-08-04] MEDS: ALBUTEROL NEBULIZED 2.5 MG/3 ML INHALATION PRN (19:13)
[2017-08-04] MEDS: guaiFENesin 600 MG TABLET.ER PO SCH (20:32)
[2017-08-04] MEDS: METOPROLOL TARTRATE 50 MG TAB PO SCH (20:32)
[2017-08-04] MEDS: PRAVASTATIN SODIUM 40 MG TAB PO SCH (20:32)
[2017-08-04] MEDS: MONTELUKAST 10 MG TAB PO SCH (20:32)
[2017-08-04] MEDS: DOXAZOSIN 2 MG TAB PO SCH (20:32)
[2017-08-04] MEDS ORDERED: Magnesium Replacement Protocol 1 EACH MISC MISCELLANE PRN (21:01)
[2017-08-04] MEDS: MAGNESIUM SULFATE-D5W PMX 1 GM in DEXTROSE/WATER 1 100ML.BAG IVPB SCH ×2 (21:53→23:10)
[2017-08-04 22:21] LABS: Creatine Kinase MB 1.3 ng/mL (0.0-2.4); Troponin I 0.155 ng/mL (0.000-0.034)
[2017-08-05 06:09] LABS: Anisocytosis Slight; Basophils % (A) 0 %; Eosinophils # (A) 0.1 k/uL (0-0.7); Eosinophils % (A) 1 %; HGB 8.5 gm/dL (13.0-17.5); Hypochromasia Marked; Lymphocytes # (A) 0.9 k/uL (1.0-4.8); Lymphocytes % (A) 17 %; MCH 29.1 pg (25.0-35.0); MCHC 30.5 g/dL (31.0-37.0); MCV 95.6 fL (80.0-100.0); Monocytes # (A) 0.3 k/uL (0-1.0); Monocytes % (A) 6 %; Neutrophils # (A) 3.9 k/uL (1.3-7.7); Neutrophils % (A) 75 %; Platelet Count 101 k/uL (150-450); RBC 2.93 m/uL (4.30-5.90); RDW 16.5 % (11.5-15.5); WBC 5.2 k/uL (3.8-10.6)
[2017-08-05] MEDS: PANTOPRAZOLE 40 MG TABLET PO SCH (06:12)
[2017-08-05] MEDS: hydrALAZINE HCL 50 MG TAB PO SCH ×3 (06:12→23:22)
[2017-08-05 06:23] LABS: Albumin 2.8 g/dL (3.5-5.0); Calcium 8.7 mg/dL (8.4-10.2); Magnesium 1.9 mg/dL (1.6-2.3); Potassium 4.9 mmol/L (3.5-5.1); Total Bilirubin 0.3 mg/dL (0.2-1.3); Total Protein 4.7 g/dL (6.3-8.2)
[2017-08-05] MEDS: BUDESONIDE 0.5 MG/2 ML NEBU INHALATION SCH (07:06)
[2017-08-05] MEDS: ALBUTEROL NEBULIZED 2.5 MG/3 ML INHALATION PRN ×2 (07:06→13:25)
[2017-08-05] MEDS: LOSARTAN 25 MG TAB PO SCH (07:46)
[2017-08-05] MEDS: ALLOPURINOL 100 MG TAB PO SCH (07:46)
[2017-08-05] MEDS: METOPROLOL TARTRATE 50 MG TAB PO SCH ×2 (07:46→20:11)
[2017-08-05] MEDS: guaiFENesin 600 MG TABLET.ER PO SCH ×2 (07:46→21:58)
[2017-08-05] MEDS: predniSONE 10 MG TAB PO SCH (07:47)
[2017-08-05] MEDS ORDERED: DILTIAZEM CD 120 MG CAP.ER.24H PO SCH (09:00)
[2017-08-05] MEDS ORDERED: TRIAMTERENE-HCTZ 37.5-25MG 1 EACH TAB PO SCH (09:00)
[2017-08-05] MEDS ORDERED: ASPIRIN 325 MG TAB PO SCH (09:00)
[2017-08-05 09:11] LABS: INR 1.8 (<1.2); Prothrombin Time 16.4 sec (9.0-12.0)
--- NOTE | 2017-08-05 09:17 | P.CRDCN ---
History of Present Illness Consult date: 08/05/17 Requesting physician: Bogdan Taylor Consult reason: chest pain, atrial fibrillation Chief complaint: Chest tightness, shortness of breath, A. fib History of present illness: This is a pleasant 87-year-old gentleman who follows regularly with Dr. Simon in the office. He has a known history of CLL, paroxysmal atrial fibrillation, anemia, diabetes, hyperlipidemia, hypertension, COPD, sleep apnea , chronic renal failure. Patient also has history of amiodarone-induced lung disease for which amiodarone was been discontinued in the past. Patient most recently was in the hospital in June at which time he underwent a right heart catheterization for evaluation of pulmonary hypertension. Testing revealed normal wedge pressures, mild to moderate elevation in pulmonary artery pressures , nearly normal cardiac outputs. 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 because of his persistent shortness of breath. He presents to the hospital on this occasion with symptoms of chest tightness associated shortness of breath. According to the patient, even with very minimal exertion he becomes quite short of breath, he states however that the chest tightness occurs with or without exertion. EKG that was performed by EMS showed atrial fibrillation with a rapid ventricular response, initial EKG on arrival here showed a normal sinus rhythm with a right bundle branch block and left anterior fascicular block. Chest x-ray shows borderline cardiomegaly. Subsequent EKG performed shows a sinus bradycardia with a heart rate in the 50s. At pressure 138/60 with a heart rate in the 60s, temperature 97.9. White blood cell count 5.2, hemoglobin 8.5, platelet count 101. D-dimer 0.3. Magnesium level on admission 1.4, 1.9 this morning. INR 2.2. Troponins 0.028, 0.15, 0.15. TSH is normal. At the time of my examination this morning, patient is lying comfortably in bed, denies any shortness of breath, denies any chest discomfort. Past Medical History Past Medical History: Atrial Fibrillation, Blood Disorder, Cancer, COPD, Hyperlipidemia, Myocardial Infarction ([place]), Pneumonia, Prostate Disorder, Sleep Apnea/CPAP/BIPAP Additional Past Medical History / Comment(s): CLL diagnosed in 2007, [place] x 3, autoimmune hemolytic anemia, rare antibiodies in his blood, AFib with RVR, NIDDM no longer on medications, occ. 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 Last Myocardial Infarction Date:: 2013 History of Any Multi-Drug Resistant Organisms: None Reported Past Surgical History: Heart Catheterization, Joint Replacement, Prostate Surgery, Tonsillectomy Additional Past Surgical History / Comment(s): heavenly carotid endarterectomy, total lt knee replacement, prostate biopsy, bilateral cataract removals with lens implants, colonoscopies. Past Anesthesia/Blood Transfusion Reactions: No Reported Reaction Additional Past Anesthesia/Blood Transfusion Reaction / Comment(s): pt states "has rare antibodies to blood has trouble finding matches" Past Psychological History: Anxiety Additional Psychological History / Comment(s): . Smoking Status: Former smoker Past Alcohol Use History: Occasional Additional Past Alcohol Use History / Comment(s): Pt started smoking in 1947 and quit 02/22/93.smoked 1 ppd Past Drug Use History: None Reported - Past Family History Brother(s) Family Medical History: Cancer Additional Family Medical History / Comment(s): kidney Mother Family Medical History: Myocardial Infarction ([place]) Additional Family Medical History / Comment(s): Mother of a [place] at the age of 85yrs. Father Family Medical History: No Reported History Additional Family Medical History / Comment(s): Father was healthy and lived to be 93 yrs old. Son(s) Family Medical History: Cancer Medications and Allergies Home Medications Medication Instructions Recorded Confirmed Type Allopurinol [Zyloprim] 100 mg PO DAILY 11/04/13 08/04/17 History Aspirin 81 mg PO MOWEFR 11/04/13 08/04/17 History Folic Acid 1 mg PO DAILY 11/04/13 08/04/17 History Omeprazole [PriLOSEC] 20 mg PO DAILY 11/04/13 08/04/17 History Pravastatin Sodium [Pravachol] 40 mg PO HS 11/04/13 08/04/17 History Terazosin [Hytrin] 2 mg PO HS 11/04/13 08/04/17 History Warfarin [Coumadin] 5 mg PO DAILY 03/31/17 08/04/17 History Budesonide [Pulmicort] 0.5 mg INHALATION RT-DAILY 05/13/17 08/04/17 History Diltiazem HCl [Diltiazem 24Hr ER] 120 mg PO DAILY 05/13/17 08/04/17 History Ergocalciferol (Vitamin D2) 50,000 unit PO WE 05/13/17 08/04/17 History [Vitamin D2] Ferrous Sulfate [Iron (65 MG 325 mg PO BID 05/13/17 08/04/17 History Elemental)] Montelukast [Singulair] 10 mg PO HS 05/13/17 08/04/17 History hydrALAZINE HCL [Apresoline] 50 mg PO TID@0700,1400,2100 05/13/17 08/04/17 History predniSONE 10 mg PO DAILY 05/13/17 08/04/17 History Triamterene-Hctz 37.5-25Mg 1 tab PO DAILY 05/28/17 08/04/17 History [Maxzide 37.5-25] Losartan [Cozaar] 25 mg PO DAILY tab 06/03/17 08/04/17 Rx Metoprolol Tartrate [Lopressor] 50 mg PO BID tab 06/03/17 08/04/17 Rx Albuterol Nebulized [Ventolin 2.5 mg INHALATION RT-TID PRN 08/04/17 08/04/17 History Nebulized] Allergies Allergy/AdvReac Type Severity Reaction Status Date / Time codeine Allergy Mild Confusion Verified 08/04/17 09:31 amiodarone Allergy Unknown Verified 08/04/17 09:31 Physical Exam Vitals: Vital Signs Temp Pulse Pulse Resp BP BP Pulse Ox 08/05/17 07:51 60 18 08/05/17 07:38 97.9 F 60 18 138/57 94 L 08/05/17 07:21 60 08/05/17 07:08 56 L 08/05/17 04:00 97.2 F L 58 L 18 147/61 94 L 08/05/17 00:00 98 F 54 L 18 145/59 96 08/04/17 20:58 95 08/04/17 20:00 97.1 F L 58 L 58 L 18 166/64 166/74 96 08/04/17 19:25 54 L 08/04/17 19:16 53 L 08/04/17 18:59 97.6 F 56 L 18 161/68 96 08/04/17 16:24 56 L 18 163/71 96 08/04/17 13:09 53 L 08/04/17 13:07 98.5 F 52 L 18 151/68 98 08/04/17 11:26 57 L 16 133/57 99 08/04/17 09:16 95 20 155/66 100 Intake and Output 08/04/17 08/05/17 08/05/17 22:59 06:59 14:59 Intake Total 200 Output Total 425 200 Balance -425 0 Intake: Intake, IV Titration 200 Amount Magnesium Sulfate-D5w Pmx 200 1 gm In Dextrose/Water 1 100ml.bag @ 100 mls/hr IVPB Q1H [facility] Rx#: [id number] Output: Urine 425 200 Other: Voiding Method Toilet Toilet Urinal Urinal # Voids 1 Weight 98.4 kg 98.4 kg PHYSICAL EXAMINATION: HEENT: Head is atraumatic, normocephalic. Pupils equal, round. Neck is supple. There is no elevated jugular venous pressure. HEART EXAMINATION: Heart S1, S2 normal. No murmur or gallop heard. CHEST EXAMINATION: Lungs reveal coarse rales at the bases. ABDOMEN: Soft, nontender. Bowel sounds are heard. No organomegaly noted. EXTREMITIES: 2+ peripheral pulses with no evidence of peripheral edema and no calf tenderness noted. NEUROLOGIC patient is awake, alert and oriented -3. . Results 08/05/17 05:37 08/05/17 05:37 Cardiac Enzymes 08/04/17 08/04/17 08/04/17 Range/Units 09:46 09:46 15:45 AST 12 L (17-59) U/L CK-MB (CK-2) 1.2 1.6 (0.0-2.4) ng/mL Troponin I 0.028 0.152 H* (0.000-0.034) ng/mL 08/04/17 08/05/17 Range/Units 21:44 05:37 AST 10 L (17-59) U/L CK-MB (CK-2) 1.3 (0.0-2.4) ng/mL Troponin I 0.155 H* (0.000-0.034) ng/mL Coagulation 08/04/17 Range/Units 09:46 PT 19.9 H (9.0-12.0) sec APTT 29.8 (22.0-30.0) sec Lipids 08/05/17 Range/Units 05:37 Triglycerides 165 H (<150) mg/dL Cholesterol 126 (<200) mg/dL HDL Cholesterol 31 L (40-60) mg/dL CBC 08/04/17 08/05/17 Range/Units 09:46 05:37 WBC 5.5 5.2 (3.8-10.6) k/uL RBC 3.08 L 2.93 L (4.30-5.90) m/uL Hgb 9.0 L 8.5 L (13.0-17.5) gm/dL Hct 29.3 L 28.0 L (39.0-53.0) % Plt Count 108 L 101 L (150-450) k/uL Comprehensive Metabolic Panel 08/04/17 08/05/17 Range/Units 09:46 05:37 Sodium 148 H 145 (137-145) mmol/L Potassium 4.4 4.9 (3.5-5.1) mmol/L Chloride 108 H 106 (98-107) mmol/L Carbon Dioxide 30 31 H (22-30) mmol/L BUN 45 H 46 H (9-20) mg/dL Creatinine 1.60 H 1.54 H (0.66-1.25) mg/dL Glucose 116 H 87 (74-99) mg/dL Calcium 8.5 8.7 (8.4-10.2) mg/dL AST 12 L 10 L (17-59) U/L ALT 23 24 (21-72) U/L Alkaline Phosphatase 40 39 (38-126) U/L Total Protein 4.7 L 4.7 L (6.3-8.2) g/dL Albumin 2.8 L 2.8 L (3.5-5.0) g/dL Current Medications Generic Name Dose Route Start Last Admin Trade Name Freq PRN Reason Stop Dose Admin Acetaminophen 650 mg 08/04/17 16:07 Tylenol Tab PO Q6HR PRN Fever and/ or MILD Pain Albuterol Sulfate 2.5 mg 08/04/17 13:38 08/05/17 07:06 Ventolin Nebulized INHALATION 2.5 mg RT-TID PRN Administration Shortness Of Breath Allopurinol 100 mg 08/05/17 09:00 08/05/17 07:46 Zyloprim PO 100 mg DAILY [facility] Administration Aspirin 325 mg 08/05/17 09:00 08/05/17 07:46 Aspirin PO 325 mg DAILY [facility] Administration Budesonide 0.5 mg 08/05/17 08:00 08/05/17 07:06 Pulmicort INHALATION 0.5 mg RT-DAILY [facility] Administration Diltiazem HCl 120 mg 08/05/17 09:00 08/05/17 07:46 Cardizem Cd PO 120 mg DAILY [facility] Administration Doxazosin Mesylate 2 mg 08/04/17 21:00 08/04/17 20:32 Cardura PO 2 mg HS [facility] Administration Ergocalciferol 50,000 unit 08/05/17 12:00 Vitamin D2 PO WE [facility] Ferrous Sulfate 325 mg 08/04/17 17:30 08/04/17 18:55 Feosol PO 325 mg BID-W/MEALS [facility] Administration Folic Acid 1 mg 08/05/17 12:00 Folic Acid PO 1200 [facility] Guaifenesin 600 mg 08/04/17 21:00 08/05/17 07:46 Mucinex PO 600 mg Q12HR [facility] Administration Hydralazine HCl 50 mg 08/04/17 14:00 08/05/17 06:12 Apresoline PO 50 mg TID@0700,1400,2100 [facility] Administration Losartan Potassium 25 mg 08/05/17 09:00 08/05/17 07:46 Cozaar PO 25 mg DAILY [facility] Administration Metoprolol Tartrate 50 mg 08/04/17 21:00 08/05/17 07:46 Lopressor PO 50 mg BID [facility] Administration Miscellaneous Information 1 each 08/04/17 21:01 Magnesium Per Protocol MISCELLANE DAILY PRN Per Protocol Protocol Montelukast Sodium 10 mg 08/04/17 21:00 08/04/17 20:32 Singulair PO 10 mg HS [facility] Administration Morphine Sulfate 4 mg 08/04/17 16:07 Morphine Sulfate (Inj) IVP Q6H PRN SEVERE Pain Nitroglycerin 0.4 mg 08/04/17 13:34 Nitrostat SUBLINGUAL Q5M PRN Chest Pain Ondansetron HCl 4 mg 08/04/17 16:07 Zofran IVP Q6HR PRN Nausea And Vomiting Pantoprazole Sodium 40 mg 08/05/17 07:30 08/05/17 06:12 Protonix PO 40 mg [id number]-[id number] [facility] Administration Pravastatin Sodium 40 mg 08/04/17 21:00 08/04/17 20:32 Pravachol PO 40 mg HS [facility] Administration Prednisone 10 mg 08/05/17 09:00 08/05/17 07:47 PO 10 mg DAILY [facility] Administration Warfarin Sodium 5 mg 08/04/17 18:00 08/04/17 18:56 Coumadin PO 5 mg DAILY@1800 [facility] Administration Intake and Output 08/04/17 08/05/17 08/05/17 22:59 06:59 14:59 Intake Total 200 Output Total 425 200 Balance -425 0 Intake: Intake, IV Titration 200 Amount Magnesium Sulfate-D5w Pmx 200 1 gm In Dextrose/Water 1 100ml.bag @ 100 mls/hr IVPB Q1H [facility] Rx#: [id number] Output: Urine 425 200 Other: Voiding Method Toilet Toilet Urinal Urinal # Voids 1 Weight 98.4 kg 98.4 kg 08/05/17 05:37 08/05/17 05:37 EKG Interpretations (text) Initial EKG by EMS showed atrial fibrillation with rapid ventricular response, subsequent EKG shows normal sinus rhythm with right bundle branch block pattern and left anterior fascicular block. Assessment and Plan Plan: Assessment and plan #1 atrial fibrillation with rapid ventricular response, paroxysmal, patient has known history of atrial fibrillation. Patient currently in normal sinus rhythm. #2 chest tightness and heaviness, possible acute coronary syndrome. Troponins 0.028, 0.152, 0.155. Normal sinus rhythm morning with right bundle branch block pattern and left anterior fascicular block. 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 #14 chronic renal failure, creatinine 1.4 Plan We will obtain an echocardiogram with Doppler study. Patient has been noted in the past admissions with atrial fibrillation to have abnormality in his troponins, which could be secondary to the A. fib with RVR. Cannot completely rule out underlying coronary artery disease. Further recommendations to follow. DNP note has been reviewed, I agree with a documented findings and plan of care. Patient was seen and examined.
--- NOTE | 2017-08-05 10:14 | P.CNPUL ---
History of Present Illness Consult date: 08/05/17 Requesting physician: Bogdan Taylor Reason for consult: COPD, hypoxemia Chief complaint: shortness of breath History of present illness: This is an 87-year-old male patient who is well-known to our services that is being seen examined and evaluated today for consultation. This patient came into the emergency room with increased shortness of breath and chest pain as well as palpitations. Patient was noted to have atrial fibrillation with rapid ventricular rate. ER staff went to establish an IV line when the patient spontaneously returned to sinus mechanism approximately 70 bpm and then subsequently did drop into the 50s. A repeat EKG was performed and did show sinus bradycardia. Chest x-ray in the ER included reveals COPD and cardiomegaly. He was also noted to have elevated troponins at 0.028, 0.152, and 0.155. The patient did undergo a right-sided heart catheter recently which showed normal wedge pressures. The patient was admitted for further workup in an evaluation. Upon examination the patient is resting up in bed on supplemental oxygen via nasal cannula. Patient continues to have shortness of breath with exertion, has a chronic cough. Denies any congestion. Hemoglobin is 8.5. He does have obstructive sleep apnea. Review of Systems 14 point review of systems was completed and is negative, rubella in the HPI. Past Medical History Past Medical History: Atrial Fibrillation, Blood Disorder, Cancer, COPD, Hyperlipidemia, Myocardial Infarction ([place]), Pneumonia, Prostate Disorder, Sleep Apnea/CPAP/BIPAP Additional Past Medical History / Comment(s): CLL diagnosed in 2007, [place] x 3, autoimmune hemolytic anemia, rare antibiodies in his blood, AFib with RVR, NIDDM no longer on medications, occ. 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 Last Myocardial Infarction Date:: 2013 History of Any Multi-Drug Resistant Organisms: None Reported Past Surgical History: Heart Catheterization, Joint Replacement, Prostate Surgery, Tonsillectomy Additional Past Surgical History / Comment(s): heavenly carotid endarterectomy, total lt knee replacement, prostate biopsy, bilateral cataract removals with lens implants, colonoscopies. Past Anesthesia/Blood Transfusion Reactions: No Reported Reaction Additional Past Anesthesia/Blood Transfusion Reaction / Comment(s): pt states "has rare antibodies to blood has trouble finding matches" Past Psychological History: Anxiety Additional Psychological History / Comment(s): . Smoking Status: Former smoker Past Alcohol Use History: Occasional Additional Past Alcohol Use History / Comment(s): Pt started smoking in 1947 and quit 02/22/93.smoked 1 ppd Past Drug Use History: None Reported - Past Family History Brother(s) Family Medical History: Cancer Additional Family Medical History / Comment(s): kidney Mother Family Medical History: Myocardial Infarction ([place]) Additional Family Medical History / Comment(s): Mother of a [place] at the age of 85yrs. Father Family Medical History: No Reported History Additional Family Medical History / Comment(s): Father was healthy and lived to be 93 yrs old. Son(s) Family Medical History: Cancer Medications and Allergies Home Medications Medication Instructions Recorded Confirmed Type Allopurinol [Zyloprim] 100 mg PO DAILY 11/04/13 08/04/17 History Aspirin 81 mg PO MOWEFR 11/04/13 08/04/17 History Folic Acid 1 mg PO DAILY 11/04/13 08/04/17 History Omeprazole [PriLOSEC] 20 mg PO DAILY 11/04/13 08/04/17 History Pravastatin Sodium [Pravachol] 40 mg PO HS 11/04/13 08/04/17 History Terazosin [Hytrin] 2 mg PO HS 11/04/13 08/04/17 History Warfarin [Coumadin] 5 mg PO DAILY 03/31/17 08/04/17 History Budesonide [Pulmicort] 0.5 mg INHALATION RT-DAILY 05/13/17 08/04/17 History Diltiazem HCl [Diltiazem 24Hr ER] 120 mg PO DAILY 05/13/17 08/04/17 History Ergocalciferol (Vitamin D2) 50,000 unit PO WE 05/13/17 08/04/17 History [Vitamin D2] Ferrous Sulfate [Iron (65 MG 325 mg PO BID 05/13/17 08/04/17 History Elemental)] Montelukast [Singulair] 10 mg PO HS 05/13/17 08/04/17 History hydrALAZINE HCL [Apresoline] 50 mg PO TID@0700,1400,2100 05/13/17 08/04/17 History predniSONE 10 mg PO DAILY 05/13/17 08/04/17 History Triamterene-Hctz 37.5-25Mg 1 tab PO DAILY 05/28/17 08/04/17 History [Maxzide 37.5-25] Losartan [Cozaar] 25 mg PO DAILY tab 06/03/17 08/04/17 Rx Metoprolol Tartrate [Lopressor] 50 mg PO BID tab 06/03/17 08/04/17 Rx Albuterol Nebulized [Ventolin 2.5 mg INHALATION RT-TID PRN 08/04/17 08/04/17 History Nebulized] Allergies Allergy/AdvReac Type Severity Reaction Status Date / Time codeine Allergy Mild Confusion Verified 08/04/17 09:31 amiodarone Allergy Unknown Verified 08/04/17 09:31 Physical Exam Vitals: Vital Signs Temp Pulse Pulse Resp BP BP Pulse Ox 08/05/17 07:51 60 18 08/05/17 07:38 97.9 F 60 18 138/57 94 L 08/05/17 07:21 60 08/05/17 07:08 56 L 08/05/17 04:00 97.2 F L 58 L 18 147/61 94 L 08/05/17 00:00 98 F 54 L 18 145/59 96 08/04/17 20:58 95 08/04/17 20:00 97.1 F L 58 L 58 L 18 166/64 166/74 96 08/04/17 19:25 54 L 08/04/17 19:16 53 L 08/04/17 18:59 97.6 F 56 L 18 161/68 96 08/04/17 16:24 56 L 18 163/71 96 08/04/17 13:09 53 L 08/04/17 13:07 98.5 F 52 L 18 151/68 98 08/04/17 11:26 57 L 16 133/57 99 Intake and Output 08/04/17 08/05/17 08/05/17 22:59 06:59 14:59 Intake Total 200 Output Total 425 200 Balance -425 0 Intake: Intake, IV Titration 200 Amount Magnesium Sulfate-D5w Pmx 200 1 gm In Dextrose/Water 1 100ml.bag @ 100 mls/hr IVPB Q1H [facility] Rx#: [id number] Output: Urine 425 200 Other: Voiding Method Toilet Toilet Urinal Urinal # Voids 1 Weight 98.4 kg 98.4 kg GENERAL EXAM: Alert, comfortable in no apparent distress. HEAD: Normocephalic. EYES: Normal reaction of pupils, equal size. NOSE: Clear with pink turbinates. THROAT: No erythema or exudates. NECK: No masses, no JVD. CHEST: No chest wall deformity. LUNGS: Lung sounds noted to be diminished with some scattered crackles. CVS: S1 and S2 normal with no audible mumurs, regular rhythm. ABDOMEN: No hepatosplenomegaly, normal bowel sounds, no guarding or rigidity. EXTREMITIES: No edema noted, pedal pulses palpable. CENTRAL NERVOUS SYSTEM: No focal deficits, tone is normal in all 4 extremities. Results - Laboratory Findings CBC and BMP: 08/05/17 05:37 08/05/17 05:37 PT/INR, D-dimer PT 16.4 sec (9.0-12.0) H 08/05/17 08:51 INR 1.8 (<1.2) H 08/05/17 08:51 D-Dimer 0.31 mg/L FEU (<0.60) 08/04/17 09:46 Abnormal lab findings: Abnormal Labs 08/04/17 08/04/17 08/04/17 09:46 09:46 09:46 RBC 3.08 L Hgb 9.0 L Hct 29.3 L MCHC 30.8 L RDW 16.9 H Plt Count 108 L Lymphocytes # 0.6 L PT INR Sodium 148 H Chloride 108 H Carbon Dioxide BUN 45 H Creatinine 1.60 H Glucose 116 H Magnesium 1.4 L AST 12 L Total Creatine Kinase 22 L Troponin I Total Protein 4.7 L Albumin 2.8 L Triglycerides HDL Cholesterol 08/04/17 08/04/17 08/04/17 09:46 15:45 15:45 RBC Hgb Hct MCHC RDW Plt Count Lymphocytes # PT 19.9 H INR 2.2 H Sodium Chloride Carbon Dioxide BUN Creatinine Glucose Magnesium 1.5 L AST Total Creatine Kinase 22 L Troponin I 0.152 H* Total Protein Albumin Triglycerides HDL Cholesterol 08/04/17 08/05/17 08/05/17 21:44 05:37 05:37 RBC 2.93 L Hgb 8.5 L Hct 28.0 L MCHC 30.5 L RDW 16.5 H Plt Count 101 L Lymphocytes # 0.9 L PT INR Sodium Chloride Carbon Dioxide 31 H BUN 46 H Creatinine 1.54 H Glucose Magnesium AST 10 L Total Creatine Kinase 24 L Troponin I 0.155 H* Total Protein 4.7 L Albumin 2.8 L Triglycerides 165 H HDL Cholesterol 31 L 08/05/17 08:51 RBC Hgb Hct MCHC RDW Plt Count Lymphocytes # PT 16.4 H INR 1.8 H Sodium Chloride Carbon Dioxide BUN Creatinine Glucose Magnesium AST Total Creatine Kinase Troponin I Total Protein Albumin Triglycerides HDL Cholesterol - Diagnostic Findings Chest x-ray: report reviewed, image reviewed Assessment and Plan Assessment: Assessment Acute on chronic hypoxic respiratory failure requiring supplemental oxygen Chest pain with palpitations, with tachycardia and bradycardia Paroxysmal atrial fibrillation with rapid ventricular rate 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 Hemoglobin is at baseline at this time. Continue with pulmonary hygiene, coughing and deep breathing exercises, and supportive care. Supplemental oxygen to maintain oxygen saturations of 90% or better. Continue nebulizer treatments. Cardiology on consult and appreciate recommendations. Patient will undergo an echocardiogram. GI and DVT prophylaxis. PT and OT, increase activity as tolerated. We will continue to monitor labs/results and adjust treatment as necessary. Further recommendations pending. I performed an examination of the patient and discussed their management with the nurse practitioner. I have reviewed the nurse practitioner's note and agree with the documented findings and plan of care.
[2017-08-05] MEDS ORDERED: AMINOPHYLLINE 500 MG/20 ML VIAL IV PRN (10:41)
[2017-08-05] MEDS ORDERED: REGADENOSON 0.4 MG/5 ML SYRINGE IV ONE (10:41)
[2017-08-05] MEDS: FOLIC ACID 1 MG TAB PO SCH (11:05)
[2017-08-05] MEDS: FERROUS SULFATE 325 MG TAB PO SCH ×2 (11:05→17:08)
[2017-08-05] MEDS ORDERED: ERGOCALCIFEROL 50,000 UNIT CAP PO SCH (12:00)
--- NOTE | 2017-08-05 15:24 | P.PN ---
Subjective Progress Note Date: 08/05/17 This is an 87 year old male patient of Dr BEBA millard, patient has underlying history of CLL diagnosed in 2008, follows with Dr. Hilton at [facility] oncology COPD with O2 dependencea sneeded, wears CPAP at night, Atrial fibrillation on Coumadin anticoagulation, PAD, CAD and recurrent anemia requring specialized blood for transfusion. Patient had multiple admissions prior to this fall intermittent SVT and atrial fibrillation with RVR. He was also on amiodarone for atrial fibrillation which was taken off due to concern for amiodarone related lung disease. Patient has been short of breath off and on for several years worse with exertion and stop H was recently admitted from our facility as well as the other facility 2 weeks prior to admission secondary to atrial fibrillation and intermittent SVT, he was taken off amiodarone secondary amiodarone-induced lung disease, . Patient has had shortness of breath off and on for several years, worse with exertion Patient comes to the ER due to increased shortness of breath associated with chest pain and increased palpitation. He was just discharged on 06/03 after treatment for unstable angina, paroxysmal A. fib with RVR, anemia of chronic disease with severe anemia requiring blood transfusions. Hemoccult was checked the last admission which was negative. Gastroenterology was consulted as patient was on Coumadin, no plan for endoscopy or colonoscopy patient's anemia is likely related to CLL, chronic kidney disease and being on anticoagulation. He does have history of hemolytic anemia and is on 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 10 mg daily. In the ER patient heart rate went up to 160-170 on admission with converted back to sinus bradycardia with sinus arrhythmia with a heart rate ranging from 50- 60. Patient was recently initiated on Cardizem drip before converting to sinus rhythm. Blood pressure 155/66 currently requiring 2 L of oxygen. Chest x-ray suggests of COPD and borderline cardiomyopathy. Labs suggest a sodium of 148, chloride 108, creatinine 1.6 which is patient's baseline, INR 2.20 therapeutic, troponin is normal 0.0-8. We'll repeat a set of troponin, BNP, cardiology consult for possible sick sinus syndrome. Recent echo in generally suggest EF 50 to55 %. Patient is sent right heart cardiac cath was suggest mild to moderate pulmonary hypertension. 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 His rate has been controlled. Dr. Millard has told him in the past that he is not a candidate for pacemaker or rather that this would be the last resort. Triglycerides 165, cholesterol 126, LDL 62 and HDL 31. Hemoglobin today is 8.5. BUN 46 and creatinine 1.54. Patient is also been seen by pulmonary medicine. Patient's daughter is at the bedside. Objective - Vital Signs Vital signs: Vital Signs Temp 97.9 F 08/05/17 07:38 Pulse 60 08/05/17 13:38 Resp 16 08/05/17 11:22 BP 139/67 08/05/17 11:21 Pulse Ox 92 L 08/05/17 11:21 Intake & Output 08/04/17 08/05/17 08/05/17 18:59 06:59 18:59 Intake Total 200 Output Total 625 Balance -425 Weight 98.4 kg 98.4 kg Intake: Intake, IV Titration 200 Amount Magnesium Sulfate-D5w Pmx 200 1 gm In Dextrose/Water 1 100ml.bag @ 100 mls/hr IVPB Q1H [facility] Rx#: [id number] Output: Urine 625 Other: Voiding Method Toilet Urinal # Voids 1 1 - Exam General appearance: average body habitus, mild distress - EENT Eyes: no abnormal pupil, anicteric sclerae, no disc margins sharp, EOMI, PERRLA , no ptosis ENT: hearing grossly normal Ears: bilateral: normal - Neck Neck: no lymphadenopathy, normal ROM, no rigidity Carotids: bilateral: upstroke normal Thyroid: bilateral: normal size - Respiratory Respiratory: right: rhonchi, bilateral: diminished, dullness, negative: wheezing , prolonged expiration, prolonged inspiration - Cardiovascular Rhythm: regular Heart sounds: normal: S1, S2 Abnormal Heart Sounds: systolic murmur, no rub, no click diastolic murmur Grade: III/ ankle Peripheral Edema: bilateral: None - Gastrointestinal General gastrointestinal: no distended, normal bowel sounds, soft, no tenderness - Integumentary Integumentary: no calor, no cyanotic, no jaundiced, no rash - Neurologic Neurologic: CNII-XII intact - Musculoskeletal Musculoskeletal: gait normal, generalized weakness - Psychiatric Psychiatric: A&O x's 3, appropriate affect, intact judgment & insight - Labs CBC & Chem 7: 08/05/17 05:37 08/05/17 05:37 Labs: Abnormal Lab Results - Last 24 Hours (Table) 08/04/17 08/04/17 08/04/17 Range/Units 15:45 15:45 21:44 RBC (4.30-5.90) m/uL Hgb (13.0-17.5) gm/dL Hct (39.0-53.0) % MCHC (31.0-37.0) g/dL RDW (11.5-15.5) % Plt Count (150-450) k/uL Lymphocytes # (1.0-4.8) k/uL PT (9.0-12.0) sec INR (<1.2) Carbon Dioxide (22-30) mmol/L BUN (9-20) mg/dL Creatinine (0.66-1.25) mg/dL Magnesium 1.5 L (1.6-2.3) mg/dL AST (17-59) U/L Total Creatine Kinase 22 L 24 L (55-170) U/L Troponin I 0.152 H* 0.155 H* (0.000-0.034) ng/mL Total Protein (6.3-8.2) g/dL Albumin (3.5-5.0) g/dL Triglycerides (<150) mg/dL HDL Cholesterol (40-60) mg/dL 08/05/17 08/05/17 08/05/17 Range/Units 05:37 05:37 08:51 RBC 2.93 L (4.30-5.90) m/uL Hgb 8.5 L (13.0-17.5) gm/dL Hct 28.0 L (39.0-53.0) % MCHC 30.5 L (31.0-37.0) g/dL RDW 16.5 H (11.5-15.5) % Plt Count 101 L (150-450) k/uL Lymphocytes # 0.9 L (1.0-4.8) k/uL PT 16.4 H (9.0-12.0) sec INR 1.8 H (<1.2) Carbon Dioxide 31 H (22-30) mmol/L BUN 46 H (9-20) mg/dL Creatinine 1.54 H (0.66-1.25) mg/dL Magnesium (1.6-2.3) mg/dL AST 10 L (17-59) U/L Total Creatine Kinase (55-170) U/L Troponin I (0.000-0.034) ng/mL Total Protein 4.7 L (6.3-8.2) g/dL Albumin 2.8 L (3.5-5.0) g/dL Triglycerides 165 H (<150) mg/dL HDL Cholesterol 31 L (40-60) mg/dL Assessment and Plan Plan: 1 chest pain likely secondary to tachyarrhythmia ( no EKG that documents the type of rhythm patient came in ) that appears like a CT. Patient does have under branch block with intermittent sinus bradycardia concerning for sick sinus syndrome. Cardiology consult. Troponin 2. BNP ordered. Recent echo from generally suggest EF 50-55% we will hold on repeating echocardiogram until seen by cardiology. Continue Lopressor 50 mg twice daily, Cardizem CD 120 mg daily. 2 paroxysmal atrial fibrillation with rapid ventricular rate, intermittent, on anticoagulation with Coumadin, has been discontinued off the amiodarone secondary to amiodarone induced pulmonary disease, continue Cardizem 120 twice a day . Metoprolol 50 mg twice daily 3. Anemia of chronic disease with severe anemia in past requiring recurrent blood transfusion. History of hemolytic anemia in the past currently hemoglobin is above patient's baseline. 4. Acute on Chronic hypoxic respiratory failure with COPD. currentLy on 2 L O2 , uses oxygen as needed at home. Continue DuoNeb as needed for shortness of breath. Patient does not appear to be in acute exacerbation but does have significant shortness of breath. Consult with Dr. Frances edwards. 5. CLL history follows with oncologist at [facility] 8. Hypertension, continue Cardizem 120 twice a day, decrease losartan to 25mg daily, continue metoprolol 50mg bid 9. LOUIE on CPAP at night 10. CKD stage III, baseline creatinine 1.4-2.0. Avoid toxins and hypotension would be avoided 11. 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 BPH without lower urinary tract symtoms 14. Moderate protein calorie nutrition 15. 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 Continue prednisone 10 mg daily. Patient is followed by pulmonary medicine. Continue DuoNeb treatments, Pulmicort, Singulair 16. gi prophylaxis and dvt prophlaxis on pepcid 20 mg po BID and caumadin for atrial fib Code Status: full. Discharge plan: To be determined Impression and plan of care have been directed as dictated by the signing physician. Silvia Mathew nurse practitioner acting as scribe for signing physician.
[2017-08-05] MEDS: WARFARIN 5 MG TAB PO SCH (17:08)
[2017-08-05] MEDS: DILTIAZEM 50 MG in SODIUM CHLORIDE 0.9% 40 ML IV SCH ×2 (20:04→21:52)
[2017-08-05] MEDS: MONTELUKAST 10 MG TAB PO SCH (21:58)
[2017-08-05] MEDS: PRAVASTATIN SODIUM 40 MG TAB PO SCH (21:58)
[2017-08-05] MEDS: DOXAZOSIN 2 MG TAB PO SCH (23:22)
[2017-08-06 06:12] LABS: Anisocytosis Slight; Basophils % (A) 0 %; Eosinophils # (A) 0.1 k/uL (0-0.7); Eosinophils % (A) 1 %; HCT 28.6 % (39.0-53.0); HGB 8.6 gm/dL (13.0-17.5); Hypochromasia Marked; Lymphocytes # (A) 0.8 k/uL (1.0-4.8); Lymphocytes % (A) 14 %; MCH 28.9 pg (25.0-35.0); MCHC 30.2 g/dL (31.0-37.0); MCV 95.9 fL (80.0-100.0); Monocytes # (A) 0.3 k/uL (0-1.0); Monocytes % (A) 5 %; Neutrophils # (A) 4.3 k/uL (1.3-7.7); Neutrophils % (A) 78 %; RBC 2.98 m/uL (4.30-5.90); RDW 16.6 % (11.5-15.5); WBC 5.5 k/uL (3.8-10.6)
[2017-08-06 06:19] LABS: INR 1.9 (<1.2); Prothrombin Time 17.3 sec (9.0-12.0)
[2017-08-06 06:29] LABS: Albumin 2.8 g/dL (3.5-5.0); Calcium 8.7 mg/dL (8.4-10.2); Potassium 4.9 mmol/L (3.5-5.1); Total Bilirubin 0.3 mg/dL (0.2-1.3); Total Protein 4.7 g/dL (6.3-8.2)
[2017-08-06] MEDS: hydrALAZINE HCL 50 MG TAB PO SCH ×3 (06:35→21:07)
[2017-08-06] MEDS: PANTOPRAZOLE 40 MG TABLET PO SCH (06:35)
[2017-08-06] MEDS: FERROUS SULFATE 325 MG TAB PO SCH ×2 (06:35→19:17)
[2017-08-06 06:53] LABS: Platelet Count 95 k/uL (150-450)
[2017-08-06] MEDS: ALLOPURINOL 100 MG TAB PO SCH (08:57)
[2017-08-06] MEDS: METOPROLOL TARTRATE 50 MG TAB PO SCH (08:57)
[2017-08-06] MEDS: ASPIRIN 81 MG PO SCH (08:57)
[2017-08-06] MEDS: LOSARTAN 25 MG TAB PO SCH (08:57)
[2017-08-06] MEDS: guaiFENesin 600 MG TABLET.ER PO SCH ×2 (08:57→21:08)
[2017-08-06] MEDS: predniSONE 10 MG TAB PO SCH (08:58)
[2017-08-06] MEDS: ALBUTEROL NEBULIZED 2.5 MG/3 ML INHALATION PRN ×2 (09:34→19:42)
[2017-08-06] MEDS: BUDESONIDE 0.5 MG/2 ML NEBU INHALATION SCH (09:34)
--- NOTE | 2017-08-06 10:29 | P.PN ---
Subjective Progress Note Date: 08/06/17 HPI: This is an 87-year-old male patient who is well-known to our services that is being seen examined and evaluated today for consultation. This patient came into the emergency room with increased shortness of breath and chest pain as well as palpitations. Patient was noted to have atrial fibrillation with rapid ventricular rate. ER staff went to establish an IV line when the patient spontaneously returned to sinus mechanism approximately 70 bpm and then subsequently did drop into the 50s. A repeat EKG was performed and did show sinus bradycardia. Chest x-ray in the ER included reveals COPD and cardiomegaly. He was also noted to have elevated troponins at 0.028, 0.152, and 0.155. The patient did undergo a right-sided heart catheter recently which showed normal wedge pressures. The patient was admitted for further workup in an evaluation. Upon examination the patient is resting up in bed on supplemental oxygen via nasal cannula. Patient continues to have shortness of breath with exertion, has a chronic cough. Denies any congestion. Hemoglobin is 8.5. He does have obstructive sleep apnea. Interval history 08/06/17- patient is being seen examined and evaluated today on rounds. Upon examination the patient is laying up in bed on room air. Apparently the patient took off his oxygen and did not reapply it. If his pulse ox was obtained on room air and was approximately 90. Supplemental oxygen was reapplied and the patient came up to 94%. Hemoglobin is stable today at 8.6. INR is 1.9. He feels his breathing is close to his baseline. Cardiology is following the patient. She is afebrile, all labs and reports have been reviewed. No further complaints. Objective - Vital Signs Vital signs: Vital Signs Temp 97.3 F L 08/06/17 08:00 Pulse 56 L 08/06/17 09:49 Resp 18 08/06/17 08:00 BP 122/51 08/06/17 08:00 Pulse Ox 91 L 08/06/17 08:00 Intake & Output 08/05/17 08/06/17 08/06/17 18:59 06:59 18:59 Intake Total 240 43.166 120 Balance 240 43.166 120 Weight 98.2 kg Intake: IV 30 Diltiazem 50 mg In Sodium 30 Chloride 0.9% 40 ml @ 5 MG/HR 5 mls/hr IV .Q10H [facility] Rx#:[id number] Intake, IV Titration 13.166 Amount Diltiazem 50 mg In Sodium 13.166 Chloride 0.9% 40 ml @ 5 MG/HR 5 mls/hr IV .Q10H CHRIS Rx#:[id number] Oral 240 120 Other: Voiding Method Toilet Toilet Urinal Urinal # Voids 1 1 - Exam GENERAL EXAM: Alert, comfortable in no apparent distress. HEAD: Normocephalic. EYES: Normal reaction of pupils, equal size. NOSE: Clear with pink turbinates. THROAT: No erythema or exudates. NECK: No masses, no JVD. CHEST: No chest wall deformity. LUNGS: Lung sounds noted to be diminished with some faint expiratory wheeze on forced expiration CVS: S1 and S2 normal with no audible mumurs, regular rhythm. ABDOMEN: No hepatosplenomegaly, normal bowel sounds, no guarding or rigidity. EXTREMITIES: No edema noted, pedal pulses palpable. CENTRAL NERVOUS SYSTEM: No focal deficits, tone is normal in all 4 extremities. - Labs CBC & Chem 7: 08/06/17 05:47 08/06/17 05:47 Labs: Abnormal Lab Results - Last 24 Hours (Table) 08/06/17 08/06/17 08/06/17 Range/Units 05:47 05:47 05:47 RBC 2.98 L (4.30-5.90) m/uL Hgb 8.6 L (13.0-17.5) gm/dL Hct 28.6 L (39.0-53.0) % MCHC 30.2 L (31.0-37.0) g/dL RDW 16.6 H (11.5-15.5) % Plt Count 95 L (150-450) k/uL Lymphocytes # 0.8 L (1.0-4.8) k/uL PT 17.3 H (9.0-12.0) sec INR 1.9 H (<1.2) BUN 50 H (9-20) mg/dL Creatinine 1.60 H (0.66-1.25) mg/dL AST 11 L (17-59) U/L Total Protein 4.7 L (6.3-8.2) g/dL Albumin 2.8 L (3.5-5.0) g/dL Assessment and Plan Assessment: Assessment Acute on chronic hypoxic respiratory failure requiring supplemental oxygen Chest pain with palpitations, with tachycardia and bradycardia Paroxysmal atrial fibrillation with rapid ventricular rate 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 Hemoglobin is at baseline at this time. Continue with pulmonary hygiene, coughing and deep breathing exercises, and supportive care. Supplemental oxygen to maintain oxygen saturations of 90% or better. Continue nebulizer treatments. Cardiology on consult and appreciate recommendations. GI and DVT prophylaxis. PT and OT , increase activity as tolerated. We will continue to monitor labs/results and adjust treatment as necessary. Further recommendations pending. I performed an examination of the patient and discussed their management with the nurse practitioner. I have reviewed the nurse practitioner's note and agree with the documented findings and plan of care.
[2017-08-06] MEDS: FLECAINIDE 50 MG TAB PO SCH ×2 (10:34→21:08)
[2017-08-06] MEDS: FOLIC ACID 1 MG TAB PO SCH (10:35)
[2017-08-06] MEDS: DILTIAZEM ORAL 60 MG TAB PO SCH ×2 (11:28→19:20)
[2017-08-06] MEDS ORDERED: MORPHINE ORAL SOLN 10 MG/5 ML CUP PO PRN (11:49)
[2017-08-06 11:50] LABS: Glucose,Whole Blood 104 mg/dL (75-99)
--- NOTE | 2017-08-06 12:28 | P.PN ---
Subjective Progress Note Date: 08/06/17 This is an 87 year old male patient of Dr BEBA millard, patient has underlying history of CLL diagnosed in 2008, follows with Dr. Hilton at [facility] oncology COPD with O2 dependencea sneeded, wears CPAP at night, Atrial fibrillation on Coumadin anticoagulation, PAD, CAD and recurrent anemia requring specialized blood for transfusion. Patient had multiple admissions prior to this fall intermittent SVT and atrial fibrillation with RVR. He was also on amiodarone for atrial fibrillation which was taken off due to concern for amiodarone related lung disease. Patient has been short of breath off and on for several years worse with exertion and stop H was recently admitted from our facility as well as the other facility 2 weeks prior to admission secondary to atrial fibrillation and intermittent SVT, he was taken off amiodarone secondary amiodarone-induced lung disease, . Patient has had shortness of breath off and on for several years, worse with exertion Patient comes to the ER due to increased shortness of breath associated with chest pain and increased palpitation. He was just discharged on 06/03 after treatment for unstable angina, paroxysmal A. fib with RVR, anemia of chronic disease with severe anemia requiring blood transfusions. Hemoccult was checked the last admission which was negative. Gastroenterology was consulted as patient was on Coumadin, no plan for endoscopy or colonoscopy patient's anemia is likely related to CLL, chronic kidney disease and being on anticoagulation. He does have history of hemolytic anemia and is on 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 10 mg daily. In the ER patient heart rate went up to 160-170 on admission with converted back to sinus bradycardia with sinus arrhythmia with a heart rate ranging from 50- 60. Patient was recently initiated on Cardizem drip before converting to sinus rhythm. Blood pressure 155/66 currently requiring 2 L of oxygen. Chest x-ray suggests of COPD and borderline cardiomyopathy. Labs suggest a sodium of 148, chloride 108, creatinine 1.6 which is patient's baseline, INR 2.20 therapeutic, troponin is normal 0.0-8. We'll repeat a set of troponin, BNP, cardiology consult for possible sick sinus syndrome. Recent echo in generally suggest EF 50 to55 %. Patient is sent right heart cardiac cath was suggest mild to moderate pulmonary hypertension. 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 His rate has been controlled. Dr. Millard has told him in the past that he is not a candidate for pacemaker or rather that this would be the last resort. Triglycerides 165, cholesterol 126, LDL 62 and HDL 31. Hemoglobin today is 8.5. BUN 46 and creatinine 1.54. Patient is also been seen by pulmonary medicine. Patient's daughter is at the bedside. 08/06: Last evening, A-Team was called for heart rate in the 150s in A. fib with chest pain. Patient's heart rate has been running anywhere between the 50s and 70s this morning. Patient was on Cardizem drip as last evening his heart rate was in the 140s and 150s and he had chest heaviness. This was discontinued at 2 AM. Hemoglobin 8.6, BUN 15 creatinine 1.6. INR is 1.9. Patient has been continued on Coumadin. Await cardiology plan. Cardiology is change Cardizem to 60 mg 3 times daily. Objective - Vital Signs Vital signs: Vital Signs Temp 97.1 F L 08/06/17 04:00 Pulse 64 08/06/17 04:00 Resp 18 08/06/17 04:00 BP 132/51 08/06/17 04:00 Pulse Ox 92 L 08/06/17 04:00 Intake & Output 08/05/17 08/06/17 08/06/17 18:59 06:59 18:59 Intake Total 240 43.166 120 Balance 240 43.166 120 Weight 98.2 kg Intake: IV 30 Diltiazem 50 mg In Sodium 30 Chloride 0.9% 40 ml @ 5 MG/HR 5 mls/hr IV .Q10H [facility] Rx#:[id number] Intake, IV Titration 13.166 Amount Diltiazem 50 mg In Sodium 13.166 Chloride 0.9% 40 ml @ 5 MG/HR 5 mls/hr IV .Q10H [facility] Rx#:[id number] Oral 240 120 Other: Voiding Method Toilet Urinal # Voids 1 1 - Exam General appearance: average body habitus, mild distress - EENT Eyes: no abnormal pupil, anicteric sclerae, no disc margins sharp, EOMI, PERRLA , no ptosis ENT: hearing grossly normal Ears: bilateral: normal - Neck Neck: no lymphadenopathy, normal ROM, no rigidity Carotids: bilateral: upstroke normal Thyroid: bilateral: normal size - Respiratory Respiratory: right: rhonchi, bilateral: diminished, dullness, negative: wheezing , prolonged expiration, prolonged inspiration - Cardiovascular Rhythm: regular Heart sounds: normal: S1, S2 Abnormal Heart Sounds: systolic murmur, no rub, no click diastolic murmur Grade: III/ ankle Peripheral Edema: bilateral: None - Gastrointestinal General gastrointestinal: no distended, normal bowel sounds, soft, no tenderness - Integumentary Integumentary: no calor, no cyanotic, no jaundiced, no rash - Neurologic Neurologic: CNII-XII intact - Musculoskeletal Musculoskeletal: gait normal, generalized weakness - Psychiatric Psychiatric: A&O x's 3, appropriate affect, intact judgment & insight - Labs CBC & Chem 7: 08/06/17 05:47 08/06/17 05:47 Labs: Abnormal Lab Results - Last 24 Hours (Table) 08/05/17 08/06/17 08/06/17 Range/Units 08:51 05:47 05:47 RBC 2.98 L (4.30-5.90) m/uL Hgb 8.6 L (13.0-17.5) gm/dL Hct 28.6 L (39.0-53.0) % MCHC 30.2 L (31.0-37.0) g/dL RDW 16.6 H (11.5-15.5) % Plt Count 95 L (150-450) k/uL Lymphocytes # 0.8 L (1.0-4.8) k/uL PT 16.4 H (9.0-12.0) sec INR 1.8 H (<1.2) BUN 50 H (9-20) mg/dL Creatinine 1.60 H (0.66-1.25) mg/dL AST 11 L (17-59) U/L Total Protein 4.7 L (6.3-8.2) g/dL Albumin 2.8 L (3.5-5.0) g/dL 08/06/17 Range/Units 05:47 RBC (4.30-5.90) m/uL Hgb (13.0-17.5) gm/dL Hct (39.0-53.0) % MCHC (31.0-37.0) g/dL RDW (11.5-15.5) % Plt Count (150-450) k/uL Lymphocytes # (1.0-4.8) k/uL PT 17.3 H (9.0-12.0) sec INR 1.9 H (<1.2) BUN (9-20) mg/dL Creatinine (0.66-1.25) mg/dL AST (17-59) U/L Total Protein (6.3-8.2) g/dL Albumin (3.5-5.0) g/dL Assessment and Plan Plan: 1 chest pain likely secondary to tachyarrhythmia ( no EKG that documents the type of rhythm patient came in ) that appears like a CT. Patient does have under branch block with intermittent sinus bradycardia concerning for sick sinus syndrome. Cardiology consult. Troponin 2. BNP ordered. Recent echo from generally suggest EF 50-55% we will hold on repeating echocardiogram until seen by cardiology. Continue Lopressor 50 mg twice daily, Cardizem CD 63 times daily. 2 paroxysmal atrial fibrillation with rapid ventricular rate, intermittent, on anticoagulation with Coumadin, has been discontinued off the amiodarone secondary to amiodarone induced pulmonary disease, continue Cardizem 63 times daily. Metoprolol 50 mg twice daily 3. Anemia of chronic disease with severe anemia in past requiring recurrent blood transfusion. History of hemolytic anemia in the past currently hemoglobin is above patient's baseline. 4. Acute on Chronic hypoxic respiratory failure with COPD. currentLy on 2 L O2 , uses oxygen as needed at home. Continue DuoNeb as needed for shortness of breath. Patient does not appear to be in acute exacerbation but does have significant shortness of breath. Consult with Dr. Frances edwards. 5. CLL history follows with oncologist at [facility] 8. Hypertension, continue Cardizem 120 twice a day, decrease losartan to 25mg daily, continue metoprolol 50mg bid 9. LOUIE on CPAP at night 10. CKD stage III, baseline creatinine 1.4-2.0. Avoid toxins and hypotension would be avoided 11. 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 BPH without lower urinary tract symtoms 14. Moderate protein calorie nutrition 15. Idiopathic pulmonary fibrosis likley rocíoary to amiodarone . Continue prednisone 10 mg daily. Patient is followed by pulmonary medicine. Continue DuoNeb treatments, Pulmicort, Singulair 16. gi prophylaxis and dvt prophlaxis on pepcid 20 mg po BID and caumadin for atrial fib Code Status: full. Discharge plan: To be determined Impression and plan of care have been directed as dictated by the signing physician. Silvia Mathew nurse practitioner acting as scribe for signing physician.
--- NOTE | 2017-08-06 12:28 | P.PN ---
Subjective Progress Note Date: 08/06/17 This is a pleasant 87-year-old gentleman who follows regularly with Dr. Simon in the office. He has a known history of CLL, paroxysmal atrial fibrillation, anemia, diabetes, hyperlipidemia, hypertension, COPD, sleep apnea , chronic renal failure. Patient also has history of amiodarone-induced lung disease for which amiodarone was been discontinued in the past. Patient most recently was in the hospital in June at which time he underwent a right heart catheterization for evaluation of pulmonary hypertension. Testing revealed normal wedge pressures, mild to moderate elevation in pulmonary artery pressures , nearly normal cardiac outputs. 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 He presents to the hospital on this occasion with symptoms of chest tightness associated shortness of breath. According to the patient, even with very minimal exertion he becomes quite short of breath, he states however that the chest tightness occurs with or without exertion. EKG that was performed by EMS showed atrial fibrillation with a rapid ventricular response, initial EKG on arrival here showed a normal sinus rhythm with a right bundle branch block and left anterior fascicular block. Chest x-ray shows borderline cardiomegaly. Subsequent EKG performed shows a sinus bradycardia with a heart rate in the 50s. At pressure 138/60 with a heart rate in the 60s, temperature 97.9. White blood cell count 5.2, hemoglobin 8.5, platelet count 101. D-dimer 0.3. Magnesium level on admission 1.4, 1.9 this morning. INR 2.2. Troponins 0.028, 0.15, 0.15. TSH is normal. At the time of my examination this morning, patient is lying comfortably in bed, denies any shortness of breath, denies any chest discomfort. 08/06/2017 Patient was seen and examined this morning, feeling better this morning, however through the night last night had significant chest tightness. At that same time patient went into rapid atrial fibrillation. He has since converted and this morning is in a normal sinus rhythm to sinus bradycardia. We did have a discussion with the patient and his son this morning, we will start the patient on flecainide, we will also add Cardizem 60 mg 3 times a day to his medication regime. If the patient becomes significantly bradycardic on these medications a permanent pacemaker will be implanted during this admission, and once Dr. Lau is back patient then can undergo ablation. This was explained to the son and the patient in detail and they're both willing to proceed. Hemoglobin today is 8.6, platelet count 95, INR 1.9, BUN 50, creatinine 1.6. Objective - Vital Signs Vital signs: Vital Signs Temp 97.4 F L 08/06/17 12:00 Pulse 81 08/06/17 12:00 Resp 18 08/06/17 12:00 BP 134/92 08/06/17 12:00 Pulse Ox 94 L 08/06/17 12:00 Intake & Output 08/05/17 08/06/17 08/06/17 18:59 06:59 18:59 Intake Total 240 43.166 360 Balance 240 43.166 360 Weight 98.2 kg Intake: IV 30 Diltiazem 50 mg In Sodium 30 Chloride 0.9% 40 ml @ 5 MG/HR 5 mls/hr IV .Q10H [facility] Rx#:[id number] Intake, IV Titration 13.166 Amount Diltiazem 50 mg In Sodium 13.166 Chloride 0.9% 40 ml @ 5 MG/HR 5 mls/hr IV .Q10H [facility] Rx#:[id number] Oral 240 360 Other: Voiding Method Toilet Toilet Urinal Urinal # Voids 1 1 - Exam PHYSICAL EXAMINATION: HEENT: Head is atraumatic, normocephalic. Pupils equal, round. Neck is supple. There is no elevated jugular venous pressure. HEART EXAMINATION: Heart S1, S2 normal. No murmur or gallop heard. CHEST EXAMINATION: Lungs reveal coarse rales at the bases. ABDOMEN: Soft, nontender. Bowel sounds are heard. No organomegaly noted. EXTREMITIES: 2+ peripheral pulses with no evidence of peripheral edema and no calf tenderness noted. NEUROLOGIC patient is awake, alert and oriented -3. - Labs CBC & Chem 7: 08/06/17 05:47 08/06/17 05:47 Labs: Abnormal Lab Results - Last 24 Hours (Table) 08/06/17 08/06/17 08/06/17 Range/Units 05:47 05:47 05:47 RBC 2.98 L (4.30-5.90) m/uL Hgb 8.6 L (13.0-17.5) gm/dL Hct 28.6 L (39.0-53.0) % MCHC 30.2 L (31.0-37.0) g/dL RDW 16.6 H (11.5-15.5) % Plt Count 95 L (150-450) k/uL Lymphocytes # 0.8 L (1.0-4.8) k/uL PT 17.3 H (9.0-12.0) sec INR 1.9 H (<1.2) BUN 50 H (9-20) mg/dL Creatinine 1.60 H (0.66-1.25) mg/dL POC Glucose (mg/dL) (75-99) mg/dL AST 11 L (17-59) U/L Total Protein 4.7 L (6.3-8.2) g/dL Albumin 2.8 L (3.5-5.0) g/dL 08/06/17 Range/Units 11:38 RBC (4.30-5.90) m/uL Hgb (13.0-17.5) gm/dL Hct (39.0-53.0) % MCHC (31.0-37.0) g/dL RDW (11.5-15.5) % Plt Count (150-450) k/uL Lymphocytes # (1.0-4.8) k/uL PT (9.0-12.0) sec INR (<1.2) BUN (9-20) mg/dL Creatinine (0.66-1.25) mg/dL POC Glucose (mg/dL) 104 H (75-99) mg/dL AST (17-59) U/L Total Protein (6.3-8.2) g/dL Albumin (3.5-5.0) g/dL Assessment and Plan Plan: Assessment and plan #1 atrial fibrillation with rapid ventricular response, paroxysmal, patient has known history of atrial fibrillation. Patient currently in normal sinus rhythm. #2 chest tightness and heaviness, possible acute coronary syndrome. Troponins 0.028, 0.152, 0.155. Normal sinus rhythm morning with right bundle branch block pattern and left anterior fascicular block. 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 #14 chronic renal failure, creatinine 1.4 Plan We will add flecainide to the patient's medication regime, add Cardizem 60 3 times a day. If patient becomes significantly bradycardic, he may require a pacemaker during this admission. Then as an outpatient and ablation. This was explained to the patient and his son this morning. We will continue to monitor. DNP note has been reviewed, I agree with a documented findings and plan of care. Patient was seen and examined.
[2017-08-06] MEDS: WARFARIN 5 MG TAB PO SCH (19:17)
[2017-08-06] MEDS: MONTELUKAST 10 MG TAB PO SCH (21:07)
[2017-08-06] MEDS: PRAVASTATIN SODIUM 40 MG TAB PO SCH (21:08)
[2017-08-06] MEDS: DOXAZOSIN 2 MG TAB PO SCH (21:08)
[2017-08-07] MEDS: METOPROLOL TARTRATE 50 MG TAB PO SCH ×3 (00:34→23:05)
[2017-08-07] MEDS: DILTIAZEM ORAL 60 MG TAB PO SCH ×4 (00:37→23:06)
[2017-08-07 05:51] LABS: Anisocytosis Slight; Basophils % (A) 0 %; Eosinophils # (A) 0.1 k/uL (0-0.7); Eosinophils % (A) 1 %; HCT 26.3 % (39.0-53.0); Hypochromasia Marked; Lymphocytes # (A) 0.7 k/uL (1.0-4.8); Lymphocytes % (A) 13 %; MCH 28.9 pg (25.0-35.0); MCHC 30.5 g/dL (31.0-37.0); MCV 94.6 fL (80.0-100.0); Mean Platelet Volume 8.6; Monocytes # (A) 0.3 k/uL (0-1.0); Monocytes % (A) 5 %; Neutrophils # (A) 4.3 k/uL (1.3-7.7); Neutrophils % (A) 79 %; RBC 2.78 m/uL (4.30-5.90); RDW 16.3 % (11.5-15.5); WBC 5.5 k/uL (3.8-10.6)
[2017-08-07 05:55] LABS: Platelet Count 95 k/uL (150-450)
[2017-08-07 05:59] LABS: Prothrombin Time 18.2 sec (9.0-12.0)
[2017-08-07 06:05] LABS: Albumin 2.7 g/dL (3.5-5.0); Calcium 8.5 mg/dL (8.4-10.2); Potassium 4.9 mmol/L (3.5-5.1); Total Bilirubin 0.4 mg/dL (0.2-1.3); Total Protein 4.6 g/dL (6.3-8.2)
[2017-08-07] MEDS: PANTOPRAZOLE 40 MG TABLET PO SCH (06:41)
[2017-08-07] MEDS: hydrALAZINE HCL 50 MG TAB PO SCH ×3 (06:41→23:05)
[2017-08-07] MEDS: FERROUS SULFATE 325 MG TAB PO SCH ×2 (06:41→17:29)
--- NOTE | 2017-08-07 09:02 | P.PN ---
Subjective Progress Note Date: 08/07/17 HPI: This is an 87-year-old male patient who is well-known to our services that is being seen examined and evaluated today for consultation. This patient came into the emergency room with increased shortness of breath and chest pain as well as palpitations. Patient was noted to have atrial fibrillation with rapid ventricular rate. ER staff went to establish an IV line when the patient spontaneously returned to sinus mechanism approximately 70 bpm and then subsequently did drop into the 50s. A repeat EKG was performed and did show sinus bradycardia. Chest x-ray in the ER included reveals COPD and cardiomegaly. He was also noted to have elevated troponins at 0.028, 0.152, and 0.155. The patient did undergo a right-sided heart catheter recently which showed normal wedge pressures. The patient was admitted for further workup in an evaluation. Upon examination the patient is resting up in bed on supplemental oxygen via nasal cannula. Patient continues to have shortness of breath with exertion, has a chronic cough. Denies any congestion. Hemoglobin is 8.5. He does have obstructive sleep apnea. Interval history 08/06/17- patient is being seen examined and evaluated today on rounds. Upon examination the patient is laying up in bed on room air. Apparently the patient took off his oxygen and did not reapply it. If his pulse ox was obtained on room air and was approximately 90. Supplemental oxygen was reapplied and the patient came up to 94%. Hemoglobin is stable today at 8.6. INR is 1.9. He feels his breathing is close to his baseline. Cardiology is following the patient. She is afebrile, all labs and reports have been reviewed. No further complaints. 08/07/17- patient is being seen examined and evaluated today on rounds. He is resting up in bed on supplemental oxygen via nasal cannula. He denies any chest pain. States he does have some shortness of breath with exertion and activity. Has been participating with therapies. He is afebrile no further complaints. Cardiology is following the patient closely and he is being considered for a pacemaker inpatient and possible ablation outpatient. Objective - Vital Signs Vital signs: Vital Signs Temp 97.5 F L 08/07/17 04:00 Pulse 63 08/07/17 04:00 Resp 18 08/07/17 04:00 BP 129/52 08/07/17 04:00 Pulse Ox 87 L 08/07/17 04:00 Intake & Output 08/06/17 08/07/17 08/07/17 18:59 06:59 18:59 Intake Total 840 240 Output Total 900 220 Balance 840 -900 20 Weight 98.5 kg Intake: Oral 840 240 Output: Urine 900 220 Other: Voiding Method Toilet Toilet Urinal Urinal # Voids 1 1 - Exam GENERAL EXAM: Alert, comfortable in no apparent distress. HEAD: Normocephalic. EYES: Normal reaction of pupils, equal size. NOSE: Clear with pink turbinates. THROAT: No erythema or exudates. NECK: No masses, no JVD. CHEST: No chest wall deformity. LUNGS: Lung sounds noted to be diminished with some faint expiratory wheeze on forced expiration CVS: S1 and S2 normal with no audible mumurs, regular rhythm. ABDOMEN: No hepatosplenomegaly, normal bowel sounds, no guarding or rigidity. EXTREMITIES: No edema noted, pedal pulses palpable. CENTRAL NERVOUS SYSTEM: No focal deficits, tone is normal in all 4 extremities. - Labs CBC & Chem 7: 08/07/17 05:34 08/07/17 05:34 Labs: Abnormal Lab Results - Last 24 Hours (Table) 08/06/17 08/07/17 08/07/17 Range/Units 11:38 05:34 05:34 RBC 2.78 L (4.30-5.90) m/uL Hgb 8.0 L (13.0-17.5) gm/dL Hct 26.3 L (39.0-53.0) % MCHC 30.5 L (31.0-37.0) g/dL RDW 16.3 H (11.5-15.5) % Plt Count 95 L (150-450) k/uL Lymphocytes # 0.7 L (1.0-4.8) k/uL PT (9.0-12.0) sec INR (<1.2) BUN 58 H (9-20) mg/dL Creatinine 1.70 H (0.66-1.25) mg/dL POC Glucose (mg/dL) 104 H (75-99) mg/dL AST 10 L (17-59) U/L Total Protein 4.6 L (6.3-8.2) g/dL Albumin 2.7 L (3.5-5.0) g/dL 08/07/ Range/Units 05:34 RBC (4.30-5.90) m/uL Hgb (13.0-17.5) gm/dL Hct (39.0-53.0) % MCHC (31.0-37.0) g/dL RDW (11.5-15.5) % Plt Count (150-450) k/uL Lymphocytes # (1.0-4.8) k/uL PT 18.2 H (9.0-12.0) sec INR 2.0 H (<1.2) BUN (9-20) mg/dL Creatinine (0.66-1.25) mg/dL POC Glucose (mg/dL) (75-99) mg/dL AST (17-59) U/L Total Protein (6.3-8.2) g/dL Albumin (3.5-5.0) g/dL Assessment and Plan Assessment: Assessment Acute on chronic hypoxic respiratory failure requiring supplemental oxygen Chest pain with palpitations, with tachycardia and bradycardia Paroxysmal atrial fibrillation with rapid ventricular rate 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 Hemoglobin is at baseline at this time. Continue with pulmonary hygiene, coughing and deep breathing exercises, and supportive care. Supplemental oxygen to maintain oxygen saturations of 90% or better. Continue nebulizer treatments. Cardiology on consult and appreciate recommendations. GI and DVT prophylaxis. PT and OT , increase activity as tolerated. We will continue to monitor labs/results and adjust treatment as necessary. Further recommendations pending. I performed an examination of the patient and discussed their management with the nurse practitioner. I have reviewed the nurse practitioner's note and agree with the documented findings and plan of care.
[2017-08-07] MEDS: ALLOPURINOL 100 MG TAB PO SCH (09:06)
[2017-08-07] MEDS: predniSONE 10 MG TAB PO SCH (09:07)
[2017-08-07] MEDS: FLECAINIDE 50 MG TAB PO SCH ×2 (09:07→23:05)
[2017-08-07] MEDS: ASPIRIN 81 MG PO SCH (09:07)
[2017-08-07] MEDS: LOSARTAN 25 MG TAB PO SCH (09:07)
[2017-08-07] MEDS: guaiFENesin 600 MG TABLET.ER PO SCH ×2 (09:07→23:05)
[2017-08-07] MEDS: ALBUTEROL NEBULIZED 2.5 MG/3 ML INHALATION PRN (09:17)
[2017-08-07] MEDS: BUDESONIDE 0.5 MG/2 ML NEBU INHALATION SCH (09:17)
--- NOTE | 2017-08-07 11:26 | P.PN ---
Subjective Progress Note Date: 08/07/17 This is an 87 year old male patient of Dr BEBA millard, patient has underlying history of CLL diagnosed in 2008, follows with Dr. Hilton at [facility] oncology COPD with O2 dependencea sneeded, wears CPAP at night, Atrial fibrillation on Coumadin anticoagulation, PAD, CAD and recurrent anemia requring specialized blood for transfusion. Patient had multiple admissions prior to this fall intermittent SVT and atrial fibrillation with RVR. He was also on amiodarone for atrial fibrillation which was taken off due to concern for amiodarone related lung disease. Patient has been short of breath off and on for several years worse with exertion and stop H was recently admitted from our facility as well as the other facility 2 weeks prior to admission secondary to atrial fibrillation and intermittent SVT, he was taken off amiodarone secondary amiodarone-induced lung disease, . Patient has had shortness of breath off and on for several years, worse with exertion Patient comes to the ER due to increased shortness of breath associated with chest pain and increased palpitation. He was just discharged on 06/03 after treatment for unstable angina, paroxysmal A. fib with RVR, anemia of chronic disease with severe anemia requiring blood transfusions. Hemoccult was checked the last admission which was negative. Gastroenterology was consulted as patient was on Coumadin, no plan for endoscopy or colonoscopy patient's anemia is likely related to CLL, chronic kidney disease and being on anticoagulation. He does have history of hemolytic anemia and is on 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 10 mg daily. In the ER patient heart rate went up to 160-170 on admission with converted back to sinus bradycardia with sinus arrhythmia with a heart rate ranging from 50- 60. Patient was recently initiated on Cardizem drip before converting to sinus rhythm. Blood pressure 155/66 currently requiring 2 L of oxygen. Chest x-ray suggests of COPD and borderline cardiomyopathy. Labs suggest a sodium of 148, chloride 108, creatinine 1.6 which is patient's baseline, INR 2.20 therapeutic, troponin is normal 0.0-8. We'll repeat a set of troponin, BNP, cardiology consult for possible sick sinus syndrome. Recent echo in generally suggest EF 50 to55 %. Patient is sent right heart cardiac cath was suggest mild to moderate pulmonary hypertension. 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 His rate has been controlled. Dr. Millard has told him in the past that he is not a candidate for pacemaker or rather that this would be the last resort. Triglycerides 165, cholesterol 126, LDL 62 and HDL 31. Hemoglobin today is 8.5. BUN 46 and creatinine 1.54. Patient is also been seen by pulmonary medicine. Patient's daughter is at the bedside. 08/06: Last evening, A-Team was called for heart rate in the 150s in A. fib with chest pain. Patient's heart rate has been running anywhere between the 50s and 70s this morning. Patient was on Cardizem drip as last evening his heart rate was in the 140s and 150s and he had chest heaviness. This was discontinued at 2 AM. Hemoglobin 8.6, BUN 15 creatinine 1.6. INR is 1.9. Patient has been continued on Coumadin. Await cardiology plan. Cardiology is change Cardizem to 60 mg 3 times daily. 08/07: Patient has been followed by cardiology. They have decided that if he has significant bradycardia on the current medications that a permanent pacemaker will be implanted during this admission and later Dr. Millard will perform ablation. Flecainide has also been added to his medications as well as increased Cardizem. Heart rate has been running in the 50s to 70s. His pulse ox is 96% on room air. Blood pressure is stable. He has been afebrile. INR is 2, hemoglobin 8, BUN 15 creatinine 1.7 patient states that he has not been feeling well since he started flecainide. He states his gait is unsteady and he feels very weak. Lopressor was held last evening for heart rate of 50. Await further recommendations from cardiology. Objective - Vital Signs Vital signs: Vital Signs Temp 97.5 F L 08/07/17 04:00 Pulse 63 08/07/17 04:00 Resp 18 08/07/17 04:00 BP 129/52 08/07/17 04:00 Pulse Ox 87 L 08/07/17 04:00 Intake & Output 08/06/17 08/07/17 08/07/17 18:59 06:59 18:59 Intake Total 840 240 Output Total 900 220 Balance 840 -900 20 Weight 98.5 kg Intake: Oral 840 240 Output: Urine 900 220 Other: Voiding Method Toilet Toilet Urinal Urinal # Voids 1 1 - Exam General appearance: average body habitus, mild distress - EENT Eyes: no abnormal pupil, anicteric sclerae, no disc margins sharp, EOMI, PERRLA , no ptosis ENT: hearing grossly normal Ears: bilateral: normal - Neck Neck: no lymphadenopathy, normal ROM, no rigidity Carotids: bilateral: upstroke normal Thyroid: bilateral: normal size - Respiratory Respiratory: right: rhonchi, bilateral: diminished, dullness, negative: wheezing , prolonged expiration, prolonged inspiration - Cardiovascular Rhythm: regular Heart sounds: normal: S1, S2 Abnormal Heart Sounds: systolic murmur, no rub, no click diastolic murmur Grade: III/ ankle Peripheral Edema: bilateral: None - Gastrointestinal General gastrointestinal: no distended, normal bowel sounds, soft, no tenderness - Integumentary Integumentary: no calor, no cyanotic, no jaundiced, no rash - Neurologic Neurologic: CNII-XII intact - Musculoskeletal Musculoskeletal: gait normal, generalized weakness - Psychiatric Psychiatric: A&O x's 3, appropriate affect, intact judgment & insight - Labs CBC & Chem 7: 08/07/17 05:34 08/07/17 05:34 Labs: Abnormal Lab Results - Last 24 Hours (Table) 08/06/17 08/07/1718 Range/Units 11:38 05:34 05:34 RBC 2.78 L (4.30-5.90) m/uL Hgb 8.0 L (13.0-17.5) gm/dL Hct 26.3 L (39.0-53.0) % MCHC 30.5 L (31.0-37.0) g/dL RDW 16.3 H (11.5-15.5) % Plt Count 95 L (150-450) k/uL Lymphocytes # 0.7 L (1.0-4.8) k/uL PT (9.0-12.0) sec INR (<1.2) BUN 58 H (9-20) mg/dL Creatinine 1.70 H (0.66-1.25) mg/dL POC Glucose (mg/dL) 104 H (75-99) mg/dL AST 10 L (17-59) U/L Total Protein 4.6 L (6.3-8.2) g/dL Albumin 2.7 L (3.5-5.0) g/dL 08/07/17 Range/Units 05:34 RBC (4.30-5.90) m/uL Hgb (13.0-17.5) gm/dL Hct (39.0-53.0) % MCHC (31.0-37.0) g/dL RDW (11.5-15.5) % Plt Count (150-450) k/uL Lymphocytes # (1.0-4.8) k/uL PT 18.2 H (9.0-12.0) sec INR 2.0 H (<1.2) BUN (9-20) mg/dL Creatinine (0.66-1.25) mg/dL POC Glucose (mg/dL) (75-99) mg/dL AST (17-59) U/L Total Protein (6.3-8.2) g/dL Albumin (3.5-5.0) g/dL Assessment and Plan Plan: 1 chest pain likely secondary to tachyarrhythmia ( no EKG that documents the type of rhythm patient came in ) that appears like a CT. Patient does have under branch block with intermittent sinus bradycardia concerning for sick sinus syndrome. Cardiology consult. Troponin 2. BNP ordered. Recent echo from generally suggest EF 50-55% we will hold on repeating echocardiogram until seen by cardiology. Continue Lopressor 50 mg twice daily, Cardizem CD 60 mg 3 times daily and flecainide 50 mg every 12 hours. If patient develops significant bradycardia, pacemaker will be placed and patient will undergo ablation with Dr. Millard and a later time. 2 paroxysmal atrial fibrillation with rapid ventricular rate, intermittent, on anticoagulation with Coumadin, has been discontinued off the amiodarone secondary to amiodarone induced pulmonary disease, continue Cardizem 63 times daily. Metoprolol 50 mg twice daily 3. Anemia of chronic disease with severe anemia in past requiring recurrent blood transfusion. History of hemolytic anemia in the past currently hemoglobin is above patient's baseline. 4. Acute on Chronic hypoxic respiratory failure with COPD. currentLy on 2 L O2 , uses oxygen as needed at home. Continue DuoNeb as needed for shortness of breath. Patient does not appear to be in acute exacerbation but does have significant shortness of breath. Consult with Dr. Frances edwards. 5. CLL history follows with oncologist at [facility] 8. Hypertension, continue Cardizem 120 twice a day, decrease losartan to 25mg daily, continue metoprolol 50mg bid 9. LOUIE on CPAP at night 10. CKD stage III, baseline creatinine 1.4-2.0. Avoid toxins and hypotension would be avoided 11. 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 BPH without lower urinary tract symtoms 14. Moderate protein calorie nutrition 15. Idiopathic pulmonary fibrosis likley rocíoary to amiodarone . Continue prednisone 10 mg daily. Patient is followed by pulmonary medicine. Continue DuoNeb treatments, Pulmicort, Singulair 16. gi prophylaxis and dvt prophlaxis on pepcid 20 mg po BID and caumadin for atrial fib Code Status: full. Discharge plan: Home with [facility] Impression and plan of care have been directed as dictated by the signing physician. Silvia Mathew nurse practitioner acting as scribe for signing physician.
--- NOTE | 2017-08-07 12:21 | P.PN ---
Subjective Progress Note Date: 08/07/17 This is a pleasant 87-year-old gentleman who follows regularly with Dr. Simon in the office. He has a known history of CLL, paroxysmal atrial fibrillation, anemia, diabetes, hyperlipidemia, hypertension, COPD, sleep apnea , chronic renal failure. Patient also has history of amiodarone-induced lung disease for which amiodarone was been discontinued in the past. Patient most recently was in the hospital in June at which time he underwent a right heart catheterization for evaluation of pulmonary hypertension. Testing revealed normal wedge pressures, mild to moderate elevation in pulmonary artery pressures , nearly normal cardiac outputs. 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 He presents to the hospital on this occasion with symptoms of chest tightness associated shortness of breath. According to the patient, even with very minimal exertion he becomes quite short of breath, he states however that the chest tightness occurs with or without exertion. EKG that was performed by EMS showed atrial fibrillation with a rapid ventricular response, initial EKG on arrival here showed a normal sinus rhythm with a right bundle branch block and left anterior fascicular block. Chest x-ray shows borderline cardiomegaly. Subsequent EKG performed shows a sinus bradycardia with a heart rate in the 50s. At pressure 138/60 with a heart rate in the 60s, temperature 97.9. White blood cell count 5.2, hemoglobin 8.5, platelet count 101. D-dimer 0.3. Magnesium level on admission 1.4, 1.9 this morning. INR 2.2. Troponins 0.028, 0.15, 0.15. TSH is normal. At the time of my examination this morning, patient is lying comfortably in bed, denies any shortness of breath, denies any chest discomfort. 08/06/2017 Patient was seen and examined this morning, feeling better this morning, however through the night last night had significant chest tightness. At that same time patient went into rapid atrial fibrillation. He has since converted and this morning is in a normal sinus rhythm to sinus bradycardia. We did have a discussion with the patient and his son this morning, we will start the patient on flecainide, we will also add Cardizem 60 mg 3 times a day to his medication regime. If the patient becomes significantly bradycardic on these medications a permanent pacemaker will be implanted during this admission, and once Dr. Lau is back patient then can undergo ablation. This was explained to the son and the patient in detail and they're both willing to proceed. Hemoglobin today is 8.6, platelet count 95, INR 1.9, BUN 50, creatinine 1.6. 08/07/2017 Patient seen and examined this morning, no further episodes of rapid atrial fibrillation were noted through the night the patient overall states he doesn't feel well. He states he gets quite shaky, and is uncertain if it is from his new medication. He also feels it may be secondary to his treatment. He remains in a normal sinus rhythm this morning with a heart rate in the 60s. Blood pressure 130/60 with a heart rate in the 70s, 97% on 2 L of oxygen. White blood cell count 5.5, hemoglobin 8.0, platelet count 95. INR 2.0. Sodium 142, potassium 4.9, BUN 58, creatinine 1.7. Objective - Vital Signs Vital signs: Vital Signs Temp 97.6 F 08/07/17 08:00 Pulse 64 08/07/17 09:34 Resp 18 08/07/17 08:00 BP 130/60 08/07/17 08:00 Pulse Ox 97 08/07/17 08:00 Intake & Output 08/06/17 08/07/17 08/07/17 18:59 06:59 18:59 Intake Total 840 240 Output Total 900 220 Balance 840 -900 20 Weight 98.5 kg Intake: Oral 840 240 Output: Urine 900 220 Other: Voiding Method Toilet Toilet Toilet Urinal Urinal Urinal # Voids 1 1 - Exam PHYSICAL EXAMINATION: HEENT: Head is atraumatic, normocephalic. Pupils equal, round. Neck is supple. There is no elevated jugular venous pressure. HEART EXAMINATION: Heart S1, S2 normal. No murmur or gallop heard. CHEST EXAMINATION: Lungs reveal coarse rales at the bases. ABDOMEN: Soft, nontender. Bowel sounds are heard. No organomegaly noted. EXTREMITIES: 2+ peripheral pulses with no evidence of peripheral edema and no calf tenderness noted. NEUROLOGIC patient is awake, alert and oriented -3. - Labs CBC & Chem 7: 08/07/17 05:34 08/07/17 05:34 Labs: Abnormal Lab Results - Last 24 Hours (Table) 08/07/17 08/07/17 08/07/17 Range/Units 05:34 05:34 05:34 RBC 2.78 L (4.30-5.90) m/uL Hgb 8.0 L (13.0-17.5) gm/dL Hct 26.3 L (39.0-53.0) % MCHC 30.5 L (31.0-37.0) g/dL RDW 16.3 H (11.5-15.5) % Plt Count 95 L (150-450) k/uL Lymphocytes # 0.7 L (1.0-4.8) k/uL PT 18.2 H (9.0-12.0) sec INR 2.0 H (<1.2) BUN 58 H (9-20) mg/dL Creatinine 1.70 H (0.66-1.25) mg/dL AST 10 L (17-59) U/L Total Protein 4.6 L (6.3-8.2) g/dL Albumin 2.7 L (3.5-5.0) g/dL Assessment and Plan Plan: Assessment and plan #1 atrial fibrillation with rapid ventricular response, paroxysmal, patient has known history of atrial fibrillation. Patient currently in normal sinus rhythm. #2 chest tightness and heaviness, possible acute coronary syndrome. Troponins 0.028, 0.152, 0.155. Normal sinus rhythm morning with right bundle branch block pattern and left anterior fascicular block. 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 #14 chronic renal failure, creatinine 1.4 Plan We will speak with pulmonary regarding changing the updraft to see if the patient feels better overall, if he is asymptomatic then we will continue flecainide at current dose. If patient still has symptoms and we will discontinue the flecainide. DNP note has been reviewed, I agree with a documented findings and plan of care. Patient was seen and examined.
[2017-08-07] MEDS: FOLIC ACID 1 MG TAB PO SCH (12:42)
[2017-08-07 16:31] LABS: Glucose,Whole Blood 146 mg/dL (75-99)
[2017-08-07] MEDS: WARFARIN 5 MG TAB PO SCH (17:29)
[2017-08-07 21:08] LABS: Glucose,Whole Blood 122 mg/dL (75-99)
[2017-08-07] MEDS: MONTELUKAST 10 MG TAB PO SCH (23:05)
[2017-08-07] MEDS: PRAVASTATIN SODIUM 40 MG TAB PO SCH (23:05)
[2017-08-08 06:18] LABS: Glucose,Whole Blood 102 mg/dL (75-99)
[2017-08-08] MEDS: DOXAZOSIN 2 MG TAB PO SCH ×2 (08:22→23:02)
[2017-08-08] MEDS: ASPIRIN 81 MG PO SCH (08:29)
[2017-08-08] MEDS: hydrALAZINE HCL 50 MG TAB PO SCH ×3 (08:29→23:01)
[2017-08-08] MEDS: METOPROLOL TARTRATE 50 MG TAB PO SCH ×2 (08:29→23:02)
[2017-08-08] MEDS: ALLOPURINOL 100 MG TAB PO SCH (08:29)
[2017-08-08] MEDS: DILTIAZEM ORAL 60 MG TAB PO SCH ×3 (08:29→23:03)
[2017-08-08] MEDS: FLECAINIDE 50 MG TAB PO SCH ×2 (08:30→23:02)
[2017-08-08] MEDS: PANTOPRAZOLE 40 MG TABLET PO SCH (08:30)
[2017-08-08] MEDS: LOSARTAN 25 MG TAB PO SCH (08:30)
[2017-08-08] MEDS: FERROUS SULFATE 325 MG TAB PO SCH ×2 (08:30→17:25)
[2017-08-08] MEDS: FOLIC ACID 1 MG TAB PO SCH (08:31)
[2017-08-08] MEDS: predniSONE 10 MG TAB PO SCH (08:31)
[2017-08-08] MEDS: guaiFENesin 600 MG TABLET.ER PO SCH ×2 (08:31→23:02)
[2017-08-08] MEDS: BUDESONIDE 0.5 MG/2 ML NEBU INHALATION SCH ×2 (08:58→09:02)
--- NOTE | 2017-08-08 11:41 | P.PN ---
Subjective Progress Note Date: 08/08/17 Principal diagnosis: Paroxysmal atrophy fibrillation, tachybradycardia syndrome, recurrent chest pain , anemia, acute on chronic hypoxic respiratory failure, pulmonary hypertension, CLL, obstructive sleep apnea and CK D. This is an 87 year old male patient of Dr BEBA millard, patient has underlying history of CLL diagnosed in 2008, follows with Dr. Hilton at [facility] oncology COPD with O2 dependencea sneeded, wears CPAP at night, Atrial fibrillation on Coumadin anticoagulation, PAD, CAD and recurrent anemia requring specialized blood for transfusion. Patient had multiple admissions prior to this fall intermittent SVT and atrial fibrillation with RVR. He was also on amiodarone for atrial fibrillation which was taken off due to concern for amiodarone related lung disease. Patient has been short of breath off and on for several years worse with exertion and stop H was recently admitted from our facility as well as the other facility 2 weeks prior to admission secondary to atrial fibrillation and intermittent SVT, he was taken off amiodarone secondary amiodarone-induced lung disease, . Patient has had shortness of breath off and on for several years, worse with exertion Patient comes to the ER due to increased shortness of breath associated with chest pain and increased palpitation. He was just discharged on 06/03 after treatment for unstable angina, paroxysmal A. fib with RVR, anemia of chronic disease with severe anemia requiring blood transfusions. Hemoccult was checked the last admission which was negative. Gastroenterology was consulted as patient was on Coumadin, no plan for endoscopy or colonoscopy patient's anemia is likely related to CLL, chronic kidney disease and being on anticoagulation. He does have history of hemolytic anemia and is on 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 10 mg daily. In the ER patient heart rate went up to 160-170 on admission with converted back to sinus bradycardia with sinus arrhythmia with a heart rate ranging from 50- 60. Patient was recently initiated on Cardizem drip before converting to sinus rhythm. Blood pressure 155/66 currently requiring 2 L of oxygen. Chest x-ray suggests of COPD and borderline cardiomyopathy. Labs suggest a sodium of 148, chloride 108, creatinine 1.6 which is patient's baseline, INR 2.20 therapeutic, troponin is normal 0.0-8. We'll repeat a set of troponin, BNP, cardiology consult for possible sick sinus syndrome. Recent echo in generally suggest EF 50 to55 %. Patient is sent right heart cardiac cath was suggest mild to moderate pulmonary hypertension. 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 His rate has been controlled. Dr. Millard has told him in the past that he is not a candidate for pacemaker or rather that this would be the last resort. Triglycerides 165, cholesterol 126, LDL 62 and HDL 31. Hemoglobin today is 8.5. BUN 46 and creatinine 1.54. Patient is also been seen by pulmonary medicine. Patient's daughter is at the bedside. 08/06: Last evening, A-Team was called for heart rate in the 150s in A. fib with chest pain. Patient's heart rate has been running anywhere between the 50s and 70s this morning. Patient was on Cardizem drip as last evening his heart rate was in the 140s and 150s and he had chest heaviness. This was discontinued at 2 AM. Hemoglobin 8.6, BUN 15 creatinine 1.6. INR is 1.9. Patient has been continued on Coumadin. Await cardiology plan. Cardiology is change Cardizem to 60 mg 3 times daily. 08/07: Patient has been followed by cardiology. They have decided that if he has significant bradycardia on the current medications that a permanent pacemaker will be implanted during this admission and later Dr. Millard will perform ablation. Flecainide has also been added to his medications as well as increased Cardizem. Heart rate has been running in the 50s to 70s. His pulse ox is 96% on room air. Blood pressure is stable. He has been afebrile. INR is 2, hemoglobin 8, BUN 15 creatinine 1.7 patient states that he has not been feeling well since he started flecainide. He states his gait is unsteady and he feels very weak. Lopressor was held last evening for heart rate of 50. Await further recommendations from cardiology. His doing slightly better with the flecainide last 24 hours with no rapid or severe slow pulse rate. Continue patient on current management no need for pacemaker currently. Patient has severe physical debility not been able template and walk with start PTOT and patient might need to go to rehab. Objective - Vital Signs Vital signs: Vital Signs Temp 97.1 F L 08/08/17 08:25 Pulse 60 08/08/17 08:25 Resp 18 08/08/17 08:25 BP 131/55 08/08/17 08:25 Pulse Ox 95 08/08/17 09:03 Intake & Output 08/07/17 08/08/17 08/08/17 18:59 06:59 18:59 Intake Total 480 240 Output Total 220 Balance 260 240 Weight 98.4 kg Intake: Oral 480 240 Output: Urine 220 Other: Voiding Method Toilet Toilet Urinal Urinal # Voids 2 1 # Bowel Movements 2 1 - Constitutional General appearance: Present: cooperative, disheveled, no acute distress, obese. Absent: average body habitus, mild distress, morbidly obese, severe distress, thin - EENT Eyes: Present: normal appearance. Absent: abnormal pupil, anicteric sclerae, disc margins sharp, edentulous, EOMI, PERRLA, fundus normal, photophobia, dentition normal, poor dentition, ptosis, scleral icterus ENT: Present: hearing grossly normal, pharyngeal erythema. Absent: hard of hearing, NA/AT, normal oropharynx, other, thrush, tonsillar exudates, tonsillar swelling Ears: bilateral: normal - Neck Neck: Present: normal ROM. Absent: lymphadenopathy, other, rigidity, stridor, thyromegaly Carotids: bilateral: upstroke normal, upstroke delayed Thyroid: bilateral: normal size - Respiratory Respiratory: bilateral: diminished, dullness, rales - Cardiovascular Rhythm: irregularly irregular Heart sounds: normal: S1, S2 Abnormal Heart Sounds: Present: systolic murmur, S3 Gallop - Gastrointestinal General gastrointestinal: Present: decreased bowel sounds, normal bowel sounds. Absent: absent bowel sounds, distended, hepatomegaly, hyperactive bowel sounds , organomegaly, rigid, scaphoid, soft, splenomegaly, tenderness, umbilical hernia, ventral hernia - Integumentary Integumentary: Absent: calor, cellulitis, cyanotic, decreased turgor, flushed, jaundiced, normal, normal turgor, pale, rash, ulcer - Neurologic Neurologic: Present: CNII-XII intact - Musculoskeletal Musculoskeletal: Present: gait normal, generalized weakness, strength equal bilaterally. Absent: right sided weakness, left sided weakness - Psychiatric Psychiatric: Present: A&O x's 3, appropriate affect. Absent: intact judgment & insight - Labs CBC & Chem 7: 08/07/17 05:34 08/07/17 05:34 Labs: Abnormal Lab Results - Last 24 Hours (Table) 08/07/17 08/07/17 08/08/17 Range/Units 16:28 21:06 06:16 POC Glucose (mg/dL) 146 H 122 H 102 H (75-99) mg/dL Assessment and Plan Plan: 1. paroxysmal atrial fibrillation with rapid ventricular rate,, had respond to flecainide better last 24 hours. Patient was having tachybradycardia syndrome and a talk that patient might need a pacemaker. As of now no need for pacemaker but further EP testing still need to be done and eventually patient might need a pacemaker for the same diagnosis specially with his failure with the flecainide or having severe bradycardia with it. 2 chest pain: Angina-type most likely caused by the hypoperfusion from the arrhythmia specially with the patient is either tachycardia or bradycardia causing symptoms, much better so far seeing cardiology his throat level was slightly elevated no need for any further testing at this time. 3. Pulmonary hypertension: Patient has an appointment to see one of the pulmonary hypertension clinician in [place] sometime this coming week. 4. Acute on Chronic hypoxic respiratory failure with COPD. currentLy on 2 L O2 , uses oxygen as needed at home. Continue DuoNeb as needed for shortness of breath. Patient does not appear to be in acute exacerbation but does have significant shortness of breath. Consult with Dr. Frances edwards. 5. CLL history follows with oncologist at [facility] 8. Hypertension, continue Cardizem 120 twice a day, decrease losartan to 25mg daily, continue metoprolol 50mg bid 9. LOUIE on CPAP at night 10. CKD stage III, baseline creatinine 1.4-2.0. Avoid toxins and hypotension would be avoided 11. 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 BPH without lower urinary tract symtoms 14. Moderate protein calorie nutrition 15. Idiopathic pulmonary fibrosis andrew alfordary to amiodarone . Continue prednisone 10 mg daily. Patient is followed by pulmonary medicine. Continue DuoNeb treatments, Pulmicort, Singulair 16. gi prophylaxis and dvt prophlaxis on pepcid 20 mg po BID and caumadin for atrial fib Debility: Patient is agreeable for PTOT and director of social work to help possibly for him to go to rehab.
[2017-08-08 11:42] LABS: Glucose,Whole Blood 102 mg/dL (75-99)
--- NOTE | 2017-08-08 11:42 | P.PN ---
Subjective Progress Note Date: 08/08/17 This is a pleasant 87-year-old gentleman who follows regularly with Dr. Simon in the office. He has a known history of CLL, paroxysmal atrial fibrillation, anemia, diabetes, hyperlipidemia, hypertension, COPD, sleep apnea , chronic renal failure. Patient also has history of amiodarone-induced lung disease for which amiodarone was been discontinued in the past. Patient most recently was in the hospital in June at which time he underwent a right heart catheterization for evaluation of pulmonary hypertension. Testing revealed normal wedge pressures, mild to moderate elevation in pulmonary artery pressures , nearly normal cardiac outputs. 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 He presents to the hospital on this occasion with symptoms of chest tightness associated shortness of breath. According to the patient, even with very minimal exertion he becomes quite short of breath, he states however that the chest tightness occurs with or without exertion. EKG that was performed by EMS showed atrial fibrillation with a rapid ventricular response, initial EKG on arrival here showed a normal sinus rhythm with a right bundle branch block and left anterior fascicular block. Chest x-ray shows borderline cardiomegaly. Subsequent EKG performed shows a sinus bradycardia with a heart rate in the 50s. At pressure 138/60 with a heart rate in the 60s, temperature 97.9. White blood cell count 5.2, hemoglobin 8.5, platelet count 101. D-dimer 0.3. Magnesium level on admission 1.4, 1.9 this morning. INR 2.2. Troponins 0.028, 0.15, 0.15. TSH is normal. At the time of my examination this morning, patient is lying comfortably in bed, denies any shortness of breath, denies any chest discomfort. 08/06/2017 Patient was seen and examined this morning, feeling better this morning, however through the night last night had significant chest tightness. At that same time patient went into rapid atrial fibrillation. He has since converted and this morning is in a normal sinus rhythm to sinus bradycardia. We did have a discussion with the patient and his son this morning, we will start the patient on flecainide, we will also add Cardizem 60 mg 3 times a day to his medication regime. If the patient becomes significantly bradycardic on these medications a permanent pacemaker will be implanted during this admission, and once Dr. Lau is back patient then can undergo ablation. This was explained to the son and the patient in detail and they're both willing to proceed. Hemoglobin today is 8.6, platelet count 95, INR 1.9, BUN 50, creatinine 1.6. 08/07/2017 Patient seen and examined this morning, no further episodes of rapid atrial fibrillation were noted through the night the patient overall states he doesn't feel well. He states he gets quite shaky, and is uncertain if it is from his new medication. He also feels it may be secondary to his treatment. He remains in a normal sinus rhythm this morning with a heart rate in the 60s. Blood pressure 130/60 with a heart rate in the 70s, 97% on 2 L of oxygen. White blood cell count 5.5, hemoglobin 8.0, platelet count 95. INR 2.0. Sodium 142, potassium 4.9, BUN 58, creatinine 1.7. 08/08/2017 Patient seen and examined this morning, no rapid A. fib noted through the night last night, no significant bradycardia. He complains this morning of feeling extremely weak. Blood pressure 130/60 with a heart rate in the 60s, 95% on 2 L of oxygen. Objective - Vital Signs Vital signs: Vital Signs Temp 97.1 F L 08/08/17 08:25 Pulse 60 08/08/17 08:25 Resp 18 08/08/17 08:25 BP 131/55 08/08/17 08:25 Pulse Ox 95 08/08/17 09:03 Intake & Output 08/07/17 08/08/17 08/08/17 18:59 06:59 18:59 Intake Total 480 240 Output Total 220 Balance 260 240 Weight 98.4 kg Intake: Oral 480 240 Output: Urine 220 Other: Voiding Method Toilet Toilet Urinal Urinal # Voids 2 1 # Bowel Movements 2 1 - Exam PHYSICAL EXAMINATION: HEENT: Head is atraumatic, normocephalic. Pupils equal, round. Neck is supple. There is no elevated jugular venous pressure. HEART EXAMINATION: Heart S1, S2 normal. No murmur or gallop heard. CHEST EXAMINATION: Lungs reveal coarse rales at the bases. ABDOMEN: Soft, nontender. Bowel sounds are heard. No organomegaly noted. EXTREMITIES: 2+ peripheral pulses with no evidence of peripheral edema and no calf tenderness noted. NEUROLOGIC patient is awake, alert and oriented -3. - Labs CBC & Chem 7: 08/07/17 05:34 08/07/17 05:34 Labs: Abnormal Lab Results - Last 24 Hours (Table) 08/07/17 08/07/17 08/08/17 Range/Units 16:28 21:06 06:16 POC Glucose (mg/dL) 146 H 122 H 102 H (75-99) mg/dL Assessment and Plan Plan: Assessment and plan #1 atrial fibrillation with rapid ventricular response, paroxysmal, patient has known history of atrial fibrillation. Patient currently in normal sinus rhythm. #2 chest tightness and heaviness, possible acute coronary syndrome. Troponins 0.028, 0.152, 0.155. Normal sinus rhythm morning with right bundle branch block pattern and left anterior fascicular block. 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 #14 chronic renal failure, Plan From cardiology's perspective, we will recommend to continue the patient on his current medications. Follow-up appointment with Dr. Lau in the office post discharge. DNP note has been reviewed, I agree with a documented findings and plan of care. Patient was seen and examined.
--- NOTE | 2017-08-08 15:15 | P.PN ---
Subjective Progress Note Date: 08/08/17 (Patient seen while covering for Dr. 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, severe COPD, obstructive sleep apnea on CPAP, CLL, anemia of chronic disease, chronic renal failure stage III 08/08/2017, patient seen eval examined clinically patient is still short of breath on minimal activity and exertion at rest however he is breathing comfortably patient remains on breathing treatments cardiovascular services are following as well, patient feels her improvement in respiratory status he is been undergoing deep breathing exercises incentive spirometry as well, medications reviewed laboratory data reviewed as, last chest x-ray revealed COPD -like changes along with borderline cardiomegaly patient came into the emergency room with increased shortness of breath and chest pain as well as palpitations. Patient was noted to have atrial fibrillation with rapid ventricular rate. ER staff went to establish an IV line when the patient spontaneously returned to sinus mechanism approximately 70 bpm and then subsequently did drop into the 50s. A repeat EKG was performed and did show sinus bradycardia. Chest x-ray in the ER included reveals COPD and cardiomegaly. He was also noted to have elevated troponins at 0.028, 0.152 , and 0.155. Objective - Vital Signs Vital signs: Vital Signs Temp 97.1 F L 08/08/17 08:25 Pulse 60 08/08/17 12:00 Resp 18 08/08/17 12:00 BP 131/55 08/08/17 08:25 Pulse Ox 95 08/08/17 09:03 Intake & Output 08/07/17 08/08/17 08/08/17 18:59 06:59 18:59 Intake Total 480 480 Output Total 220 Balance 260 480 Weight 98.4 kg Intake: Oral 480 480 Output: Urine 220 Other: Voiding Method Toilet Toilet Toilet Urinal Urinal Urinal # Voids 2 1 # Bowel Movements 2 1 - Exam GENERAL EXAM: Alert, comfortable in no apparent distress. HEAD: Normocephalic. EYES: Normal reaction of pupils, equal size. NOSE: Clear with pink turbinates. THROAT: No erythema or exudates. NECK: No masses, no JVD. CHEST: No chest wall deformity. LUNGS: Lung sounds noted to be diminished with some faint expiratory wheeze on forced expiration CVS: S1 and S2 normal with no audible mumurs, regular rhythm. ABDOMEN: No hepatosplenomegaly, normal bowel sounds, no guarding or rigidity. EXTREMITIES: No edema noted, pedal pulses palpable. CENTRAL NERVOUS SYSTEM: No focal deficits, tone is normal in all 4 extremities. 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
[2017-08-08 16:57] LABS: Glucose,Whole Blood 160 mg/dL (75-99)
[2017-08-08] MEDS: WARFARIN 5 MG TAB PO SCH (17:25)
[2017-08-08 21:04] LABS: Glucose,Whole Blood 122 mg/dL (75-99)
[2017-08-08] MEDS: MONTELUKAST 10 MG TAB PO SCH (23:04)
[2017-08-08] MEDS: PRAVASTATIN SODIUM 40 MG TAB PO SCH (23:04)
[2017-08-09 06:13] LABS: Glucose,Whole Blood 93 mg/dL (75-99)
[2017-08-09 06:23] LABS: Anisocytosis Slight; Basophils % (A) 0 %; Eosinophils # (A) 0.1 k/uL (0-0.7); Eosinophils % (A) 1 %; HCT 27.7 % (39.0-53.0); HGB 8.3 gm/dL (13.0-17.5); Hypochromasia Marked; Lymphocytes # (A) 0.7 k/uL (1.0-4.8); Lymphocytes % (A) 14 %; MCH 28.8 pg (25.0-35.0); MCHC 30.1 g/dL (31.0-37.0); MCV 95.4 fL (80.0-100.0); Mean Platelet Volume 8.6; Monocytes # (A) 0.3 k/uL (0-1.0); Monocytes % (A) 6 %; Neutrophils # (A) 3.8 k/uL (1.3-7.7); Neutrophils % (A) 77 %; Platelet Count 107 k/uL (150-450); RDW 16.4 % (11.5-15.5); WBC 4.9 k/uL (3.8-10.6)
[2017-08-09 06:32] LABS: Albumin 2.8 g/dL (3.5-5.0); Calcium 8.6 mg/dL (8.4-10.2); Potassium 5.1 mmol/L (3.5-5.1); Total Bilirubin 0.3 mg/dL (0.2-1.3); Total Protein 4.7 g/dL (6.3-8.2)
[2017-08-09] MEDS: BUDESONIDE 0.5 MG/2 ML NEBU INHALATION SCH (07:19)
[2017-08-09] MEDS: predniSONE 10 MG TAB PO SCH (08:02)
[2017-08-09] MEDS: METOPROLOL TARTRATE 50 MG TAB PO SCH (08:02)
[2017-08-09] MEDS: ASPIRIN 81 MG PO SCH (08:02)
[2017-08-09] MEDS: DILTIAZEM ORAL 60 MG TAB PO SCH (08:02)
[2017-08-09] MEDS: FERROUS SULFATE 325 MG TAB PO SCH ×2 (08:02→17:03)
[2017-08-09] MEDS: hydrALAZINE HCL 50 MG TAB PO SCH ×3 (08:03→22:16)
[2017-08-09] MEDS: FLECAINIDE 50 MG TAB PO SCH ×2 (08:03→22:16)
[2017-08-09] MEDS: FOLIC ACID 1 MG TAB PO SCH (08:03)
[2017-08-09] MEDS: LOSARTAN 25 MG TAB PO SCH (08:03)
[2017-08-09] MEDS: guaiFENesin 600 MG TABLET.ER PO SCH ×2 (08:03→22:16)
[2017-08-09] MEDS: ALLOPURINOL 100 MG TAB PO SCH (08:03)
[2017-08-09] MEDS: PANTOPRAZOLE 40 MG TABLET PO SCH (08:03)
--- NOTE | 2017-08-09 09:57 | P.PN ---
Subjective Progress Note Date: 08/09/17 Principal diagnosis: Paroxysmal atrophy fibrillation, tachybradycardia syndrome, recurrent chest pain , anemia, acute on chronic hypoxic respiratory failure, pulmonary hypertension, CLL, obstructive sleep apnea and CKD. This is an 87 year old male patient of Dr BEBA millard, patient has underlying history of CLL diagnosed in 2008, follows with Dr. Hilton at [facility] oncology COPD with O2 dependencea sneeded, wears CPAP at night, Atrial fibrillation on Coumadin anticoagulation, PAD, CAD and recurrent anemia requring specialized blood for transfusion. Patient had multiple admissions prior to this fall intermittent SVT and atrial fibrillation with RVR. He was also on amiodarone for atrial fibrillation which was taken off due to concern for amiodarone related lung disease. Patient has been short of breath off and on for several years worse with exertion and stop H was recently admitted from our facility as well as the other facility 2 weeks prior to admission secondary to atrial fibrillation and intermittent SVT, he was taken off amiodarone secondary amiodarone-induced lung disease, . Patient has had shortness of breath off and on for several years, worse with exertion Patient comes to the ER due to increased shortness of breath associated with chest pain and increased palpitation. He was just discharged on 06/03 after treatment for unstable angina, paroxysmal A. fib with RVR, anemia of chronic disease with severe anemia requiring blood transfusions. Hemoccult was checked the last admission which was negative. Gastroenterology was consulted as patient was on Coumadin, no plan for endoscopy or colonoscopy patient's anemia is likely related to CLL, chronic kidney disease and being on anticoagulation. He does have history of hemolytic anemia and is on 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 10 mg daily. In the ER patient heart rate went up to 160-170 on admission with converted back to sinus bradycardia with sinus arrhythmia with a heart rate ranging from 50- 60. Patient was recently initiated on Cardizem drip before converting to sinus rhythm. Blood pressure 155/66 currently requiring 2 L of oxygen. Chest x-ray suggests of COPD and borderline cardiomyopathy. Labs suggest a sodium of 148, chloride 108, creatinine 1.6 which is patient's baseline, INR 2.20 therapeutic, troponin is normal 0.0-8. We'll repeat a set of troponin, BNP, cardiology consult for possible sick sinus syndrome. Recent echo in generally suggest EF 50 to55 %. Patient is sent right heart cardiac cath was suggest mild to moderate pulmonary hypertension. He follows a activity aide at is pulmonary hypertension 08/05: Patient has been seen by cardiology and echocardiogram ordered. His rate has been controlled. Dr. Millard has told him in the past that he is not a candidate for pacemaker or rather that this would be the last resort. Triglycerides 165, cholesterol 126, LDL 62 and HDL 31. Hemoglobin today is 8.5. BUN 46 and creatinine 1.54. Patient is also been seen by pulmonary medicine. Patient's daughter is at the bedside. 08/06: Last evening, A-Team was called for heart rate in the 150s in A. fib with chest pain. Patient's heart rate has been running anywhere between the 50s and 70s this morning. Patient was on Cardizem drip as last evening his heart rate was in the 140s and 150s and he had chest heaviness. This was discontinued at 2 AM. Hemoglobin 8.6, BUN 15 creatinine 1.6. INR is 1.9. Patient has been continued on Coumadin. Await cardiology plan. Cardiology is change Cardizem to 60 mg 3 times daily. 08/07: Patient has been followed by cardiology. They have decided that if he has significant bradycardia on the current medications that a permanent pacemaker will be implanted during this admission and later Dr. Millard will perform ablation. Flecainide has also been added to his medications as well as increased Cardizem. Heart rate has been running in the 50s to 70s. His pulse ox is 96% on room air. Blood pressure is stable. He has been afebrile. INR is 2, hemoglobin 8, BUN 15 creatinine 1.7 patient states that he has not been feeling well since he started flecainide. He states his gait is unsteady and he feels very weak. Lopressor was held last evening for heart rate of 50. Await further recommendations from cardiology. His doing slightly better with the flecainide last 24 hours with no rapid or severe slow pulse rate. Continue patient on current management no need for pacemaker currently. Patient has severe physical debility not been able template and walk with start PTOT and patient might need to go to rehab. His back on his updraft treatment not having any reaction, still tolerating flecainide very well in the last 24 hours. His mobility and debility remain a problem that patient will require rehab. Objective - Vital Signs Vital signs: Vital Signs Temp 98.0 F 08/09/17 08:00 Pulse 51 L 08/09/17 08:00 Resp 51 H 08/09/17 08:00 BP 138/63 08/09/17 08:00 Pulse Ox 99 08/09/17 08:00 Intake & Output 08/08/17 08/09/17 08/09/17 18:59 06:59 18:59 Intake Total 1220 180 Output Total 700 Balance 1220 -700 180 Weight 97.8 kg Intake: Oral 1220 180 Output: Urine 700 Other: Voiding Method Toilet Toilet Toilet Urinal Urinal Urinal # Voids 1 2 1 # Bowel Movements 1 - Constitutional General appearance: Present: disheveled, mild distress, obese. Absent: average body habitus, cooperative, morbidly obese, no acute distress, severe distress, thin - EENT Eyes: Present: normal appearance. Absent: abnormal pupil, anicteric sclerae, disc margins sharp, edentulous, EOMI, PERRLA, fundus normal, photophobia, dentition normal, poor dentition, ptosis, scleral icterus ENT: Present: normal oropharynx, pharyngeal erythema. Absent: hard of hearing, hearing grossly normal, NA/AT, other, thrush, tonsillar exudates, tonsillar swelling Ears: bilateral: normal - Neck Neck: Present: normal ROM. Absent: lymphadenopathy, other, rigidity, stridor, thyromegaly Carotids: bilateral: upstroke normal Thyroid: bilateral: normal size - Respiratory Respiratory: bilateral: diminished, dullness, rales, rhonchi, wheezing - Cardiovascular Rhythm: irregularly irregular Heart sounds: normal: S1, S2 Abnormal Heart Sounds: Present: systolic murmur, S3 Gallop - Gastrointestinal General gastrointestinal: Present: distended, normal bowel sounds, soft. Absent : absent bowel sounds, decreased bowel sounds, hepatomegaly, hyperactive bowel sounds, organomegaly, rigid, scaphoid, splenomegaly, tenderness, umbilical hernia, ventral hernia - Integumentary Integumentary Comment(s): Multiple bruises all over his 4 extremities from his anticoagulation. Integumentary: Present: cellulitis, pale, rash - Neurologic Neurologic: Present: CNII-XII intact - Musculoskeletal Musculoskeletal: Present: gait normal, generalized weakness, strength equal bilaterally - Psychiatric Psychiatric: Present: A&O x's 3, appropriate affect - Labs CBC & Chem 7: 08/09/17 05:46 08/09/17 05:46 Labs: Abnormal Lab Results - Last 24 Hours (Table) 08/08/17 08/08/17 08/08/17 Range/Units 11:15 16:54 21:02 RBC (4.30-5.90) m/uL Hgb (13.0-17.5) gm/dL Hct (39.0-53.0) % MCHC (31.0-37.0) g/dL RDW (11.5-15.5) % Plt Count (150-450) k/uL Lymphocytes # (1.0-4.8) k/uL BUN (9-20) mg/dL Creatinine (0.66-1.25) mg/dL POC Glucose (mg/dL) 102 H 160 H 122 H (75-99) mg/dL AST (17-59) U/L Total Protein (6.3-8.2) g/dL Albumin (3.5-5.0) g/dL 08/09/17 08/09/17 Range/Units 05:46 05:46 RBC 2.90 L (4.30-5.90) m/uL Hgb 8.3 L (13.0-17.5) gm/dL Hct 27.7 L (39.0-53.0) % MCHC 30.1 L (31.0-37.0) g/dL RDW 16.4 H (11.5-15.5) % Plt Count 107 L (150-450) k/uL Lymphocytes # 0.7 L (1.0-4.8) k/uL BUN 70 H (9-20) mg/dL Creatinine 1.80 H (0.66-1.25) mg/dL POC Glucose (mg/dL) (75-99) mg/dL AST 10 L (17-59) U/L Total Protein 4.7 L (6.3-8.2) g/dL Albumin 2.8 L (3.5-5.0) g/dL Assessment and Plan Plan: 1. paroxysmal atrial fibrillation with rapid ventricular rate,, had respond to flecainide better last 24 hours. Patient was having tachybradycardia syndrome and a talk that patient might need a pacemaker. As of now no need for pacemaker but further EP testing still need to be done and eventually patient might need a pacemaker for the same diagnosis specially with his failure with the flecainide or having severe bradycardia with it. It seems with the adjustment of medication is doing much better in the next 24 hours his stable he'll be able to be discharged to rehab. 2 chest pain: Angina-type most likely caused by the hypoperfusion from the arrhythmia specially with the patient is either tachycardia or bradycardia causing symptoms, much better so far seeing cardiology his throat level was slightly elevated no need for any further testing at this time. 3. Pulmonary hypertension: Patient has an appointment to see one of the pulmonary hypertension clinician in [place] sometime this coming week. If he ended up going to rehab he might see his pulmonary hypertension clinician this coming week and Sindhu Ralph according to him he comes once a month on . 4. Acute on Chronic hypoxic respiratory failure with COPD. currentLy on 2 L O2 , uses oxygen as needed at home. Continue DuoNeb as needed for shortness of breath. Patient does not appear to be in acute exacerbation but does have significant shortness of breath. Consult with Dr. Frances edwards. 5. CLL history follows with oncologist at [facility] 8. Hypertension, continue Cardizem 120 twice a day, decrease losartan to 25mg daily, continue metoprolol 50mg bid 9. LOUIE on CPAP at night 10. CKD stage III, baseline creatinine 1.4-2.0. Avoid toxins and hypotension would be avoided 11. 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 BPH without lower urinary tract symtoms 14. Moderate protein calorie nutrition 15. Idiopathic pulmonary fibrosis andrew rodriguez to amiodarone . Continue prednisone 10 mg daily. Patient is followed by pulmonary medicine. Continue DuoNeb treatments, Pulmicort, Singulair 16. gi prophylaxis and dvt prophlaxis on pepcid 20 mg po BID and caumadin for atrial fib Debility: Patient is agreeable for PTOT and transition social worker to help possibly for him to go to rehab.
[2017-08-09] MEDS ORDERED: DILTIAZEM ORAL 60 MG TAB PO SCH (10:00)
[2017-08-09] MEDS: IPRATROPIUM-ALBUTEROL 3 ML NEB INHALATION PRN ×3 (11:11→20:30)
[2017-08-09 11:48] LABS: Glucose,Whole Blood 127 mg/dL (75-99)
--- NOTE | 2017-08-09 12:49 | P.PN ---
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, severe COPD, obstructive sleep apnea on CPAP, CLL, anemia of chronic disease, chronic renal failure stage III 08/09/2017, patient seen evsydney reexamined during the rounds clinically has been doing well awake and alert breathing comfortably no obvious distress present cuff shortness of breath and wheezing is improved on bronchodilator he remains on flecainide tolerating well cardiovascular services been following no obvious distress is present hemodynamic status stable except borderline bradycardia oxygenation remains stable and improved patient has been doing deep breathing exercises incentive spirometry 08/08/2017, patient seen eval examined clinically patient is still short of breath on minimal activity and exertion at rest however he is breathing comfortably patient remains on breathing treatments cardiovascular services are following as well, patient feels her improvement in respiratory status he is been undergoing deep breathing exercises incentive spirometry as well, medications reviewed laboratory data reviewed as, last chest x-ray revealed COPD -like changes along with borderline cardiomegaly patient came into the emergency room with increased shortness of breath and chest pain as well as palpitations. Patient was noted to have atrial fibrillation with rapid ventricular rate. ER staff went to establish an IV line when the patient spontaneously returned to sinus mechanism approximately 70 bpm and then subsequently did drop into the 50s. A repeat EKG was performed and did show sinus bradycardia. Chest x-ray in the ER included reveals COPD and cardiomegaly. He was also noted to have elevated troponins at 0.028, 0.152 , and 0.155. Objective - Vital Signs Vital signs: Vital Signs Temp 98.0 F 08/09/17 08:00 Pulse 80 08/09/17 11:23 Resp 51 H 08/09/17 08:00 BP 138/63 08/09/17 08:00 Pulse Ox 99 08/09/17 08:00 Intake & Output 08/08/17 08/09/17 08/09/17 18:59 06:59 18:59 Intake Total 1220 180 Output Total 700 Balance 1220 -700 180 Weight 97.8 kg Intake: Oral 1220 180 Output: Urine 700 Other: Voiding Method Toilet Toilet Toilet Urinal Urinal Urinal # Voids 1 2 1 # Bowel Movements 1 - Exam GENERAL EXAM: Alert, comfortable in no apparent distress. HEAD: Normocephalic. EYES: Normal reaction of pupils, equal size. NOSE: Clear with pink turbinates. THROAT: No erythema or exudates. NECK: No masses, no JVD. CHEST: No chest wall deformity. LUNGS: Lung sounds noted to be diminished with some faint expiratory wheeze on forced expiration CVS: S1 and S2 normal with no audible mumurs, regular rhythm. ABDOMEN: No hepatosplenomegaly, normal bowel sounds, no guarding or rigidity. EXTREMITIES: No edema noted, pedal pulses palpable. CENTRAL NERVOUS SYSTEM: No focal deficits, tone is normal in all 4 extremities. - Labs CBC & Chem 7: 08/09/17 05:46 08/09/17 05:46 Labs: Abnormal Lab Results - Last 24 Hours (Table) 08/08/17 08/08/17 08/09/17 Range/Units 16:54 21:02 05:46 RBC 2.90 L (4.30-5.90) m/uL Hgb 8.3 L (13.0-17.5) gm/dL Hct 27.7 L (39.0-53.0) % MCHC 30.1 L (31.0-37.0) g/dL RDW 16.4 H (11.5-15.5) % Plt Count 107 L (150-450) k/uL Lymphocytes # 0.7 L (1.0-4.8) k/uL BUN (9-20) mg/dL Creatinine (0.66-1.25) mg/dL POC Glucose (mg/dL) 160 H 122 H (75-99) mg/dL AST (17-59) U/L Total Protein (6.3-8.2) g/dL Albumin (3.5-5.0) g/dL 08/09/17 08/09/17 Range/Units 05:46 11:43 RBC (4.30-5.90) m/uL Hgb (13.0-17.5) gm/dL Hct (39.0-53.0) % MCHC (31.0-37.0) g/dL RDW (11.5-15.5) % Plt Count (150-450) k/uL Lymphocytes # (1.0-4.8) k/uL BUN 70 H (9-20) mg/dL Creatinine 1.80 H (0.66-1.25) mg/dL POC Glucose (mg/dL) 127 H (75-99) mg/dL AST 10 L (17-59) U/L Total Protein 4.7 L (6.3-8.2) g/dL Albumin 2.8 L (3.5-5.0) g/dL Assessment and Plan Assessment: Acute hypoxic respiratory failure, likely multifactorial related to component of obesity hypoventilation, atrial fibrillation, congestive heart failure, 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
--- NOTE | 2017-08-09 13:32 | PN ---
PROGRESS NOTE Mr. Segura is a gentleman with paroxysmal atrial fibrillation, was started on flecainide. He is in sinus rhythm now but is quite bradycardic with IVCD type picture. I am recommending that we decrease the beta giacomo and Cardizem. Continue flecainide. Increase oral fluids and continue his breathing treatments for his COPD/bronchial asthma and when he does better, he can be discharged hopefully in the next 24 hours. Clinically, patient is doing much better today. S1, S2 heard normally. Short systolic murmur is audible at the base. Lungs are clear with improved air entry. Abdomen and lower exam is unchanged. MMODL / IJN: [id number] /
[2017-08-09] MEDS: DILTIAZEM ORAL 30 MG TAB PO SCH ×2 (16:09→22:16)
[2017-08-09 16:45] LABS: Glucose,Whole Blood 139 mg/dL (75-99)
[2017-08-09] MEDS: WARFARIN 5 MG TAB PO SCH (17:03)
[2017-08-09] MEDS: DOXAZOSIN 2 MG TAB PO SCH (22:15)
[2017-08-09] MEDS: PRAVASTATIN SODIUM 40 MG TAB PO SCH (22:16)
[2017-08-09] MEDS: MONTELUKAST 10 MG TAB PO SCH (22:16)
[2017-08-10] MEDS: PANTOPRAZOLE 40 MG TABLET PO SCH (06:12)
[2017-08-10] MEDS: FERROUS SULFATE 325 MG TAB PO SCH ×2 (06:13→17:07)
[2017-08-10] MEDS: hydrALAZINE HCL 50 MG TAB PO SCH ×3 (06:16→20:40)
[2017-08-10 06:35] LABS: Anisocytosis Slight; Basophils % (A) 0 %; Eosinophils # (A) 0.1 k/uL (0-0.7); Eosinophils % (A) 1 %; HCT 26.5 % (39.0-53.0); Hypochromasia Marked; Lymphocytes # (A) 0.7 k/uL (1.0-4.8); Lymphocytes % (A) 16 %; MCH 28.7 pg (25.0-35.0); MCHC 30.3 g/dL (31.0-37.0); Mean Platelet Volume 7.9; Monocytes # (A) 0.3 k/uL (0-1.0); Monocytes % (A) 7 %; Neutrophils # (A) 3.4 k/uL (1.3-7.7); Neutrophils % (A) 75 %; Platelet Count 110 k/uL (150-450); RBC 2.79 m/uL (4.30-5.90); RDW 16.6 % (11.5-15.5); WBC 4.5 k/uL (3.8-10.6)
[2017-08-10 06:53] LABS: Albumin 2.8 g/dL (3.5-5.0); Calcium 8.7 mg/dL (8.4-10.2); Potassium 4.9 mmol/L (3.5-5.1); Total Bilirubin 0.3 mg/dL (0.2-1.3); Total Protein 4.7 g/dL (6.3-8.2)
[2017-08-10] MEDS: IPRATROPIUM-ALBUTEROL 3 ML NEB INHALATION PRN ×3 (07:43→20:15)
[2017-08-10] MEDS: BUDESONIDE 0.5 MG/2 ML NEBU INHALATION SCH (07:43)
[2017-08-10] MEDS: FOLIC ACID 1 MG TAB PO SCH (07:53)
[2017-08-10] MEDS: DILTIAZEM ORAL 30 MG TAB PO SCH ×3 (07:53→21:05)
[2017-08-10] MEDS: FLECAINIDE 50 MG TAB PO SCH ×2 (07:53→20:40)
[2017-08-10] MEDS: LOSARTAN 25 MG TAB PO SCH (07:53)
[2017-08-10] MEDS: predniSONE 10 MG TAB PO SCH (07:54)
[2017-08-10] MEDS: guaiFENesin 600 MG TABLET.ER PO SCH ×2 (07:54→20:40)
[2017-08-10] MEDS: ALLOPURINOL 100 MG TAB PO SCH (07:54)
[2017-08-10] MEDS: METOPROLOL TARTRATE 25 MG TAB PO SCH (07:54)
[2017-08-10] MEDS: ASPIRIN 81 MG PO SCH (07:54)
--- NOTE | 2017-08-10 10:29 | P.PN ---
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, severe COPD, obstructive sleep apnea on CPAP, CLL, anemia of chronic disease, chronic renal failure stage III 08/10/2017, patient seen eval examined during the rounds shortness breath cough has improved breathing continued to stabilize patient is on 2 L oxygen, and labs from today reviewed BUN/creatinine remains as stable, hemoglobin is down to 8 stable and low platelet counts Yesica patient is on bronchodilators 4 times a day as well as a maintenance prednisone 10 mg daily tolerating very well patient has been on anticoagulation with Coumadin 08/09/2017, patient seen eval reexamined during the rounds clinically has been doing well awake and alert breathing comfortably no obvious distress present cuff shortness of breath and wheezing is improved on bronchodilator he remains on flecainide tolerating well cardiovascular services been following no obvious distress is present hemodynamic status stable except borderline bradycardia oxygenation remains stable and improved patient has been doing deep breathing exercises incentive spirometry 08/08/2017, patient seen eval examined clinically patient is still short of breath on minimal activity and exertion at rest however he is breathing comfortably patient remains on breathing treatments cardiovascular services are following as well, patient feels her improvement in respiratory status he is been undergoing deep breathing exercises incentive spirometry as well, medications reviewed laboratory data reviewed as, last chest x-ray revealed COPD -like changes along with borderline cardiomegaly patient came into the emergency room with increased shortness of breath and chest pain as well as palpitations. Patient was noted to have atrial fibrillation with rapid ventricular rate. ER staff went to establish an IV line when the patient spontaneously returned to sinus mechanism approximately 70 bpm and then subsequently did drop into the 50s. A repeat EKG was performed and did show sinus bradycardia. Chest x-ray in the ER included reveals COPD and cardiomegaly. He was also noted to have elevated troponins at 0.028, 0.152 , and 0.155. Objective - Vital Signs Vital signs: Vital Signs Temp 97.6 F 08/10/17 07:50 Pulse 72 08/10/17 07:58 Resp 16 08/10/17 07:50 BP 153/71 08/10/17 07:50 Pulse Ox 97 08/10/17 07:50 Intake & Output 08/09/17 08/10/17 08/10/17 18:59 06:59 18:59 Intake Total 1658 Output Total 700 Balance 1658 -700 Weight 97.6 kg Intake: Oral 1658 Output: Urine 700 Other: Voiding Method Toilet Toilet Toilet Urinal Urinal Urinal # Voids 4 1 - Exam GENERAL EXAM: Alert, comfortable in no apparent distress. HEAD: Normocephalic. EYES: Normal reaction of pupils, equal size. NOSE: Clear with pink turbinates. THROAT: No erythema or exudates. NECK: No masses, no JVD. CHEST: No chest wall deformity. LUNGS: Lung sounds noted to be diminished air entry with no significant rales rhonchi or wheezing noted CVS: S1 and S2 normal with no audible mumurs, regular rhythm. ABDOMEN: No hepatosplenomegaly, normal bowel sounds, no guarding or rigidity. EXTREMITIES: No edema noted, pedal pulses palpable. CENTRAL NERVOUS SYSTEM: No focal deficits, tone is normal in all 4 extremities. - Labs CBC & Chem 7: 08/10/17 05:58 08/10/17 05:58 Labs: Abnormal Lab Results - Last 24 Hours (Table) 08/09/17 08/09/17 08/10/17 Range/Units 11:43 16:40 05:58 RBC 2.79 L (4.30-5.90) m/uL Hgb 8.0 L (13.0-17.5) gm/dL Hct 26.5 L (39.0-53.0) % MCHC 30.3 L (31.0-37.0) g/dL RDW 16.6 H (11.5-15.5) % Plt Count 110 L (150-450) k/uL Lymphocytes # 0.7 L (1.0-4.8) k/uL BUN (9-20) mg/dL Creatinine (0.66-1.25) mg/dL POC Glucose (mg/dL) 127 H 139 H (75-99) mg/dL AST (17-59) U/L Total Protein (6.3-8.2) g/dL Albumin (3.5-5.0) g/dL 08/10/17 Range/Units 05:58 RBC (4.30-5.90) m/uL Hgb (13.0-17.5) gm/dL Hct (39.0-53.0) % MCHC (31.0-37.0) g/dL RDW (11.5-15.5) % Plt Count (150-450) k/uL Lymphocytes # (1.0-4.8) k/uL BUN 66 H (9-20) mg/dL Creatinine 1.65 H (0.66-1.25) mg/dL POC Glucose (mg/dL) (75-99) mg/dL AST 9 L (17-59) U/L Total Protein 4.7 L (6.3-8.2) g/dL Albumin 2.8 L (3.5-5.0) g/dL Assessment and Plan Assessment: Acute hypoxic respiratory failure, likely multifactorial related to component of obesity hypoventilation, atrial fibrillation, congestive heart failure, 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 Severe degree of obstructive sleep apnea Morbid obesity Atrial fibrillation with rapid ventricular response and secondary diastolic heart failure acute on chronic, on flecainide tolerating well, now on anticoagulation with Coumadin CLL Chronic renal failure stage III Plan: Continue breathing treatment and supportive care Continue maintenance prednisone Increase activity as tolerated Deep breathing exercise incentive spirometry Continue CPAP machine Agree with placement in extended care facility Further recommendations pending plan of care as per clinical response of the patient Time with Patient: Greater than 30
--- NOTE | 2017-08-10 10:47 | P.PN ---
Subjective Progress Note Date: 08/10/17 Principal diagnosis: Paroxysmal atrophy fibrillation, tachybradycardia syndrome, recurrent chest pain , anemia, acute on chronic hypoxic respiratory failure, pulmonary hypertension, CLL, obstructive sleep apnea and CKD. This is an 87 year old male patient of Dr BEBA millard, patient has underlying history of CLL diagnosed in 2008, follows with Dr. Hilton at [facility] oncology COPD with O2 dependencea sneeded, wears CPAP at night, Atrial fibrillation on Coumadin anticoagulation, PAD, CAD and recurrent anemia requring specialized blood for transfusion. Patient had multiple admissions prior to this fall intermittent SVT and atrial fibrillation with RVR. He was also on amiodarone for atrial fibrillation which was taken off due to concern for amiodarone related lung disease. Patient has been short of breath off and on for several years worse with exertion and stop H was recently admitted from our facility as well as the other facility 2 weeks prior to admission secondary to atrial fibrillation and intermittent SVT, he was taken off amiodarone secondary amiodarone-induced lung disease, . Patient has had shortness of breath off and on for several years, worse with exertion Patient comes to the ER due to increased shortness of breath associated with chest pain and increased palpitation. He was just discharged on 06/03 after treatment for unstable angina, paroxysmal A. fib with RVR, anemia of chronic disease with severe anemia requiring blood transfusions. Hemoccult was checked the last admission which was negative. Gastroenterology was consulted as patient was on Coumadin, no plan for endoscopy or colonoscopy patient's anemia is likely related to CLL, chronic kidney disease and being on anticoagulation. He does have history of hemolytic anemia and is on 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 10 mg daily. In the ER patient heart rate went up to 160-170 on admission with converted back to sinus bradycardia with sinus arrhythmia with a heart rate ranging from 50- 60. Patient was recently initiated on Cardizem drip before converting to sinus rhythm. Blood pressure 155/66 currently requiring 2 L of oxygen. Chest x-ray suggests of COPD and borderline cardiomyopathy. Labs suggest a sodium of 148, chloride 108, creatinine 1.6 which is patient's baseline, INR 2.20 therapeutic, troponin is normal 0.0-8. We'll repeat a set of troponin, BNP, cardiology consult for possible sick sinus syndrome. Recent echo in generally suggest EF 50 to55 %. Patient is sent right heart cardiac cath was suggest mild to moderate pulmonary hypertension. 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 His rate has been controlled. Dr. Millard has told him in the past that he is not a candidate for pacemaker or rather that this would be the last resort. Triglycerides 165, cholesterol 126, LDL 62 and HDL 31. Hemoglobin today is 8.5. BUN 46 and creatinine 1.54. Patient is also been seen by pulmonary medicine. Patient's daughter is at the bedside. 08/06: Last evening, A-Team was called for heart rate in the 150s in A. fib with chest pain. Patient's heart rate has been running anywhere between the 50s and 70s this morning. Patient was on Cardizem drip as last evening his heart rate was in the 140s and 150s and he had chest heaviness. This was discontinued at 2 AM. Hemoglobin 8.6, BUN 15 creatinine 1.6. INR is 1.9. Patient has been continued on Coumadin. Await cardiology plan. Cardiology is change Cardizem to 60 mg 3 times daily. 08/07: Patient has been followed by cardiology. They have decided that if he has significant bradycardia on the current medications that a permanent pacemaker will be implanted during this admission and later Dr. Millard will perform ablation. Flecainide has also been added to his medications as well as increased Cardizem. Heart rate has been running in the 50s to 70s. His pulse ox is 96% on room air. Blood pressure is stable. He has been afebrile. INR is 2, hemoglobin 8, BUN 15 creatinine 1.7 patient states that he has not been feeling well since he started flecainide. He states his gait is unsteady and he feels very weak. Lopressor was held last evening for heart rate of 50. Await further recommendations from cardiology. His doing slightly better with the flecainide last 24 hours with no rapid or severe slow pulse rate. Continue patient on current management no need for pacemaker currently. Patient has severe physical debility not been able template and walk with start PTOT and patient might need to go to rehab. His back on his updraft treatment not having any reaction, still tolerating flecainide very well in the last 24 hours. His mobility and debility remain a problem that patient will require rehab. 08/09: Patient is doing much better his medication were adjusted he is not bradycardic anymore, still have significant debility not been able template and walk and still agreeable to go to one of the rehab shelter most [facility] tomorrow and to continue his follow-up with pulmonary hypertension clinic along with Dr. Millard. Objective - Vital Signs Vital signs: Vital Signs Temp 97.6 F 08/10/17 07:50 Pulse 72 08/10/17 07:58 Resp 16 08/10/17 07:50 BP 153/71 08/10/17 07:50 Pulse Ox 97 08/10/17 07:50 Intake & Output 08/09/17 08/10/17 08/10/17 18:59 06:59 18:59 Intake Total 1658 240 Output Total 700 Balance 1658 -700 240 Weight 97.6 kg Intake: Oral 1658 240 Output: Urine 700 Other: Voiding Method Toilet Toilet Toilet Urinal Urinal Urinal # Voids 4 1 1 - Constitutional General appearance: Present: disheveled, morbidly obese, no acute distress. Absent: average body habitus, cooperative, mild distress, obese, severe distress , thin - EENT Eyes: Present: normal appearance. Absent: abnormal pupil, anicteric sclerae, disc margins sharp, edentulous, EOMI, PERRLA, fundus normal, photophobia, dentition normal, poor dentition, ptosis, scleral icterus ENT: Present: hard of hearing, pharyngeal erythema. Absent: hearing grossly normal, NA/AT, normal oropharynx, other, thrush, tonsillar exudates, tonsillar swelling Ears: bilateral: normal - Neck Neck: Present: normal ROM. Absent: lymphadenopathy, other, rigidity, stridor, thyromegaly Carotids: bilateral: upstroke delayed Thyroid: bilateral: normal size - Respiratory Respiratory: bilateral: diminished, dullness, rales - Cardiovascular Rhythm: irregularly irregular Heart sounds: normal: S1, S2 Abnormal Heart Sounds: Present: systolic murmur, S3 Gallop - Gastrointestinal General gastrointestinal: Present: distended, normal bowel sounds, soft. Absent : absent bowel sounds, decreased bowel sounds, hepatomegaly, hyperactive bowel sounds, organomegaly, rigid, scaphoid, splenomegaly, tenderness, umbilical hernia, ventral hernia - Integumentary Integumentary: Present: cellulitis, decreased turgor, normal, rash. Absent: calor, cyanotic, flushed, jaundiced, normal turgor, pale, ulcer - Neurologic Neurologic: Present: CNII-XII intact - Musculoskeletal Musculoskeletal: Present: gait normal, generalized weakness, strength equal bilaterally. Absent: right sided weakness, left sided weakness - Psychiatric Psychiatric: Present: A&O x's 3, appropriate affect - Labs CBC & Chem 7: 08/10/17 05:58 08/10/17 05:58 Labs: Abnormal Lab Results - Last 24 Hours (Table) 08/09/17 08/09/17 08/10/17 Range/Units 11:43 16:40 05:58 RBC 2.79 L (4.30-5.90) m/uL Hgb 8.0 L (13.0-17.5) gm/dL Hct 26.5 L (39.0-53.0) % MCHC 30.3 L (31.0-37.0) g/dL RDW 16.6 H (11.5-15.5) % Plt Count 110 L (150-450) k/uL Lymphocytes # 0.7 L (1.0-4.8) k/uL BUN (9-20) mg/dL Creatinine (0.66-1.25) mg/dL POC Glucose (mg/dL) 127 H 139 H (75-99) mg/dL AST (17-59) U/L Total Protein (6.3-8.2) g/dL Albumin (3.5-5.0) g/dL 08/10/17 Range/Units 05:58 RBC (4.30-5.90) m/uL Hgb (13.0-17.5) gm/dL Hct (39.0-53.0) % MCHC (31.0-37.0) g/dL RDW (11.5-15.5) % Plt Count (150-450) k/uL Lymphocytes # (1.0-4.8) k/uL BUN 66 H (9-20) mg/dL Creatinine 1.65 H (0.66-1.25) mg/dL POC Glucose (mg/dL) (75-99) mg/dL AST 9 L (17-59) U/L Total Protein 4.7 L (6.3-8.2) g/dL Albumin 2.8 L (3.5-5.0) g/dL Assessment and Plan Plan: 1. paroxysmal atrial fibrillation with rapid ventricular rate,, had respond to flecainide better last 24 hours. Patient was having tachybradycardia syndrome and a talk that patient might need a pacemaker. As of now no need for pacemaker but further EP testing still need to be done and eventually patient might need a pacemaker, with the adjustment of flecainide dose patient is doing much better so no need for immediate pacemaker currently still might need it in the long run patient might benefit from longer term heart monitor or either event monitor or loop device which will be discussed with Dr. Millard his next appointment. 2 chest pain: Angina-type most likely caused by the hypoperfusion from the arrhythmia specially with the patient is either tachycardia or bradycardia causing symptoms, much better so far seeing cardiology his throat level was slightly elevated no need for any further testing at this time. 3. Pulmonary hypertension: Patient has an appointment to see one of the pulmonary hypertension clinician in [place] sometime this coming week. If he ended up going to rehab he might see his pulmonary hypertension clinician this coming week and Sindhu Ralph according to him he comes once a month on . 4. Acute on Chronic hypoxic respiratory failure with COPD. currentLy on 2 L O2 , uses oxygen as needed at home. Continue DuoNeb as needed for shortness of breath. Patient does not appear to be in acute exacerbation but does have significant shortness of breath. Consult with Dr. Frances edwards. 5. CLL history follows with oncologist at [facility] 8. Hypertension, continue Cardizem 120 twice a day, decrease losartan to 25mg daily, continue metoprolol 50mg bid 9. LOUIE on CPAP at night 10. CKD stage III, baseline creatinine 1.4-2.0. Avoid toxins and hypotension would be avoided 11. 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 BPH without lower urinary tract symtoms 14. Moderate protein calorie nutrition 15. 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 Continue prednisone 10 mg daily. Patient is followed by pulmonary medicine. Continue DuoNeb treatments, Pulmicort, Singulair 16. gi prophylaxis and dvt prophlaxis on pepcid 20 mg po BID and caumadin for atrial fib Debility: Patient is agreeable for PTOT and forensic social worker to help possibly for him to go to rehab tomorrow Friday 08/11.
[2017-08-10 11:51] LABS: Glucose,Whole Blood 112 mg/dL (75-99)
[2017-08-10 15:09] LABS: INR 2.6 (<1.2)
--- NOTE | 2017-08-10 16:24 | PN ---
PROGRESS NOTE Mr. Segura is in sinus rhythm, doing well. His blood pressure is good. Heart rate is better. Medication adjustments seem to have helped him. He is also on flecainide. S1-S2 heard normally. Short systolic murmur noted. Lungs are clear. Abdomen and lower extremity exam is unchanged. Plan is to continue current medications, increase activity and he can be discharged whenever it is okay with Dr. Taylor. MMODL / IJN: [id number] /
[2017-08-10 16:58] LABS: Glucose,Whole Blood 150 mg/dL (75-99)
[2017-08-10] MEDS: WARFARIN 5 MG TAB PO SCH (17:07)
[2017-08-10] MEDS: DOXAZOSIN 2 MG TAB PO SCH (20:40)
[2017-08-10] MEDS: MONTELUKAST 10 MG TAB PO SCH (20:41)
[2017-08-10] MEDS: PRAVASTATIN SODIUM 40 MG TAB PO SCH (20:41)
[2017-08-10 21:45] VITALS: RESP 18
[2017-08-11 05:59] LABS: Anisocytosis Slight; Basophils % (A) 0 %; Eosinophils # (A) 0.1 k/uL (0-0.7); Eosinophils % (A) 1 %; HCT 27.8 % (39.0-53.0); HGB 8.3 gm/dL (13.0-17.5); Hypochromasia Marked; Lymphocytes # (A) 0.8 k/uL (1.0-4.8); Lymphocytes % (A) 16 %; MCH 28.4 pg (25.0-35.0); MCHC 29.7 g/dL (31.0-37.0); MCV 95.5 fL (80.0-100.0); Mean Platelet Volume 7.4; Monocytes # (A) 0.3 k/uL (0-1.0); Monocytes % (A) 6 %; Neutrophils # (A) 3.5 k/uL (1.3-7.7); Neutrophils % (A) 75 %; Platelet Count 125 k/uL (150-450); RBC 2.91 m/uL (4.30-5.90); RDW 16.5 % (11.5-15.5); WBC 4.7 k/uL (3.8-10.6)
[2017-08-11 06:03] LABS: INR 2.8 (<1.2); Prothrombin Time 25.3 sec (9.0-12.0)
[2017-08-11 06:14] LABS: Albumin 2.8 g/dL (3.5-5.0); Calcium 8.8 mg/dL (8.4-10.2); Potassium 5.5 mmol/L (3.5-5.1); Total Bilirubin 0.2 mg/dL (0.2-1.3); Total Protein 4.7 g/dL (6.3-8.2)
[2017-08-11] MEDS: hydrALAZINE HCL 50 MG TAB PO SCH ×2 (06:19→14:48)
[2017-08-11] MEDS: FERROUS SULFATE 325 MG TAB PO SCH (06:19)
[2017-08-11] MEDS: PANTOPRAZOLE 40 MG TABLET PO SCH (06:20)
[2017-08-11] MEDS: BUDESONIDE 0.5 MG/2 ML NEBU INHALATION SCH (08:03)
[2017-08-11] MEDS: IPRATROPIUM-ALBUTEROL 3 ML NEB INHALATION PRN (08:03)
[2017-08-11] MEDS: guaiFENesin 600 MG TABLET.ER PO SCH (08:25)
[2017-08-11] MEDS: ALLOPURINOL 100 MG TAB PO SCH (08:25)
[2017-08-11] MEDS: FLECAINIDE 50 MG TAB PO SCH (08:25)
[2017-08-11] MEDS: ASPIRIN 81 MG PO SCH (08:26)
[2017-08-11] MEDS: METOPROLOL TARTRATE 25 MG TAB PO SCH (08:26)
[2017-08-11] MEDS: DILTIAZEM ORAL 30 MG TAB PO SCH ×2 (08:26→14:48)
[2017-08-11] MEDS: LOSARTAN 25 MG TAB PO SCH (08:26)
[2017-08-11] MEDS: predniSONE 10 MG TAB PO SCH (08:26)
[2017-08-11 09:24] VITALS: BMI 30.7
--- NOTE | 2017-08-11 09:33 | P.DS ---
Providers Date of admission: 08/04/17 13:34 Expected date of discharge: 08/11/17 Attending physician: Bogdan Taylor Consults: 08/04/17 13:34 Consult Physician Urgent Consulting Provider: Liang Sawyer Consult Reason/Comments: Tachycardia, supraventricular tachycardia, bradycardia Do you want consulting provider notified?: Yes 08/04/17 16:06 Consult Physician Routine Consulting Provider: Rudolph Ceja Consult Reason/Comments: Acute on chronic hypoxic respiratory failure Do you want consulting provider notified?: Yes Primary care physician: Rudolph Ceja Hospital Course: This is an 87 year old male patient of Dr BEBA millard, patient has underlying history of CLL diagnosed in 2008, follows with Dr. Hilton at [facility] oncology COPD with O2 dependencea sneeded, wears CPAP at night, Atrial fibrillation on Coumadin anticoagulation, PAD, CAD and recurrent anemia requring specialized blood for transfusion. Patient had multiple admissions prior to this fall intermittent SVT and atrial fibrillation with RVR. He was also on amiodarone for atrial fibrillation which was taken off due to concern for amiodarone related lung disease. Patient has been short of breath off and on for several years worse with exertion and stop H was recently admitted from our facility as well as the other facility 2 weeks prior to admission secondary to atrial fibrillation and intermittent SVT, he was taken off amiodarone secondary amiodarone-induced lung disease, . Patient has had shortness of breath off and on for several years, worse with exertion Patient comes to the ER due to increased shortness of breath associated with chest pain and increased palpitation. He was just discharged on 06/03 after treatment for unstable angina, paroxysmal A. fib with RVR, anemia of chronic disease with severe anemia requiring blood transfusions. Hemoccult was checked the last admission which was negative. Gastroenterology was consulted as patient was on Coumadin, no plan for endoscopy or colonoscopy patient's anemia is likely related to CLL, chronic kidney disease and being on anticoagulation. He does have history of hemolytic anemia and is on 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 10 mg daily. In the ER patient heart rate went up to 160-170 on admission with converted back to sinus bradycardia with sinus arrhythmia with a heart rate ranging from 50- 60. Patient was recently initiated on Cardizem drip before converting to sinus rhythm. Blood pressure 155/66 currently requiring 2 L of oxygen. Chest x-ray suggests of COPD and borderline cardiomyopathy. Labs suggest a sodium of 148, chloride 108, creatinine 1.6 which is patient's baseline, INR 2.20 therapeutic, troponin is normal 0.0-8. We'll repeat a set of troponin, BNP, cardiology consult for possible sick sinus syndrome. Recent echo in generally suggest EF 50 to55 %. Patient is sent right heart cardiac cath was suggest mild to moderate pulmonary hypertension. 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 His rate has been controlled. Dr. Millard has told him in the past that he is not a candidate for pacemaker or rather that this would be the last resort. Triglycerides 165, cholesterol 126, LDL 62 and HDL 31. Hemoglobin today is 8.5. BUN 46 and creatinine 1.54. Patient is also been seen by pulmonary medicine. Patient's daughter is at the bedside. 08/06: Last evening, A-Team was called for heart rate in the 150s in A. fib with chest pain. Patient's heart rate has been running anywhere between the 50s and 70s this morning. Patient was on Cardizem drip as last evening his heart rate was in the 140s and 150s and he had chest heaviness. This was discontinued at 2 AM. Hemoglobin 8.6, BUN 15 creatinine 1.6. INR is 1.9. Patient has been continued on Coumadin. Await cardiology plan. Cardiology is change Cardizem to 60 mg 3 times daily. 08/07: Patient has been followed by cardiology. They have decided that if he has significant bradycardia on the current medications that a permanent pacemaker will be implanted during this admission and later Dr. Millard will perform ablation. Flecainide has also been added to his medications as well as increased Cardizem. Heart rate has been running in the 50s to 70s. His pulse ox is 96% on room air. Blood pressure is stable. He has been afebrile. INR is 2, hemoglobin 8, BUN 15 creatinine 1.7 patient states that he has not been feeling well since he started flecainide. He states his gait is unsteady and he feels very weak. Lopressor was held last evening for heart rate of 50. Await further recommendations from cardiology. His doing slightly better with the flecainide last 24 hours with no rapid or severe slow pulse rate. Continue patient on current management no need for pacemaker currently. Patient has severe physical debility not been able template and walk with start PTOT and patient might need to go to rehab. His back on his updraft treatment not having any reaction, still tolerating flecainide very well in the last 24 hours. His mobility and debility remain a problem that patient will require rehab. 08/09: Patient is doing much better his medication were adjusted he is not bradycardic anymore, still have significant debility not been able template and walk and still agreeable to go to one of the rehab [place] [facility] by tomorrow and to continue his follow-up with pulmonary hypertension clinic along with Dr. Millard. 08/11: Patient has remained on new dose of Cardizem at 30 mg 3 times daily and flecainide is 50 mg every 12 hours patient seems to be tolerating this. Patient has been in a sinus rhythm. Cardiology has cleared him for discharge with plan to continue current medications. INR today is at 2.8, BUN 15 creatinine 1.53 with potassium of 5.5. Patient is anxious to be discharged. Patient will be discharged today in stable condition. Discharge diagnoses: 1. Paroxysmal atrial fibrillation with rapid ventricular rate with tachybradycardia syndrome 2. Chest pain: Angina-type most likely caused by the hypoperfusion from the arrhythmia 3. Pulmonary hypertension: Patient has an appointment to see one of the pulmonary hypertension clinician in [place] 4. Acute on Chronic hypoxic respiratory failure with COPD. 5. CLL history 8. Hypertension 9. LOUIE on CPAP at night 10. CKD stage III 11. 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 BPH 14. Moderate protein calorie nutrition 15. Idiopathic pulmonary [facility] [place] [facility] Impression and plan of care have been directed as dictated by the signing physician. Silvia Mathew nurse practitioner acting as scribe for signing physician. Patient Condition at Discharge: Good Plan - Discharge Summary Discharge Rx Participant: No New Discharge Prescriptions: New Diltiazem Oral [Cardizem*] 30 mg PO TID tab Flecainide [Tambocor] 50 mg PO Q12HR tab guaiFENesin [Mucinex] 600 mg PO Q12HR tablet.er Metoprolol Tartrate [Lopressor] 25 mg PO DAILY tab Warfarin [Coumadin] 4 mg PO DAILY@1800 tab Continue Terazosin [Hytrin] 2 mg PO HS Pravastatin Sodium [Pravachol] 40 mg PO HS Omeprazole [PriLOSEC] 20 mg PO DAILY Folic Acid 1 mg PO DAILY Allopurinol [Zyloprim] 100 mg PO DAILY Aspirin 81 mg PO MOWEFR Budesonide [Pulmicort] 0.5 mg INHALATION RT-DAILY Ergocalciferol (Vitamin D2) [Vitamin D2] 50,000 unit PO WE Ferrous Sulfate [Iron (65 MG Elemental)] 325 mg PO BID hydrALAZINE HCL [Apresoline] 50 mg PO TID@0700,1400,2100 Montelukast [Singulair] 10 mg PO HS predniSONE 10 mg PO DAILY Losartan [Cozaar] 25 mg PO DAILY tab Albuterol Nebulized [Ventolin Nebulized] 2.5 mg INHALATION RT-TID PRN PRN Reason: Shortness Of Breath Discontinued Warfarin [Coumadin] 5 mg PO DAILY Diltiazem HCl [Diltiazem 24Hr ER] 120 mg PO DAILY Triamterene-Hctz 37.5-25Mg [Maxzide 37.5-25] 1 tab PO DAILY Metoprolol Tartrate [Lopressor] 50 mg PO BID tab Discharge Medication List Allopurinol [Zyloprim] 100 mg PO DAILY 11/04/13 [History] Aspirin 81 mg PO MOWEFR 11/04/13 [History] Folic Acid 1 mg PO DAILY 11/04/13 [History] Omeprazole [PriLOSEC] 20 mg PO DAILY 11/04/13 [History] Pravastatin Sodium [Pravachol] 40 mg PO HS 11/04/13 [History] Terazosin [Hytrin] 2 mg PO HS 11/04/13 [History] Budesonide [Pulmicort] 0.5 mg INHALATION RT-DAILY 05/13/17 [History] Ergocalciferol (Vitamin D2) [Vitamin D2] 50,000 unit PO WE 05/13/17 [History] Ferrous Sulfate [Iron (65 MG Elemental)] 325 mg PO BID 05/13/17 [History] Montelukast [Singulair] 10 mg PO HS 05/13/17 [History] hydrALAZINE HCL [Apresoline] 50 mg PO TID@0700,1400,2100 05/13/17 [History] predniSONE 10 mg PO DAILY 05/13/17 [History] Losartan [Cozaar] 25 mg PO DAILY tab 06/03/17 [Rx] Albuterol Nebulized [Ventolin Nebulized] 2.5 mg INHALATION RT-TID PRN 08/04/17 [ History] Diltiazem Oral [Cardizem*] 30 mg PO TID tab 08/11/17 [Rx] Flecainide [Tambocor] 50 mg PO Q12HR tab 08/11/17 [Rx] Metoprolol Tartrate [Lopressor] 25 mg PO DAILY tab 08/11/17 [Rx] Warfarin [Coumadin] 4 mg PO DAILY@1800 tab 08/11/17 [Rx] guaiFENesin [Mucinex] 600 mg PO Q12HR tablet.er 08/11/17 [Rx] Follow up Appointment(s)/Referral(s): Barrett Millard MD [STAFF PHYSICIAN] - 1 Week [facility], [NON-STAFF] - As Needed Rudolph Ceja MD [Primary Care Provider] - 1 Week Discharge Disposition: TRANSFER TO SNF/ECF
[2017-08-11 10:03] VITALS: TEMP 97.4
[2017-08-11] MEDS: FOLIC ACID 1 MG TAB PO SCH (12:10)
--- NOTE | 2017-08-11 12:25 | P.PN ---
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, severe COPD, obstructive sleep apnea on CPAP, CLL, anemia of chronic disease, chronic renal failure stage III 08/10/2017, patient seen eval examined during the rounds shortness breath cough has improved breathing continued to stabilize patient is on 2 L oxygen, and labs from today reviewed BUN/creatinine remains as stable, hemoglobin is down to 8 stable and low platelet counts Yesica patient is on bronchodilators 4 times a day as well as a maintenance prednisone 10 mg daily tolerating very well patient has been on anticoagulation with Coumadin 08/09/2017, patient seen eval reexamined during the rounds clinically has been doing well awake and alert breathing comfortably no obvious distress present cuff shortness of breath and wheezing is improved on bronchodilator he remains on flecainide tolerating well cardiovascular services been following no obvious distress is present hemodynamic status stable except borderline bradycardia oxygenation remains stable and improved patient has been doing deep breathing exercises incentive spirometry 08/08/2017, patient seen eval examined clinically patient is still short of breath on minimal activity and exertion at rest however he is breathing comfortably patient remains on breathing treatments cardiovascular services are following as well, patient feels her improvement in respiratory status he is been undergoing deep breathing exercises incentive spirometry as well, medications reviewed laboratory data reviewed as, last chest x-ray revealed COPD -like changes along with borderline cardiomegaly patient came into the emergency room with increased shortness of breath and chest pain as well as palpitations. Patient was noted to have atrial fibrillation with rapid ventricular rate. ER staff went to establish an IV line when the patient spontaneously returned to sinus mechanism approximately 70 bpm and then subsequently did drop into the 50s. A repeat EKG was performed and did show sinus bradycardia. Chest x-ray in the ER included reveals COPD and cardiomegaly. He was also noted to have elevated troponins at 0.028, 0.152 , and 0.155. 08/11/2017: Patient seen and examined. Patient states he is feeling really well. He feels like his breathing is doing good. He is planning to go to subacute rehab today. Objective - Vital Signs Vital signs: Vital Signs Temp 97.4 F L 08/11/17 08:20 Pulse 72 08/11/17 08:20 Resp 18 08/11/17 08:20 BP 140/63 08/11/17 08:20 Pulse Ox 98 08/11/17 08:20 Intake & Output 08/10/17 08/11/17 08/11/17 18:59 06:59 18:59 Intake Total 600 240 Balance 600 240 Weight 97.2 kg 97.2 kg Intake: Oral 600 240 Other: Voiding Method Toilet Toilet Urinal Urinal # Voids 2 1 - Exam GENERAL EXAM: Alert, comfortable in no apparent distress. HEAD: Normocephalic. EYES: Normal reaction of pupils, equal size. NOSE: Clear with pink turbinates. THROAT: No erythema or exudates. NECK: No masses, no JVD. CHEST: No chest wall deformity. LUNGS: Lung sounds noted to be diminished air entry with no significant rales rhonchi or wheezing noted CVS: S1 and S2 normal with no audible mumurs, regular rhythm. ABDOMEN: No hepatosplenomegaly, normal bowel sounds, no guarding or rigidity. EXTREMITIES: No edema noted, pedal pulses palpable. CENTRAL NERVOUS SYSTEM: No focal deficits, tone is normal in all 4 extremities. - Labs CBC & Chem 7: 08/11/17 05:35 08/11/17 05:35 Labs: Abnormal Lab Results - Last 24 Hours (Table) 08/10/17 08/10/17 08/11/17 Range/Units 14:35 16:48 05:35 RBC 2.91 L (4.30-5.90) m/uL Hgb 8.3 L (13.0-17.5) gm/dL Hct 27.8 L (39.0-53.0) % MCHC 29.7 L (31.0-37.0) g/dL RDW 16.5 H (11.5-15.5) % Plt Count 125 L (150-450) k/uL Lymphocytes # 0.8 L (1.0-4.8) k/uL PT 23.0 H (9.0-12.0) sec INR 2.6 H (<1.2) Potassium (3.5-5.1) mmol/L Carbon Dioxide (22-30) mmol/L BUN (9-20) mg/dL Creatinine (0.66-1.25) mg/dL POC Glucose (mg/dL) 150 H (75-99) mg/dL AST (17-59) U/L Total Protein (6.3-8.2) g/dL Albumin (3.5-5.0) g/dL 08/11/17 08/11/17 Range/Units 05:35 05:35 RBC (4.30-5.90) m/uL Hgb (13.0-17.5) gm/dL Hct (39.0-53.0) % MCHC (31.0-37.0) g/dL RDW (11.5-15.5) % Plt Count (150-450) k/uL Lymphocytes # (1.0-4.8) k/uL PT 25.3 H (9.0-12.0) sec INR 2.8 H (<1.2) Potassium 5.5 H (3.5-5.1) mmol/L Carbon Dioxide 31 H (22-30) mmol/L BUN 58 H (9-20) mg/dL Creatinine 1.53 H (0.66-1.25) mg/dL POC Glucose (mg/dL) (75-99) mg/dL AST 11 L (17-59) U/L Total Protein 4.7 L (6.3-8.2) g/dL Albumin 2.8 L (3.5-5.0) g/dL Assessment and Plan Assessment: Acute hypoxic respiratory failure, likely multifactorial related to component of obesity hypoventilation, atrial fibrillation, congestive heart failure, 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 BEBA Ceja in 1-2 days
[2017-08-11 14:12] VITALS: BP 151/71; PULSE 66
--- NOTE | 2017-08-11 15:14 | P.PN ---
Subjective Progress Note Date: 08/11/17 This is a pleasant 87-year-old gentleman who follows regularly with Dr. Simon in the office. He has a known history of CLL, paroxysmal atrial fibrillation, anemia, diabetes, hyperlipidemia, hypertension, COPD, sleep apnea , chronic renal failure. Patient also has history of amiodarone-induced lung disease for which amiodarone was been discontinued in the past. Patient most recently was in the hospital in June at which time he underwent a right heart catheterization for evaluation of pulmonary hypertension. Testing revealed normal wedge pressures, mild to moderate elevation in pulmonary artery pressures , nearly normal cardiac outputs. Patient has also been working with a network support at a [facility] because of his persistent shortness of breath. He presents to the hospital on this occasion with symptoms of chest tightness associated shortness of breath. According to the patient, even with very minimal exertion he becomes quite short of breath, he states however that the chest tightness occurs with or without exertion. EKG that was performed by EMS showed atrial fibrillation with a rapid ventricular response, initial EKG on arrival here showed a normal sinus rhythm with a right bundle branch block and left anterior fascicular block. Chest x-ray shows borderline cardiomegaly. Subsequent EKG performed shows a sinus bradycardia with a heart rate in the 50s. At pressure 138/60 with a heart rate in the 60s, temperature 97.9. White blood cell count 5.2, hemoglobin 8.5, platelet count 101. D-dimer 0.3. Magnesium level on admission 1.4, 1.9 this morning. INR 2.2. Troponins 0.028, 0.15, 0.15. TSH is normal. At the time of my examination this morning, patient is lying comfortably in bed, denies any shortness of breath, denies any chest discomfort. 08/06/2017 Patient was seen and examined this morning, feeling better this morning, however through the night last night had significant chest tightness. At that same time patient went into rapid atrial fibrillation. He has since converted and this morning is in a normal sinus rhythm to sinus bradycardia. We did have a discussion with the patient and his son this morning, we will start the patient on flecainide, we will also add Cardizem 60 mg 3 times a day to his medication regime. If the patient becomes significantly bradycardic on these medications a permanent pacemaker will be implanted during this admission, and once Dr. Lau is back patient then can undergo ablation. This was explained to the son and the patient in detail and they're both willing to proceed. Hemoglobin today is 8.6, platelet count 95, INR 1.9, BUN 50, creatinine 1.6. 08/07/2017 Patient seen and examined this morning, no further episodes of rapid atrial fibrillation were noted through the night the patient overall states he doesn't feel well. He states he gets quite shaky, and is uncertain if it is from his new medication. He also feels it may be secondary to his treatment. He remains in a normal sinus rhythm this morning with a heart rate in the 60s. Blood pressure 130/60 with a heart rate in the 70s, 97% on 2 L of oxygen. White blood cell count 5.5, hemoglobin 8.0, platelet count 95. INR 2.0. Sodium 142, potassium 4.9, BUN 58, creatinine 1.7. 08/08/2017 Patient seen and examined this morning, no rapid A. fib noted through the night last night, no significant bradycardia. He complains this morning of feeling extremely weak. Blood pressure 130/60 with a heart rate in the 60s, 95% on 2 L of oxygen. 08/11/2017 Patient was seen and examined this morning, continues to be in a normal sinus rhythm. We will continue him on the current medications he is on, a follow-up appointment will be made with in the office post discharge. Objective - Vital Signs Vital signs: Vital Signs Temp 97.4 F L 08/11/17 12:00 Pulse 66 08/11/17 12:00 Resp 18 08/11/17 12:00 BP 151/71 08/11/17 12:00 Pulse Ox 94 L 08/11/17 12:00 Intake & Output 08/10/17 08/11/17 08/11/17 18:59 06:59 18:59 Intake Total 600 360 Balance 600 360 Weight 97.2 kg 97.2 kg Intake: Oral 600 360 Other: Voiding Method Toilet Toilet Urinal Urinal # Voids 2 1 1 - Exam PHYSICAL EXAMINATION: HEENT: Head is atraumatic, normocephalic. Pupils equal, round. Neck is supple. There is no elevated jugular venous pressure. HEART EXAMINATION: Heart S1, S2 normal. No murmur or gallop heard. CHEST EXAMINATION: Lungs reveal coarse rales at the bases. ABDOMEN: Soft, nontender. Bowel sounds are heard. No organomegaly noted. EXTREMITIES: 2+ peripheral pulses with no evidence of peripheral edema and no calf tenderness noted. NEUROLOGIC patient is awake, alert and oriented -3. - Labs CBC & Chem 7: 08/11/17 05:35 08/11/17 05:35 Labs: Abnormal Lab Results - Last 24 Hours (Table) 08/10/17 08/11/17 08/11/17 Range/Units 16:48 05:35 05:35 RBC 2.91 L (4.30-5.90) m/uL Hgb 8.3 L (13.0-17.5) gm/dL Hct 27.8 L (39.0-53.0) % MCHC 29.7 L (31.0-37.0) g/dL RDW 16.5 H (11.5-15.5) % Plt Count 125 L (150-450) k/uL Lymphocytes # 0.8 L (1.0-4.8) k/uL PT (9.0-12.0) sec INR (<1.2) Potassium 5.5 H (3.5-5.1) mmol/L Carbon Dioxide 31 H (22-30) mmol/L BUN 58 H (9-20) mg/dL Creatinine 1.53 H (0.66-1.25) mg/dL POC Glucose (mg/dL) 150 H (75-99) mg/dL AST 11 L (17-59) U/L Total Protein 4.7 L (6.3-8.2) g/dL Albumin 2.8 L (3.5-5.0) g/dL 08/11/17 Range/Units 05:35 RBC (4.30-5.90) m/uL Hgb (13.0-17.5) gm/dL Hct (39.0-53.0) % MCHC (31.0-37.0) g/dL RDW (11.5-15.5) % Plt Count (150-450) k/uL Lymphocytes # (1.0-4.8) k/uL PT 25.3 H (9.0-12.0) sec INR 2.8 H (<1.2) Potassium (3.5-5.1) mmol/L Carbon Dioxide (22-30) mmol/L BUN (9-20) mg/dL Creatinine (0.66-1.25) mg/dL POC Glucose (mg/dL) (75-99) mg/dL AST (17-59) U/L Total Protein (6.3-8.2) g/dL Albumin (3.5-5.0) g/dL Assessment and Plan Plan: Assessment and plan #1 atrial fibrillation with rapid ventricular response, paroxysmal, patient has known history of atrial fibrillation. Patient currently in normal sinus rhythm. #2 chest tightness and heaviness, possible acute coronary syndrome. Troponins 0.028, 0.152, 0.155. Normal sinus rhythm morning with right bundle branch block pattern and left anterior fascicular block. 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 #14 chronic renal failure, Plan From cardiology's perspective, we will recommend to continue the patient on his current medications. Follow-up appointment with Dr. Lau in the office post discharge. DNP note has been reviewed, I agree with a documented findings and plan of care. Patient was seen and examined.
[2017-08-11] MEDS ORDERED: WARFARIN 2 MG TAB PO SCH (18:00)
== END 2017-08-11 16:11 | DRG 308 ==
LOC: EC 09:07 → 6SEL 13:34
PROVIDERS: ADMIT Internal Medicine Geriatric Medicine; ATTEND Internal Medicine Geriatric Medicine
PROC: 5A09357 Assistance with Respiratory Ventilation, Less than 24 Consecutive Hours, Continuous Positive Airway Pressure (ICD-10-PCS; principal; 2017-08-06)
DX: I49.5 Sick sinus syndrome (principal); J96.21 Acute and chronic respiratory failure with hypoxia; C91.10 Chronic lymphocytic leukemia of B-cell type not having achieved remission; D59.1 Other autoimmune hemolytic anemias; E66.2 Morbid (severe) obesity with alveolar hypoventilation; I13.0 Hypertensive heart and chronic kidney disease with heart failure and stage 1 through stage 4 chronic kidney disease, or unspecified chronic kidney disease; I50.32 Chronic diastolic (congestive) heart failure; L03.90 Cellulitis, unspecified; G61.0 Guillain-Barre syndrome; I45.2 Bifascicular block; I48.0 Paroxysmal atrial fibrillation; E11.22 Type 2 diabetes mellitus with diabetic chronic kidney disease; E11.51 Type 2 diabetes mellitus with diabetic peripheral angiopathy without gangrene; E78.5 Hyperlipidemia, unspecified; E83.42 Hypomagnesemia; F41.9 Anxiety disorder, unspecified; I25.119 Atherosclerotic heart disease of native coronary artery with unspecified angina pectoris; I25.2 Old myocardial infarction; I27.20 Pulmonary hypertension, unspecified; J44.9 Chronic obstructive pulmonary disease, unspecified; J84.112 Idiopathic pulmonary fibrosis; N18.3 Chronic kidney disease, stage 3 (moderate); N40.0 Benign prostatic hyperplasia without lower urinary tract symptoms; T46.2X5A Adverse effect of other antidysrhythmic drugs, initial encounter; R01.1 Cardiac murmur, unspecified; R26.81 Unsteadiness on feet; R77.9 Abnormality of plasma protein, unspecified; M10.9 Gout, unspecified; Z79.01 Long term (current) use of anticoagulants; Z79.52 Long term (current) use of systemic steroids; Z79.82 Long term (current) use of aspirin; Z79.899 Other long term (current) drug therapy; Z88.5 Allergy status to narcotic agent; Z88.8 Allergy status to other drugs, medicaments and biological substances; Z87.01 Personal history of pneumonia (recurrent); Z98.42 Cataract extraction status, left eye; Z98.41 Cataract extraction status, right eye; Z96.1 Presence of intraocular lens; Z96.652 Presence of left artificial knee joint; Z87.891 Personal history of nicotine dependence; Z68.30 Body mass index [BMI] 30.0-30.9, adult; Z82.49 Family history of ischemic heart disease and other diseases of the circulatory system; Z80.9 Family history of malignant neoplasm, unspecified
CPT/HCPCS: 36415; 71046; 80053; 80061; 82550; 82553; 83735; 84443; 84484; 85025; 85379; 85610; 85730; 93005; 94640; 94760; 96360; 96361; 99291